=== PATIENT | male | born 1940 | race Caucasian/White ===

== ENCOUNTER → 2024-09-13 | Outpatient (REF) | payer OTHER, SELFPAY ==
[2024-09-13 10:05] LABS: Hematocrit 34.3 % (40-54); Hemoglobin 11.1 g/dL (13.0-16.5); Mean Corp Hgb Conc 32.4 g/dL (32-36); Mean Corpuscular Hgb 30.8 pg (27.0-32.0); Mean Corpuscular Volume 95.3 fL (80-94); Mean Platelet Vol. 10.5 fl (6.2-12.0); Platelet Count 447 K/mm3 (150-450); RBC Distribution Width CV 15.5 % (11.6-14.6); RBC Distribution Width SD 54.1 fl (35.1-43.9); White Blood Count 8.2 K/mm3 (4.4-11.0)
[2024-09-13 10:52] LABS: Hemoglobin A1c 6.9 % (<=5.6)
[2024-09-13 11:27] LABS: Anion Gap 11 (5-15); BUN 22 mg/dL (4-19); BUN/Creat Ratio 31.1 RATIO (10-20); Calcium,Total 8.5 mg/dL (7.6-11.0); Carbon Dioxide 24.6 mmol/L (21.0-32.0); Chloride 104 mmol/L (98-108); EST Glomerular Filtration Rate 92 (>60); Glucose 101 mg/dL (70-99); Magnesium 1.8 mg/dL (1.5-2.2); Potassium 4.5 mmol/L (3.3-5.1); Sodium Level 140 mmol/L (133-145); Vitamin D,25 Hydroxy 41.4 ng/mL (30-100)
[2024-09-13 11:42] LABS: Cholesterol 111 mg/dL (<=200); High Density Lipoprotein 29 mg/dL; Low Density Lipoprotein Calc. 62 mg/dL; Triglycerides 100 mg/dL; Very Low Density Lipoprotein 20 mg/dL (5-40)
[2024-09-14 04:55] LABS: PSA,Total - Annual Screen < 0.02 ng/mL (0.02-4.00)
== END ==
LOC: OLS.ACW400 05:00
PROVIDERS: Visit Provider Family Medicine
DX: C61 Malignant neoplasm of prostate (principal); G93.41 Metabolic encephalopathy; A41.9 Sepsis, unspecified organism; N39.0 Urinary tract infection, site not specified; E73.9 Lactose intolerance, unspecified; E11.65 Type 2 diabetes mellitus with hyperglycemia
CPT/HCPCS: 36415; 80048; 80061; 82306; 83036; 83735; 84153; 84443; 85027; G0103

== ENCOUNTER → 2024-12-11 | Outpatient (REF) | payer MEDICARE, SELFPAY ==
--- OUTSIDE RECORDS SUMMARY | 2024-12-11 04:11 | XMS RPT_ITS | CCD ---
Author Organization [facility] Care Team Providers Care [employer] Body Maker Name Role Phone Katerin Ham MD Primary Care Provider KATERIN HAM Attending KATERIN Miranda Primary Care UnavailBUTCH Bhandari MD Attending ROZ Jose Primary Care Unavailable Katerin Ham MD Primary Care Provider KATERIN HAM Primary Care UnavailZANDER Nicole Attending Unavailable FUENTES, UPMA Admitting Unavailable FUENTES, UPMA Attending Unavailable KATERIN HAM Primary Care UnavailULYSSES Jolly Consulting Unavailable Junior Garrett PA-C Unavailable ANA KIRBY Attending Unavailable ANN POON Consulting Unavailable KATERIN HAM Primary Care UnavailYVROSE Lockett Admitting Unavailable FELICIANO ORTEGA Consulting Unavailable PHILLIP ALEVISM Admitting Unavailable MICHAEL LEWIS Attending Unavaila KATERIN Riddle Primary Care UnavailGalilea Forrest MD Primary Care Provider [phone] Galilea Sue Attending Provider UnavailGalilea Regan Attending Unavailable GALILEA ADKINS Primary Care Unavailable MARIANNA LONGO Admitting Unavailable GINGER CRUZ Attending Unavailable Medications Current Medications Medication Drug Class(es) Dates Sig (Normalized) Sig (Original) albuterol 0.833 mg/ml / ipratropium bromide 0.167 mg/ml inhalation solution (7 sources) Anticholinergic, beta2-Adrenergic Agonist Start: 07-04-2024 take 3 mL by inhalation twice daily ipratropium-albut oscar (DUONEB) 0.5 mg-3 mg(2.5 mg base)/3 mL nebu Indications: Nicotine use disorder Inhale 3 mL as instructed two times a day. 60 Each 07/04/2024 Active Start: 03-23-2024 End: 07-04-2024 take 3 mL by inhalation every eight hours ipratropium-albuterol (DUONEB) 0.5 mg-3 mg(2.5 mg base)/3 mL nebu Inhale 3 mL as instructed every 8 hours. 03/23/2024 07/04/2024 Discontinued take 20-100 ug by in halation twice daily ipratropium-albuterol (Combivent Respimat) 20-100 MCG/ACT inhaler Inhale 1 puff 2 times daily. Active ascorbic acid 500 mg extended release oral capsule (11 sources) Vitamin C take 1 capsule by mo uth twice daily ascorbic acid (Vitamin C) 500 MG ER capsule Take 500 mg by mouth 2 times daily. Active take 1 tablet by mouth twice michelle ly ascorbic acid, vitamin C, (VITAMIN C) 500 mg tablet Take 500 mg by mouth two times a day. Active ASCORBIC ACID OR AL Take by mouth. 0 Active Comment on above: Take by mouth. furosemide 40 mg oral tablet (5 sources) Loop Diuretic Start: 03-23-2024 End: 07-04-2024 take 1 tablet by mouth once daily as needed furosemide (LASIX) 40 mg tablet Take 1 tablet by mouth once daily as needed (LEG SWELLING). 30 tablet 07/04/2024 Active lycopene 10 mg oral capsule (11 sources) Lycopene 10 MG capsule Take 25 mg by mouth daily. Active take 1 capsule by mo uth once daily at bedtime lycopene 10 mg cap Take 10 mg by mouth daily at bedtime. Active LYCOPENE ORAL Ta ke by mouth. 0 Active Comment on above: Take by mouth. Philo 3-6-9 Fatty Acids (OMEGA 3-6-9 COMPLEX PO) (2 sources) take 400 mg by mouth twice daily Philo 3-6-9 Fatty Acids (OMEGA 3-6-9 COMPLEX PO) Take 400 mg by mouth 2 times daily. Active [id number]-6-[id number]-EPA-DPA-FI SH OIL ORAL (8 sources) take 1 capsule by mouth twice daily MMDJB-6-WIE-EPA-DPA-FI SH OIL ORAL Take 1 capsule by mouth two times a day. Active ondansetron 4 mg disintegrating oral tablet (7 sources) Serotonin-3 Receptor Antagonist Start: 03-23-20 24 take 1 tablet by mouth every six hours as needed ondansetron orally disintegrating (ZOFRAN ODT) 4 mg disintegrating tablet Take 1 tablet by mouth every 6 hours as needed for nausea/vomiting. 03/23/2024 Active polyvinyl alcohol 0.014 ml/ml ophthalmic solution (2 sources) take 1 drop(s) into the eye(s) once daily polyvinyl alcohol (Liquifilm Tears) 1.4 % ophthalmic solution Administer 1 drop into both eyes daily. Active potassium chloride 8 meq extended release oral tablet (4 sources) Start: 07-05-19 25 Potassium Chloride (SLOW-K) 8 mEq tablet Take 1 tablet by mouth two times a day. 60 tablet 07/04/2024 Active take 1 tablet by mouth twice michelle ly potassium chloride CR (Klor-Con) 8 MEQ ER tablet Take 8 mEq by mouth 2 times daily. Do not crush, chew, or split. Active trospium chloride 20 mg oral tablet (7 sources) Cholinergic Muscarinic Antagonist Start: 03-23-2024 take 1 tablet by mouth twice daily before mealtime trospium (SANCTURA) 20 mg tablet Take 1 tablet by mouth two times a day before meals. 03/23/2024 Active ubidecarenone 50 mg oral capsule (11 sources) take 2 capsules by mouth once daily coenzyme Q-10 50 MG capsule Take 100 mg by mouth daily. Active ubidecarenone Q- 10 (COENZYME Q-10) 10 mg cap Take by mouth twice daily. Active Comment on above: Take by mouth twice daily. Completed/Discontinued Medications Medication Drug Class(es) Dates Sig (Normalized) Sig (Original) Acetaminophen (9 sources) Start: 11-04-2024 End: 11-05-2024 take 1 tablet by mouth every six hours as needed for pain and fever acetaminophen (Tylenol) tablet 650 mg Start: 03-23-2024 take 2 tablets by mo uth every six hours as needed acetaminophen (TYLENOL) 325 mg tablet Take 2 tablets by mouth every 6 hours as needed for pain. 03/23/2024 Active apixaban 5 mg oral tablet (13 sources) Factor Xa Inhibitor Start: 11-04-2024 End: 11-05-2024 take 5 mg by mouth twice daily 5 mg, Oral, 2 times daily, First dose on 11/04/24 at 2100, Anticoagulant Comment on above: Take 5 mg by mouth t wice daily. atenolol 50 mg oral tablet (1 source) beta-Adrenergic Keesha take 50 mg by mouth once daily ATENOLOL ORAL Take 50 mg by mouth once daily. 0 Active Comment on above: Take 50 mg by mouth once daily. atorvastatin 20 mg oral tablet (13 sources) HMG-CoA Reductase Inhibitor Start: 11-04-2024 End: 11-05-2024 take 20 mg by mouth once daily 20 mg, Oral, Nightly, First dose on 11/04/24 at 2100 take 10 mg by mouth once daily a torvastatin (LIPITOR) 20 mg tablet Take 10 mg by mouth once daily. 0 Active Comment on above: Take 10 mg by mouth once daily. cholecalciferol 0.025 mg oral tablet (12 sources) Vitamin D Start: 11-05-2024 End: 11-05-2024 take 25 ug by mouth once daily 25 mcg, Oral, Daily, First dose on 11/05/24 at 0900 take 1 tablet by mouth twice michelle ly cholecalciferol (Vitamin D-3) 25 MCG tablet Take 25 mcg by mouth 2 times daily. Active take 1 tablet by mouth twice michelle ly cholecalciferol (VITAMIN D3) 1,000 unit tab tablet Take 1,000 Units by mouth two times a day. Active cholecalciferol 9.52 unt/ml / glucose 357 mg/ml oral gel (2 sources) Vitamin D Start: 11-04-2024 End: 11-05-2024 CHOLECALCIFEROL, VITAMIN D3, ORAL (1 source) CHOLECALCIFEROL , VITAMIN D3, ORAL Take 100 tablets by mouth. 0 Active Comment on above: Take 100 tablets by mouth. 24 hr dilTIAZem hydrochloride 240 mg extended release oral capsule (11 sources) Calcium Channel Keesha Start: 11-05-2024 End: 11-05-2024 take 240 mg by mouth once daily 240 mg, Oral, Daily, First dose on 11/05/24 at 0900, Do not crush, chew, or split. Start: 03-24-2024 take 1 capsule by [facility] once daily dilTIAZem CD 360 mg 24 hr capsule Take 1 capsule by mouth once daily. 03/24/2024 Active docosahexaenoic acid/epa (FISH OIL ORAL) (1 source) docosahexaenoic acid/epa (FISH OIL ORAL) Take by mouth. 0 Active Comment on above: Take by mouth. escitalopram 10 mg oral tablet (6 sources) Serotonin Reuptake Inhibitor Start: End: take 10 mg by mouth once daily 10 mg, Oral, Daily, First dose on 11/05/24 at 0900 garlic preparation 500 mg oral capsule (1 source) Non-Standardized Food Allergenic Extract GARLIC ORAL Take 500 mg by mouth. 0 Active Comment on above: Take 500 mg by mouth . glucagon (rdna) 1 mg injection (2 sources) Antihypoglycemic Agent Start: End: 50 ml glucose 50 mg/ml injection (4 sources) Start: End: Start: 11-04-2024 End: 11-05-2024 glycerin 3 mg/ml / propylene glycol 10 mg/ml ophthalmic solution (2 sources) Non-Standardized Chemical Allergen Start: 11-05-2024 End: 11-05-2024 1 drop, Both Eyes, Daily, First dose on 11/05/24 at 0900 Insulin Lispro (Humalog) injection 0-6 Units (2 sources) Start: 11-04-2024 End: 11-05-2024 Insulin Lispro (Humalog) injection 0-6 Units lactase 3000 unt oral tablet (4 sources) Start: 11-04-2024 End: 11-05-2024 take 9000 [IU] by mouth three times daily at mealtime 9,000 Units, Oral, 3 times daily with meals, First dose on 11/04/24 at 1900 take 3 tablets by [facility] three times daily at mealtime lactase (Lactaid) 3000 units tablet Take 9,000 Units by mouth 3 times daily (with meals). Active levETIRAcetam 500 mg oral tablet (12 sources) Start: 03-23-2024 End: 11-05-2024 take 500 mg by mouth twice daily 500 mg, Oral, 2 times daily, First dose on 11/04/24 at 2100, Do not crush or chew. Start: 05-01-2017 take 1 tablet by spenser th twice daily levETIRAcetam (KEPPRA) 750 mg tablet Take 1 tablet by mouth twice daily. 60 tablet 2 05/01/2017 Active Comment on above: Take 1 tablet by spenser th twice daily. losartan potassium 100 mg oral tablet (1 source) Angiotensin 2 Receptor Keesha take 1 tablet by mouth once daily losartan (COZAAR) 100 mg tablet Take 100 mg by mouth once daily. 0 Active Comment on above: Take 100 mg by mouth once daily. metFORMIN hydrochloride 500 mg oral tablet (6 sources) Biguanide Start: End: metoprolol tartrate 50 mg oral tablet (11 sources) beta-Adrenergic Keesha Start: End: Start: 03-23-2024 take 1 tablet by spenser th every twelve hours metoprolol tartrate, short acting, (LOPRESSOR) 100 mg tablet Take 1 tablet by mouth every 12 hours. 03/23/2024 Active 24 hr mirabegron 50 mg extended release oral tablet (4 sources) beta3-Adrenergic Agonist End: 07-04-2024 take 50 mg by mouth once daily mirabegron (MYRBETRIQ) 50 mg Tb24 Take 50 mg by mouth once daily. 07/04/2024 Discontinued pantoprazole 40 mg delayed release oral tablet (9 sources) Proton Pump Inhibitor Start: 07-05-2024 End: 11-05-2024 take 40 mg by mouth once daily before breakfast 40 mg, Oral, Daily before breakfast, First dose on 11/05/24 at 0600, Do not crush, chew, or split. Start: 03-23-2024 End: 07-04-2024 take 1 tablet by mouth twice daily before mealtime pantoprazole DR (PROTONIX) 40 mg tablet Take 1 tablet by mouth two times a day before meals. 03/23/2024 07/04/2024 Discontinued polyethylene glycol 3350 23689 mg powder for oral solution (2 sources) Osmotic Laxative Start: 11-04-2024 End: 11-05-2024 take 17 g by mouth every twenty-four hours as needed for constipation potassium gluconate 2.5 meq oral tablet (5 sources) End: 07-04-2024 take 1 tablet by mouth once daily Potassium Gluconate 2.5 mEq tab Take 2.5 mEq by mouth once daily. 07/04/2024 Discontinued POTASSIUM GLUCON ATE ORAL Take by mouth. 0 Active Comment on above: Take by mouth. 50 ml sodium chloride 9 mg/ml injection (2 sources) Start: 11-04-2024 End: 11-04-2024 1,000 mL, IntraVENous, at 1,000 mL/hr, Administer over 1 Hours, Once, On 11/04/24 at 1600, For 1 dose tamsulosin hydrochloride 0.4 mg oral capsule (13 sources) alpha-Adrenergic Keesha Start: 11-05-2024 End: 11-05-2024 take 0.8 mg by mouth once daily 0.8 mg, Oral, Daily, First dose on 11/05/24 at 0900, Do not crush, chew, or split. Comment on above: Take 0.8 mg by mouth daily at bedtime. Problems Active Problems Problem Classification Problem Date Documented Date Episodic/Chronic Acute cerebrovascular disease (12 sources) Cerebrovascular accident; Translations: [Cerebral infarction, unspecified] Onset: 04-29-2017 05-01-2017 Chronic Cancer of bladder (10 sources) Malignant tumor of urinary bladder; Translations: [Malignant neoplasm of bladder, unspecified] Onset: 06-26-2021 06-26-2021 Chronic Cancer of prostate (10 sources) Malignant tumor of prostate; Translations: [Malignant neoplasm of prostate] Onset: 06-26-2021 06-26-2021 Chronic Cardiac dysrhythmias (20 sources) Atrial fibrillation with rapid ventricular response; Translations: [Unspecified atrial fibrillation] Onset: 04-29-2017 Resolved: 03-23-2024 05-01-2017 Chronic Cardiac dysrhythmias (8 sources) Bradycardia; Translations: [Bradycardia, unspecified] Onset: 11-04-2024 11-04-2024 Episodic Chronic obstructive pulmonary disease and bronchiectasis (10 sources) Centriacinar emphysema; Translations: [Centrilobular emphysema] Onset: 03-20-2024 03-21-2024 Chronic Congestive heart failure; nonhypertensive (8 sources) Acute on chronic diastolic heart failure; Translations: [Acute on chronic diastolic (congestive) heart failure] Onset: 03-14-2024 Resolved: 03-23-2024 03-23-2024 Chronic Diabetes mellitus with complications (1 source) Type 2 diabetes mellitus with hyperglycemia; Translations: [Type 2 diabetes mellitus with hyperglycemia] Onset: 11-17-2024 Chronic Disorders of lipid metabolism (11 sources) Mixed hyperlipidemia; Translations: [Mixed hyperlipidemia] Onset: 04-29-2017 06-26-2021 Chronic E Codes: Fall (5 sources) Unspecified fall, initial encounter; Translations: [Fall] Onset: 09-06-2024 11-04-2024 Episodic Epilepsy; convulsions (20 sources) Seizure disorder; Translations: [Epilepsy, unspecified, not intractable, without status epilepticus] Onset: 04-29-2017 Resolved: 05-01-2017 06-26-2021 Chronic Essential hypertension (14 sources) Essential hypertension; Translations: [Essential (primary) hypertension] Onset: 06-26-2021 06-26-2021 Chronic Fever of unknown origin (1 source) Fever, unspecified; Translations: [Febrile illness] Onset: 09-06-2024 Episodic Malaise and fatigue (1 source) Weakness; Translations: [Weakness] Onset: 09-06-2024 Episodic Miscellaneous mental health disorders (2 sources) Primary insomnia; Translations: [Primary insomnia] 07-27-2024 Chronic Mood disorders (6 sources) Severe major depression, single episode, without psychotic features; Translations: [Major depressive disorder, single episode, severe without psychotic features] Onset: 06-27-2024 06-27-2024 Chronic Mood disorders (1 source) Mood disorders; Translations: [Depression with suicidal ideation] Onset: 06-26-2024 Nutritional deficiencies (6 sources) Undernutrition; Translations: [Mild protein-calorie malnutrition] Onset: 06-30-2024 06-30-2024 Chronic Other circulatory disease (1 source) Hypotension, unspecified; Translations: [Hypotension, unspecified hypotension type] Onset: 09-06-2024 Episodic Other circulatory disease (3 sources) Idiopathic hypotension; Translations: [Idiopathic hypotension] Onset: 11-04-2024 11-04-2024 Episodic Other circulatory disease (1 source) Idiopathic hypotension; Translations: [Idiopathic hypotension] Onset: 11-04-2024 Episodic Other nervous system disorders (1 source) Metabolic encephalopathy; Translations: [Metabolic encephalopathy] Onset: 11-17-2024 Chronic Other nutritional; endocrine; and metabolic disorders (1 source) Lactose intolerance, unspecified; Translations: [Lactose intolerance, unspecified] Onset: 11-17-2024 Chronic Residual codes; unclassified (3 sources) Insomnia; Translations: [Insomnia, unspecified] Onset: 07-27-2024 07-27-2024 Episodic Septicemia (except in labor) (1 source) Sepsis, unspecified organism; Translations: [Sepsis, unspecified organism] Onset: 11-17-2024 Episodic Substance-related disorders (10 sources) Nicotine dependence; Translations: [Nicotine dependence, unspecified, uncomplicated] Onset: 04-29-2017 05-01-2017 Chronic Suicide and intentional self-inflicted injury (1 source) Suicidal ideations; Translations: [Depression with suicidal ideation] Onset: 06-26-2024 Episodic Urinary tract infections (2 sources) Acute cystitis without hematuria; Translations: [Urinary tract infection, site not specified] Onset: 09-06-2024 Episodic Past or Other Problems Problem Classification Problem Date Documented Date Episodic/Chronic Nausea and vomiting (8 sources) Nausea and vomiting; Translations: [Nausea with vomiting, unspecified] Onset: 03-21-2024 Resolved: 03-23-2024 03-23-2024 Episodic Nonspecific chest pain (1 source) Chest pain, unspecified; Translations: [Chest pain, unspecified type] Onset: 03-13-2024 Episodic Other circulatory disease (9 sources) History of cerebrovascular accident; Translations: [Personal history of transient ischemic attack (TIA), and cerebral infarction without residual deficits] Onset: 06-26-2021 06-26-2021 Episodic Other circulatory disease (1 source) Personal history of transient ischemic attack (TIA), and cerebral infarction without residual deficits; Translations: [H/O: stroke] Onset: 06-26-2021 Episodic Other lower respiratory disease (8 sources) Acute pulmonary edema; Translations: [Acute pulmonary edema] Onset: 03-17-2024 Resolved: 03-23-2024 03-23-2024 Episodic Other lower respiratory disease (1 source) Shortness of breath; Translations: [SOB (shortness of breath)] Onset: 03-13-2024 Episodic Other lower respiratory disease (1 source) Hypoxemia; Translations: [Hypoxia] Onset: 03-13-2024 Episodic Pneumonia (except that caused by tuberculosis or sexually transmitted disease) (8 sources) Pneumonia; Translations: [Pneumonia, unspecified organism] Onset: 03-20-2024 Resolved: 03-23-2024 03-23-2024 Episodic Respiratory failure; insufficiency; arrest (adult) (8 sources) Acute hypoxemic respiratory failure; Translations: [Acute respiratory failure with hypoxia] Onset: 04-29-2017 Resolved: 03-23-2024 03-23-2024 Episodic Syncope (8 sources) Vasovagal syncope; Translations: [Syncope and collapse] Onset: 03-21-2024 Resolved: 03-23-2024 03-23-2024 Episodic Results Test Name Value Interpretation Reference Range Facility 30on 11-05-2024 30 Problem: Cardiovascular - Adult Goal: Maintains optimal cardiac output and hemodynamic stability Outcome: Progressing Goal: Absence of cardiac dysrhythmias or at baseline Outcome: Progressing Problem: Skin/Tissue Integrity - Adult Goal: Skin integrity remains intact Outcome: Progressing Problem: Musculoskeletal - Adult Goal: Return ADL status to a safe level of function Outcome: Progressing Problem: Metabolic/Fluid and Electrolytes - Adult Goal: Electrolytes maintained within normal limits Outcome: Progressing Goal: Hemodynamic stability and optimal renal function maintained Outcome: Progressing Normal [facility] [id number] 11-05-2024 [id number] Pt to dc back to facility today - Facility aware and RN to call report and set up transportation. SYED is complete by provider and myself. CM placed call to son earlier in the day, discussed discharge - he is aware that father is returning to facility today. [facility] [id number] Pt is from [facility] in [place] - Return placed in [facility] - Pt is from [facility] and is in LTC. He can return when stable. Number to call report is: [phone] - [address] [facility] BASIC METABOLIC PANELon 07-2 Anion gap [Moles/Vol] 8 mmol/L Normal 3-13 [facility] Comment on above: Performed By: #### L [id number] ####Headwaiter/Headwaitress: LEONIE GONCALVES ([phone])[facility] ([facility])[address] [place] [address] Calcium [Mass/Vol] 7.8 mg/dL Low 8.8-10.0 [facility] Comment on above: Performed By: #### L [id number] ####Headwaiter/Headwaitress: LEONIE GONCALVES ([phone])[facility] [place] [address] Chloride [Moles/Vol] 109 mmol/L High 98-107 [facility] Comment on above: Performed By: #### L [id number] ####Headwaiter/Headwaitress: LEONIE GONCALVES ([phone])[facility] ([facility])[address] [place] [address] CO2 [Moles/Vol] 20 mmol/L Low 23-31 [facility] Comment on above: Performed By: #### L [id number] ####Headwaiter/Headwaitress: LEONIE GONCALVES ([phone])[facility] ([facility])[address] [place] [address] Creatinine [Mass/Vol] 0.65 mg/dL Low 0.72-1.25 [facility] Comment on above: Performed By: #### L [id number] ####Headwaiter/Headwaitress: LEONIE GONCALVES ([phone])[facility])[address] [place] [address] GLOMERULAR FILTRATION RATE ML/MIN/1.73 SQ M.PREDICTED >90.0 Normal >60.0 [facility] Comment on above: Result Comment: Calc ulation based on the Chronic Kidney Disease Epidemiology Collaboration (CKD-EPI) equation refit without adjustment for race Performed By: #### L [id number] ####Headwaiter/Headwaitress: LEONIE GONCALVES ([phone])[facility] ([facility])[address] [place] [address] [place] Glucose [Mass/Vol] 143 mg/dL High 82-115 [facility] Comment on above: Performed By: #### L [id number] ####Headwaiter/Headwaitress: LEONIE GONCALVES ([phone])[facility] ([facility])[address] [place] [address] [place] Potassium [Moles/Vol] 3.8 mmol/L Normal 3.5-5.1 [facility] Comment on above: Result Comment: [facility] potassium values may be up to 0.5 mmol/L lower than serum values. Performed By: #### L [id number] ####Headwaiter/Headwaitress: LEONIE GONCALVES ([phone])[facility] ([facility])[address] [place] [address] Sodium [Moles/Vol] 137 mmol/L Normal 136-145 [facility] Comment on above: Performed By: #### L [id number] ####Headwaiter/Headwaitress: LEONIE GONCALVES ([phone])[facility] ([facility])[address] [place] [address] Urea nitrogen [Mass/Vol] 19 mg/dL Normal 9-23 [facility] Comment on above: Performed By: #### L [id number] ####Headwaiter/Headwaitress: LEONIE GONCALVES ([phone])[facility] ([facility] [place] [address] Basic metabolic 1998 panelon 11-05-2024 Anion gap [Moles/Vol] 8 mmol/L 3 - 13 mmol/L [facility] Calcium [Mass/Vol] 7.8 mg/dL Low 8.8 - 10. 0 mg/dL [facility] Chloride [Moles/Vol] 109 mmol/L High 98 - 10 7 mmol/L [facility] CO2 [Moles/Vol] 20 mmol/L Low 23 - 31 mmol/L [facility] Creatinine [Mass/Vol] 0.65 mg/dL Low 0.72 - 1.25 mg/dL [facility] GFR/1.73 sq M.predicted (S/P/Bld) [Vol rate/Area] - PINF [facility] Comment on above: Calculation based on the Chronic Kidney Disease Epidemiology Collaboration (CKD-EPI) equation refit without adjustment for race Glucose [Mass/Vol] 143 mg/dL High 82 - 115 mg/dL [facility] Interpretation and review of laboratory results Abnormal [facility] Potassium [Moles/Vol] 3.8 mmol/L 3.5 - 5.1 mmol/L [facility] Comment on above: Plasma potassium kyle ues may be up to 0.5 mmol/L lower than serum values. Sodium [Moles/Vol] 137 mmol/L 136 - 145 mmol/L [facility] Urea nitrogen [Mass/Vol] 19 mg/dL 9 - 23 mg/d L [facility] CBC W Auto Differential pane l (Bld)Ordered By: Mackenzie Sandoval on 11-05-2024 Erythrocyte distribution width (RBC) [Ratio] 14.8 % 11.5 - 15.0 % [facility] Hematocrit (Bld) [Volume fraction] 29.2 % Low 40.0 - 52.0 % [facility] Hemoglobin (Bld) [Mass/Vol] 9.7 g/dL Low 13.0 - 18.0 g/dL [facility] Interpretation and review of laboratory results Abnormal [facility] MCH (RBC) [Entitic mass] 31.9 pg 26. 0 - 34.0 pg [facility] MCHC (RBC) [Mass/Vol] 33.2 % 30.5 - 36.0 % [facility] MCV (RBC) [Entitic vol] 96.1 fL 77.0 - 99.0 fL [facility] Platelet mean volume (Bld) [Entitic vol] 10.8 fL 9.0 - 12.7 fL [facility] Platelets (Bld) [#/Vol] 220 10*3/uL 140 - 440 10*3/uL [facility] RBC (Bld) [#/Vol] 3.04 10*6/uL Low 4.40 - 5.9 0 10*6/uL [facility] WBC (Bld) [#/Vol] 6.6 10*3/uL 3.6 - 10.7 10*3/uL [facility] CBC WITH AUTO DIFFERENTIALon 11-05-2024 Erythrocyte distribution width (RBC) [Ratio] 14.8 % Normal 11.5-15.0 [facility] Comment on above: Performed By: #### L [id number], [id number] ####Headwaiter/Headwaitress: LEONIE GONCALVES ([id number])[address] Hematocrit (Bld) [Volume fraction] 29.2 % Low 40.0-52.0 [facility] Comment on above: Performed By: #### L [id number], [id number] ####Headwaiter/Headwaitress: LEONIE GONCALVES ([phone])[facility] ([facility])[address] [place] [address] Hemoglobin (Bld) [Mass/Vol] 9.7 g/dL Low 13.0-18.0 [facility] Comment on above: Performed By: #### L [id number], [id number] ####Headwaiter/Headwaitress: LEONIE GONCALVES ([phone])[facility])[address] [place] [address] MCH (RBC) [Entitic mass] 31.9 pg Normal 26.0-34.0 [facility] Comment on above: Performed By: #### L [id number], [id number] ####Headwaiter/Headwaitress: LEONIE GONCALVES ([phone])[facility])[address] [place] [address] MCHC 33.2 % Normal 30.5-36.0 [facility] Comment on above: Performed By: #### L [id number], [id number] ####Headwaiter/Headwaitress: LEONIE GONCALVES ([phone])[facility] ([facility])[address] [place] [address] MCV (RBC) [Entitic vol] 96.1 fL Normal 77.0-99.0 [facility] Comment on above: Performed By: #### L [id number], [id number] ####Headwaiter/Headwaitress: LEONIE GONCALVES ([phone])[facility])[address] [place] [address] Platelet mean volume (Bld) [Entitic vol] 10.8 fL Normal 9.0-12.7 [facility] Comment on above: Performed By: #### L [id number], [id number] ####Headwaiter/Headwaitress: LEONIE GONCALVES ([phone])[facility])[address] [place] [address] Platelets (Bld) [#/Vol] 220 10*3/uL Normal 140-440 [facility] Comment on above: Performed By: #### L [id number], [id number] ####Headwaiter/Headwaitress: LEONIE [phone])[facility] ([facility])[address] [place] [address] RBC (Bld) [#/Vol] 3.04 10*6/uL Low 4.40-5.90 [facility] Comment on above: Performed By: #### L [id number], [id number] ####Headwaiter/Headwaitress: LEONIE GONCALVES ([phone])[facility] ([facility])[address] [place] [address] WBC (Bld) [#/Vol] 6.6 10*3/uL Normal 3.6-10.7 [facility] Comment on above: Performed By: #### L [id number], [id number] ####Headwaiter/Headwaitress: LEONIE GONCALVES ([phone])[facility])[address] [place] [address] ECG 12-LEADon 11-05-2024 ECG 12-LEAD IMPRESSION: Sinus bradycardia Multiple premature complexes, vent AND supraven Right bundle branch block Inferior infarct, old Minimal ST changes, lateral leads Electronically Signed On 11-05-2024 00:43:06 EDT by Jaciel Callejas Normal [facility] Laboratory - Chemistry and C hemistry - challengeon 11-05-2024 Glucose [Mass/Vol] 170 mg/dL High 70 - 100 mg/dL [facility] Glucose [Mass/Vol] 110 mg/dL High 70 - 100 mg/dL [facility] Glucose [Mass/Vol] 139 mg/dL High 70 - 100 mg/dL [facility] MANUAL DIFFERENTIALon 2024 BAND NEUTROPHILS TOTAL PER COUNTED LEUKOCYTES BY MANUAL COUNT 15 Normal [facility] Comment on above: Performed By: #### L [id number], [id number] ####Headwaiter/Headwaitress: LEONIE GONCALVES ([phone])[facility] ([facility])[address] [place] [address] BANDS 0.6 10*3/uL High <=0.0 [facility] Comment on above: Performed By: #### L [id number], [id number] ####Headwaiter/Headwaitress: LEONIE GONCALVES ([phone])[facility])[address] [place] [address] [place] BASOPHILS (10*3/UL) IN BLOOD BY MANUAL COUNT 0.0 10*3/uL Normal 0.0-0.2 [facility] Comment on above: Performed By: #### L [id number], [id number] ####Headwaiter/Headwaitress: LEONIE GONCALVES ([phone])[facility] ([facility])[address] [place] [address] [place] BASOPHILS TOTAL PER COUNTED LEUKOCYTES BY MANUAL COUNT 1 Normal [facility] Comment on above: Performed By: #### L [id number], [id number] ####Headwaiter/Headwaitress: LEONIE GONCALVES ([phone])[facility] ([facility])[address] [place] [address] [place] BASOPHILS/100 LEUKOCYTES IN BLOOD BY MANUAL COUNT 1 % Normal 0-2 [facility] Comment on above: Performed By: #### L [id number], [id number] ####Headwaiter/Headwaitress: LEONIE GONCALVES ([phone])[facility] ([facility])[address] [place] [address] [place] CELLS COUNTED TOTAL (#) IN BLOOD 154 Normal [facility] Comment on above: Performed By: #### L [id number], [id number] ####Headwaiter/Headwaitress: LEONIE GONCALVES ([phone])[facility] ([facility])[address] [place] [address] [place] EOSINOPHILS (10*3/UL) IN BLOOD BY MANUAL COUNT 0.2 10*3/uL Normal 0.0-0.5 [facility] Comment on above: Performed By: #### L [id number], [id number] ####Headwaiter/Headwaitress: LEONIE GONCALVES ([phone])[facility] ([facility])[address] [place] [address] [place] EOSINOPHILS TOTAL PER COUNTED LEUKOCYTES BY MANUAL COUNT 5 High 0-1 [facility] Comment on above: Performed By: #### L [id number], [id number] ####Headwaiter/Headwaitress: LEONIE GONCALVES ([phone])[facility] ([facility])[address] [place] [address] [place] EOSINOPHILS/100 LEUKOCYTES IN BLOOD BY MANUAL COUNT 3 % Normal 0-6 [facility] Comment on above: Performed By: #### L [id number], [id number] ####Headwaiter/Headwaitress: LEONIE GONCALVES ([phone])[facility])[address] [place] [address] LEUKOCYTE MORPHOLOGY FINDING IN BLOOD Normal Normal [facility] Comment on above: Performed By: #### L [id number], [id number] ####Headwaiter/Headwaitress: LEONIE GONCALVES ([phone])[facility])[address] [place] [address] LEUKOCYTES (10*3/UL) NUCLEATED ERYTHROCYTE ADJUST 6.6 10*3/uL Normal 3.6-10.7 [facility] Comment on above: Performed By: #### L [id number], [id number] ####Headwaiter/Headwaitress: LEONIE GONCALVES ([phone])[facility])[address] [place] [address] LYMPHOCYTES (10*3/UL) IN BLOOD BY MANUAL COUNT 1.5 10*3/uL Normal 1.0-4.3 [facility] Comment on above: Performed By: #### Damon [id number], [id number] ####Headwaiter/Headwaitress: LEONIE GONCALVES ([phone])[facility])[address] [place] [address] LYMPHOCYTES TOTAL PER COUNTED LEUKOCYTES BY MANUAL COUNT 34 Normal [facility] Comment on above: Performed By: #### Damon [id number], [id number] ####Headwaiter/Headwaitress: LEONIE GONCALVES ([phone])[facility])[address] [place] [address] [place] LYMPHOCYTES/100 LEUKOCYTES IN BLOOD BY MANUAL COUNT 22 % Normal 15-45 [facility] Comment on above: Performed By: #### L [id number], [id number] ####Headwaiter/Headwaitress: LEONIE GONCALVES ([phone])[facility])[address] [place] [address] [place] MONOCYTES (10*3/UL) IN BLOOD BY MANUAL COUNT 0.6 10*3/uL Normal 0.0-0.9 [facility] Comment on above: Performed By: #### L [id number], [id number] ####Headwaiter/Headwaitress: LEONIE GONCALVES ([phone])[facility] ([facility])[address] [place] [address] [place] MONOCYTES TOTAL PER COUNTED LEUKOCYTES BY MANUAL COUNT 13 Normal [facility] Comment on above: Performed By: #### L [id number], [id number] ####Headwaiter/Headwaitress: LEONIE GONCALVES ([phone])[facility] ([facility])[address] [place] [address] [place] MONOCYTES/100 LEUKOCYTES IN BLOOD BY MANUAL COUNT 8 % Normal 5-13 [facility] Comment on above: Performed By: #### L [id number], [id number] ####Headwaiter/Headwaitress: LEONIE GONCALVES ([phone])[facility] ([facility])[address] [place] [address] MYELOCYTES (10*3/UL) IN BLOOD BY MANUAL COUNT 0.0 10*3/uL Normal <=0.0 [facility] Comment on above: Performed By: #### Damon [id number], [id number] ####Headwaiter/Headwaitress: LEONIE GONCALVES ([phone])[facility] ([facility])[address] [place] [address] MYELOCYTES COUNTED BY MANUAL COUNT 1 Normal [facility] Comment on above: Result Comment: ORDE R COMMENTS: Few burak cells Performed By: #### L [id number], [id number] ####Headwaiter/Headwaitress: LEONIE GONCALVES ([phone])[facility] ([facility])[address] [place] [address] [place] MYELOCYTES/100 LEUKOCYTES IN BLOOD BY MANUAL COUNT 1 % High <=0 [facility] Comment on above: Performed By: #### L [id number], [id number] ####Headwaiter/Headwaitress: LEONIE GONCALVES ([phone])[facility])[address] [place] [address] NEUTROPHILS (SEGS+BANDS) (10*3/UL) BY MANUAL COUNT 4.3 10*3/uL Normal 1.8-7.0 [facility] Comment on above: Performed By: #### L [id number], [id number] ####Headwaiter/Headwaitress: LEONIE GONCALVES ([phone])[facility] ([facility])[address] [place] [address] [place] NEUTROPHILS BAND FORM/100 LEUKOCYTES IN BLOOD BY MANUAL COUNT 10 % High <=0 [facility] Comment on above: Performed By: #### L [id number], [id number] ####Headwaiter/Headwaitress: LEONIE GONCALVES ([phone])[facility] ([facility])[address] [place] [address] [place] NEUTROPHILS TOTAL PER COUNTED LEUKOCYTES BY MANUAL COUNT 85 Normal [facility] Comment on above: Performed By: #### L [id number], [id number] ####Headwaiter/Headwaitress: LEONIE GONCALVES ([phone])[facility] [place] [address] PLATELET MORPHOLOGY IN BLOOD Normal Normal [facility] Comment on above: Performed By: #### L [id number], [id number] ####Headwaiter/Headwaitress: LEONIE GONCALVES ([phone])[facility] ([facility])[address] [place] [address] [place] RBC MORPHOLOGY IN BLOOD Normal Normal [facility] Comment on above: Performed By: #### L [id number], [id number] ####Headwaiter/Headwaitress: LEONIE GONCALVES ([phone])[facility] ([facility])[address] [place] [address] [place] SEGEMENTED NEUTROPHILS/100 LEUKOCYTES BY MANUAL COUNT 55 % Normal 38-82 [facility] Comment on above: Performed By: #### L [id number], [id number] ####Headwaiter/Headwaitress: LEONIE GONCALVES ([phone])[facility] ([facility] [place] [address] [place] SEGMENTED NEUTROPHILS (10*3/UL)IN BLOOD BY MANUAL COUNT 4.3 10*3/uL Normal 1.8-7.5 [facility] Comment on above: Performed By: #### L [id number], [id number] ####Headwaiter/Headwaitress: LEONIE GONCALVES ([phone])[facility] ([facility])[address] [place] [address] Manual differential performe d Ql (Bld)Ordered By: Dipak Moreland on 11-05-2024 Band form neutrophils (Bld) [#/Vol] 0.6 10*3/uL High NINF - 0.0 10*3/uL [facility] Band form neutrophils/100 WBC (Bld) 10 % High NINF - 0 % [facility] Bands Manual 15 [facility] Basophils (Bld) [#/Vol] 0 10*3/uL 0.0 - 0.2 10*3/uL [facility] Basophils Manual 1 [facility] Basophils/100 WBC (Bld) 1 % 0 - 2 % [facility] Cells Counted Total (Bld) [#] 154 {cells} [facility] Eosinophils (Bld) [#/Vol] 0.2 10*3/uL 0.0 - 0.5 10*3/uL [facility] Eosinophils Manual 5 High 0 - 1 [facility] Eosinophils/100 WBC (Bld) 3 % 0 - 6 % [facility] Interpretation and review of laboratory results Abnormal [facility] Leukocyte morphology finding Nom (Bld) Normal [facility] Lymphocytes (Bld) [#/Vol] 1.5 10*3/uL 1.0 - 4.3 10*3/uL [facility] Lymphocytes Manual 34 [facility] Lymphocytes/100 WBC (Bld) 22 % 15 - 45 % [facility] Monocytes (Bld) [#/Vol] 0.6 10*3/uL 0.0 - 0.9 10*3/uL [facility] Monocytes Manual 13 [facility] Monocytes/100 WBC (Bld) 8 % 5 - 13 % [facility] Myelocytes (Bld) [#/Vol] 0 10*3/uL HARI F - 0.0 10*3/uL [facility] Myelocytes Manual 1 [facility] Myelocytes/100 WBC (Bld) 1 % High NINF - 0 % [facility] Neutrophils (Bld) [#/Vol] 4.3 10*3/uL 1.8 - 7.5 10*3/uL [facility] Neutrophils Manual 85 [facility] Platelet morphology finding Nom (Bld) Normal [facility] RBC morphology finding Nom (Bld) Normal [facility] Segmented neutrophils/100 WBC (Bld) 55 % 38 - 82 % [facility] WBC corrected for nucl RBC (Bld) [#/Vol] 6.6 10*3/uL 3.6 - 10.7 10*3/uL [facility] Few burak cells [facility] No Panel Informationon 11-05 Interpretation and review of laboratory results Abnormal [facility] Performed by: [facility], [address] [place] [address], [facility] [address] CLIA ID: [id number] [facility] Interpretation and review of laboratory results Abnormal [facility] Performed by: [facility], [address] [place] [address], [facility] [address] CLIA ID: [id number] [facility] Interpretation and review of laboratory results Abnormal [facility] Performed by: [facility], [address] [place] [address], [facility] [address] CLIA ID: [id number] [facility] Sinus bradycardia Multiple premature complexes, vent & supraven Right bundle branch block Inferior infarct, old Minimal ST changes, lateral leads Electronically Signed On 11-05-2024 00:43:06 EDT by Jaciel Armenta DO - 11/05/2024 IMPRESSION: Sinus bradycardia Multiple premature complexes, vent & supraven Right bundle branch block Inferior infarct, old Minimal ST changes, lateral leads Electronically Signed On 11-05-2024 00:43:06 EDT by Jaciel Callejas [facility] Patient [employer] No Panel InformationOrdered By: Jaciel Callejas on 11-05-2024 P [place] 87 degrees [facility] Work Phone: UT Interval 154 ms [facility] Work Phone: QRS [place] 12 degrees [facility] Work Phone: QRSD Interval 131 ms [facility] Work Phone: QT Interval 479 ms [facility] Work Phone: QTC Interval 437 ms [facility] Work Phone: T Wave [place] 0 degrees [facility] Work Phone: [facility] Work Phone: Nursing Noteon 11-05-2024 Nursing Note Patient has active discharge order, but echocardiogram has not yet resulted. 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 Normal [facility] [employer] [facility] US Heart TransthoracicOrdere d By: Zander Owen on 11-05-2024 Aortic Sinus Valsalva 3.4 cm [facility] Work Phone: Aortic Sinus Valsalva Index 1.88 cm/m2 [facility] Work Phone: Aortic valve Mean systole pressure gradient by US.doppler derived full Bernoulli 4 [facility] Work Phone: Aortic valve Orifice area by US 3.5 cm2 [facility] Work Phone: Aortic valve Peak systolic flow by US.doppler 0.9 m/s [facility] Work Phone: AR Max Velocity PISA 5.1 m/s [facility] Work Phone: AR PHT 481.4 ms [facility] Work Phone: Ascending Aorta 3.2 cm [facility] Work Phone: Ascending Aorta Index 1.77 cm/m2 [facility] Work Phone: AV Area by Peak Velocity 1.9 cm2 [facility] Work Phone: AV Area by VTI 2.1 cm2 [facility] Work Phone: AV Peak Gradient 8 mmHg [facility] Work Phone: AV Peak Velocity 1.4 m/s [facility] Work Phone: AV Velocity Ratio 0.57 [facility] Work Phone: AV VTI 35.6 cm [facility] Work Phone: JUAN/BSA Peak Velocity 1 cm2/m2 [facility] Work Phone: JUAN/BSA VTI 1.2 cm2/m2 [facility] Work Phone: E/E' Lateral 9.91 [facility] Work Phone: E/E' Ratio (Averaged) 11.01 [facility] [employer] Work Phone: E/E' Septal 12.11 [facility] [employer] Work Phone: Est. RA Pressure 8 mmHg [facility] Work Phone: Fractional Shortening 2D 38 % 28 - 44 % [facility] [employer] Work Phone: Interpretation and review of laboratory results Abnormal [facility] [employer] Work Phone: IVC Diameter 2.2 cm [facility] [employer] Work Phone: IVSd 1.1 cm Abnormal 0.6 - 1.0 cm [facility] [employer] Work Phone: [phone] LA Diameter 4.8 cm [facility] [employer] Work Phone: [phone] LA Size Index 2.65 cm/m2 [facility] [employer] Work Phone: [phone] LA Volume 2C 90 mL Abnormal 18 - 58 mL [facility] [employer] Work Phone: [phone] LA Volume 4C 67 mL Abnormal 18 - 58 mL [facility] [employer] Work Phone: LA Volume A/L 84 mL [facility] Work Phone: [phone] LA Volume BP 78 mL Abnormal 18 - 58 mL [facility] [employer] Work Phone: LA Volume Index 2C 50 mL/m2 Abnormal 16 - 34 mL/m2 [facility] [employer] Work Phone: [phone] LA Volume Index 4C 37 mL/m2 Abnormal 16 - 34 mL/m2 [facility] [employer] Work Phone: [phone] LA Volume Index A/L 46 mL/m2 16 - 34 mL/m2 [facility] [employer] Work Phone: LA Volume Index BP 43 ml/m2 Abnormal 16 - 34 ml/m2 [facility] [employer] Work Phone: Left ventricular Ejection fraction by US.2D+Calculated by biplane method of disks 61 % 55 - 100 % [facility] Work Phone: LV E' Lateral Velocity 11 cm/s [facility] [employer] Work Phone: [phone] LV E' Septal Velocity 9 cm/s [facility] [employer] Work Phone: LV EDV A2C 92 mL [facility] Work Phone: LV EDV A4C 78 mL [facility] Work Phone: LV EDV BP 86 mL 67 - 155 mL [facility] Work Phone: LV EDV Index A2C 51 mL/m2 [facility] Work Phone: LV EDV Index A4C 43 mL/m2 [facility] Work Phone: LV EDV Index BP 48 mL/m2 [facility] Work Phone: LV Ejection Fraction A2C 65 % [facility] Work Phone: LV Ejection Fraction A4C 55 % [facility] Work Phone: LV ESV A2C 32 mL [facility] Work Phone: LV ESV A4C 35 mL [facility] Work Phone: LV ESV BP 34 mL 22 - 58 mL [facility] Work Phone: LV ESV Index A2C 18 mL/m2 [facility] Work Phone: LV ESV Index A4C 19 mL/m2 [facility] Work Phone: LV ESV Index BP 19 mL/m2 [facility] Work Phone: LV Mass 2D 175.8 g 88 - 224 g [facility] Work Phone: LV Mass 2D Index 97.1 g/m2 49 - 115 g/m2 [facility] Work Phone: LV RWT Ratio 0.43 [facility] Work Phone: LVIDd 4.7 cm 4.2 - 5.9 cm [facility] Work Phone: LVIDd Index 2.6 cm/m2 [facility] Work Phone: LVIDs 2.9 cm [facility] Work Phone: LVIDs Index 1.6 cm/m2 [facility] Work Phone: LVOT Cardiac Output 5 liter/minute [facility] Work Phone: LVOT Diameter 2.1 cm [facility] Work Phone: LVOT Mean Gradient 1 mmHg [facility] Work Phone: LVOT Peak Gradient 3 mmHg [facility] Work Phone: LVOT Peak Velocity 0.8 m/s [facility] Work Phone: LVOT Stroke Volume Index 43.6 mL/m2 [facility] Work Phone: LVOT SV 78.9 ml [facility] Work Phone: LVOT VTI 22.8 cm [facility] Work Phone: LVOT:AV VTI Index 0.64 [facility] Work Phone: LVPWd 1 cm 0.6 - 1.0 cm [facility] Work Phone: MV A Velocity 0.3 m/s [facility] Work Phone: MV Area by VTI 4.6 cm2 [facility] Work Phone: MV E Velocity 1.09 m/s [facility] Work Phone: MV E Wave Deceleration Time 152.3 ms [facility] Work Phone: MV E/A 3.63 [facility] Work Phone: MV Max Velocity 0.9 m/s [facility] Work Phone: MV Mean Gradient 1 mmHg [facility] Work Phone: MV Mean Velocity 0.5 m/s [facility] Work Phone: MV Peak Gradient 3 mmHg [facility] Work Phone: MV VTI 17.2 cm [facility] Work Phone: MV:LVOT VTI Index 0.75 [facility] Work Phone: PV Max Velocity 1 m/s [facility] Work Phone: PV Mean Gradient 2 mmHg [facility] Work Phone: PV Mean Velocity 0.7 m/s [facility] Work Phone: PV Peak Gradient 4 mmHg [facility] Work Phone: RA Area 4C 63.3 mL [facility] Work Phone: RV Basal Dimension 4.8 cm [facility] Work Phone: RV Free Wall Peak S' 11 cm/s [facility] Work Phone: RV Longitudinal Dimension 6.4 cm [facility] Work Phone: RV Mid Dimension 4.1 cm [facility] Work Phone: RVOT Mean Gradient 1 mmHg [facility] Work Phone: RVOT Peak Gradient 2 mmHg [facility] Work Phone: RVOT Peak Velocity 0.8 m/s [facility] Work Phone: RVOT VTI 14.9 cm [facility] Work Phone: RVSP 48 mmHg [facility] Work Phone: Sinotubular Junction 2.9 cm [facility] Work Phone: TAPSE 1.7 cm 1.7 cm [facility] Work Phone: TR Max Velocity 3.18 m/s [facility] Work Phone: TR Peak Gradient 40 mmHg [facility] Work Phone: [facility] Work Phone: US Heart Transthoracicon Left Ventricle: Left ventricle size is normal. Mildly increased wall thickness. Normal left ventricular systolic function. EF by 2D Simpsons Biplane is 61%. Normal wall motion. Indeterminate diastolic function due to arrhythmia. Right Ventricle: Right ventricle is moderately dilated. Normal systolic function. TAPSE is normal. Aortic Valve: Moderate (2+) regurgitation with a centrally directed jet. Tricuspid Valve: Moderate (2+) regurgitation. Mildly elevated RVSP. Est RA pressure is 8 mmHg. RVSP is 48 mmHg. Left Atrium: Left atrium is moderately dilated. Left atrium size is moderately increased (LA volume index 42-48 mL/m2). Right Atrium: Right atrium is mildly dilated. Left Ventricle Left ventricle size is normal. Mildly increased wall thickness. Normal left ventricular systolic function. EF by 2D Simpsons Biplane is 61%. Normal wall motion. Indeterminate diastolic function due to arrhythmia. Right Ventricle Right ventricle is moderately dilated. Normal systolic function. TAPSE is normal. Left Atrium Left atrium is moderately dilated. Left atrium size is moderately increased (LA volume index 42-48 mL/m2). Right Atrium Right atrium is mildly dilated. IVC/SVC IVC diameter is dilated and decreases greater than 50% during inspiration; therefore the estimated right atrial pressure is intermediate (~8 mmHg). Mitral Valve Valve structure is normal. Mild (1+) regurgitation. No stenosis noted. Tricuspid Valve Valve structure is normal. Moderate (2+) regurgitation. Mildly elevated RVSP. Est RA pressure is 8 mmHg. RVSP is 48 mmHg. Aortic Valve Trileaflet. Mildly thickened cusps. Mildly calcified cusps. Mild annular calcification. Moderate (2+) regurgitation with a centrally directed jet. No stenosis. Pulmonic Valve Valve structure is normal. Mild (1+) regurgitation. Ascending Aorta Normal sized sinuses of Valsalva and ascending aorta. Pericardium No pericardial effusion. Septum No interatrial shunt visualized on color Doppler. Study Details Image quality: adequate. Heart rate: 69 bpm. Blood pressure: 126/62 mmHg. No contrast was given. Comparison Study There is no prior study available for comparison CV CPACS Vital signsOrdered By: Jaciel Callejas on 11-05-2024 Heart rate 50 /min bpm [facility] Patient Conversation Media Work Phone: BASIC METABOLIC PANELon 10-17 Anion gap [Moles/Vol] 10 mmol/L Normal 3-13 [facility] Comment on above: Performed By: #### L [id number], [id number], LAB15, [id number] ####Headwaiter/Headwaitress: LEONIE GONCALVES ([phone])[facility] ([facility] Calcium [Mass/Vol] 8.1 mg/dL Low 8.8-10.0 [facility] Comment on above: Performed By: #### L AB129, [id number], LAB15, [id number] ####Headwaiter/Headwaitress: LEONIE GONCALVES ([phone])[facility])[address] [place] [address] Chloride [Moles/Vol] 108 mmol/L High 98-107 [facility] Comment on above: Performed By: #### L AB129, [id number], LAB15, [id number] ####Headwaiter/Headwaitress: LEONIE GONCALVES ([phone])[facility])[address] [place] [address] CO2 [Moles/Vol] 20 mmol/L Low 23-31 [facility] Comment on above: Performed By: #### L AB129, [id number], LAB15, [id number] ####Headwaiter/Headwaitress: LEONIE GONCALVES ([phone])[facility])[address] [place] [address] Creatinine [Mass/Vol] 0.77 mg/dL Normal 0.72-1.25 [facility] Comment on above: Performed By: #### L AB129, [id number], LAB15, [id number] ####Headwaiter/Headwaitress: LEONIE GONCALVES ([phone])[facility])[address] [place] [address] GLOMERULAR FILTRATION RATE ML/MIN/1.73 SQ M.PREDICTED 89.4 mL/min/1.73m*2 Normal >60.0 [facility] Comment on above: Result Comment: Calc ulation based on the Chronic Kidney Disease Epidemiology Collaboration (CKD-EPI) equation refit without adjustment for race Performed By: #### L AB129, [id number], LAB15, [id number] ####Headwaiter/Headwaitress: LEONIE GONCALVES ([phone])[facility])[address] [place] [address] [place] Glucose [Mass/Vol] 134 mg/dL High 82-115 [facility] Comment on above: Performed By: #### L AB129, [id number], LAB15, [id number] ####Headwaiter/Headwaitress: LEONIE GONCALVES ([phone])[facility] ([facility])[address] [place] [address] Potassium [Moles/Vol] 4.7 mmol/L Normal 3.5-5.1 [facility] Comment on above: Result Comment: [facility] potassium values may be up to 0.5 mmol/L lower than serum values. Performed By: #### L AB129, [id number], LAB15, [id number] ####Headwaiter/Headwaitress: LEONIE GONCALVES ([phone])[facility] ([facility])[address] [place] [address] Sodium [Moles/Vol] 138 mmol/L Normal 136-145 [facility] Comment on above: Performed By: #### L AB129, [id number], LAB15, [id number] ####Headwaiter/Headwaitress: LEONIE GONCALVES ([phone])[facility] ([facility])[address] [place] [address] Urea nitrogen [Mass/Vol] 28 mg/dL High 9-23 [facility] Comment on above: Performed By: #### L AB129, [id number], LAB15, [id number] ####Headwaiter/Headwaitress: LEONIE GONCALVES ([phone])[facility])[address] [place] [address] Basic metabolic 1998 panelon 11-04-2024 Anion gap [Moles/Vol] 10 mmol/L 3 - 13 mmol/L [facility] Calcium [Mass/Vol] 8.1 mg/dL Low 8.8 - 10. 0 mg/dL [facility] Chloride [Moles/Vol] 108 mmol/L High 98 - 10 7 mmol/L [facility] CO2 [Moles/Vol] 20 mmol/L Low 23 - 31 mmol/L [facility] Creatinine [Mass/Vol] 0.77 mg/dL 0.72 - 1.25 mg/dL [facility] GFR/1.73 sq M.predicted (S/P/Bld) [Vol rate/Area] 89.4 mL/min - PINF [facility] Comment on above: Calculation based on the Chronic Kidney Disease Epidemiology Collaboration (CKD-EPI) equation refit without adjustment for race Glucose [Mass/Vol] 134 mg/dL High 82 - 115 mg/dL [facility] Interpretation and review of laboratory results Abnormal [facility] Potassium [Moles/Vol] 4.7 mmol/L 3.5 - 5.1 mmol/L [facility] Comment on above: Plasma potassium kyle ues may be up to 0.5 mmol/L lower than serum values. Sodium [Moles/Vol] 138 mmol/L 136 - 145 mmol/L [facility] Urea nitrogen [Mass/Vol] 28 mg/dL High 9 - 23 mg/d L [facility] CBC W Auto Differential pane l (Bld)on 11-04-2024 Basophils (Bld) [#/Vol] 0 10*3/uL 0.0 - 0.2 10*3/uL [facility] Basophils/100 WBC (Bld) 0.5 % 0.0 - 2.0 % [facility] Eosinophils (Bld) [#/Vol] 0.2 10*3/uL 0.0 - 0.5 10*3/uL [facility] Eosinophils/100 WBC (Bld) 3.8 % 0.0 - 6.0 % [facility] Erythrocyte distribution width (RBC) [Ratio] 15.2 % High 11.5 - 15.0 % [facility] Hematocrit (Bld) [Volume fraction] 29.3 % Low 40.0 - 52.0 % [facility] Hemoglobin (Bld) [Mass/Vol] 9.9 g/dL Low 13.0 - 18.0 g/dL [facility] Immature granulocytes (Bld) [#/Vol] 0.1 10*3/uL High NINF - 0.1 10*3/uL [facility] Immature granulocytes/100 WBC (Bld) 0.9 % 0.0 - 2.0 % [facility] Interpretation and review of laboratory results Abnormal [facility] Lymphocytes (Bld) [#/Vol] 1.7 10*3/uL 1.0 - 4.3 10*3/uL [facility] Lymphocytes/100 WBC (Bld) 29.2 % 15.0 - 45.0 % [facility] MCH (RBC) [Entitic mass] 31.9 pg 26. 0 - 34.0 pg [facility] MCHC (RBC) [Mass/Vol] 33.8 % 30.5 - 36.0 % [facility] MCV (RBC) [Entitic vol] 94.5 fL 77.0 - 99.0 fL [facility] Monocytes (Bld) [#/Vol] 0.7 10*3/uL 0.0 - 0.9 10*3/uL [facility] Monocytes/100 WBC (Bld) 11.5 % 5.0 - 13.0 % [facility] Neutrophils (Bld) [#/Vol] 3.1 10*3/uL 1.8 - 7.5 10*3/uL [facility] Neutrophils/100 WBC (Bld) 54.1 % 38.0 - 82.0 % [facility] Nucleated RBC/100 WBC (Bld) [Ratio] 0 % [facility] Platelet mean volume (Bld) [Entitic vol] 10.8 fL 9.0 - 12.7 fL [facility] Platelets (Bld) [#/Vol] 233 10*3/uL 140 - 440 10*3/uL [facility] RBC (Bld) [#/Vol] 3.1 10*6/uL Low 4.40 - 5.9 0 10*6/uL [facility] WBC (Bld) [#/Vol] 5.7 10*3/uL 3.6 - 10.7 10*3/uL [facility] CBC WITH AUTO DIFFERENTIALon 11-04-2024 Basophils (Bld) [#/Vol] 0.0 10*3/uL Normal 0.0-0.2 [facility] Comment on above: Performed By: #### L [id number] ####Headwaiter/Headwaitress: LEONIE GONCALVES ([phone])[facility] ([facility])[address] [place] [address] Basophils/100 WBC (Bld) 0.5 % Normal 0.0-2.0 [facility] Comment on above: Performed By: #### L [id number] ####Headwaiter/Headwaitress: LEONIE GONCALVES ([phone])[facility] ([facility])[address] [place] [address] Eosinophils (Bld) [#/Vol] 0.2 10*3/uL Normal 0.0-0.5 [facility] Comment on above: Performed By: #### L [id number] ####Headwaiter/Headwaitress: LEONIE GONCALVES ([phone])[facility])[address] [place] [address] Eosinophils/100 WBC (Bld) 3.8 % Normal 0.0-6.0 [facility] Comment on above: Performed By: #### L [id number] ####Headwaiter/Headwaitress: LEONIE GONCALVES ([phone])[facility])[address] [place] [address] Erythrocyte distribution width (RBC) [Ratio] 15.2 % High 11.5-15.0 [facility] Comment on above: Performed By: #### L [id number] ####Headwaiter/Headwaitress: LEONIE GONCALVES ([phone])[facility])[address] [place] [address] Hematocrit (Bld) [Volume fraction] 29.3 % Low 40.0-52.0 [facility] Comment on above: Performed By: #### L [id number] ####Headwaiter/Headwaitress: LEONIE GONCALEVS ([phone])[facility])[address] [place] [address] Hemoglobin (Bld) [Mass/Vol] 9.9 g/dL Low 13.0-18.0 [facility] Comment on above: Performed By: #### L [id number] ####Headwaiter/Headwaitress: LEONIE GONCALVES ([phone])[facility])[address] [place] [address] IMMATURE GRANS % 0.9 % Normal 0.0-2.0 [facility] Comment on above: Performed By: #### L [id number] ####Headwaiter/Headwaitress: LEONIE GONCALVES ([phone])[facility])[address] [place] [address] IMMATURE GRANS ABSOLUTE 0.1 10*3/uL High <0.1 [facility] Comment on above: Performed By: #### L [id number] ####Headwaiter/Headwaitress: LEONIE GONCALVES ([phone])[facility])[address] [place] [address] [place] Lymphocytes (Bld) [#/Vol] 1.7 10*3/uL Normal 1.0-4.3 [facility] Comment on above: Performed By: #### L [id number] ####Headwaiter/Headwaitress: LEONIE GONCALVES ([phone])[facility])[address] [place] [address] Lymphocytes/100 WBC (Bld) 29.2 % Normal 15.0-45.0 [facility] Comment on above: Performed By: #### L [id number] ####Headwaiter/Headwaitress: LEONIE GONCALVES ([phone])[facility])[address] [place] [address] MCH (RBC) [Entitic mass] 31.9 pg Normal 26.0-34.0 [facility] Comment on above: Performed By: #### L [id number] ####Headwaiter/Headwaitress: LEONIE GONCALVES ([phone])[facility])[address] [place] [address] MCHC 33.8 % Normal 30.5-36.0 [facility] Comment on above: Performed By: #### L [id number] ####Headwaiter/Headwaitress: LEONIE GONCALVES ([phone])[facility])[address] [place] [address] MCV (RBC) [Entitic vol] 94.5 fL Normal 77.0-99.0 [facility] Comment on above: Performed By: #### L [id number] ####Headwaiter/Headwaitress: LEONIE GONACLVES ([phone])[facility])[address] [place] [address] Monocytes (Bld) [#/Vol] 0.7 10*3/uL Normal 0.0-0.9 [facility] Comment on above: Performed By: #### L [id number] ####Headwaiter/Headwaitress: LEONIE GONCALVES ([phone])[facility])[address] [place] [address] Monocytes/100 WBC (Bld) 11.5 % Normal 5.0-13.0 [facility] Comment on above: Performed By: #### L [id number] ####Headwaiter/Headwaitress: LEONIE GONCALVES ([phone])[facility] ([facility])[address] [place] [address] NEUTROPHILS ABSOLUTE 3.1 10*3/uL Normal 1.8-7.5 [facility] Comment on above: Performed By: #### L [id number] ####Headwaiter/Headwaitress: LEONIE GONCALVES ([phone])[facility] ([facility])[address] [place] [address] Neutrophils/100 WBC (Bld) 54.1 % Normal 38.0-82.0 [facility] Comment on above: Performed By: #### L [id number] ####Headwaiter/Headwaitress: LEONIE GONCALVES ([phone])[facility] ([facility])[address] [place] [address] NRBC 0.0 /100 WBCs Normal 0.0-2.0 [facility] Comment on above: Performed By: #### L [id number] ####Headwaiter/Headwaitress: LEONIE GONCALVES ([phone])[facility] ([facility])[address] [place] [address] Platelet mean volume (Bld) [Entitic vol] 10.8 fL Normal 9.0-12.7 [facility] Comment on above: Performed By: #### L [id number] ####Headwaiter/Headwaitress: LEONIE GONCALVES ([phone])[facility] ([facility])[address] [place] [address] Platelets (Bld) [#/Vol] 233 10*3/uL Normal 140-440 [facility] Comment on above: Performed By: #### L [id number] ####Headwaiter/Headwaitress: LEONIE GONCALVES ([phone])[facility])[address] [place] [address] RBC (Bld) [#/Vol] 3.10 10*6/uL Low 4.40-5.90 [facility] Comment on above: Performed By: #### L [id number] ####Headwaiter/Headwaitress: LEONIE [phone])[facility] ([facility])[address] [place] [address] WBC (Bld) [#/Vol] 5.7 10*3/uL Normal 3.6-10.7 [facility] Comment on above: Performed By: #### L [id number] ####Headwaiter/Headwaitress: LEONIE GONCALVES ([phone])[facility] ([facility])[address] [place] [address] CT CERVICAL SPINE WO IV CONT [facility] 11-04-2024 CT CERVICAL SPINE WO IV CONTRAST Patient Name: BRANDEN JOHNSON : 1940 Exam Date/Time: 11/04/2024 14:44 Procedure: CT CERVICAL SPINE WO IV CONTRAST Ordering Provider: SHANKAR HOLLI Reason For Exam: Trauma COMBINED REPORT: CT HEAD WITHOUT CONTRAST CT CERVICAL SPINE WITHOUT CONTRAST CLINICAL INDICATION: Trauma with cervical spine pain and headache. TECHNIQUE: CT head: Axial CT images of the brain were obtained without intravenous contrast. Coronal and sagittal reformatted images were also made available for interpretation. Dose reduction was employed with automated exposure control. CT cervical spine: Axial CT images of the cervical spine were obtained without intravenous contrast. Coronal and sagittal reformatted images were also made available for interpretation. Dose reduction was employed with automated exposure control. COMPARISON: None. FINDINGS: CT HEAD: Limitations: Slightly limited by positioning. Ventricles and Extra-axial spaces: Diffuse parenchymal volume loss. No extra-axial fluid collection. No localized mass effect or midline shift. Cerebral and Cerebellar parenchyma: No CT evidence of acute intracranial hemorrhage or acute territorial infarct. Dense symmetric calcifications in the basal ganglia, thalami, and cerebellar white matter. These are likely developmental or possibly metabolic. Encephalomalacia involving the right parietal lobe and right temporal lobe. Chronic small vessel ischemic changes are likely present Paranasal sinuses: Appear fairly well aerated. Mastoid air cells: Appear fairly well aerated. Orbital contents: No acute abnormality Calvarium and Skull base: Appear intact. Additional findings: Age indeterminant depressed nasal bone fractures. CT CERVICAL SPINE: Limitations: Mild streak artifact. Osseous structures/interverte bral discs: Bone mineralization appears somewhat diminished. Cervical vertebral body heights are maintained. Trace retrolisthesis C4 over C5. Atlantoaxial relationship and craniocervical junction appear intact. Multilevel degenerative disc disease most pronounced at C4-C5, C5-C6, and C6-C7. Multilevel degenerative uncovertebral and facet hypertrophy with multilevel foraminal narrowing. Paraspinal soft tissues tissues: Surrounding soft tissues of the neck are unremarkable on this noncontrast study. IMPRESSION: 1. No CT evidence of acute intracranial abnormality. 2. No CT evidence of acute cervical spine fracture or posttraumatic subluxation. 3. Age indeterminant depressed nasal bone fractures. 4. Nonacute intracranial findings discussed above. Report Dictated on Electronically Signed By: Pepito Hutson MD Electronically Signed Date/Time: 11/04/2024 3:01 PM EDT Fall trauma [facility] CT Cervical spine WO isiah ton 11-04-2024 Patient Name: BRANDEN JOHNSON : 1940 Exam Date/Time: 11/04/2024 14:44 Procedure: CT CERVICAL SPINE WO IV CONTRAST Ordering Provider: SHANKAR HOLLI Reason For Exam: Trauma COMBINED REPORT: CT HEAD WITHOUT CONTRAST CT CERVICAL SPINE WITHOUT CONTRAST CLINICAL INDICATION: Trauma with cervical spine pain and headache. TECHNIQUE: CT head: Axial CT images of the brain were obtained without intravenous contrast. Coronal and sagittal reformatted images were also made available for interpretation. Dose reduction was employed with automated exposure control. CT cervical spine: Axial CT images of the cervical spine were obtained without intravenous contrast. Coronal and sagittal reformatted images were also made available for interpretation. Dose reduction was employed with automated exposure control. COMPARISON: None. FINDINGS: CT HEAD: Limitations: Slightly limited by positioning. Ventricles and Extra-axial spaces: Diffuse parenchymal volume loss. No extra-axial fluid collection. No localized mass effect or midline shift. Cerebral and Cerebellar parenchyma: No CT evidence of acute intracranial hemorrhage or acute territorial infarct. Dense symmetric calcifications in the basal ganglia, thalami, and cerebellar white matter. These are likely developmental or possibly metabolic. Encephalomalacia involving the right parietal lobe and right temporal lobe. Chronic small vessel ischemic changes are likely present Paranasal sinuses: Appear fairly well aerated. Mastoid air cells: Appear fairly well aerated. Orbital contents: No acute abnormality Calvarium and Skull base: Appear intact. Additional findings: Age indeterminant depressed nasal bone fractures. CT CERVICAL SPINE: Limitations: Mild streak artifact. Osseous structures/interverte bral discs: Bone mineralization appears somewhat diminished. Cervical vertebral body heights are maintained. Trace retrolisthesis C4 over C5. Atlantoaxial relationship and craniocervical junction appear intact. Multilevel degenerative disc disease most pronounced at C4-C5, C5-C6, and C6-C7. Multilevel degenerative uncovertebral and facet hypertrophy with multilevel foraminal narrowing. Paraspinal soft tissues tissues: Surrounding soft tissues of the neck are unremarkable on this noncontrast study. [facility] Rafat Hutson MD - 11/04/2024 Patient Name: BRANDEN JOHNSON : 1940 Exam Date/Time: 11/04/2024 14:44 Procedure: CT CERVICAL SPINE WO IV CONTRAST Ordering Provider: SHANKAR HOLLI Reason For Exam: Trauma COMBINED REPORT: CT HEAD WITHOUT CONTRAST CT CERVICAL SPINE WITHOUT CONTRAST CLINICAL INDICATION: Trauma with cervical spine pain and headache. TECHNIQUE: CT head: Axial CT images of the brain were obtained without intravenous contrast. Coronal and sagittal reformatted images were also made available for interpretation. Dose reduction was employed with automated exposure control. CT cervical spine: Axial CT images of the cervical spine were obtained without intravenous contrast. Coronal and sagittal reformatted images were also made available for interpretation. Dose reduction was employed with automated exposure control. COMPARISON: None. FINDINGS: CT HEAD: Limitations: Slightly limited by positioning. Ventricles and Extra-axial spaces: Diffuse parenchymal volume loss. No extra-axial fluid collection. No localized mass effect or midline shift. Cerebral and Cerebellar parenchyma: No CT evidence of acute intracranial hemorrhage or acute territorial infarct. Dense symmetric calcifications in the basal ganglia, thalami, and cerebellar white matter. These are likely developmental or possibly metabolic. Encephalomalacia involving the right parietal lobe and right temporal lobe. Chronic small vessel ischemic changes are likely present Paranasal sinuses: Appear fairly well aerated. Mastoid air cells: Appear fairly well aerated. Orbital contents: No acute abnormality Calvarium and Skull base: Appear intact. Additional findings: Age indeterminant depressed nasal bone fractures. CT CERVICAL SPINE: Limitations: Mild streak artifact. Osseous structures/interverte bral discs: Bone mineralization appears somewhat diminished. Cervical vertebral body heights are maintained. Trace retrolisthesis C4 over C5. Atlantoaxial relationship and craniocervical junction appear intact. Multilevel degenerative disc disease most pronounced at C4-C5, C5-C6, and C6-C7. Multilevel degenerative uncovertebral and facet hypertrophy with multilevel foraminal narrowing. Paraspinal soft tissues tissues: Surrounding soft tissues of the neck are unremarkable on this noncontrast study. IMPRESSION: 1. No CT evidence of acute intracranial abnormality. 2. No CT evidence of acute cervical spine fracture or posttraumatic subluxation. 3. Age indeterminant depressed nasal bone fractures. 4. Nonacute intracranial findings discussed above. Report Dictated on Electronically Signed By: Pepito Hutson MD Electronically Signed Date/Time: 11/04/2024 3:[address] [facility] [address] HEAD WO IV CONTRASTon CT HEAD WO IV CONTRAST Patient Name: BRANDEN CLAYTON : 1940 [id number] Exam Date/Time: 11/04/2024 14:44 Procedure: CT HEAD WO IV CONTRAST Ordering Provider: SHANKAR HOLLI Reason For Exam: Trauma COMBINED REPORT: CT HEAD WITHOUT CONTRAST CT CERVICAL SPINE WITHOUT CONTRAST CLINICAL INDICATION: Trauma with cervical spine pain and headache. TECHNIQUE: CT head: Axial CT images of the brain were obtained without intravenous contrast. Coronal and sagittal reformatted images were also made available for interpretation. Dose reduction was employed with automated exposure control. CT cervical spine: Axial CT images of the cervical spine were obtained without intravenous contrast. Coronal and sagittal reformatted images were also made available for interpretation. Dose reduction was employed with automated exposure control. COMPARISON: None. FINDINGS: CT HEAD: Limitations: Slightly limited by positioning. Ventricles and Extra-axial spaces: Diffuse parenchymal volume loss. No extra-axial fluid collection. No localized mass effect or midline shift. Cerebral and Cerebellar parenchyma: No CT evidence of acute intracranial hemorrhage or acute territorial infarct. Dense symmetric calcifications in the basal ganglia, thalami, and cerebellar white matter. These are likely developmental or possibly metabolic. Encephalomalacia involving the right parietal lobe and right temporal lobe. Chronic small vessel ischemic changes are likely present Paranasal sinuses: Appear fairly well aerated. Mastoid air cells: Appear fairly well aerated. Orbital contents: No acute abnormality Calvarium and Skull base: Appear intact. Additional findings: Age indeterminant depressed nasal bone fractures. CT CERVICAL SPINE: Limitations: Mild streak artifact. Osseous structures/interverte bral discs: Bone mineralization appears somewhat diminished. Cervical vertebral body heights are maintained. Trace retrolisthesis C4 over C5. Atlantoaxial relationship and craniocervical junction appear intact. Multilevel degenerative disc disease most pronounced at C4-C5, C5-C6, and C6-C7. Multilevel degenerative uncovertebral and facet hypertrophy with multilevel foraminal narrowing. Paraspinal soft tissues tissues: Surrounding soft tissues of the neck are unremarkable on this noncontrast study. IMPRESSION: 1. No CT evidence of acute intracranial abnormality. 2. No CT evidence of acute cervical spine fracture or posttraumatic subluxation. 3. Age indeterminant depressed nasal bone fractures. 4. Nonacute intracranial findings discussed above. Report Dictated on Electronically Signed By: Pepito Hutson MD Electronically Signed Date/Time: 11/04/2024 3:01 PM EDT Fall trauma [facility] CT Head WO contraston 2024 Patient Name: BRANDEN JOHNSON : 1940 Exam Date/Time: 11/04/2024 14:44 Procedure: CT HEAD WO IV CONTRAST Ordering Provider: SHANKAR HOLLI Reason For Exam: Trauma COMBINED REPORT: CT HEAD WITHOUT CONTRAST CT CERVICAL SPINE WITHOUT CONTRAST CLINICAL INDICATION: Trauma with cervical spine pain and headache. TECHNIQUE: CT head: Axial CT images of the brain were obtained without intravenous contrast. Coronal and sagittal reformatted images were also made available for interpretation. Dose reduction was employed with automated exposure control. CT cervical spine: Axial CT images of the cervical spine were obtained without intravenous contrast. Coronal and sagittal reformatted images were also made available for interpretation. Dose reduction was employed with automated exposure control. COMPARISON: None. FINDINGS: CT HEAD: Limitations: Slightly limited by positioning. Ventricles and Extra-axial spaces: Diffuse parenchymal volume loss. No extra-axial fluid collection. No localized mass effect or midline shift. Cerebral and Cerebellar parenchyma: No CT evidence of acute intracranial hemorrhage or acute territorial infarct. Dense symmetric calcifications in the basal ganglia, thalami, and cerebellar white matter. These are likely developmental or possibly metabolic. Encephalomalacia involving the right parietal lobe and right temporal lobe. Chronic small vessel ischemic changes are likely present Paranasal sinuses: Appear fairly well aerated. Mastoid air cells: Appear fairly well aerated. Orbital contents: No acute abnormality Calvarium and Skull base: Appear intact. Additional findings: Age indeterminant depressed nasal bone fractures. CT CERVICAL SPINE: Limitations: Mild streak artifact. Osseous structures/interverte bral discs: Bone mineralization appears somewhat diminished. Cervical vertebral body heights are maintained. Trace retrolisthesis C4 over C5. Atlantoaxial relationship and craniocervical junction appear intact. Multilevel degenerative disc disease most pronounced at C4-C5, C5-C6, and C6-C7. Multilevel degenerative uncovertebral and facet hypertrophy with multilevel foraminal narrowing. Paraspinal soft tissues tissues: Surrounding soft tissues of the neck are unremarkable on this noncontrast study. [facility] Rafat Hutson MD - 11/04/2024 Patient Name: BRANDEN JOHNSON : 1940 Exam Date/Time: 11/04/2024 14:44 Procedure: CT HEAD WO IV CONTRAST Ordering Provider: SHANKAR HOLLI Reason For Exam: Trauma COMBINED REPORT: CT HEAD WITHOUT CONTRAST CT CERVICAL SPINE WITHOUT CONTRAST CLINICAL INDICATION: Trauma with cervical spine pain and headache. TECHNIQUE: CT head: Axial CT images of the brain were obtained without intravenous contrast. Coronal and sagittal reformatted images were also made available for interpretation. Dose reduction was employed with automated exposure control. CT cervical spine: Axial CT images of the cervical spine were obtained without intravenous contrast. Coronal and sagittal reformatted images were also made available for interpretation. Dose reduction was employed with automated exposure control. COMPARISON: None. FINDINGS: CT HEAD: Limitations: Slightly limited by positioning. Ventricles and Extra-axial spaces: Diffuse parenchymal volume loss. No extra-axial fluid collection. No localized mass effect or midline shift. Cerebral and Cerebellar parenchyma: No CT evidence of acute intracranial hemorrhage or acute territorial infarct. Dense symmetric calcifications in the basal ganglia, thalami, and cerebellar white matter. These are likely developmental or possibly metabolic. Encephalomalacia involving the right parietal lobe and right temporal lobe. Chronic small vessel ischemic changes are likely present Paranasal sinuses: Appear fairly well aerated. Mastoid air cells: Appear fairly well aerated. Orbital contents: No acute abnormality Calvarium and Skull base: Appear intact. Additional findings: Age indeterminant depressed nasal bone fractures. CT CERVICAL SPINE: Limitations: Mild streak artifact. Osseous structures/interverte bral discs: Bone mineralization appears somewhat diminished. Cervical vertebral body heights are maintained. Trace retrolisthesis C4 over C5. Atlantoaxial relationship and craniocervical junction appear intact. Multilevel degenerative disc disease most pronounced at C4-C5, C5-C6, and C6-C7. Multilevel degenerative uncovertebral and facet hypertrophy with multilevel foraminal narrowing. Paraspinal soft tissues tissues: Surrounding soft tissues of the neck are unremarkable on this noncontrast study. IMPRESSION: 1. No CT evidence of acute intracranial abnormality. 2. No CT evidence of acute cervical spine fracture or posttraumatic subluxation. 3. Age indeterminant depressed nasal bone fractures. 4. Nonacute intracranial findings discussed above. Report Dictated on Electronically Signed By: Pepito Hutson MD Electronically Signed Date/Time: 11/04/2024 3:01 PM EDT [facility] ED Provider Noteon ED Provider Note EMERGENCY DEPARTMENT ENCOUNTER Pt Name: Branden Johnson Birthdate 1940 Date of evaluation: 11/04/2024 ED Provider: Isabel Lester MD CHIEF COMPLAINT Chief Complaint Patient presents with Fall Ems states pt was bending over walker moved fell hit head neg loc HISTORY OF PRESENT ILLNESS (Location/Symptom, Timing/Onset, Context/Setting, Quality, Duration, Modifying Factors, Severity) Note limiting factors. I wore appropriate PPE for the entirety of this encounter. Branden Johnson is a 84 y.o. who presents to the emergency department as a level 3 trauma activation geriatric fall on [facility]. primary and secondary survey was done in the trauma bay. He endorsed that earlier today, he woke up from his sleep and bended over to fern picker something where he lost his balance and then tripped and hit his head. On arrival the patient did not endorse any significant pain in any location, denies any loss of consciousness, shortness of breath, chest pain, nausea or vomiting. He endorsed that he does take Eliquis due to history of A-fib. Nursing Notes were reviewed. Limitations to history: None Outside historians: EMS REVIEW OF SYSTEMS Pertinent positives and negatives as per HPI. PAST MEDICAL HISTORY No past medical history on file. SURGICAL HISTORY No past surgical history on file. CURRENT MEDICATIONS Previous Medications APIXABAN (ELIQUIS) 5 MG TABLET Take 5 mg by mouth 2 times daily. ASCORBIC ACID (VITAMIN C) 500 MG ER CAPSULE Take 500 mg by mouth 2 times daily. ATORVASTATIN (LIPITOR) 20 MG TABLET Take 20 mg by mouth daily. CHOLECALCIFEROL (VITAMIN D-3) 25 MCG TABLET Take 25 mcg by mouth 2 times daily. COENZYME Q-10 50 MG CAPSULE Take 100 mg by mouth daily. DILTIAZEM CD (CARDIZEM CD) 240 MG 24 HR CAPSULE Take 240 mg by mouth daily. ESCITALOPRAM (LEXAPRO) 10 MG TABLET Take 10 mg by mouth daily. IPRATROPIUM-ALBUTEROL (COMBIVENT RESPIMAT) 20-100 MCG/ACT INHALER Inhale 1 puff 2 times daily. LACTASE (LACTAID) 3000 UNITS TABLET Take 9,000 Units by mouth 3 times daily (with meals). LEVETIRACETAM (KEPPRA) 500 MG TABLET Take 500 mg by mouth 2 times daily. LYCOPENE 10 MG CAPSULE Take 25 mg by mouth daily. METFORMIN (GLUCOPHAGE) 500 MG TABLET Take 500 mg by mouth daily (with breakfast). METOPROLOL TARTRATE (LOPRESSOR) 50 MG TABLET Take 50 mg by mouth 2 times daily. OMEGA 3-6-9 FATTY ACIDS (OMEGA 3-6-9 COMPLEX PO) Take 400 mg by mouth 2 times daily. PANTOPRAZOLE (PROTONIX) 40 MG EC TABLET Take 40 mg by mouth every morning (before breakfast). Do not crush, chew, or split. POLYVINYL ALCOHOL (LIQUIFILM TEARS) 1.4 % OPHTHALMIC SOLUTION Administer 1 drop into both eyes daily. POTASSIUM CHLORIDE CR (KLOR-CON) 8 MEQ ER TABLET Take 8 mEq by mouth 2 times daily. Do not crush, chew, or split. TAMSULOSIN (FLOMAX) 0.4 MG 24 HR CAPSULE Take 0.8 mg by mouth daily. ALLERGIES Patient has no known allergies. FAMILY HISTORY No family history on file. SOCIAL HISTORY Social History Socioeconomic History Marital status: Social Drivers of Health Food Insecurity: No Food Insecurity (09/07/2024) Received from [facility] Hunger Vital Sign Worried About Running Out of Food in the Last Year: Never true Ran Out of Food in the Last Year: Never true Transportation Needs: No Transportation Needs (09/07/2024) Received from [facility] PRAPARE - Transportation Lack of Transportation (Medical): No Lack of Transportation (Non-Medical): No Housing Stability: Unknown (09/07/2024) Received from [facility] Housing Stability Vital Sign Unable to Pay for Housing in the Last Year: No Homeless in the Last Year: No SCREENINGS Anna Coma Scale Best Eye Response: Spontaneous Best Verbal Response: Oriented Best Motor Response: Follows commands [place] Coma Scale Score: 15 PHYSICAL EXAM ED Triage Vitals Temp Pulse Resp BP -- -- -- -- SpO2 Temp src Heart Rate Source Patient Position -- -- -- -- BP Location FiO2 (%) -- -- Physical Exam Vitals and Nursing notes reviewed General: No acute distress HEENT: Normocephalic, grossly atraumatic on trauma examination nontender on palpation Cardiac: Bradycardic, irregularly irregular Pulmonary: Bilateral equal breath sounds. No wheezes, rales or crackles Abdomen: Soft, non-distended, non-tender on palpation. No guarding or rebound tenderness MSK: ROM grossly intact, no obvious injury or deformities. Skin: No obvious new lacerations, abrasion or hematoma Neuro: Alert during interview, following commands. Psych: Acting and behaving appropriately. Lines/Tubes/Devices: None DIAGNOSTIC RESULTS RADIOLOGY (Per Emergency Physician): Interpretation per the Radiologist below, if available at the time of this note: XR chest 1 view Final Result No acute cardiopulmonary disease. Report Dictated on Electronically Signed By: MD Nakia Holt (more content not included)... Normal [facility] ED Provider Note Emergency Department Encounter [facility] CLINICAL DECISION UNIT CDU Patient: Branden Johnson : 1940 Date of Evaluation: 11/04/2024 ED Supervising Physician: Yanelis Shankar DO I personally evaluated Branden Johnson and made/approved the management plan and take responsibility for the patient management. This will serve as my Supervisory note and shared attestation. I did perform a substantive portion of the visit including all aspects of the Medical Decision Making. I wore appropriate PPE for the entirety of this encounter. In brief, Branden Johnson is a 84 y.o. that presents to the emergency department via EMS as a level 3 trauma activation. He bent over to pick something up and lost his balance falling forward striking his head. He is currently on Eliquis. Denies any segment pain. Denies any LOC. Denies any other complaints. Focused exam: Alert, head is atraumatic, c-collar in place, no midline tenderness, heart rate is Rilley irregular and bradycardic, lungs are clear, abdomen is soft nontender nondistended Brief ED course/MDM: CT head and C-spine are negative. His x-ray was unremarkable. Laboratory evaluation showed hemoglobin 9.9 troponin was negative x 2, proBNP was 2117. Patient did have a bradycardic heart rate. Patient was given a fluid bolus. He remained stable. Patient will be admitted to the CDU for further observation. Diagnostics interpreted by me: EKG interpreted by me, sinus bradycardia with a rate of 50, UT 154, QTc is 437, PVCs and bigeminy, right bundle branch block, no ischemic changes Chest x-ray interpreted by me, no acute process Diagnoses as of 11/20/24116 Fall, initial encounter Bradycardia Idiopathic hypotension I personally discussed the patient's management with other clinicians: none CRITICAL CARE TIME Total Critical Care time was 31 minutes, excluding separately reportable procedures. There was a high probability of clinically significant/life threatening deterioration in the patient's condition which required my urgent intervention. All diagnostic, treatment, and disposition decisions were made by myself in conjunction with the Resident. I also supervised marie portions of any procedures performed by the Resident. For all further details of the patient's emergency department visit, please see their documentation. (Comment: Please note this report has been produced using speech recognition software and may contain errors related to that system including errors in grammar, punctuation, and spelling, as well as words and phrases that may be inappropriate. If there are any questions or concerns please feel free to contact the dictating provider for clarification.) Yanelis Shankar DO [employer] Yanelis Shankar DO 11/20/24117 [facility] HEMOGLOBIN A1Con 11-04-2024 Glucose [Mass/Vol] 128 mg/dL Normal [facility] Comment on above: Result Comment: JAYDA R COMMENTS: If not done within the last 3 mos HbA1c values of 5.7-6.4 percent indicate an increased risk for developing diabetes mellitus. HbA1c values greater than or equal to 6.5 percent are diagnostic of diabetes mellitus. For diagnosis of diabetes in individuals without unequivocal hyperglycemia, results should be confirmed by repeat testing. Performed By: #### L [id number] ####Headwaiter/Headwaitress: LEONIE GONCALVES ([phone])[facility] ([facility])[address] [place] [address] HEMOGLOBIN A1C 6.1 %HbA1C High <5.7 [facility] Comment on above: Result Comment: Norm al less than 5.7% Prediabetes 5.7% to 6.4% Diabetes 6.5% or higher --HgbA1C levels may not be accurate in patients who have renal disease, received recent blood transfusions, are anemic, or who have dyshemoglobinemia. Performed By: #### L [id number] ####Headwaiter/Headwaitress: LEONIE GONCALVES ([phone])[facility] ([address] HIGH SENSITIVITY TROPONIN, S ERIAL BASELINEon 11-04-2024 TROPONIN HS SERIAL BASELINE <3 Normal <=35 [facility] Comment on above: Result Comment: In i ndividuals presenting with symptoms > 2h, a baseline troponin <= 5 ng/L suggests acute cardiac injury is unlikely and further serial testing is generally not indicated. Performed By: #### L [id number], [id number], [id number], [id number] ####Headwaiter/Headwaitress: LEONIE GONCALVES ([phone])[facility] ([facility])[address] [place] [address] HIGH SENSITIVITY TROPONIN, S ERIAL, SECOND TESTon 11-04-2024 2H TROPONIN HS (SERIAL 2ND TROPONIN) <3 Normal <=35 [facility] Comment on above: Result Comment: Delt a value was unable to be calculated as both baseline and serial troponin tests were below the level of quantitation. As both baseline and 2h troponin values are below the level of quantitation, acute cardiac injury is unlikely. Performed By: #### L [id number] #### Headwaiter/Headwaitress: LEONIE GONCALVES ([phone]) [facility] ([facility] [address] [place] [address] Laboratory - Chemistry and C hemistry - challengeon 11-04-2024 Glucose [Mass/Vol] 181 mg/dL High 70 - 100 mg/dL [facility] Average glucose Estimated from glycated hemoglobin (Bld) [Mass/Vol] 128 mg/dL [facility] TSH Qn 2.23 m[IU]/L [facility] Laboratory - Hematology and Cell countson 11-04-2024 HbA1c (Bld) [Mass fraction] 6.1 % High [facility] Comment on above: Normal less than 5.7 % Prediabetes 5.7% to 6.4% Diabetes 6.5% or higher --HgbA1C levels may not be accurate in patients who have renal disease, received recent blood transfusions, are anemic, or who have dyshemoglobinemia. NT PRO BNPon 11-04-2024 Natriuretic peptide B (Bld) [Mass/Vol] 2117 pg/mL High <450 [facility] Comment on above: Performed By: #### L [id number], [id number], [id number], [id number] ####Headwaiter/Headwaitress: LEONIE GONCALVES ([phone])[facility] ([facility])[address] [place] [address] Natriuretic peptide B [Mass/ Vol]on 11-04-2024 Interpretation and review of laboratory results Abnormal [facility] Natriuretic peptide B (Bld) [Mass/Vol] 2117 pg/mL High [facility] - 450 pg/mL [facility] No Panel Informationon 11-04 Interpretation and review of laboratory results Abnormal [facility] Performed by: [facility], [address] [place] [address] CLIA ID: [id number] [facility] Interpretation and review of laboratory results Abnormal [facility] HbA1c values of 5.7-6.4 percent indicate an increased risk for developing diabetes mellitus. HbA1c values greater than or equal to 6.5 percent are diagnostic of diabetes mellitus. For diagnosis of diabetes in individuals without unequivocal hyperglycemia, results should be confirmed by repeat testing. [facility] 2h Troponin HS (Serial 2nd Troponin) ng/L NINF - 35 ng/L [facility] Comment on above: Delta value was unab le to be calculated as both baseline and serial troponin tests were below the level of quantitation. As both baseline and 2h troponin values are below the level of quantitation, acute cardiac injury is unlikely. Interpretation and review of laboratory results Normal [facility] Interpretation and review of laboratory results Normal [facility] Troponin HS Serial Baseline ng/L NINF - 35 ng/L [facility] Comment on above: In individuals prese nting with symptoms > 2h, a baseline troponin <= 5 ng/L suggests acute cardiac injury is unlikely and further serial testing is generally not indicated. [facility] 1. No CT evidence of acute intracranial abnormality. 2. No CT evidence of acute cervical spine fracture or posttraumatic subluxation. 3. Age indeterminant depressed nasal bone fractures. 4. Nonacute intracranial findings discussed above. Report Dictated on Electronically Signed By: Pepito Hutson MD Electronically Signed Date/Time: 11/04/2024 3:01 PM EDT [facility] Radiology Study observation (narrative) [facility] No Panel InformationOrdered By: Rafat Hutson on 11-04-2024 [facility] Work Phone: Progress Noteon 11-04-2024 Progress Note Branden Johnson was ordered Lycopene. Per [facility] Policy #4005, herbals and certain dietary supplements are automatically discontinued for the duration of the hospital stay. The product remains on the Home Medication List for resumption at discharge unless specifically discontinued by the prescriber. If there is a need for acute treatment using this agent, please contact the pharmacy for further assistance. Jose Martin Harris, PharmD 11/04/24 6:53 PM Normal [facility] THYROID STIMULATING HORMONEo n 11-04-2024 THYROID STIMULATING HORMONE 2.23 uIU/mL Normal 0.35-4.94 [facility] Comment on above: Performed By: #### L AB129, [id number], [id number], [id number] ####Headwaiter/Headwaitress: LEONIE GONCALVES ([phone])[facility] ([address] TSH Qnon 07-19-2025 Interpretation and review of laboratory results Normal [facility] XR Chest Single viewon 11-04 No acute cardiopulmonary disease. Report Dictated on Electronically Signed By: Butch Barclay MD Electronically Signed Date/Time: 11/04/2024 4:04 PM EDT [facility] Patient Name: BRANDEN JOHNSON : 1940 Exam Date/Time: 11/04/2024 15:42 Procedure: XR CHEST 1 VIEW Ordering Provider: SHANKAR HOLLI Reason For Exam: CHEST PAIN; Chest Pain AP CHEST X-RAY CLINICAL INDICATION: CHEST PAIN; Chest Pain TECHNIQUE: AP portable x-ray of the chest. COMPARISON: None FINDINGS: Lines/Tubes: None Heart/Mediastinum: Cardiac silhouette is within normal limits for size. Atherosclerotic calcifications of the thoracic aorta. Lungs: Well-inflated and clear. No pneumothorax. Bones: Degenerative changes are seen in the thoracic spine and shoulders. No acute osseous findings. [facility] Butch Barclay MD - 11/04/2024 Patient Name: BRANDEN JOHNSON : 1940 Exam Date/Time: 11/04/2024 15:42 Procedure: XR CHEST 1 VIEW Ordering Provider: SHANKAR HOLLI Reason For Exam: CHEST PAIN; Chest Pain AP CHEST X-RAY CLINICAL INDICATION: CHEST PAIN; Chest Pain TECHNIQUE: AP portable x-ray of the chest. COMPARISON: None FINDINGS: Lines/Tubes: None Heart/Mediastinum: Cardiac silhouette is within normal limits for size. Atherosclerotic calcifications of the thoracic aorta. Lungs: Well-inflated and clear. No pneumothorax. Bones: Degenerative changes are seen in the thoracic spine and shoulders. No acute osseous findings. IMPRESSION: No acute cardiopulmonary disease. Report Dictated on Electronically Signed By: Butch Barclay MD Electronically Signed Date/Time: 11/04/2024 4:04 PM EDT [facility] Radiology Study observation (narrative) [facility] XR Chest Single viewOrdered By: Butch Barclay on 11-04-2024 [facility] Work Phone: XR Knee - left 3 Viewson 1. No acute osseous abnormality. Report Dictated on Electronically Signed By: Nickolas Ventura MD Electronically Signed Date/Time: 11/04/2024 8:16 PM EDT [facility] Patient Name: BRANDEN JOHNSON : 1940 Exam Date/Time: 11/04/2024 20:07 Procedure: XR KNEE 3 VIEWS LEFT Ordering Provider: RHOADES ROSS Reason For Exam: fall LEFT KNEE 3 VIEWS CLINICAL INDICATION: fall, pain TECHNIQUE: 3 views of the left knee. COMPARISON: None. FINDINGS: No acute fracture or dislocation. Joint spaces maintained. Soft tissues grossly unremarkable. Peripheral vascular calcifications noted. [facility] Nickolas Ventura MD - 11/04/2024 Patient Name: BRANDEN JOHNSON : 1940 Exam Date/Time: 11/04/2024 20:07 Procedure: XR KNEE 3 VIEWS LEFT Ordering Provider: RHOADES ROSS Reason For Exam: fall LEFT KNEE 3 VIEWS CLINICAL INDICATION: fall, pain TECHNIQUE: 3 views of the left knee. COMPARISON: None. FINDINGS: No acute fracture or dislocation. Joint spaces maintained. Soft tissues grossly unremarkable. Peripheral vascular calcifications noted. IMPRESSION: 1. No acute osseous abnormality. Report Dictated on Electronically Signed By: Nickolas Ventura MD Electronically Signed Date/Time: 11/04/2024 8:16 PM EDT [facility] Radiology Study observation (narrative) [facility]th XR Knee - left 3 ViewsOrdere d By: Nickolas Ventura on 11-04-2024 [facility] Patient [employer] Work Phone: Anion gap in Serum or Plasma Ordered By: Galilea Adkins on 09-13-2024 Anion gap [Moles/Vol] 11 mmol/L 5-15 [facility] BUN/creatinine ratioOrdered By: Galilea Adkins on 09-13-2024 Urea nitrogen/Creatinine [Mass ratio] 31.1 mg/mg High 10-20 [facility] Calculated very low density lipoprotein (VLDL) cholesterol measurementOrdered By: Galilea Adkins on 09-13-2024 Calculated very low density lipoprotein (VLDL) cholesterol measurement 20 mg/dL 5-40 [facility] Carbon dioxide, total [Moles /volume] in Central venous bloodOrdered By: Galilea Adkins on 09-13-2024 CO2 [Moles/Vol] 24.6 mmol/L 21.0-32.0 [facility] Chloride assayOrdered By: josé manuel Adkins on 09-13-2024 Chloride [Moles/Vol] 104 mmol/L 98-108 [facility] Erythrocyte distribution wid th ratioOrdered By: Galilea Adkins on 09-13-2024 Erythrocyte distribution width (RBC) [Ratio] 15.5 % High 11.6-14.6 [facility] Erythrocyte distribution wid th standard deviationOrdered By: Galilea Adkins on 09-13-2024 Erythrocyte distribution width (RBC) [Ratio] 54.1 fl High 35.1-43.9 [facility] Glomerular filtration rate ( GFR) estimation/1.73 sq m using serum, plasma, or whole bOrdered By: Galilea Adkins on 09-13-2024 GFR/1.73 sq M.predicted among non-blacks MDRD (S/P/Bld) [Vol rate/Area] 92 mL/min/{1.73_m2} >60 [facility] Comment on above: mL/min/1.73m2 CKD-EP I Creatinine Equation (2020) Hematocrit Auto (Bld) [Volum e fraction]Ordered By: Galilea Adkins on 09-13-2024 Hematocrit (Bld) [Volume fraction] 34.3 % Low 40-54 [facility] Hemoglobin A1c percentageOrd ered By: Galilea Adkins on 09-13-2024 HbA1c (Bld) [Mass fraction] 6.9 % High <5.7 [facility] Comment on above: Normal < 5.7 % Predi abetic 5.7 - 6.4 % Diabetic >or= 6.5 % Please note range changes. Hemoglobin measurementOrdere d By: Galilea Adkins on 09-13-2024 Hemoglobin (Bld) [Mass/Vol] 11.1 g/dL Low 13.0-16.5 [facility] LDL calc ser/plasOrdered By: Galilea Adkins on 09-13-2024 Cholesterol in LDL [Mass/Vol] 62 mg/dL [facility] Comment on above: Nnkvyknywu=356-269 m g/dL & Higher Ujrq=743 mg/dL or greater MCV (mean corpuscular volume ) determinationOrdered By: Galilea Adkins on 09-13-2024 MCV (RBC) [Entitic vol] 95.3 fL High 80-94 [facility] Magnesium measurement (mass/ volume)Ordered By: Galilea Adkins on 09-13-2024 Magnesium (Unsp spec) [Mass/Vol] 1.8 mg/dL 1.5-2.2 [facility] Mean corpuscular hemoglobin (MCH) determinationOrdered By: Galilea Adkins on 09-13-2024 MCH (RBC) [Entitic mass] 30.8 pg 27.0-32.0 [facility] Mean corpuscular hemoglobin concentration (MCHC) determinationOrdered By: Galilea Adkins on 09-13-2024 MCHC (RBC) [Mass/Vol] 32.4 g/dL 32-36 [facility] Mean platelet volume determi nationOrdered By: Galilea Adkins on 09-13-2024 Platelet mean volume (Bld) [Entitic vol] 10.5 fL 6.2-12.0 [facility] Platelet countOrdered By: Rupa Adkins on 09-13-2024 Platelets (Bld) [#/Vol] 447 10*3/uL 150-450 [facility] Potassium measurement (mass/ volume)Ordered By: Galilea Adkins on 09-13-2024 Potassium (Unsp spec) [Mass/Vol] 4.5 mmol/L 3.3-5.1 [facility] RBC Auto (Bld) [#/Vol]Ordere d By: Galilea Adkins on 09-13-2024 RBC (Bld) [#/Vol] 3.60 10*6/uL Low 4.6-6.2 [facility] Screening total cholesterol/ high density lipoprotein (HDL) cholesterol ratioOrdered By: Galilea Adkins on 09-13-2024 Cholesterol.total/Choles terol in HDL [Mass ratio] 3.80 {ratio} [facility] Serum creatinine measurement (mass/volume)Ordered By: Galilea Adkins on 09-13-2024 Creatinine [Mass/Vol] 0.70 mg/dL 0.70-1.20 [facility] Serum glucose measurement (m ass/volume)Ordered By: Galilea Adkins on 09-13-2024 Glucose [Mass/Vol] 101 mg/dL High 70-99 [facility] Serum or plasma calcium eduar urement (mass/volume)Ordered By: Galilea Adkins on 09-13-2024 Calcium [Mass/Vol] 8.5 mg/dL 7.6-11.0 [facility] Serum or plasma cholesterol in HDL measurement (mass/volume)Ordered By: Galilea Adkins on 09-13-2024 Cholesterol in HDL [Mass/Vol] 29 mg/dL Low >40 [facility] Comment on above: National Cholesterol Education Program (NCEP) guidelines:<40 mg/dL: Low HDL-cholesterol (major risk factor for CHD)>= 60 mg/dL: High HDL-cholesterol (negative risk factor for CHD)HDL-cholesterol is affected by a number of factors, e.g. smoking, exercise, hormones, sex and age. Serum or plasma cholesterol measurement (mass/volume)Ordered By: Galilea Adkins on 09-13-2024 Cholesterol [Mass/Vol] 111 mg/dL <201 [facility] Comment on above: Cholesterol level, D esirable <200 mg/dLBorderline high cholesterol 200-239 mg/dLHigh cholesterol >=240 mg/dLRecommendations of the NCEP Adult Treatment Panel for the following risk-cutoff thresholds for the [place] population. Serum or plasma urea nitroge n measurement (mass/volume)Ordered By: Galilea Adkins on 09-13-2024 Urea nitrogen [Mass/Vol] 22 mg/dL High 4-19 [facility] Sodium levelOrdered By: Hill Adkins on 09-13-2024 Sodium [Moles/Vol] 140 mmol/L 133-145 [facility] TSH DL <= 0.005 mIU/L QnOrde red By: Galilea Adkins on 05-28-2025 TSH Qn 1.800 uIU/mL 0.300-4.200 [facility] Triglycerides measurementOrd ered By: Galilea Adkins on 09-13-2024 Triglyceride [Mass/Vol] 100 mg/dL <199 [facility] Comment on above: The drugs N-Acetylcy steine and Metamizole may falsely depress this assay. Normal range: <150 mg/dLBorderline High: 150-199 mg/dLHigh: 200-499 mg/dLVery High: >500 mg/dL White blood cell (WBC) count Ordered By: Galilea Adkins on 09-13-2024 WBC (Bld) [#/Vol] 8.2 10*3/uL 4.4-11.0 [facility] CASE MANAGEMon 09-12-[address] [facility] CNDSon 09-12-[address] [facility] CONSULT PROGon 09-12-2024 CON[address] [facility] THERAPY NTon 09-12-[address] [facility] Magnesium SerPl-mCncon 09-11 Magnesium [Mass/Vol] 1.8 mg/dL Normal 1.7-2.3 [facility] Comment on above: Order Comment: Speci men Type: BLOOD SPECIMENOrdering Facility: [facility] Address: [address] [place], [place] [address] Performed By: #### 1 9123-9, 40514-6 ####BESSEMER LABORATORYCLIA [id number] [place] [address] [place] Renal function 2000 panelon 09-11-2024 Albumin [Mass/Vol] 3.3 g/dL Low 3.9-4.9 [facility] Comment on above: Order Comment: Speci men Type: BLOOD SPECIMENOrdering Facility: [facility] Address: [address] [place] [address] Performed By: #### 1 9123-9, 42396-1 ####BESSEMER LABORATORYCLIA [id number] [place] [id number] [place] Anion gap [Moles/Vol] 9 mmol/L Normal 8-15 [facility] Comment on above: Order Comment: Speci men Type: BLOOD SPECIMENOrdering Facility: [facility] Address: [address] [place] [address] Performed By: #### 1 9123-9, 92553-3 ####BENÍTEZ LABORATORYCLIA [id number] [place] [address] [place] Calcium [Mass/Vol] 8.5 mg/dL Normal 8.5-10.2 [facility] Comment on above: Order Comment: Speci men Type: BLOOD SPECIMENOrdering Facility: [facility] Address: [address] [facility] [place] [place] [address] Performed By: #### 1 9123-9, 90942-7 ####BENÍTEZ LABORATORYCLIA [id number] [place] [address] [place] Chloride [Moles/Vol] 103 mmol/L Normal 98-107 [facility] Comment on above: Order Comment: Speci men Type: BLOOD SPECIMENOrdering Facility: [facility] Address: [place] [address] Performed By: #### 1 9123-9, 47565-3 ####BENÍTEZ LABORATORYCLIA [id number] [place] [address] [place] CO2 [Moles/Vol] 27 mmol/L Normal 22-30 [facility] Comment on above: Order Comment: Speci men Type: BLOOD SPECIMENOrdering Facility: [facility] Address: [address] [place] [address] Performed By: #### 1 9123-9, 28045-9 ####BENÍTEZ LABORATORYCLIA [id number] [place] [address] [place] Creatinine [Mass/Vol] 0.63 mg/dL Low 0.73-1.22 [facility] Comment on above: Order Comment: Speci men Type: BLOOD SPECIMENOrdering Facility: [facility] Address: [facility] [place] [address] Performed By: #### 1 9123-9, 03511-9 ####BENÍTEZ LABORATORYCLIA [id number] [place] [address] [place] Creatinine and Glomerular filtration rate.predicted panel (S/P/Bld) 95 mL/min/1.73m??? Normal >=60 [facility] Comment on above: Order Comment: Cathy bruno Type: BLOOD SPECIMENOrdering Facility: [facility] Address: [address] [place] [address] [place] [address] Result Comment: Leah mated Glomerular Filtration Rate (eGFR) is calculated using the 2020 CKD-EPI creatinine equation. This equation utilizes serum creatinine, sex, and age as parameters. The creatinine assay has traceable calibration to isotope dilution-mass spectrometry. Refer to KDIGO guidelines for clinical interpretation. In patients with unstable renal function, e.g. those with acute kidney injury, the eGFR may not accurately reflect actual GFR. Performed By: #### 1 9123-9, 46860-6 ####BESSEMER LABORATORYCLIA [id number] [place] [id number] [place] Glucose [Mass/Vol] 97 mg/dL Normal 74-99 [facility] Comment on above: Order Comment: Cathy bruno Type: BLOOD SPECIMENOrdering Facility: [facility] Address: [address] [place] [address] Result Comment: The [place] Diabetes Association (ADA) provides guidance for cutoff values for fasting glucose and random glucose. The ADA defines fasting as no caloric intake for at least 8 hours. Fasting plasma glucose results between 100 to 125 mg/dL indicate increased risk for diabetes (prediabetes).Fasting plasma glucose results greater than or equal to 126 mg/dL meet the criteria for diagnosis of diabetes. In the absence of unequivocal hyperglycemia, results should be confirmed by repeat testing. In a patient with classic symptoms of hyperglycemia or hyperglycemic crisis, random plasma glucose results greater than or equal to 200 mg/dL meet the criteria for diagnosis of diabetes.Reference: Standards of Medical Care in Diabetes 2016, [place] Diabetes [employer]. Diabetes Care. 2016.39(Suppl 1). Performed By: #### 1 9123-9, 24620-5 ####BESSEMER LABORATORYCLIA [id number] [place] [id number] [place] Phosphate [Mass/Vol] 3.6 mg/dL Normal 2.7-4.8 [facility] Comment on above: Order Comment: Cathy bruno Type: BLOOD SPECIMENOrdering Facility: [facility] Address: [address] [place] [address] [place] [address] Performed By: #### 1 9123-9, 93125-7 ####BENÍTEZ LABORATORYCLIA [id number] [place] [address] [place] Potassium [Moles/Vol] 4.0 mmol/L Normal 3.7-5.1 [facility] Comment on above: Order Comment: Speci men Type: BLOOD SPECIMENOrdering Facility: [facility] Address: [address] [place] [address] Performed By: #### 1 9123-9, 14872-4 ####BENÍTEZ LABORATORYCLIA [id number] [place] [address] [place] Sodium [Moles/Vol] 139 mmol/L Normal 136-144 [facility] Comment on above: Order Comment: Speci men Type: BLOOD SPECIMENOrdering Facility: [facility] Address: [address] [place] [address] Performed By: #### 1 9123-9, 81537-7 ####BENÍTEZ LABORATORYCLIA [id number] [place] [address] [place] Urea nitrogen [Mass/Vol] 22 mg/dL Normal 9-24 [facility] Comment on above: Order Comment: Speci men Type: BLOOD SPECIMENOrdering Facility: [facility] Address: [address] [place] [address] Performed By: #### 1 9123-9, 29451-3 ####BENÍTEZ LABORATORYCLIA [id number] [place] [address] [place] Magnesium SerPl-mCncon 09-10 Magnesium [Mass/Vol] 1.9 mg/dL Normal 1.7-2.3 [facility] Comment on above: Order Comment: Speci men Type: BLOOD SPECIMENOrdering Facility: [facility] Address: [address] [place] [address] Performed By: #### 1 9123-9 ####BENÍTEZ LABORATORYCLIA [id number] [place] [address] [place] Basic metabolic 2000 panelon 09-09-2024 Anion gap [Moles/Vol] 9 mmol/L Normal 8-15 [facility] Comment on above: Order Comment: Speci men Type: BLOOD SPECIMENOrdering Facility: [facility] Address: [address] [place] [address] Performed By: #### 2 4320-2, ####BENÍTEZ LABORATORYCLIA [id number] [place] [address] [place] Calcium [Mass/Vol] 8.5 mg/dL Normal 8.5-10.2 [facility] Comment on above: Order Comment: Speci men Type: BLOOD SPECIMENOrdering Facility: [facility] Address: [address] [place] [address] Performed By: #### 2 4320-2, ####BENÍTEZ LABORATORYCLIA [id number] [place] [address] [place] Chloride [Moles/Vol] 103 mmol/L Normal 98-107 [facility] Comment on above: Order Comment: Speci men Type: BLOOD SPECIMENOrdering Facility: [facility] Address: [address] [place] [address] Performed By: #### 2 2, ####BENÍTEZ LABORATORYCLIA [id number] [place] [address] [place] CO2 [Moles/Vol] 30 mmol/L Normal 22-30 [facility] Comment on above: Order Comment: Speci men Type: BLOOD SPECIMENOrdering Facility: [facility] Address: [address] [place] [address] Performed By: #### 2 2, ####BENÍTEZ LABORATORYCLIA [id number] [place] [address] [place] Creatinine [Mass/Vol] 0.75 mg/dL Normal 0.73-1.22 [facility] Comment on above: Order Comment: Speci men Type: BLOOD SPECIMENOrdering Facility: [facility] Address: [address] [place] [address] Performed By: #### 2 2, ####BENÍTEZ LABORATORYCLIA [id number] [place] [address] [place] Creatinine and Glomerular filtration rate.predicted panel (S/P/Bld) 90 mL/min/1.73m??? Normal >=60 [facility] Comment on above: Order Comment: Cathy bruno Type: BLOOD SPECIMENOrdering Facility: [facility] Address: [address] [place] [address] Result Comment: Leah mated Glomerular Filtration Rate (eGFR) is calculated using the 2020 CKD-EPI creatinine equation. This equation utilizes serum creatinine, sex, and age as parameters. The creatinine assay has traceable calibration to isotope dilution-mass spectrometry. Refer to KDIGO guidelines for clinical interpretation. In patients with unstable renal function, e.g. those with acute kidney injury, the eGFR may not accurately reflect actual GFR. Performed By: #### 2 4321-2, ####BESSEMER LABORATORYCLIA [id number] [place] [id number] [place] Glucose [Mass/Vol] 116 mg/dL High 74-99 [facility] Comment on above: Order Comment: Cathy bruno Type: BLOOD SPECIMENOrdering Facility: [facility] Address: [address] [place] [address] Result Comment: The [place] Diabetes Association (ADA) provides guidance for cutoff values for fasting glucose and random glucose. The ADA defines fasting as no caloric intake for at least 8 hours. Fasting plasma glucose results between 100 to 125 mg/dL indicate increased risk for diabetes (prediabetes).Fasting plasma glucose results greater than or equal to 126 mg/dL meet the criteria for diagnosis of diabetes. In the absence of unequivocal hyperglycemia, results should be confirmed by repeat testing. In a patient with classic symptoms of hyperglycemia or hyperglycemic crisis, random plasma glucose results greater than or equal to 200 mg/dL meet the criteria for diagnosis of diabetes.Reference: Standards of Medical Care in Diabetes 2016, [place] Diabetes [employer]. Diabetes Care. 2016.39(Suppl 1). Performed By: #### 2 4321-2, ####BESSEMER LABORATORYCLIA [id number] [place] [id number] [place] Potassium [Moles/Vol] 3.6 mmol/L Low 3.7-5.1 [facility] Comment on above: Order Comment: Cathy bruno Type: BLOOD SPECIMENOrdering Facility: [facility] Address: [address] [place] [address] Performed By: #### 2 4321-2, ####BENÍTEZ LABORATORYCLIA [id number] [place] [address] [place] Sodium [Moles/Vol] 142 mmol/L Normal 136-144 [facility] Comment on above: Order Comment: Speci men Type: BLOOD SPECIMENOrdering Facility: [facility] Address: [address] [place] [address] Performed By: #### 2 4321-2, ####BENÍTEZ LABORATORYCLIA [id number] [place] [address] [place] Urea nitrogen [Mass/Vol] 18 mg/dL Normal - [facility] Comment on above: Order Comment: Speci men Type: BLOOD SPECIMENOrdering Facility: [facility] Address: [address] [place] [address] Performed By: #### 2 4321-2, ####BENÍTEZ LABORATORYCLIA [id number] [address] [place] CASE MANAGEMon 09-09-2024 CASE MANAGEM Normal [facility] CBC panel Auto (Bld)on 09-09 Erythrocyte distribution width (RBC) [Ratio] 15.3 % High 11.5-15.0 [facility] Comment on above: Order Comment: Speci men Type: BLOOD SPECIMENOrdering Facility: [facility] Address: [address] [place] [address] Performed By: #### 5 8410-2 ####BENÍTEZ LABORATORYCLIA [id number] [place] [address] [place] Hematocrit (Bld) [Volume fraction] 31.6 % Low 39.0-51.0 [facility] Comment on above: Order Comment: Speci men Type: BLOOD SPECIMENOrdering Facility: [facility] Address: [address] [place] [address] Performed By: #### 5 8410-2 ####BENÍTEZ LABORATORYCLIA [id number] [address] [place] Hemoglobin (Bld) [Mass/Vol] 10.7 g/dL Low 13.0-17.0 [facility] Comment on above: Order Comment: Speci men Type: BLOOD SPECIMENOrdering Facility: [facility] Address: [address] [place] [address] Performed By: #### 5 8410-2 ####BENÍTEZ LABORATORYCLIA [id number] [address] [place] MCH (RBC) [Entitic mass] 31.2 pg Normal 26.0-34.0 [facility] Comment on above: Order Comment: Speci men Type: BLOOD SPECIMENOrdering Facility: [facility] Address: [address] [place] [address] Performed By: #### 5 8410-2 ####BENÍTEZ LABORATORYCLIA [id number] [address] MCHC (RBC) [Mass/Vol] 33.9 g/dL Normal 30.5-36.0 [facility] Comment on above: Order Comment: Speci men Type: BLOOD SPECIMENOrdering Facility: [facility] Address: [address] [place] [address] Performed By: #### 5 8410-2 ####BENÍTEZ LABORATORYCLIA [id number] [address] MCV (RBC) [Entitic vol] 92.1 fL Normal 80.0-100.0 [facility] Comment on above: Order Comment: Speci men Type: BLOOD SPECIMENOrdering Facility: [facility] Address: [address] [place] [address] Performed By: #### 5 8410-2 ####BENÍTEZ LABORATORYCLIA [id number] [address] [place] Nucleated RBC (Bld) [#/Vol] 10*3/uL Normal <0.01 [facility] Comment on above: Order Comment: Speci men Type: BLOOD SPECIMENOrdering Facility: [facility] Address: [address] [place] [address] Performed By: #### 5 8410-2 ####BENÍTEZ LABORATORYCLIA [id number] [place] [address] [place] Platelet mean volume (Bld) [Entitic vol] 10.1 fL Normal 9.0-12.7 [facility] Comment on above: Order Comment: Speci men Type: BLOOD SPECIMENOrdering Facility: [facility] Address: [address] [place] [id number] Performed By: #### 5 8410-2 ####BENÍTEZ LABORATORYCLIA [id number] [place] [address] [place] Platelets (Bld) [#/Vol] 301 10*3/uL Normal 150-400 [facility] Comment on above: Order Comment: Speci men Type: BLOOD SPECIMENOrdering Facility: [facility] Address: [address] [place] [address] Performed By: #### 5 8410-2 ####BENÍTEZ LABORATORYCLIA [id number] [place] [address] [place] RBC (Bld) [#/Vol] 3.43 10*6/uL Low 4.20-6.00 [facility] Comment on above: Order Comment: Speci men Type: BLOOD SPECIMENOrdering Facility: [facility] Address: [address] [place] [address] Performed By: #### 5 8410-2 ####BENÍTEZ LABORATORYCLIA [id number] [address] [place] WBC (Bld) [#/Vol] 7.70 10*3/uL Normal 3.70-11.00 [facility] Comment on above: Order Comment: Speci men Type: BLOOD SPECIMENOrdering Facility: [facility] Address: [address] [place] [address] Performed By: #### 5 8410-2 ####BENÍTEZ LABORATORYCLIA [id number] [address] [place] Magnesium SerPl-mCncon 09-09 Magnesium [Mass/Vol] 1.6 mg/dL Low 1.7-2.3 [facility] Comment on above: Order Comment: Speci men Type: BLOOD SPECIMENOrdering Facility: [facility] Address: [address] [place] [address] Performed By: #### 2 4321-2, ####BENÍTEZ LABORATORYCLIA [id number] [place] [address] [place] Basic metabolic 2000 panelon 09-08-2024 Anion gap [Moles/Vol] 10 mmol/L Normal 8-15 [facility] Comment on above: Order Comment: Speci men Type: BLOOD SPECIMENOrdering Facility: [facility] Address: [address] [place] [address] Performed By: #### 2 4321-2, ####BENÍTEZ LABORATORYCLIA [id number] [place] [address] [place] Calcium [Mass/Vol] 8.3 mg/dL Low 8.5-10.2 [facility] Comment on above: Order Comment: Speci men Type: BLOOD SPECIMENOrdering Facility: [facility] Address: [address] [place] [address] Performed By: #### 2 4320-2, ####BENÍTEZ LABORATORYCLIA [id number] [place] [address] [place] Chloride [Moles/Vol] 100 mmol/L Normal 98-107 [facility] Comment on above: Order Comment: Speci men Type: BLOOD SPECIMENOrdering Facility: [facility] Address: [place] [address] Performed By: #### 2 4321-2, ####BENÍTEZ LABORATORYCLIA [id number] [place] [id number] [place] CO2 [Moles/Vol] 27 mmol/L Normal 22-30 [facility] Comment on above: Order Comment: Speci men Type: BLOOD SPECIMENOrdering Facility: [facility] Address: [address] [place], [place] [address] Performed By: #### 2 432-2, ####BENÍTEZ LABORATORYCLIA [id number] [place] [address] [place] Creatinine [Mass/Vol] 0.82 mg/dL Normal 0.73-1.22 [facility] Comment on above: Order Comment: Speci men Type: BLOOD SPECIMENOrdering Facility: [facility] Address: [address] [place] [address] Performed By: #### 2 432-2, 46679-8 ####BENÍTEZ LABORATORYCLIA [id number] [place] [id number] [place] Creatinine and Glomerular filtration rate.predicted panel (S/P/Bld) 88 mL/min/1.73m??? Normal >=60 [facility] Comment on above: Order Comment: Cathy bruno Type: BLOOD SPECIMENOrdering Facility: [facility] Address: [address] [place] [address] Result Comment: Leah mated Glomerular Filtration Rate (eGFR) is calculated using the 2020 CKD-EPI creatinine equation. This equation utilizes serum creatinine, sex, and age as parameters. The creatinine assay has traceable calibration to isotope dilution-mass spectrometry. Refer to KDIGO guidelines for clinical interpretation. In patients with unstable renal function, e.g. those with acute kidney injury, the eGFR may not accurately reflect actual GFR. Performed By: #### 2 432-, ####BENÍTEZ LABORATORYCLIA [id number] [place] [id number] [place] Glucose [Mass/Vol] 108 mg/dL High 74-99 [facility] Comment on above: Order Comment: Cathy bruno Type: BLOOD SPECIMENOrdering Facility: [facility] Address: [address] [place] [address] Result Comment: The [place] Diabetes Association (ADA) provides guidance for cutoff values for fasting glucose and random glucose. The ADA defines fasting as no caloric intake for at least 8 hours. Fasting plasma glucose results between 100 to 125 mg/dL indicate increased risk for diabetes (prediabetes).Fasting plasma glucose results greater than or equal to 126 mg/dL meet the criteria for diagnosis of diabetes. In the absence of unequivocal hyperglycemia, results should be confirmed by repeat testing. In a patient with classic symptoms of hyperglycemia or hyperglycemic crisis, random plasma glucose results greater than or equal to 200 mg/dL meet the criteria for diagnosis of diabetes.Reference: Standards of Medical Care in Diabetes 2016, [place] Diabetes Association. Diabetes Care. 2016.39(Suppl 1). Performed By: #### 2 4321-2, ####BENÍTEZ LABORATORYCLIA [id number] [place] [address] [place] Potassium [Moles/Vol] 3.7 mmol/L Normal 3.7-5.1 [facility] Comment on above: Order Comment: Speci men Type: BLOOD SPECIMENOrdering Facility: [facility] Address: [address] [place] [address] Performed By: #### 2 4321-2, ####BENÍTEZ LABORATORYCLIA [id number] [place] [id number] [place] Sodium [Moles/Vol] 137 mmol/L Normal 136-144 [facility] Comment on above: Order Comment: Speci men Type: BLOOD SPECIMENOrdering Facility: [facility] Address: [address] [place] [address] Performed By: #### 2 4322, ####BENÍTEZ LABORATORYCLIA [id number] [place] [address] [place] Urea nitrogen [Mass/Vol] 18 mg/dL Normal 9-24 [facility] Comment on above: Order Comment: Speci men Type: BLOOD SPECIMENOrdering Facility: [facility] Address: [address] [place] [address] Performed By: #### 2 2, ####BENÍTEZ LABORATORYCLIA [id number] [place] [address] [place] CBC panel Auto (Bld)on 09-08 Erythrocyte distribution width (RBC) [Ratio] 15.4 % High 11.5-15.0 [facility] Comment on above: Order Comment: Speci men Type: BLOOD SPECIMENOrdering Facility: [facility] Address: [address] [place] [address] Performed By: #### 5 8410-2 ####B[facility] LABORATORYCLIA [id number] [place] [address] [place] Hematocrit (Bld) [Volume fraction] 31.1 % Low 39.0-51.0 [facility] Comment on above: Order Comment: Speci men Type: BLOOD SPECIMENOrdering Facility: [facility] Address: [address] [place] [address] Performed By: #### 5 8410-2 ####BENÍTE[facility] LABORATORYCLIA [id number] [address] Hemoglobin (Bld) [Mass/Vol] 10.4 g/dL Low 13.0-17.0 [facility] Comment on above: Order Comment: Speci men Type: BLOOD SPECIMENOrdering Facility: [facility] Address: [address] [place] [address] Performed By: #### 5 8410-2 ####BENÍTEZ LABORATORYCLIA [id number] [address] MCH (RBC) [Entitic mass] 30.9 pg Normal 26.0-34.0 [facility] Comment on above: Order Comment: Speci men Type: BLOOD SPECIMENOrdering Facility: [facility] Address: [address] [place] [address] Performed By: #### 5 8410-2 ####B[facility] LABORATORYCLIA [id number] [address] MCHC (RBC) [Mass/Vol] 33.4 g/dL Normal 30.5-36.0 [facility] Comment on above: Order Comment: Speci men Type: BLOOD SPECIMENOrdering Facility: [facility] Address: [address] [place] [address] Performed By: #### 5 8410-2 ####BENÍTEZ LABORATORYCLIA [id number] [address] MCV (RBC) [Entitic vol] 92.3 fL Normal 80.0-100.0 [facility] Comment on above: Order Comment: Speci men Type: BLOOD SPECIMENOrdering Facility: [facility] Address: [address] [place] [address] Performed By: #### 5 8410-2 ####BENÍTEZ LABORATORYCLIA [id number] [address] Nucleated RBC (Bld) [#/Vol] 10*3/uL Normal <0.01 [facility] Comment on above: Order Comment: Speci men Type: BLOOD SPECIMENOrdering Facility: [facility] Address: [address] [place] [address] Performed By: #### 5 8410-2 ####BENÍTEZ LABORATORYCLIA [id number] [place] [address] [place] Platelet mean volume (Bld) [Entitic vol] 10.0 fL Normal 9.0-12.7 [facility] Comment on above: Order Comment: Speci men Type: BLOOD SPECIMENOrdering Facility: [facility] Address: [address] [place] [address] Performed By: #### 5 8410-2 ####BENÍTEZ LABORATORYCLIA [id number] [place] [address] [place] Platelets (Bld) [#/Vol] 269 10*3/uL Normal 150-400 [facility] Comment on above: Order Comment: Speci men Type: BLOOD SPECIMENOrdering Facility: [facility] Address: [address] [place] [address] Performed By: #### 5 8410-2 ####BENÍTEZ LABORATORYCLIA [id number] [place] [address] [place] RBC (Bld) [#/Vol] 3.37 10*6/uL Low 4.20-6.00 [facility] Comment on above: Order Comment: Speci men Type: BLOOD SPECIMENOrdering Facility: [facility] Address: [address] [place] [address] Performed By: #### 5 8410-2 ####BENÍTEZ LABORATORYCLIA [id number] [place] [address] [facility] [place] WBC (Bld) [#/Vol] 8.01 10*3/uL Normal 3.70-11.00 [facility] Comment on above: Order Comment: Speci men Type: BLOOD SPECIMENOrdering Facility: [facility] Address: [address] [place] [address] Performed By: #### 5 8410-2 ####BENÍTEZ LABORATORYCLIA [id number] [place] [address] [facility] [place] Magnesium SerPl-mCncon 05-23 -2025 Magnesium [Mass/Vol] 1.8 mg/dL Normal 1.7-2.3 [facility] Comment on above: Order Comment: Speci men Type: BLOOD SPECIMENOrdering Facility: [facility] Address: [address] [place] [address] Performed By: #### 2 4321-2, ####BESSEMER LABORATORYCLIA [id number] [place] [address] [place] THERAPY NTon 09-08-2024 THERAPY NT Normal [facility] THERAPY NT Normal [facility] Basic metabolic 2000 panelon 09-07-2024 Anion gap [Moles/Vol] 11 mmol/L Normal 8-15 [facility] Comment on above: Order Comment: Speci men Type: BLOOD SPECIMENOrdering Facility: [facility] Address: [address] [place] [address] Performed By: #### 2 4321-2, ####BESSEMER LABORATORYCLIA [id number] [place] [address] [place] Calcium [Mass/Vol] 8.2 mg/dL Low 8.5-10.2 [facility] Comment on above: Order Comment: Speci men Type: BLOOD SPECIMENOrdering Facility: [facility] Address: [address] [place] [address] Performed By: #### 2 4321-2, ####BENÍTEZ LABORATORYCLIA [id number] [place] [id number] [place] Chloride [Moles/Vol] 101 mmol/L Normal 98-107 [facility] Comment on above: Order Comment: Speci men Type: BLOOD SPECIMENOrdering Facility: [facility] Address: [address] [place] [address] Performed By: #### 2 4321-2, 78462-3 ####BENÍTEZ LABORATORYCLIA [id number] [place] [id number] [place] CO2 [Moles/Vol] 24 mmol/L Normal 22-30 [facility] Comment on above: Order Comment: Speci men Type: BLOOD SPECIMENOrdering Facility: [facility] Address: [address] [place], [place] [address] [id number] Performed By: #### 2 4321-2, ####BENÍTEZ LABORATORYCLIA [id number] [place] [address] [place] Creatinine [Mass/Vol] 0.88 mg/dL Normal 0.73-1.22 [facility] Comment on above: Order Comment: Cathy bruno Type: BLOOD SPECIMENOrdering Facility: [facility] Address: [address] [facility] [place] [address] Performed By: #### 2 4321-2, ####BENÍTEZ LABORATORYCLIA [id number] [place] [address] [place] Creatinine and Glomerular filtration rate.predicted panel (S/P/Bld) 86 mL/min/1.73m??? Normal >=60 [facility] Comment on above: Order Comment: Cathy bruno Type: BLOOD SPECIMENOrdering Facility: [facility] Address: [address] [place] [address] Result Comment: Leah mated Glomerular Filtration Rate (eGFR) is calculated using the 2020 CKD-EPI creatinine equation. This equation utilizes serum creatinine, sex, and age as parameters. The creatinine assay has traceable calibration to isotope dilution-mass spectrometry. Refer to KDIGO guidelines for clinical interpretation. In patients with unstable renal function, e.g. those with acute kidney injury, the eGFR may not accurately reflect actual GFR. Performed By: #### 2 4321-2, ####BENÍTEZ LABORATORYCLIA [id number] [place] [id number] [place] Glucose [Mass/Vol] 123 mg/dL High 74-99 [facility] Comment on above: Order Comment: Cathy bruno Type: BLOOD SPECIMENOrdering Facility: [facility] Address: [address] [place] [address] Result Comment: The [place] Diabetes Association (ADA) provides guidance for cutoff values for fasting glucose and random glucose. The ADA defines fasting as no caloric intake for at least 8 hours. Fasting plasma glucose results between 100 to 125 mg/dL indicate increased risk for diabetes (prediabetes).Fasting plasma glucose results greater than or equal to 126 mg/dL meet the criteria for diagnosis of diabetes. In the absence of unequivocal hyperglycemia, results should be confirmed by repeat testing. In a patient with classic symptoms of hyperglycemia or hyperglycemic crisis, random plasma glucose results greater than or equal to 200 mg/dL meet the criteria for diagnosis of diabetes.Reference: Standards of Medical Care in Diabetes 2016, [place] Diabetes Association. Diabetes Care. 2016.39(Suppl 1). Performed By: #### 2 4321-2, ####BENÍTEZ LABORATORYCLIA [id number] [place] [address] [place] Potassium [Moles/Vol] 3.9 mmol/L Normal 3.7-5.1 [facility] Comment on above: Order Comment: Speci men Type: BLOOD SPECIMENOrdering Facility: [facility] Address: [address] [place] [address] Performed By: #### 2 4320-05, ####BENÍTEZ LABORATORYCLIA [id number] [place] [address] [place] Sodium [Moles/Vol] 136 mmol/L Normal 136-144 [facility] Comment on above: Order Comment: Speci men Type: BLOOD SPECIMENOrdering Facility: [facility] Address: [address] [place] [address] Performed By: #### 2 4320-05, ####BENÍTEZ LABORATORYCLIA [id number] [place] [address] [place] Urea nitrogen [Mass/Vol] 24 mg/dL Normal 9-24 [facility] Comment on above: Order Comment: Speci men Type: BLOOD SPECIMENOrdering Facility: [facility] Address: [address] [place] [address] Performed By: #### 2 2, ####BENÍTEZ LABORATORYCLIA [id number] [place] [id number] [place] CASE MGT INIT ASSESon 2024 [facility] panel Auto (Bld)on 09-07 Erythrocyte distribution width (RBC) [Ratio] 15.4 % High 11.5-15.0 [facility] Comment on above: Order Comment: Speci men Type: BLOOD SPECIMENOrdering Facility: [facility] Address: [address] [place] [address] Performed By: #### 5 8410-2 ####BENÍTEZ LABORATORYCLIA [id number] [address] Hematocrit (Bld) [Volume fraction] 30.6 % Low 39.0-51.0 [facility] Comment on above: Order Comment: Speci men Type: BLOOD SPECIMENOrdering Facility: [facility] Address: [address] [place] [address] Performed By: #### 5 8410-2 ####BENÍTEZ LABORATORYCLIA [id number] [address] Hemoglobin (Bld) [Mass/Vol] 10.4 g/dL Low 13.0-17.0 [facility] Comment on above: Order Comment: Speci men Type: BLOOD SPECIMENOrdering Facility: [facility] Address: [address] [place] [address] Performed By: #### 5 8410-2 ####BENÍTE[facility] LABORATORYCLIA [id number] [address] MCH (RBC) [Entitic mass] 31.4 pg Normal 26.0-34.0 [facility] Comment on above: Order Comment: Speci men Type: BLOOD SPECIMENOrdering Facility: [facility] Address: [address] [place] [address] Performed By: #### 5 8410-2 ####BENÍTEZ LABORATORYCLIA [id number] [address] MCHC (RBC) [Mass/Vol] 34.0 g/dL Normal 30.5-36.0 [facility] Comment on above: Order Comment: Speci men Type: BLOOD SPECIMENOrdering Facility: [facility] Address: [address] [place] [address] Performed By: #### 5 8410-2 ####BENÍTE[facility] LABORATORYCLIA [id number] [address] MCV (RBC) [Entitic vol] 92.4 fL Normal 80.0-100.0 [facility] Comment on above: Order Comment: Speci men Type: BLOOD SPECIMENOrdering Facility: [facility] Address: [address] [place] [address] Performed By: #### 5 8410-2 ####BENÍTEZ LABORATORYCLIA [id number] [address] [place] Nucleated RBC (Bld) [#/Vol] 10*3/uL Normal <0.01 [facility] Comment on above: Order Comment: Speci men Type: BLOOD SPECIMENOrdering Facility: [facility] Address: [address] [place] [address] Performed By: #### 5 8410-2 ####BENÍTEZ LABORATORYCLIA [id number] [address] [place] Platelet mean volume (Bld) [Entitic vol] 10.6 fL Normal 9.0-12.7 [facility] Comment on above: Order Comment: Speci men Type: BLOOD SPECIMENOrdering Facility: [facility] Address: [address] [place] [address] Performed By: #### 5 8410-2 ####BENÍTEZ LABORATORYCLIA [id number] [address] [place] Platelets (Bld) [#/Vol] 231 10*3/uL Normal 150-400 [facility] Comment on above: Order Comment: Speci men Type: BLOOD SPECIMENOrdering Facility: [facility] Address: [address] [place] [address] Performed By: #### 5 8410-2 ####BENÍTEZ LABORATORYCLIA [id number] [place] [address] [place] RBC (Bld) [#/Vol] 3.31 10*6/uL Low 4.20-6.00 [facility] Comment on above: Order Comment: Speci men Type: BLOOD SPECIMENOrdering Facility: [facility] Address: [address] [place] [address] Performed By: #### 5 8410-2 ####BENÍTEZ LABORATORYCLIA [id number] [place] [address] [place] WBC (Bld) [#/Vol] 7.61 10*3/uL Normal 3.70-11.00 [facility] Comment on above: Order Comment: Speci men Type: BLOOD SPECIMENOrdering Facility: [facility] Address: [address] [place] [address] Performed By: #### 5 8410-2 ####BESSEMER LABORATORYCLIA [id number] [place] [address] [place] CONSULTon 09-07-2024 CONSULT Normal [facility] ECG COMPLETEon 09-07-2024 ECG COMPLETE [facility] Magnesium SerPl-mCncon 09-07 Magnesium [Mass/Vol] 1.7 mg/dL Normal 1.7-2.3 [facility] Comment on above: Order Comment: Speci men Type: BLOOD SPECIMENOrdering Facility: [facility] Address: [address] [place] [address] Performed By: #### 2 4321-2, 78164-5 ####BESSEMER LABORATORYCLIA [id number] [place] [id number] [place] NURSING PROGon 09-07-2024 NURSING PROG [facility] NUTRITIONon 09-07-[address] [facility] ALLIED HEALTHon 09-06-2024 ALLIED HEALTH [facility] Bacteria Bld Culton 09-07-19 25 Bacteria identified Cx Nom (Bld) CULTURE, BLOOD: No growth 5 days GRAM STAIN: This blood culture had less than the recommended 8 ml per bottle, which could decrease the sensitivity of the test. Normal [facility] Comment on above: Performed By: #### 6 00-7 ####[facility] LABCLIA [id number] [facility] [place] [id number] [place] Bacteria identified Cx Nom (Bld) CULTURE, BLOOD: No growth [address] [facility] Comment on above: Performed By: #### 6 00-7 ####[facility] LABCLIA [id number] [facility] [place] [id number] [place] Bacteria Ur Culton 5 Bacteria identified Cx Nom (U) Abnormal [facility] Comment on above: Performed By: #### 6 30-4 ####[facility] LABCLIA [id number] [place] [address] [place] CBC W Auto Differential pane l (Bld)on 09-06-2024 Basophils (Bld) [#/Vol] 0.04 10*3/uL Normal <0.11 [facility] Comment on above: Order Comment: Speci men Type: BLOOD SPECIMENOrdering Facility: [facility] Address: [address] [place] [address] Performed By: #### 5 7021-8 ####BESSEMER LABORATORYCLIA [id number] [address] [place]#### 63530-3 ####[facility] LABCLIA [id number] [place] [address] [place] Basophils/100 WBC (Bld) 0.6 % Normal [facility] Comment on above: Order Comment: Speci men Type: BLOOD SPECIMENOrdering Facility: [facility] Address: [address] [place] [address] Performed By: #### 5 7021-8 ####BESSEMER LABORATORYCLIA [id number] [place] [address] [place]#### 27667-0 ####[facility] LABCLIA [id number] [place] [id number] [place] Differential cell count method Nom (Bld) Auto Normal [facility] Comment on above: Order Comment: Speci men Type: BLOOD SPECIMENOrdering Facility: [facility] Address: [address] [place] [id number] Performed By: #### 5 7021-8 ####BESSEMER LABORATORYCLIA [id number] [place] [address] [place]#### 91032-9 ####[facility] LABCLIA [id number] [place] [id number] [place] Eosinophils (Bld) [#/Vol] 10*3/uL Normal <0.46 [facility] Comment on above: Order Comment: Speci men Type: BLOOD SPECIMENOrdering Facility: [facility] Address: [address] [place] [address] Performed By: #### 5 7021-8 ####BENÍTEZ LABORATORYCLIA [id number] [address]#### 22326-5 ####[facility] LABCLIA [id number] [address] [place] Eosinophils/100 WBC (Bld) 0.0 % Normal [facility] Comment on above: Order Comment: Speci men Type: BLOOD SPECIMENOrdering Facility: [facility] Address: [address] [place] [address] Performed By: #### 5 7021-8 ####BENÍTEZ LABORATORYCLIA [id number] [address]#### 43618-1 ####[facility] LABCLIA [id number] [address] [place] Erythrocyte distribution width (RBC) [Ratio] 15.6 % High 11.5-15.0 [facility] Comment on above: Order Comment: Speci men Type: BLOOD SPECIMENOrdering Facility: [facility] Address: [address] [place] [address] Performed By: #### 5 7021-8 ####BENÍTEZ LABORATORYCLIA [id number] [address]#### 34195-3 ####[facility] LABCLIA [id number] [address] [place] Hematocrit (Bld) [Volume fraction] 32.1 % Low 39.0-51.0 [facility] Comment on above: Order Comment: Speci men Type: BLOOD SPECIMENOrdering Facility: [facility] Address: [address] [place] [address] Performed By: #### 5 7021-8 ####BENÍTEZ LABORATORYCLIA [id number] [place] [address] [facility]#### 04832-9 ####[facility] LABCLIA [id number] [place] [address] [place] Hemoglobin (Bld) [Mass/Vol] 11.1 g/dL Low 13.0-17.0 [facility] Comment on above: Order Comment: Speci men Type: BLOOD SPECIMENOrdering Facility: [facility] Address: [address] [place] [address] Performed By: #### 5 7021-8 ####BENÍTEZ LABORATORYCLIA [id number] [place] [address] [place]#### 33610-2 ####[facility] LABCLIA [id number] [place] [address] [place] Immature granulocytes (Bld) [#/Vol] 0.16 10*3/uL High <0.10 [facility] Comment on above: Order Comment: Speci men Type: BLOOD SPECIMENOrdering Facility: [facility] Address: [address] [place] [address] Performed By: #### 5 7021-8 ####BENÍTEZ LABORATORYCLIA [id number] [place] [address] [place]#### 68599-4 ####[facility] LABCLIA [id number] [place] [address] [place] Immature granulocytes/100 WBC (Bld) 2.2 % Normal [facility] Comment on above: Order Comment: Speci men Type: BLOOD SPECIMENOrdering Facility: [facility] Address: [address] [place] [address] Performed By: #### 5 7021-8 ####BENÍTEZ LABORATORYCLIA [id number] [place] [address] [place]#### 64679-2 ####[facility] LABCLIA [id number] [address] [address] [place] Lymphocytes (Bld) [#/Vol] 0.90 10*3/uL Low 1.00-4.00 [facility] Comment on above: Order Comment: Speci men Type: BLOOD SPECIMENOrdering Facility: [facility] Address: [address] [place] [address] Performed By: #### 5 7021-8 ####BESSEMER LABORATORYCLIA [id number] [place] [address] [place]#### 29856-8 ####[facility] LABCLIA [id number] [place] [address] [place] Lymphocytes/100 WBC (Bld) 12.5 % Normal [facility] Comment on above: Order Comment: Speci men Type: BLOOD SPECIMENOrdering Facility: [facility] Address: [address] [place] [address] Performed By: #### 5 7021-8 ####BESSEMER LABORATORYCLIA [id number] [place] [address] [place]#### 86698-0 ####[facility] LABCLIA [id number] [place] [address] [place] MCH (RBC) [Entitic mass] 31.5 pg Normal 26.0-34.0 [facility] Comment on above: Order Comment: Speci men Type: BLOOD SPECIMENOrdering Facility: [facility] Address: [address] [place] [address] Performed By: #### 5 7021-8 ####BESSEMER LABORATORYCLIA [id number] [place] [address] [place]#### 71334-5 ####[facility] LABCLIA [id number] [place] [id number] [place] MCHC (RBC) [Mass/Vol] 34.6 g/dL Normal 30.5-36.0 [facility] Comment on above: Order Comment: Speci men Type: BLOOD SPECIMENOrdering Facility: [facility] Address: [address] [place] [address] Performed By: #### 5 7021-8 ####BENÍTEZ LABORATORYCLIA [id number] [place] [address] [facility] [place]#### 96540-6 ####[facility] LABCLIA [id number] [place] [address] [place] MCV (RBC) [Entitic vol] 91.2 fL Normal 80.0-100.0 [facility] Comment on above: Order Comment: Speci men Type: BLOOD SPECIMENOrdering Facility: [facility] Address: [address] [place] [address] Performed By: #### 5 7021-8 ####BENÍ[facility] LABORATORYCLIA [id number] [address] [place]#### 44582-4 ####[facility] LABCLIA [id number] [place] [address] [place] Monocytes (Bld) [#/Vol] 1.14 10*3/uL High <0.87 [facility] Comment on above: Order Comment: Speci men Type: BLOOD SPECIMENOrdering Facility: [facility] Address: [address] [place] [address] Performed By: #### 5 7021-8 ####B[facility] LABORATORYCLIA [id number] [address]#### 47659-5 ####[facility] LABCLIA [id number] [place] [address] [place] Monocytes/100 WBC (Bld) 15.9 % Normal [facility] Comment on above: Order Comment: Speci men Type: BLOOD SPECIMENOrdering Facility: [facility] Address: [address] [place] [address] Performed By: #### 5 7021-8 ####BENÍTEZ LABORATORYCLIA [id number] [place] [address] [place]#### 22281-4 ####[facility] LABCLIA [id number] [place] [id number] [place] Neutrophils (Bld) [#/Vol] 4.95 10*3/uL Normal 1.45-7.50 [facility] Comment on above: Order Comment: Speci men Type: BLOOD SPECIMENOrdering Facility: [facility] Address: [address] [place] [address] Performed By: #### 5 7021-8 ####[facility]ES[facility] LABORATORYCLIA [id number] [place] [address] [place]#### 73320-3 ####[facility] LABCLIA [id number] [place] [address] [place] Neutrophils/100 WBC (Bld) 68.8 % Normal [facility] Comment on above: Order Comment: Speci men Type: BLOOD SPECIMENOrdering Facility: [facility] Address: [address] [place] [address] Performed By: #### 5 7021-8 ####BESSEM[facility] LABORATORYCLIA [id number] [place] [address] [place]#### 77503-7 ####[facility] LABCLIA [id number] [place] [id number] [place] Nucleated RBC (Bld) [#/Vol] 10*3/uL Normal <0.01 [facility] Comment on above: Order Comment: Speci men Type: BLOOD SPECIMENOrdering Facility: [facility] Address: [address] [place] [address] Performed By: #### 5 7021-8 ####BESSEMER LABORATORYCLIA [id number] [place] [address] [place]#### 91689-5 ####[facility] LABCLIA [id number] [place] [id number] [place] Nucleated RBC/100 WBC (Bld) [Ratio] 0.0 /100 WBC Normal [facility] Comment on above: Order Comment: Speci men Type: BLOOD SPECIMENOrdering Facility: [facility] Address: [address] [place] [address] Performed By: #### 5 7021-8 ####BENÍTE[facility] LABORATORYCLIA [id number] [address]#### 07894-6 ####[facility] LABCLIA [id number] [place] [address] [place] Platelet mean volume (Bld) [Entitic vol] 10.3 fL Normal 9.0-12.7 [facility] Comment on above: Order Comment: Speci men Type: BLOOD SPECIMENOrdering Facility: [facility] Address: [address] [place] [address] Performed By: #### 5 7021-8 ####[facility] LABORATORYCLIA [id number] [address] [place]#### 48670-3 ####[facility] LABCLIA [id number] [address] STATES OF [place] Platelets (Bld) [#/Vol] 258 10*3/uL Normal 150-400 [facility] Comment on above: Order Comment: Speci men Type: BLOOD SPECIMENOrdering Facility: [facility] Address: [address] [place] [address] Performed By: #### 5 7021-8 ####B[facility] LABORATORYCLIA [id number] [address] OF [place]#### [address]-8 ####[facility] LABCLIA [id number] [place] [address] [place] RBC (Bld) [#/Vol] 3.52 10*6/uL Low 4.20-6.00 [facility] Comment on above: Order Comment: Speci men Type: BLOOD SPECIMENOrdering Facility: [facility] Address: [address] [place] [address] Performed By: #### 5 7021-8 ####BENÍTEZ LABORATORYCLIA [id number] [address] OF [place]#### [address]-9 ####[facility] LABCLIA [id number] [place] [address] [place] WBC (Bld) [#/Vol] 7.19 10*3/uL Normal 3.70-11.00 [facility] Comment on above: Order Comment: Speci men Type: BLOOD SPECIMENOrdering Facility: [facility] Address: [address] [place] [address] Performed By: #### 5 7021-8 ####BEN[facility]TE[facility] LABORATORYCLIA [id number] [address]#### [address]-7 ####[facility] LABCLIA [id number] [address] [place] BRAIN WO IVCONon 09-07-19 CT BRAIN WO IVCON Normal [facility] Comprehensive metabolic 2000 panelon 09-06-2024 Albumin [Mass/Vol] 3.7 g/dL Low 3.9-4.9 [facility] Comment on above: Order Comment: Speci men Type: BLOOD SPECIMENOrdering Facility: [facility] Address: [address] [place] [address] Performed By: #### 2 4323-8 ####BEN[facility] LABORATORYCLIA [id number] [place] [address] [place] ALP [Catalytic activity/Vol] 72 U/L Normal 38-113 [facility] Comment on above: Order Comment: Speci men Type: BLOOD SPECIMENOrdering Facility: [facility] Address: [address] [place] [address] Performed By: #### 2 4323-8 ####B[facility] LABORATORYCLIA [id number] [address] [place] ALT [Catalytic activity/Vol] 26 U/L Normal 10-54 [facility] Comment on above: Order Comment: Speci men Type: BLOOD SPECIMENOrdering Facility: [facility] Address: [address] [facility] [place] [address] Performed By: #### 2 4323-8 ####BENÍTEZ LABORATORYCLIA [id number] [place] [address] [place] Anion gap [Moles/Vol] 14 mmol/L Normal 8-15 [facility] Comment on above: Order Comment: Speci men Type: BLOOD SPECIMENOrdering Facility: [facility] Address: [address] [place] [address] Performed By: #### 2 4323-8 ####BENÍTE[facility] LABORATORYCLIA [id number] [place] [address] [place] AST [Catalytic activity/Vol] 36 U/L Normal 14-40 [facility] Comment on above: Order Comment: Speci men Type: BLOOD SPECIMENOrdering Facility: [facility] Address: [address] [place] [address] Performed By: #### 2 4323-8 ####B[facility] LABORATORYCLIA [id number] [place] [address] [place] Bilirubin [Mass/Vol] 1.1 mg/dL Normal 0.2-1.3 [facility] Comment on above: Order Comment: Speci men Type: BLOOD SPECIMENOrdering Facility: [facility] Address: [address] [place] [address] Performed By: #### 2 4323-8 ####BEN[facility] LABORATORYCLIA [id number] [place] [address] [place] Calcium [Mass/Vol] 8.4 mg/dL Low 8.5-10.2 [facility] Comment on above: Order Comment: Speci men Type: BLOOD SPECIMENOrdering Facility: [facility] Address: [address] [place] [address] Performed By: #### 2 4323-8 ####BEN[facility] LABORATORYCLIA [id number] [place] [address] [place] Chloride [Moles/Vol] 98 mmol/L Normal 98-107 [facility] Comment on above: Order Comment: Speci men Type: BLOOD SPECIMENOrdering Facility: [facility] Address: [address] [place] [address] Performed By: #### 2 4323-8 ####BEN[facility] LABORATORYCLIA [id number] [place] [address] [place] CO2 [Moles/Vol] 23 mmol/L Normal 22-30 [facility] Comment on above: Order Comment: Speci men Type: BLOOD SPECIMENOrdering Facility: [facility] Address: [address] [place] [address] Performed By: #### 2 4323-8 ####BENÍTE[facility] LABORATORYCLIA [id number] [address] [place] Creatinine [Mass/Vol] 1.09 mg/dL Normal 0.73-1.22 [facility] Comment on above: Order Comment: Speci men Type: BLOOD SPECIMENOrdering Facility: [facility] Address: [address] [place] [address] Performed By: #### 2 4323-8 ####BEN[facility]TE[facility] LABORATORYCLIA [id number] [address] Creatinine and Glomerular filtration rate.predicted panel (S/P/Bld) 68 mL/min/1.73m??? Normal >=60 [facility] Comment on above: Order Comment: Speci men Type: BLOOD SPECIMENOrdering Facility: [facility] Address: [address] [place] [address] Result Comment: Leah mated Glomerular Filtration Rate (eGFR) is calculated using the 2020 CKD-EPI creatinine equation. This equation utilizes serum creatinine, sex, and age as parameters. The creatinine assay has traceable calibration to isotope dilution-mass spectrometry. Refer to KDIGO guidelines for clinical interpretation. In patients with unstable renal function, e.g. those with acute kidney injury, the eGFR may not accurately reflect actual GFR. Performed By: #### 2 4323-8 ####B[facility] LABORATORYCLIA [id number] [address] [place] Glucose [Mass/Vol] 175 mg/dL High 74-99 [facility] Comment on above: Order Comment: Speci men Type: BLOOD SPECIMENOrdering Facility: [facility] Address: [address] [place] [address] Result Comment: The [place] Diabetes Association (ADA) provides guidance for cutoff values for fasting glucose and random glucose. The ADA defines fasting as no caloric intake for at least 8 hours. Fasting plasma glucose results between 100 to 125 mg/dL indicate increased risk for diabetes (prediabetes).Fasting plasma glucose results greater than or equal to 126 mg/dL meet the criteria for diagnosis of diabetes. In the absence of unequivocal hyperglycemia, results should be confirmed by repeat testing. In a patient with classic symptoms of hyperglycemia or hyperglycemic crisis, random plasma glucose results greater than or equal to 200 mg/dL meet the criteria for diagnosis of diabetes.Reference: Standards of Medical Care in Diabetes 2016, [place] Diabetes Association. Diabetes Care. 2016.39(Suppl 1). Performed By: #### 2 4323-8 ####EBNÍTEZ LABORATORYCLIA [id number] [place] [address] [place] Potassium [Moles/Vol] 4.3 mmol/L Normal 3.7-5.1 [facility] Comment on above: Order Comment: Cathy men Type: BLOOD SPECIMENOrdering Facility: [facility] Address: [address] [place] [address] Performed By: #### 2 4323-8 ####BEN[facility] LABORATORYCLIA [id number] [place] [address] [place] Protein [Mass/Vol] 7.1 g/dL Normal 6.3-8.0 [facility] Comment on above: Order Comment: Cathy men Type: BLOOD SPECIMENOrdering Facility: [facility] Address: [address] [place] [address] Performed By: #### 2 4323-8 ####BENÍTE[facility] LABORATORYCLIA [id number] [place] [address] [place] Sodium [Moles/Vol] 135 mmol/L Low 136-144 [facility] Comment on above: Order Comment: Cathy men Type: BLOOD SPECIMENOrdering Facility: [facility] Address: [address] [place], [place] [address] Performed By: #### 2 4323-8 ####BNEÍTEZ LABORATORYCLIA [id number] [address] STATES OF [facility] Urea nitrogen [Mass/Vol] 22 mg/dL Normal 9-24 [facility] Comment on above: Order Comment: Cathy bruno Type: BLOOD SPECIMENOrdering Facility: [facility] Address: [address] [place] [address] Performed By: #### 2 4323-8 ####BESSEMER LABORATORYCLIA [id number] [address] OF [facility] ED NOTEon 09-06-2024 ED NOTE Normal [facility] ED NOTE HNO ID: [id number] Author: MAURICE BAILON RN Service: Nursing Author Type: Registered Nurse Type: ED Notes Filed: 09/06/2024 17:50 Note Text: Assumed care of pt after receiving b/s report from ANDRE Cole. [facility] ED PROV NOTEon 09-06-2024 ED PROV NOTE Normal [facility] HISTORY PHYSICALon HISTORY PHYSICAL Normal [facility] HbA1c (Bld)on 09-06-2024 Average glucose Estimated from glycated hemoglobin (Bld) [Mass/Vol] 137 mg/dL Normal [facility] Comment on above: Order Comment: Cathy bruno Type: BLOOD SPECIMENOrdering Facility: [facility] Address: [address] [place] [address] Result Comment: eAG: (Estimated average glucose) is a calculated value from HgbA1c and is employee relations representative of the average blood glucose level in the last 2-3 month period. Performed By: #### 5 7021-8 ####BES[facility] LABORATORYCLIA [id number] [address]#### [address]-6 ####[facility] LABCLIA [id number] [address] [place] HbA1c (Bld) [Mass fraction] 6.4 % High 4.3-5.6 [facility] Comment on above: Order Comment: Cathy bruno Type: BLOOD SPECIMENOrdering Facility: [facility] Address: [address] [place] [address] Result Comment: Amer [place] Diabetes Association guidelines indicate that patients with HgbA1c in the range 5.7-6.4% are at increased risk for development of diabetes, and intervention by lifestyle modification may be beneficial. HgbA1c greater or equal to 6.5% is considered diagnostic of diabetes. Performed By: #### 5 7021-8 ####BENÍ[facility] LABORATORYCLIA [id number] [address] OF [place]#### [address]-3 ####[facility] LABCLIA [id number] [address] SEPSIS LACTATE W/ REFLEX (IN ITIAL)on 09-06-2024 Lactate [Moles/Vol] 2.2 mmol/L High 0.5-2.0 [facility] Comment on above: Order Comment: Speci men Type: BLOOD SPECIMENOrdering Facility: [facility] Address: [address] [place] [address] Performed By: #### S LACTR ####BESSEM[facility] LABORATORYCLIA [id number] [address] SEPSIS LACTATE W/ REFLEX (SE COND)on 09-06-2024 Lactate [Moles/Vol] 1.9 mmol/L Normal 0.5-2.0 [facility] Comment on above: Order Comment: Speci men Type: BLOOD SPECIMENOrdering Facility: [facility] Address: [address] [place] [address] Performed By: #### S LACT2 ####BESSEM[facility] LABORATORYCLIA [id number] [address] Urinalysis complete panel (U )on 09-06-2024 Bacteria LM.HPF (Urine sed) [#/Area] Moderate Abnormal None Seen [facility] Comment on above: Order Comment: Speci men Type: URINE SPECIMENOrdering Facility: [facility] Address: [address] [place] [address] Performed By: #### 2 4356-8 ####B[facility] LABORATORYCLIA [id number] [address] Bilirubin Ql (U) Negative Normal Negative [facility] Comment on above: Order Comment: Speci men Type: URINE SPECIMENOrdering Facility: [facility] Address: [address] [place] [address] Performed By: #### 2 4356-8 ####BENÍTE[facility] LABORATORYCLIA [id number] [place] [address] [place] Clarity (Unsp spec) Turbid Abnormal Clear [facility] Comment on above: Order Comment: Speci men Type: URINE SPECIMENOrdering Facility: [facility] Address: [address] [place] [address] Performed By: #### 2 4356-8 ####BENÍ[facility] LABORATORYCLIA [id number] [place] [address] [place] Color (U) Yellow Normal Yellow [facility] Comment on above: Order Comment: Speci men Type: URINE SPECIMENOrdering Facility: [facility] Address: [address] [place] [address] Performed By: #### 2 4356-8 ####BEN[facility] LABORATORYCLIA [id number] [address] [place] Glucose Test strip (U) [Mass/Vol] Negative Normal Negative [facility] Comment on above: Order Comment: Speci men Type: URINE SPECIMENOrdering Facility: [facility] Address: [address] [place] [address] Performed By: #### 2 4356-8 ####BENÍTE[facility] LABORATORYCLIA [id number] [place] [address] [place] Hemoglobin Ql (U) 3+ Abnormal Negative [facility] Comment on above: Order Comment: Speci men Type: URINE SPECIMENOrdering Facility: [facility] Address: [address] [place] [address] Performed By: #### 2 4356-8 ####B[facility] LABORATORYCLIA [id number] [address] [place] Ketones Ql (U) Trace Abnormal Negative [facility] Comment on above: Order Comment: Speci men Type: URINE SPECIMENOrdering Facility: [facility] Address: [address] [place] [address] Performed By: #### 2 4356-8 ####BENÍTE[facility] LABORATORYCLIA [id number] [address] Leukocyte esterase Test strip Ql (U) 3+ Abnormal Negative [facility] Comment on above: Order Comment: Speci men Type: URINE SPECIMENOrdering Facility: [facility] Address: [address] [place] [address] Performed By: #### 2 4356-8 ####BENÍTE[facility] LABORATORYCLIA [id number] [place] [address] [place] Nitrite Ql (U) Negative Normal Negative [facility] Comment on above: Order Comment: Speci men Type: URINE SPECIMENOrdering Facility: [facility] Address: [address] [place] [address] Performed By: #### 2 4356-8 ####BENÍ[facility] LABORATORYCLIA [id number] [place] [address] [place] pH (U) 6.0 [pH] Normal 5.0-8.0 [facility] Comment on above: Order Comment: Speci men Type: URINE SPECIMENOrdering Facility: [facility] Address: [address] [place] [address] Performed By: #### 2 4356-8 ####BENÍTE[facility] LABORATORYCLIA [id number] [place] [address] [place] Protein (U) [Mass/Vol] 3+ Abnormal Negative [facility] Comment on above: Order Comment: Speci men Type: URINE SPECIMENOrdering Facility: [facility] Address: [address] [place] [address] Performed By: #### 2 4356-8 ####BENÍ[facility] LABORATORYCLIA [id number] [place] [address] [place] RBC LM.HPF (Urine sed) [#/Area] 6-10 /HPF Abnormal 0-3 /HPF [facility] Comment on above: Order Comment: Speci men Type: URINE SPECIMENOrdering Facility: [facility] Address: [address] [place] [address] Performed By: #### 2 4356-8 ####BENÍTEZ LABORATORYCLIA [id number] [place] [address] [place] Specific gravity (U) [Rel density] 1.025 Normal 1.005-1.030 [facility] Comment on above: Order Comment: Speci men Type: URINE SPECIMENOrdering Facility: [facility] Address: [address] [place] [address] Performed By: #### 2 4356-8 ####BESSEMER LABORATORYCLIA [id number] [address] Urobilinogen Ql (U) 4.0 EU/dL Abnormal 0.2-1.0 EU/dL [facility] Comment on above: Order Comment: Speci men Type: URINE SPECIMENOrdering Facility: [facility] Address: [address] [place] [address] Performed By: #### 2 4356-8 ####BESSEMER LABORATORYCLIA [id number] [address] WBC LM.HPF (Urine sed) [#/Area] /[HPF] Abnormal 0-5 /HPF [facility] Comment on above: Order Comment: Speci men Type: URINE SPECIMENOrdering Facility: [facility] Address: [address] [place] [address] Performed By: #### 2 4356-8 ####BESSEMER LABORATORYCLIA [id number] [address] XR CHEST 1V FRONTAL PORTon 0 - XR CHEST 1V FRONTAL PORT Normal [facility] CNDSon 07-04-2024 CNDS HNO ID: [id number] Author: SAVANAH DILL MD Service: Psychiatry Author Type: Physician Type: Discharge Summary Filed: 07/05/2024 09:37 Note Text: DISCHARGE SUMMARY BEHAVIORAL HEALTH PATIENT NAME: Branden Johnson ADMISSION DATE: 06/27/2024 DISCHARGE DATE: 07/04/2024 ATTENDING PHYSICIAN: Savanah Dill MD Code Status: DNR-CCA Highest Readmission Risk Score: 18 The 30 day readmissions risk score is derived from an internally validated risk model which evaluates patient level characteristics, utilization history, medication orders and lab results up until the day of discharge. Patients with a score of 39 or above are considered highest risk for readmission. Specific patient level drivers will be listed at the bottom of the summary. REASON FOR HOSPITALIZATION: Risk of physical harm to self DISCHARGE DIAGNOSIS: PRIMARY: Mood Disorder Major Depressive Disorder, Recurrent, Severe Without Psychotic Symptoms GAF: -30-21 Behavior is considerably influenced by delusions or hallucination or serious impairment in communication or judgment OPERATIONS DURING HOSPITALIZATION: None PROCEDURES DURING HOSPITALIZATION: No procedures performed HOSPITAL COURSE: Branden was admitted due to his SI. He was admitted and followed by IM for her medical issues and DVT precautions. He was started on a small dose of Lexapro and treated with group and behavioral therapy. He denies any serious SI and stated that he still wants a relationship with his SO. Admits to over reacting. Anxious to return to his facility. No SI or HI. CONSULTING TEAMS DURING HOSPITALIZATION: Internal Medicine: Dr. Gallo and group Treatment Team: Attending Provider: Savanah Dill MD Consulting: Ulysses Gallo MD PATIENT CONDITION AT DISCHARGE: Good DISCHARGE DISPOSITION: Long-Term Facility COMPLICATIONS: None At this time the patient has maximized his benefit from hospitalization.. The patient denies suicidal or homicidal ideation, intent or plan and is safe for discharge. The patient voices a readiness to transition back to his home setting and has agreed to our follow-up recommendations including medication compliance. SUBJECTIVE: 'Ok OBJECTIVE: Mood and affect blunted. Again denies any SI to me. States he is anxious to return to his facility. Transitions of Care Critical Issues: SPECIALIST FOLLOW-UP: mental health at [facility] LABS AND PROCEDURES PENDING AT DISCHARGE: No pending results. Any PRN's required for agitation or anxiety since last encounter: No New problems on the unit since the last encounter: No Any new medication reactions since the last encounter: No BP 116/55 Pulse 73 Temp (Src) 97.5 (Oral) Resp 16 Ht 5' 7.992 (1.73m) Wt 170 lb (77.1kg) SpO2 100% BMI 25.85 kg/(m2). O2 Therapy: Room Air MENTAL STATUS EXAM AT DISCHARGE: Appearance: Casually dressed Behavior: Disorganized Orientation: Person Speech/Language: The patient demonstrates appropriate tone, prosody, filiberto, phonetics, and syntax Mood/Affect: Suspicious Thought/Form: Loose Associations Thought Content: Delusions: Bizarre Suicidal Ideations: No suicidal ideation, intent or plan. Homicidal Ideations: No homicidal ideation, intent or plan. Insight: Insight is absent Judgment: Grossly impaired Memory/Cognition: Mildly Impaired Psychomotor: Psychomotor activity was normal GENERAL: Alert, no distress, cooperative. NEUROLOGIC: No gross abnormal findings including cranial nerves 2-12. MUSCULOSKELETAL: Normal muscle strength, Normal muscle tone and No involuntary movements. GAIT: Normal. LABORATORY DATA: The laboratory/imaging results have been reviewed. Pertinent findings since the last assessment: No TREATMENT PLAN: 1. Biological Management: see orders 2. Psychological Management Recommendations: n/a 3. Social Intervention Recommendations: n/a INFORMED CONSENT: Yes, completed with the Designated POA over Healthcare. Discussed the risks, benefits and alternatives to the medication(s) recommended. Consent was given. ALLERGIES No Known Allergies DISCHARGE MEDICATION: Medication List START taking these medications escitalopram oxalate 10 mg tablet Commonly known as: LEXAPRO Take 1 tablet by mouth once daily. Start taking on: July 05, 2024 metFORMIN 500 mg tablet Commonly known as: GLUCOPHAGE Take 1 tablet by mouth daily with breakfast. Start taking on: July 05, 2024 Potassium Chloride 8 mEq tablet Commonly known as: SLOW-K Take 1 tablet by mouth two times a day. CHANGE how you take these medications furosemide 40 mg tablet Commonly known as: LASIX Take 1 tablet by mouth once daily as needed (LEG SWELLING). What changed: when to take this reasons to take this ipratropium-albuterol 0.5 mg-3 mg(2.5 mg base)/3 mL Nebu Commonly known as: DUONEB Inhale 3 mL as instructed two times a day. What changed: when to take this pantoprazole DR 40 (more content not included)... [facility] NURSING PROGon 07-04-2024 NURSING PROG HNO ID: [id number] Author: KIMBERLEY RAHMAN, ANDRE Service: Nursing Author Type: Registered Nurse Type: Nursing Progress Note Filed: 07/04/2024 13:20 Note Text: Other: 1215- Patient to be discharged to [facility]. Attempted to call report and no answer. Will attempt again later. 1250- Nurse to nurse report given to William at [facility] [phone]. 1315- Patient discharged vis [facility] transportation to [facility] Basic metabolic 2000 panelon 07-03-2024 Anion gap [Moles/Vol] 12 mmol/L Normal 8-15 [facility] Comment on above: Order Comment: Speci men Type: BLOOD SPECIMENOrdering Facility: [facility] Address: [address] [place] [address] Performed By: #### 2 4321-2 ####[facility] LABORATORYCLIA [id number] [place] [id number] [place] Calcium [Mass/Vol] 8.5 mg/dL Normal 8.5-10.2 [facility] Comment on above: Order Comment: Speci men Type: BLOOD SPECIMENOrdering Facility: [facility] Address: [address] [place] [address] Performed By: #### 2 4321-2 ####[facility]CL[facility] LABORATORYCLIA [id number] [place] [address] [place] Chloride [Moles/Vol] 104 mmol/L Normal 98-107 [facility] Comment on above: Order Comment: Speci men Type: BLOOD SPECIMENOrdering Facility: [facility] Address: [address] [place] [address] Performed By: #### 2 4321-2 ####[facility]CL[facility] LABORATORYCLIA [id number] [place] [address] [place] CO2 [Moles/Vol] 23 mmol/L Normal 22-30 [facility] Comment on above: Order Comment: Speci men Type: BLOOD SPECIMENOrdering Facility: [facility] Address: [address] [place] [address] Performed By: #### 2 4321-2 ####[facility]CL[facility] LABORATORYCLIA [id number] [place] [id number] [place] Creatinine [Mass/Vol] 0.77 mg/dL Normal 0.73-1.22 [facility] Comment on above: Order Comment: Speci men Type: BLOOD SPECIMENOrdering Facility: [facility] Address: [address] [place] [address] Performed By: #### 2 4321-2 ####[facility]CL[facility] LABORATORYCLIA [id number] [place] [address] [place] Creatinine and Glomerular filtration rate.predicted panel (S/P/Bld) 89 mL/min/1.73m??? Normal >=60 [facility] Comment on above: Order Comment: Cathy bruno Type: BLOOD SPECIMENOrdering Facility: [facility] Address: [address] [place] [address] Result Comment: Leah mated Glomerular Filtration Rate (eGFR) is calculated using the 2020 CKD-EPI creatinine equation. This equation utilizes serum creatinine, sex, and age as parameters. The creatinine assay has traceable calibration to isotope dilution-mass spectrometry. Refer to KDIGO guidelines for clinical interpretation. In patients with unstable renal function, e.g. those with acute kidney injury, the eGFR may not accurately reflect actual GFR. Performed By: #### 2 4321-2 ####[facility] LABORATORYIA [id number] [place] [address] [place] Glucose [Mass/Vol] 100 mg/dL High 74-99 [facility] Comment on above: Order Comment: Cathy bruno Type: BLOOD SPECIMENOrdering Facility: [facility] Address: [address] [place] [address] Result Comment: The [place] Diabetes Association (ADA) provides guidance for cutoff values for fasting glucose and random glucose. The ADA defines fasting as no caloric intake for at least 8 hours. Fasting plasma glucose results between 100 to 125 mg/dL indicate increased risk for diabetes (prediabetes). Fasting plasma glucose results greater than or equal to 126 mg/dL meet the criteria for diagnosis of diabetes. In the absence of unequivocal hyperglycemia, results should be confirmed by repeat testing. In a patient with classic symptoms of hyperglycemia or hyperglycemic crisis, random plasma glucose results greater than or equal to 200 mg/dL meet the criteria for diagnosis of diabetes. Reference: Standards of Medical Care in Diabetes 2016, [employer]. Diabetes Care. 2016.39(Suppl 1). Performed By: #### 2 4321-2 ####[facility] LABORATORYCLIA [id number] [place] [id number] [place] Potassium [Moles/Vol] 3.7 mmol/L Normal 3.7-5.1 [facility] Comment on above: Order Comment: Speci men Type: BLOOD SPECIMENOrdering Facility: [facility] Address: [address] [place] [address] Performed By: #### 2 4321-2 ####[facility] LABORATORYCLIA [id number] [place] [id number] [place] Sodium [Moles/Vol] 139 mmol/L Normal 136-144 [facility] Comment on above: Order Comment: Speci men Type: BLOOD SPECIMENOrdering Facility: [facility] Address: [address] [place] [address] Performed By: #### 2 4321-2 ####[facility] LABORATORYCLIA [id number] [place] [id number] [place] Urea nitrogen [Mass/Vol] 27 mg/dL High 9-24 [facility] Comment on above: Order Comment: Speci men Type: BLOOD SPECIMENOrdering Facility: [facility] Address: [address] [place] [address] Performed By: #### 2 4321-2 ####[facility] LABORATORYCLIA [id number] [place] [id number] [place] CBC panel Auto (Bld)on 07-03 Erythrocyte distribution width (RBC) [Ratio] 14.8 % Normal 11.5-15.0 [facility] Comment on above: Order Comment: Speci men Type: BLOOD SPECIMENOrdering Facility: [facility] Address: [address] [place] [address] Performed By: #### 5 8410-2 ####[facility] LABORATORYCLIA [id number] [place] [address] [place] Hematocrit (Bld) [Volume fraction] 31.4 % Low 39.0-51.0 [facility] Comment on above: Order Comment: Speci men Type: BLOOD SPECIMENOrdering Facility: [facility] Address: [address] [place] [address] Performed By: #### 5 8410-2 ####[facility]ENTERLID LABORATORYCLIA [id number] [place] [address] [place] Hemoglobin (Bld) [Mass/Vol] 10.4 g/dL Low 13.0-17.0 [facility] Comment on above: Order Comment: Speci men Type: BLOOD SPECIMENOrdering Facility: [facility] Address: [address] [place] [address] Performed By: #### 5 8410-2 ####[facility]ENTER[facility]ID LABORATORYCLIA [id number] [place] [address] [place] MCH (RBC) [Entitic mass] 31.3 pg Normal 26.0-34.0 [facility] Comment on above: Order Comment: Speci men Type: BLOOD SPECIMENOrdering Facility: [facility] Address: [address] [place] [address] Performed By: #### 5 8410-2 ####[facility]ENTER[facility] LABORATORYCLIA [id number] [address] [place] MCHC (RBC) [Mass/Vol] 33.1 g/dL Normal 30.5-36.0 [facility] Comment on above: Order Comment: Speci men Type: BLOOD SPECIMENOrdering Facility: [facility] Address: [address] [place] [address] Performed By: #### 5 8410-2 ####[facility]ENTER[facility] LABORATORYCLIA [id number] [address] [place] MCV (RBC) [Entitic vol] 94.6 fL Normal 80.0-100.0 [facility] Comment on above: Order Comment: Speci men Type: BLOOD SPECIMENOrdering Facility: [facility] Address: [address] [place] [address] Performed By: #### 5 8410-2 ####[facility] LABORATORYCLIA [id number] [address] [place] Nucleated RBC (Bld) [#/Vol] 10*3/uL Normal <0.01 [facility] Comment on above: Order Comment: Speci men Type: BLOOD SPECIMENOrdering Facility: [facility] Address: [address] [place] [address] Performed By: #### 5 8410-2 ####[facility] LABORATORYCLIA [id number] [place] [address] [place] Platelet mean volume (Bld) [Entitic vol] 10.7 fL Normal 9.0-12.7 [facility] Comment on above: Order Comment: Speci men Type: BLOOD SPECIMENOrdering Facility: [facility] Address: [address] [place] [address] Performed By: #### 5 8410-2 ####[facility] LABORATORYCLIA [id number] [place] [address] [place] Platelets (Bld) [#/Vol] 252 10*3/uL Normal 150-400 [facility] Comment on above: Order Comment: Speci men Type: BLOOD SPECIMENOrdering Facility: [facility] Address: [address] [place] [address] Performed By: #### 5 8410-2 ####[facility] LABORATORYCLIA [id number] [place] [address] [place] RBC (Bld) [#/Vol] 3.32 10*6/uL Low 4.20-6.00 [facility] Comment on above: Order Comment: Speci men Type: BLOOD SPECIMENOrdering Facility: [facility] Address: [address] [place] [address] Performed By: #### 5 8410-2 ####[facility] LABORATORYCLIA [id number] [place] [address] [place] WBC (Bld) [#/Vol] 6.68 10*3/uL Normal 3.70-11.00 [facility] Comment on above: Order Comment: Speci men Type: BLOOD SPECIMENOrdering Facility: [facility] Address: [address] [place] [address] Performed By: #### 5 8410-2 ####[facility] LABORATORYCLIA [id number] [place] [address] [facility] [place] NURSING PROGon 07-03-2024 NURSING PROG HNO ID: [id number] Author: CYN CHAN RN Service: ? Author Type: Registered Nurse Type: Nursing Progress Note Filed: 07/04/2024 03:54 Note Text: Daily Note: Alert and oriented x 3. Patient is calm, friendly and engaged in conversation with peers in day area. Compliant with all medications, taking pills whole with water. Ambulates with walker without difficulty. Both continent and incontinent. Denies pain, SI/HI, delusions and hallucinations, with no observable signs. No reports or indication of anxiety or depressions. No behavioral issues noted. Routine 15-minute safety checks maintained. [facility] NURSING PROG HNO ID: [id number] Author: CORRINE PRITCHARD, ANDRE Service: Nursing Author Type: Registered Nurse Type: Nursing Progress Note Filed: 07/03/2024 16:02 Note Text: Nursing Progress Note Patient Name: Branden Johnson Patient Location: [place] [address] [address] Daily Note: 1115 assumed care of Pt. Pt sitting in day area watching TV. 1530 RN returned call to Pt's ANÍBAL Villar for update on Pt's status AND medication changes since he was admitted. Reviewed with her AND she said her would be in to visit Pt this evening AND if they had any further questions, they would ask then. 1600 [place] administered without difficulty. This note was completed by: CORRINE PRITCHARD [facility] NURSING PRO HNO ID: [id number] Author: SHU QUIJANO RN Service: Nursing Author Type: Registered Nurse Type: Nursing Progress Note Filed: 07/03/2024 09:33 Note Text: Nursing Progress Note Patient Name: Branden Johnson Patient Location: [place] [address] [address] Daily Note: A+Ox3. Pt is friendly and socially appropriate. He denies SI or feelings of depressions, has no complaints. Would like to know about discharge. He is cooperative with care and interventions. Compliant with medications. All safety measures maintained. This note was completed by: Shu Quijano [facility] NURSING PROGon 07-02-2024 NURSING PROG HNO ID: [id number] Author: CYN CHAN, ANDRE Service: ? Author Type: Registered Nurse Type: Nursing Progress Note Filed: 07/03/2024 06:58 Note Text: Daily Note: Alert and oriented x 3. Pleasant, friendly, and cooperative. Ambulates with walker. Continent. No behavioral issues. Slept all night. [facility] NURSING PRO HNO ID: [id number] Author: RAJAT PENALOZA, ANDRE Service: Nursing Author Type: Registered Nurse Type: Nursing Progress Note Filed: 07/02/2024 09:02 Note Text: Daily Note Patient alert and oriented x 3. Patient shower this am. compliant with medication and assessment. Denies pain, SI/HI or depression safety measurment ongoing. [facility] NURSING PROG HNO ID: [id number] Author: MIKE HYLTON RN Service: Nursing Author Type: Registered Nurse Type: Nursing Progress Note Filed: 07/02/2024 00:12 Note Text: Patient sitting in dining area watching tv and talking with peers. He is oriented x3. He took his medication as ordered. He denied suicidal thoughts and denied depression. He went to bed about 2100 [facility] Basic metabolic 2000 panelon 07-01-2024 Anion gap [Moles/Vol] 13 mmol/L Normal 12-01 [facility] Comment on above: Order Comment: Speci men Type: BLOOD SPECIMENOrdering Facility: [facility] Address: [address] [place], [place] [address] Performed By: #### 2 4321-2 ####[facility] LABORATORYCLIA [id number] [place] [address] [place] Calcium [Mass/Vol] 8.9 mg/dL Normal 8.5-10.2 [facility] Comment on above: Order Comment: Speci men Type: BLOOD SPECIMENOrdering Facility: [facility] Address: [address] [place] [address] Performed By: #### 2 4321-2 ####[facility] LABORATORYCLIA [id number] [place] [id number] [place] Chloride [Moles/Vol] 103 mmol/L Normal 98-107 [facility] Comment on above: Order Comment: Speci men Type: BLOOD SPECIMENOrdering Facility: [facility] Address: [address] [place] [address] Performed By: #### 2 4321-2 ####[facility] LABORATORYCLIA [id number] [place] [address] [place] CO2 [Moles/Vol] 25 mmol/L Normal 22-30 [facility] Comment on above: Order Comment: Speci men Type: BLOOD SPECIMENOrdering Facility: [facility] Address: [address] [place] [address] Performed By: #### 2 4321-2 ####[facility] LABORATORYCLIA [id number] [place] [address] [place] Creatinine [Mass/Vol] 0.86 mg/dL Normal 0.73-1.22 [facility] Comment on above: Order Comment: Speci men Type: BLOOD SPECIMENOrdering Facility: [facility] Address: [address] [place] [address] Performed By: #### 2 4321-2 ####[facility] LABORATORYCLIA [id number] [place] [address] [place] Creatinine and Glomerular filtration rate.predicted panel (S/P/Bld) 86 mL/min/1.73m??? Normal >=60 [facility] Comment on above: Order Comment: Speci men Type: BLOOD SPECIMENOrdering Facility: [facility] Address: [address] [place] [address] Result Comment: Leah mated Glomerular Filtration Rate (eGFR) is calculated using the 2020 CKD-EPI creatinine equation. This equation utilizes serum creatinine, sex, and age as parameters. The creatinine assay has traceable calibration to isotope dilution-mass spectrometry. Refer to KDIGO guidelines for clinical interpretation. In patients with unstable renal function, e.g. those with acute kidney injury, the eGFR may not accurately reflect actual GFR. Performed By: #### 2 4321-2 ####[facility] LABORATORYCLIA [id number] [place] [id number] [place] Glucose [Mass/Vol] 108 mg/dL High 74-99 [facility] Comment on above: Order Comment: Cathy bruno Type: BLOOD SPECIMENOrdering Facility: [facility] Address: [address] [place] [address] Result Comment: The [place] Diabetes Association (ADA) provides guidance for cutoff values for fasting glucose and random glucose. The ADA defines fasting as no caloric intake for at least 8 hours. Fasting plasma glucose results between 100 to 125 mg/dL indicate increased risk for diabetes (prediabetes). Fasting plasma glucose results greater than or equal to 126 mg/dL meet the criteria for diagnosis of diabetes. In the absence of unequivocal hyperglycemia, results should be confirmed by repeat testing. In a patient with classic symptoms of hyperglycemia or hyperglycemic crisis, random plasma glucose results greater than or equal to 200 mg/dL meet the criteria for diagnosis of diabetes. Reference: Standards of Medical Care in Diabetes 2016, [place] Diabetes Association. Diabetes Care. 2016.39(Suppl 1). Performed By: #### 2 4321-2 ####[facility]ORATORYCLIA [id number] [place] [address] [place] Potassium [Moles/Vol] 3.7 mmol/L Normal 3.7-5.1 [facility] Comment on above: Order Comment: Cathy bruno Type: BLOOD SPECIMENOrdering Facility: [facility] Address: [address] [place] [address] Performed By: #### 2 4321-2 ####[facility] LABORATORYCLIA [id number] [place] [address] [place] Sodium [Moles/Vol] 141 mmol/L Normal 136-144 [facility] Comment on above: Order Comment: Speci men Type: BLOOD SPECIMENOrdering Facility: [facility] Address: [address] [place] [address] Performed By: #### 2 4321-2 ####[facility]ENTERLID LABORATORYCLIA [id number] [place] [address] [facility] [place] Urea nitrogen [Mass/Vol] 27 mg/dL High 9-24 [facility] Comment on above: Order Comment: Speci men Type: BLOOD SPECIMENOrdering Facility: [facility] Address: [address] [place] [address] Performed By: #### 2 4321-2 ####[facility] LABORATORYCLIA [id number] [address] OF [facility] NURSING PROGon 07-01-2024 NURSING PROG HNO ID: [id number] Author: RAJAT PENALOZA RN Service: Nursing Author Type: Registered Nurse Type: Nursing Progress Note Filed: 07/01/2024 09:13 Note Text: Daily note Patient alert and oriented x 3. Compliant with medication and assessment. Denies SI/HI, hallucination, depression or anxiety. Safety Measurement ongoing. [facility] NURSING PROG HNO ID: [id number] Author: MIKE HYLTON RN Service: Nursing Author Type: Registered Nurse Type: Nursing Progress Note Filed: 07/01/2024 00:05 Note Text: Patient sitting in dining area watching tv and talking with peers. He is oriented x3. He took his medication as ordered. He denied suicidal thoughts and denied depression. He went to bed about 2130 [facility] NURSING PROGon 06-30-2024 NURSING PROG HNO ID: [id number] Author: SHU QUIJANO RN Service: Nursing Author Type: Registered Nurse Type: Nursing Progress Note Filed: 06/30/2024 09:06 Note Text: Nursing Progress Note Patient Name: Branden Johnson Patient Location: [place] [address] [address] Daily Note: A+Ox3 . Pleasant and friendly. Socially appropriate. Denies SI, AVH. No delusions present. Does frequently ask about discharge. 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 Up via walker. Cooperative with care and interventions. Compliant with medications. No complaints voiced. All safety measures maintained. This note was completed by: Shu Quijano [facility] NURSING PROG HNO ID: [id number] Author: MIKE HYLTON, ANDRE Service: Nursing Author Type: Registered Nurse Type: Nursing Progress Note Filed: 06/30/2024 00:51 Note Text: Patient sitting in day area watching tv. He is oriented x3. He took his medications ordered, He had a pleasant telephone conversation with family. He went to bed about 2130. Bed alarm on. [facility] NUTRITIONon 06-30-2024 NUTRITION HNO ID: [id number] Author: KALEIGH HARRIS RD Service: Nutrition Therapy Author Type: Registered Dietitian Type: Nutrition Filed: 06/30/2024 13:28 Note Text: INITIAL ASSESSMENT SERVICE DATE: 06/30/2024 SERVICE TIME: 1:26 PM Nutrition Assessment: Recommended Malnutrition Diagnosis: Mild Protein-Calorie Malnutrition In the context of: Social/Environmental Circumstance Based on: Insufficient Energy Intake Nutrition Diagnosis: Suboptimal oral intake related to inability to consume sufficient nutrients (MDD) as evidenced by patient/family self report, medical condition and intake records. Care Plan: Continue current diet Supplements: Ensure Max Monitor and Evaluation: Meet greater than 75% of estimated needs, Monitor bowel function, Monitor labs, I/Os, vital signs, weight Discharge Recommendations: Diet, Oral Supplements Diet: Consistent CHO Oral Supplements: DM friendly PRN HPI: Pt presented with MDD and SI from nursing facility. PMH significant stroke, seizures, HLD, HTN, DM, bladder cancer and prostate cancer. Intake History: Nutrition Intake Prior to Admission: Less than 75% estimated energy needs greater than or equal to 3 months Current Nutrition Intake: Less than 75% estimated energy needs Current Intake Over time: (greater than or equal to 2 days) Met with pt this morning. Endorses fair appetite. Denies chewing or swallowing difficulty. Denies n/v/d/c. Reports UBW of 200# but unsure of last time he weighed this. Agreeable to strawberry supplement with dinner daily. Asking about discharge. Advised to speak with MD/SW when they round. K+ low - replete Dosing Weight: 77.1 kg (170 lb) Dosing Weight Type: Admit weight Estimated kilocalorie needs: 8969-4416 Calorie Calculation Method: 20-25 kcals/kg Estimated protein needs (grams): 77-85 Grams protein determined by: 1.0 - 1.2 g/kg Diet Orders (From admission, onward) Start Ordered 06/27/24 1215 DIET CARBOHYDRATE CONTROLLED START NOW Question Answer Comment Carbohydrate Control CONSISTENT CARBOHYDRATE Tray Precautions SAFETY PLASTIC OR DISPOSABLE SERVICE [place] 06/27/24 1210 Anthropometrics: Height: 172.7 cm (5' 7.99) Weight: 77.1 kg (170 lb) Usual Weight: 90.7 kg (200 lb) Pt unsure of time frame Usual Weight Obtained From: Patient Body mass index is 25.85 kg/m?. Weight Change: Stable weight(s) (X 3 months) Physical Exam: Subcutaneous fat loss: No Subcutaneous Fat Loss Muscle loss: No Muscle Loss Potential micronutrient deficiency: No deficiency identified Edema/Ascites: No edema, No ascites Functional Status: Unable to assess Potential Signs of Inflammation: Chronic condition, Hyperglycemia, Hypoalbuminemia stroke, seizures, HLD, HTN, DM Lines, Drains, and Airways None MNT Billing: $ Initial Assessment: 1-15 minutes SIGNATURE: Kaleigh Harris RD,LD PATIENT NAME: Branden Johnson DATE: June 30, 2024 TIME: 1:21 PM Normal [facility] NURSING PROGon 06-29-2024 NURSING PROG HNO ID: [id number] Author: ISACC BRISENO RN Service: Nursing Author Type: Registered Nurse Type: Nursing Progress Note Filed: 06/29/2024 14:31 Note Text: 0958: A+Ox3 . Pleasant and friendly. Socially appropriate. Denies SI, AVH, depression and anxiety. No delusions present. Cooperative with care and interventions. Compliant with medications. No complaints voiced. All safety measures maintained. 1430: Pt watching TV in day area. No complaints at this time. Nursing Progress Note Patient Name: Branden Johnson Patient Location: [place] [address] [address] This note was completed by: Isacc Briseno [facility] CBC W Auto Differential pane l (Bld)on 06-28-2024 Basophils (Bld) [#/Vol] 0.04 10*3/uL Normal <0.11 [facility] Comment on above: Order Comment: Speci men Type: BLOOD SPECIMENOrdering Facility: [facility] Address: [address] [place] [address] Performed By: #### 5 7021-8 ####[facility]ENTERLID LABORATORYCLIA [id number] [place] [address] [place] Basophils/100 WBC (Bld) 0.5 % Normal [facility] Comment on above: Order Comment: Speci men Type: BLOOD SPECIMENOrdering Facility: [facility] Address: [address] [place] [address] Performed By: #### 5 7021-8 ####[facility] LABORATORYCLIA [id number] [place] [id number] [place] Differential cell count method Nom (Bld) Auto Normal [facility] Comment on above: Order Comment: Speci men Type: BLOOD SPECIMENOrdering Facility: [facility] Address: [address] [place] [address] Performed By: #### 5 7021-8 ####[facility]ENTERL[facility] LABORATORYCLIA [id number] [place] [address] [place] Eosinophils (Bld) [#/Vol] 0.16 10*3/uL Normal <0.46 [facility] Comment on above: Order Comment: Speci men Type: BLOOD SPECIMENOrdering Facility: [facility] Address: [address] [place] [address] Performed By: #### 5 7021-8 ####[facility] LABORATORYCLIA [id number] [place] [id number] [place] Eosinophils/100 WBC (Bld) 2.1 % Normal [facility] Comment on above: Order Comment: Speci men Type: BLOOD SPECIMENOrdering Facility: [facility] Address: [address] [place] [address] Performed By: #### 5 7021-8 ####[facility] LABORATORYCLIA [id number] [place] [address] [place] Erythrocyte distribution width (RBC) [Ratio] 14.8 % Normal 11.5-15.0 [facility] Comment on above: Order Comment: Speci men Type: BLOOD SPECIMENOrdering Facility: [facility] Address: [address] [place] [address] Performed By: #### 5 7021-8 ####[facility] LABORATORYCLIA [id number] [place] [address] [place] Hematocrit (Bld) [Volume fraction] 32.7 % Low 39.0-51.0 [facility] Comment on above: Order Comment: Speci men Type: BLOOD SPECIMENOrdering Facility: [facility] Address: [address] [place] [address] Performed By: #### 5 7021-8 ####[facility] LABORATORYCLIA [id number] [place] [address] [place] Hemoglobin (Bld) [Mass/Vol] 10.9 g/dL Low 13.0-17.0 [facility] Comment on above: Order Comment: Speci men Type: BLOOD SPECIMENOrdering Facility: [facility] Address: [address] [place] [address] Performed By: #### 5 7021-8 ####[facility] LABORATORYCLIA [id number] [place] [address] [place] Immature granulocytes (Bld) [#/Vol] 0.06 10*3/uL Normal <0.10 [facility] Comment on above: Order Comment: Speci men Type: BLOOD SPECIMENOrdering Facility: [facility] Address: [facility] [place] [address] Performed By: #### 5 7021-8 ####[facility] LABORATORYCLIA [id number] [place] [address] [place] Immature granulocytes/100 WBC (Bld) 0.8 % Normal [facility] Comment on above: Order Comment: Speci men Type: BLOOD SPECIMENOrdering Facility: [facility] Address: [address] [place] [address] Performed By: #### 5 7021-8 ####[facility] LABORATORYCLIA [id number] [place] [address] [place] Lymphocytes (Bld) [#/Vol] 2.08 10*3/uL Normal 1.00-4.00 [facility] Comment on above: Order Comment: Speci men Type: BLOOD SPECIMENOrdering Facility: [facility] Address: [address] [place] [address] Performed By: #### 5 7021-8 ####[facility] LABORATORYCLIA [id number] [place] [address] [place] Lymphocytes/100 WBC (Bld) 26.9 % Normal [facility] Comment on above: Order Comment: Speci men Type: BLOOD SPECIMENOrdering Facility: [facility] Address: [address] [place] [address] Performed By: #### 5 7021-8 ####[facility] LABORATORYCLIA [id number] [place] [address] [place] MCH (RBC) [Entitic mass] 31.4 pg Normal 26.0-34.0 [facility] Comment on above: Order Comment: Speci men Type: BLOOD SPECIMENOrdering Facility: [facility] Address: [address] [place] [address] Performed By: #### 5 7021-8 ####[facility] LABORATORYCLIA [id number] [place] [address] [place] MCHC (RBC) [Mass/Vol] 33.3 g/dL Normal 30.5-36.0 [facility] Comment on above: Order Comment: Speci men Type: BLOOD SPECIMENOrdering Facility: [facility] Address: [address] [place] [address] Performed By: #### 5 7021-8 ####[facility]ENTERLID LABORATORYCLIA [id number] [place] [address] [place] MCV (RBC) [Entitic vol] 94.2 fL Normal 80.0-100.0 [facility] Comment on above: Order Comment: Speci men Type: BLOOD SPECIMENOrdering Facility: [facility] Address: [address] [place] [address] Performed By: #### 5 7021-8 ####[facility]LID LABORATORYCLIA [id number] [place] [address] [place] Monocytes (Bld) [#/Vol] 0.87 10*3/uL High <0.87 [facility] Comment on above: Order Comment: Speci men Type: BLOOD SPECIMENOrdering Facility: [facility] Address: [address] [place] [address] Performed By: #### 5 7021-8 ####[facility] LABORATORYCLIA [id number] [place] [address] [place] Monocytes/100 WBC (Bld) 11.2 % Normal E [facility] Comment on above: Order Comment: Speci men Type: BLOOD SPECIMENOrdering Facility: [facility] Address: [address] [place] [address] Performed By: #### 5 7021-8 ####[facility]ENTERLID LABORATORYCLIA [id number] [place] [address] [place] Neutrophils (Bld) [#/Vol] 4.53 10*3/uL Normal 1.45-7.50 [facility] Comment on above: Order Comment: Speci men Type: BLOOD SPECIMENOrdering Facility: [facility] Address: [address] [place] [address] Performed By: #### 5 7021-8 ####[facility] LABORATORYCLIA [id number] [place] [id number] [place] Neutrophils/100 WBC (Bld) 58.5 % Normal [facility] Comment on above: Order Comment: Speci men Type: BLOOD SPECIMENOrdering Facility: [facility] Address: [address] [place] [address] Performed By: #### 5 7021-8 ####[facility]CL[facility] LABORATORYCLIA [id number] [place] [address] [place] Nucleated RBC (Bld) [#/Vol] 10*3/uL Normal <0.01 [facility] Comment on above: Order Comment: Speci men Type: BLOOD SPECIMENOrdering Facility: [facility] Address: [address] [place] [address] Performed By: #### 5 7021-8 ####[facility] LABORATORYCLIA [id number] [place] [address] [place] Nucleated RBC/100 WBC (Bld) [Ratio] 0.0 /100 WBC Normal [facility] Comment on above: Order Comment: Speci men Type: BLOOD SPECIMENOrdering Facility: [facility] Address: [address] [place] [address] Performed By: #### 5 7021-8 ####[facility] LABORATORYCLIA [id number] [place] [address] [place] Platelet mean volume (Bld) [Entitic vol] 11.0 fL Normal 9.0-12.7 [facility] Comment on above: Order Comment: Speci men Type: BLOOD SPECIMENOrdering Facility: [facility] Address: [address] [place] [address] Performed By: #### 5 7021-8 ####[facility] LABORATORYCLIA [id number] [place] [address] [place] Platelets (Bld) [#/Vol] 267 10*3/uL Normal 150-400 [facility] Comment on above: Order Comment: Speci men Type: BLOOD SPECIMENOrdering Facility: [facility] Address: [address] [place] [address] Performed By: #### 5 7021-8 ####[facility]CL[facility] LABORATORYCLIA [id number] [place] [address] [facility] RBC (Bld) [#/Vol] 3.47 10*6/uL Low 4.20-6.00 [facility] Comment on above: Order Comment: Speci men Type: BLOOD SPECIMENOrdering Facility: [facility] Address: [address] [place] [address] Performed By: #### 5 7021-8 ####[facility]CL[facility] LABORATORYCLIA [id number] [place] [address] [facility] WBC (Bld) [#/Vol] 7.74 10*3/uL Normal 3.70-11.00 [facility] Comment on above: Order Comment: Speci men Type: BLOOD SPECIMENOrdering Facility: [facility] Address: [address] [place] [address] Performed By: #### 5 7021-8 ####[facility]CL[facility] LABORATORYCLIA [id number] [place] [id number] [facility] CONSULTon 06-28-2024 CONSULT HNO ID: [id number] Author: ULYSSES GALLO MD Service: General Internal Medicine Author Type: Physician Type: Consults Filed: 06/29/2024 09:11 Note Text: HISTORY AND PHYSICAL EXAMINATION PATIENT NAME: Branden Johnson SERVICE DATE: 06/28/2024 SERVICE TIME: 1100 am PRIMARY CARE PHYSICIAN: Katerin Ham MD CHIEF COMPLAINT: assistance with medical management in psych for depression with psychosis HPI: This is a 84 year old male, hx a fib, DM2, stroke, who presents with depression with SI. Patient not very talkative so information taken from chart. He had been living with girlfriend for 29 years and then had cva caused him placement into [facility]. He was missing his girlfriend and was thinking about ways to hurt himself according to psych notes. He wrote letter to girlfriend stating this. Family also notes some sundowning and not sleeping and memory problems. He denies any pain or problems voiding of LH when up. He denies any SOB or cough. PAST MEDICAL HISTORY: PAST MEDICAL HISTORY Diagnosis Date A-fib (HCC) Diabetes (HCC) Stroke (HCC) PAST SURGICAL HISTORY: No past surgical history on file. FAMILY HISTORY: No family history on file. SOCIAL HISTORY: Social History Tobacco Use Smoking status: Unknown Smokeless tobacco: Never Substance Use Topics Alcohol use: No Drug use: No MEDICATIONS: Prior to Admission Medications dilTIAZem CD 360 mg 24 hr capsule, Take 1 capsule by mouth once daily., Disp: , Rfl: metoprolol tartrate, short acting, (LOPRESSOR) 100 mg tablet, Take 1 tablet by mouth every 12 hours., Disp: , Rfl: ipratropium-albuterol (DUONEB) 0.5 mg-3 mg(2.5 mg base)/3 mL nebu, Inhale 3 mL as instructed every 8 hours., Disp: , Rfl: pantoprazole DR (PROTONIX) 40 mg tablet, Take 1 tablet by mouth two times a day before meals., Disp: , Rfl: acetaminophen (TYLENOL) 325 mg tablet, Take 2 tablets by mouth every 6 hours as needed for pain., Disp: , Rfl: levETIRAcetam (KEPPRA) 500 mg tablet, Take 1 tablet by mouth two times a day., Disp: , Rfl: trospium (SANCTURA) 20 mg tablet, Take 1 tablet by mouth two times a day before meals., Disp: , Rfl: furosemide (LASIX) 40 mg tablet, Take 1 tablet by mouth once daily., Disp: , Rfl: ondansetron orally disintegrating (ZOFRAN ODT) 4 mg disintegrating tablet, Take 1 tablet by mouth every 6 hours as needed for nausea/vomiting., Disp: , Rfl: mirabegron (MYRBETRIQ) 50 mg Tb24, Take 50 mg by mouth once daily., Disp: , Rfl: ascorbic acid, vitamin C, (VITAMIN C) 500 mg tablet, Take 500 mg by mouth two times a day., Disp: , Rfl: IMLJN-4-XWK-EPA-DPA-F DEBORAH OIL ORAL, Take 1 capsule by mouth two times a day., Disp: , Rfl: cholecalciferol (VITAMIN D3) 1,000 unit tab tablet, Take 1,000 Units by mouth two times a day., Disp: , Rfl: lycopene 10 mg cap, Take 10 mg by mouth daily at bedtime., Disp: , Rfl: Potassium Gluconate 2.5 mEq tab, Take 2.5 mEq by mouth once daily., Disp: , Rfl: ubidecarenone Q-10 (COENZYME Q-10) 10 mg cap, Take by mouth twice daily., Disp: , Rfl: tamsulosin ER (FLOMAX) 0.4 mg cp24, Take 0.8 mg by mouth daily at bedtime., Disp: , Rfl: atorvastatin (LIPITOR) 20 mg tablet, Take 20 mg by mouth once daily., Disp: , Rfl: apixaban (ELIQUIS) 5 mg tab tab(s), Take 5 mg by mouth twice daily., Disp: , Rfl: In-Patient Medications Current Facility-Administered Medications Medication Dose Route Frequency apixaban 5 mg tab(s) (ELIQUIS) 5 mg ORAL BID atorvastatin 20 mg tab(s) (LIPITOR) 20 mg ORAL DAILY furosemide 40 mg tab(s) (LASIX) 40 mg ORAL DAILY metoprolol tartrate (short acting) 100 mg tab(s) (LOPRESSOR) 100 mg ORAL q 12 H ondansetron orally disintegrating 4 mg tab(s) (ZOFRAN ODT) 4 mg ORAL q [address] 40 mg tab(s) (PROTONIX) 40 mg ORAL DAILY (6 AM) levETIRAcetam 500 mg tab(s) (KEPPRA) 500 mg ORAL BID tamsulosin 0.8 mg cap(s) (FLOMAX) 0.8 mg ORAL AT BEDTIME trospium 20 mg tab(s) (SANCTURA) 20 mg ORAL BID AC ascorbic acid (vitamin C) 500 mg tab(s) (VITAMIN C) 500 mg ORAL BID cholecalciferol 1,000 Units tab(s) (VITAMIN D3) 1,000 Units ORAL BID dilTIAZem CD 360 mg cap(s) (CARDIZEM CD, CARTIA XT) 360 mg ORAL DAILY Potassium Chloride 8 mEq tab(s) (SLOW-K) 8 mEq ORAL DAILY acetaminophen 650 mg tab(s) (TYLENOL) 650 mg ORAL q 6 H PRN aluminum-magnesium hydroxide-simethicone 200-200-20 mg/5 mL 30 mL 30 mL ORAL q 4 H PRN magnesium hydroxide 400 mg/5 mL 30 mL (MOM) 30 mL ORAL DAILY PRN ipratropium-albuterol 3 mL nebulizer solution (DUONEB) 3 mL INHALATION BID escitalopram oxalate 10 mg tab(s) (LEXAPRO) 10 mg ORAL DAILY ALLERGIES: ALLERGIES No Known Allergies COMPLETE REVIEW OF SYSTEMS: GENERAL: No weight loss, malaise or fevers. HEENT: Negative for significant vision problems, hearing loss, hoarseness RESPIRATORY: Negative for cough, wheezing or shortness of breath. CARDIOVASCULAR: Negative for leg swelling, palpitations, orthopnea GI: Negative f (more content not included)... Normal [facility] Comprehensive metabolic 2000 panelon 06-28-2024 Albumin [Mass/Vol] 3.7 g/dL Low 3.9-4.9 [facility] Comment on above: Order Comment: Speci men Type: BLOOD SPECIMENOrdering Facility: [facility] Address: [address] [place] [address] Performed By: #### 2 4323-8, 31183-2 ####[facility] LABORATORYCLIA [id number] [place] [address] [place] ALP [Catalytic activity/Vol] 75 U/L Normal 38-113 [facility] Comment on above: Order Comment: Speci men Type: BLOOD SPECIMENOrdering Facility: [facility] Address: [address] [place] [address] Performed By: #### 2 4323-8, 53296-6 ####[facility]ENTERLID LABORATORYCLIA [id number] [place] [address] [place] ALT [Catalytic activity/Vol] 5 U/L Low 10-54 [facility] Comment on above: Order Comment: Speci men Type: BLOOD SPECIMENOrdering Facility: [facility] Address: [address] [place] [address] Performed By: #### 2 4323-8, 32635-4 ####[facility]ENTERLI LABORATORYCLIA [id number] [place] [address] [place] Anion gap [Moles/Vol] 11 mmol/L Normal 8-15 [facility] Comment on above: Order Comment: Speci men Type: BLOOD SPECIMENOrdering Facility: [facility] Address: [address] [place] [address] Performed By: #### 2 4323-8, 41255-0 ####[facility] LABORATORYCLIA [id number] [place] [id number] [place] AST [Catalytic activity/Vol] 12 U/L Low 14-40 [facility] Comment on above: Order Comment: Speci men Type: BLOOD SPECIMENOrdering Facility: [facility] Address: [address] [place] [address] Performed By: #### 2 4323-8, 63932-4 ####[facility] LABORATORYCLIA [id number] [place] [address] [place] Bilirubin [Mass/Vol] 0.7 mg/dL Normal 0.2-1.3 [facility] Comment on above: Order Comment: Speci men Type: BLOOD SPECIMENOrdering Facility: [facility] Address: [address] [place] [address] Performed By: #### 2 4323-8, 62491-6 ####[facility] LABORATORYCLIA [id number] [place] [address] [place] Calcium [Mass/Vol] 8.2 mg/dL Low 8.5-10.2 [facility] Comment on above: Order Comment: Speci men Type: BLOOD SPECIMENOrdering Facility: [facility] Address: [address] [place] [address] Performed By: #### 2 4323-8, 08548-0 ####[facility] LABORATORYCLIA [id number] [place] [address] [place] Chloride [Moles/Vol] 100 mmol/L Normal 98-107 [facility] Comment on above: Order Comment: Speci men Type: BLOOD SPECIMENOrdering Facility: [facility] Address: [address] [place] [address] Performed By: #### 2 4323-8, 29555-8 ####[facility] LABORATORYCLIA [id number] [place] [id number] [place] CO2 [Moles/Vol] 29 mmol/L Normal 22-30 [facility] Comment on above: Order Comment: Speci men Type: BLOOD SPECIMENOrdering Facility: [facility] Address: [address] [place] [address] Performed By: #### 2 4323-8, 64828-9 ####[facility] LABORATORYCLIA [id number] [place] [address] [place] Creatinine [Mass/Vol] 0.93 mg/dL Normal 0.73-1.22 [facility] Comment on above: Order Comment: Felicitasi men Type: BLOOD SPECIMENOrdering Facility: [facility] Address: [address] [place] [address] Performed By: #### 2 4323-8, 68161-3 ####[facility]ENTERLID LABORATORYCLIA [id number] [address] [place] [facility] Creatinine and Glomerular filtration rate.predicted panel (S/P/Bld) 82 mL/min/1.73m??? Normal >=60 [facility] Comment on above: Order Comment: Felicitasi men Type: BLOOD SPECIMENOrdering Facility: [facility] Address: [address] [place] [address] Result Comment: Leah mated Glomerular Filtration Rate (eGFR) is calculated using the 2020 CKD-EPI creatinine equation. This equation utilizes serum creatinine, sex, and age as parameters. The creatinine assay has traceable calibration to isotope dilution-mass spectrometry. Refer to KDIGO guidelines for clinical interpretation. In patients with unstable renal function, e.g. those with acute kidney injury, the eGFR may not accurately reflect actual GFR. Performed By: #### 2 4323-8, 01436-1 ####[facility] LABORATORYCLIA [id number] [place] [id number] [place] Glucose [Mass/Vol] 120 mg/dL High 74-99 [facility] Comment on above: Order Comment: Speci men Type: BLOOD SPECIMENOrdering Facility: [facility] Address: [address] [place] [address] Result Comment: The [place] Diabetes Association (ADA) provides guidance for cutoff values for fasting glucose and random glucose. The ADA defines fasting as no caloric intake for at least 8 hours. Fasting plasma glucose results between 100 to 125 mg/dL indicate increased risk for diabetes (prediabetes). Fasting plasma glucose results greater than or equal to 126 mg/dL meet the criteria for diagnosis of diabetes. In the absence of unequivocal hyperglycemia, results should be confirmed by repeat testing. In a patient with classic symptoms of hyperglycemia or hyperglycemic crisis, random plasma glucose results greater than or equal to 200 mg/dL meet the criteria for diagnosis of diabetes. Reference: Standards of Medical Care in Diabetes 2016, [place] Diabetes Association. Diabetes Care. 2016.39(Suppl 1). Performed By: #### 2 4323-8, 59936-4 ####[facility] LABORATORYCLIA [id number] [place] [address] [place] Potassium [Moles/Vol] 3.1 mmol/L Low 3.7-5.1 [facility] Comment on above: Order Comment: Speci men Type: BLOOD SPECIMENOrdering Facility: [facility] Address: [address] [place] [address] Performed By: #### 2 4323-8, 67970-9 ####[facility] LABORATORYCLIA [id number] [place] [address] [place] Protein [Mass/Vol] 6.5 g/dL Normal 6.3-8.0 [facility] Comment on above: Order Comment: Speci men Type: BLOOD SPECIMENOrdering Facility: [facility] Address: [address] [place] [address] Performed By: #### 2 4323-8, 59196-1 ####[facility] LABORATORYCLIA [id number] [place] [address] [place] Sodium [Moles/Vol] 140 mmol/L Normal 136-144 [facility] Comment on above: Order Comment: Speci men Type: BLOOD SPECIMENOrdering Facility: [facility] Address: [address] [place] [id number] Performed By: #### 2 4323-8, 05967-0 ####[facility] [facility] LABORATORYCLIA [id number] [place] [id number] [place] Urea nitrogen [Mass/Vol] 19 mg/dL Normal 9-24 [facility] Comment on above: Order Comment: Speci men Type: BLOOD SPECIMENOrdering Facility: [facility] Address: [address] [place] [address] Performed By: #### 2 4323-8, 53529-8 ####[facility] LABORATORYCLIA [id number] [place] [id number] [place] HbA1c (Bld)on 06-28-2024 Average glucose Estimated from glycated hemoglobin (Bld) [Mass/Vol] 140 mg/dL Normal [facility] Comment on above: Order Comment: Speci men Type: BLOOD SPECIMENOrdering Facility: [facility] Address: [address] [place] [address] Result Comment: eAG: (Estimated average glucose) is a calculated value from HgbA1c and is employee relations representative of the average blood glucose level in the last 2-3 month period. Performed By: #### 5 5454-3 ####[facility] LABCLIA [id number] [place] [address] [place] HbA1c (Bld) [Mass fraction] 6.5 % High 4.3-5.6 [facility] Comment on above: Order Comment: Speci men Type: BLOOD SPECIMENOrdering Facility: [facility] Address: [address] [place] [address] Result Comment: Amer [place] Diabetes Association guidelines indicate that patients with HgbA1c in the range 5.7-6.4% are at increased risk for development of diabetes, and intervention by lifestyle modification may be beneficial. HgbA1c greater or equal to 6.5% is considered diagnostic of diabetes. Performed By: #### 5 5454-3 ####[facility] LABCLIA [id number] [address] [address] [place] Lipid 1996 panelon 5 Cholesterol [Mass/Vol] 96 mg/dL Normal <200 [facility] Comment on above: Order Comment: Speci men Type: BLOOD SPECIMENOrdering Facility: [facility] Address: [address] [place] [address] Result Comment: <200 mg/dL, Desirable 200-239 mg/dL, Borderline high >239 mg/dL, High Performed By: #### 2 4323-8, 61542-1 ####[facility] LABORATORYCLIA [id number] [place] [address] [place] Cholesterol in HDL [Mass/Vol] 29 mg/dL Low >39 [facility] Comment on above: Order Comment: Felicitasi men Type: BLOOD SPECIMENOrdering Facility: [facility] Address: [address] [place] [address] Result Comment: 40-5 9 mg/dL, Acceptable >59 mg/dL, High: Negative risk factor for coronary heart disease <40 mg/dL, Low: Positive risk factor for coronary heart disease Performed By: #### 2 4323-8, 04175-7 ####[facility] LABORATORYCLIA [id number] [address] [place] Cholesterol in LDL [Mass/Vol] 37 mg/dL Normal <100 [facility] Comment on above: Order Comment: Felicitasi men Type: BLOOD SPECIMENOrdering Facility: [facility] Address: [address] [place] [address] Result Comment: <100 mg/dL, Optimal 100-129 mg/dL, Near optimal/above optimal 130-159 mg/dL, Borderline high 160-189 mg/dL, High >189 mg/dL, Very high Secondary prevention optimal LDL Cholesterol levels are recommended to be < 70 mg/dL Performed By: #### 2 4323-8, 10112-0 ####[facility] LABORATORYCLIA [id number] [place] [id number] [facility] [place] Cholesterol in LDL/Cholesterol in HDL [Mass ratio] 1.28 {ratio} Normal <2.54 [facility] Comment on above: Order Comment: Speci men Type: BLOOD SPECIMENOrdering Facility: [facility] Address: [address] [place] [address] Result Comment: Sidney banuelos: 1. National Cholesterol Education Program ATP III Guideline At-A-Glance Quick Desk Reference: National Heart, Lung, and Blood [place]. National Institutes of Health. 2001: NIH Publication No. 01-3305. 2. An International Atherosclerosis Society position paper: global recommendations for the management of dyslipidemia: executive summary, Atherosclerosis. 2014: 232(2):410-413. Performed By: #### 2 4323-8, 22529-9 ####[facility] LABORATORYCLIA [id number] [address] [place] Cholesterol in VLDL [Mass/Vol] 30 mg/dL High <30 [facility] Comment on above: Order Comment: Speci men Type: BLOOD SPECIMENOrdering Facility: [facility] Address: [address] [place] [address] Performed By: #### 2 4323-8, 69098-0 ####[facility] LABORATORYCLIA [id number] [place] [address] [place] Cholesterol non HDL [Mass/Vol] 67 mg/dL Normal <130 [facility] Comment on above: Order Comment: Felicitasi men Type: BLOOD SPECIMENOrdering Facility: [facility] Address: [address] [place] [address] Result Comment: <130 mg/dL, Optimal 130-159 mg/dL, Near optimal/above optimal 160-189 mg/dL, Borderline high 190-219 mg/dL, High >219 mg/dL, Very high Secondary prevention optimal non HDL Cholesterol levels are recommended to be <100 mg/dL Performed By: #### 2 4323-8, 03257-2 ####[facility] LABORATORYCLIA [id number] [place] [id number] [place] Cholesterol.total/Choles terol in HDL [Mass ratio] 3.31 {ratio} Normal <5.10 [facility] Comment on above: Order Comment: Speci men Type: BLOOD SPECIMENOrdering Facility: [facility] Address: [address] [place] [address] Performed By: #### 2 4323-8, 54767-9 ####[facility] LABORATORYCLIA [id number] [place] [id number] [place] FASTING TIME 10 hrs Normal [facility] Comment on above: Order Comment: Speci men Type: BLOOD SPECIMENOrdering Facility: [facility] Address: [address] [place] [address] Performed By: #### 2 4323-8, 04881-6 ####[facility]ENTERLID LABORATORYCLIA [id number] [place] [id number] [place] Triglyceride [Mass/Vol] 152 mg/dL High <150 [facility] Comment on above: Order Comment: Speci men Type: BLOOD SPECIMENOrdering Facility: [facility] Address: [address] [place] [address] Result Comment: <150 mg/dL, Normal 150-199 mg/dL, Borderline high 200-499 mg/dL, High >499 mg/dL, Very high Performed By: #### 2 4323-8, 94940-2 ####[facility] LABORATORYCLIA [id number] [place] [address] [place] NURSING PROGon 06-28-2024 NURSING PROG HNO ID: [id number] Author: EVAN MALDONADO RN Service: Nursing Author Type: Registered Nurse Type: Nursing Progress Note Filed: 06/29/2024 03:13 Note Text: Assumed patient care after report at 1945 Patient sitting in day room watching television with peers. Pt requests crackers and is pleasant upon introduction. VSS. 0000 pt asleep in room most of the night, even respirations. 0300 pt asleep in room [facility] NURSING PROG HNO ID: [id number] Author: RAJAT PENALOZA RN Service: Nursing Author Type: Registered Nurse Type: Nursing Progress Note Filed: 06/28/2024 10:11 Note Text: Daily note Patient alert and oriented x 3. pt denies pain. SI/HI, Depression. Pt states now, I know ,I will say that again Patient pleasant looking forward to returning back to facility. Compliant with medication and assessment. Safety Measurement ongoing. Normal [facility] ALLIED HEALTHon 06-27-2024 ALLIED HEALTH HNO ID: [id number] Author: KRISHNA FIGUEROA, Therapist Service: Art Therapy Author Type: Therapist Type: Allied Health Filed: 06/27/2024 15:01 Note Text: MINI-MENTAL STATUS EXAMINATION: Orientation: year, date, month, state, country, town, floor, and county. 11/26 Registrative: Able to repeat 3 objects on the first try 3/3 Attention AND Calculation: Unable to spell world backwards /5 Recall: Able to recall 3 objects 2/3 Language: Name pen/pencil (1pt) Name watch (1pt) Repeat No ifs, ands, or buts. (1pt) Follow command: [total 3pt] Take this paper in your (non-dominant) hand. (1pt), Fold it in half. (1 pt), and Put it on the floor. (1 pt) Read to self and then do: Close your eyes. (1pt) Write a sentence (subject, verb and makes sense) (1pt) 11/25 TOTAL MMSE SCORE 24/30 GERIATRIC DEPRESSION SCALE: 415 mild depression. Pt reported mood today, abandoned. PERSONAL DE-ESCALATION PLAN BEHAVIORAL HEALTH SERVICE DATE: 06/27/2024 SERVICE TIME: 1423 Personal De-Escalation Completed: No. Patient denied he has any problematic behaviors and minimized his recent threat of self harm. THERAPEUTIC PROGRAMMING ASSESSMENT SERVICE DATE: 06/27/2024 SERVICE TIME: 1423 RECOMMENDATIONS: Expressive Therapy Stress Management ACTIVITIES OF DAILY LIVING (Difficulty in the following ADL areas): all ADL's, no difficulties GENERAL OBSERVATIONS: Affect: Bright and Full Alert Cooperative Expresses pleasures at own achievements Minimizes problem areas ASSESSMENT COMPLETED: Yes: STRESS MANAGEMENT SKILLS: Identified Stressors: Patient state he was recently from his girlfriend of 29 years and placed in a [facility]. Effective Coping Strategies Used: Patient stated he has made friends at the [facility] and enjoys listening to music. Ineffective Coping Strategies Used: Patient unable to identify. Describe what you do on an average day: Patient participates in daily activities at the [facility]. INTERESTS: Current: Music, Listening, [employer], and Spirituality Future: Socializing No Interest: Patient unable to identify Past Interest: Volunteering PATIENT'S GOALS FOR GROUP THERAPY PROGRAM: Pt will be offered daily group AT, DMT, MT, RT, and / or SC sessions. Pt will demonstrate stabilization toward baseline as evidenced by: Maintaining physical strength and endurance for daily routines Improved use of constructive coping skills Experiencing a sense of autonomy Increased time spent in group therapy / common areas Increased feelings of support from staff Marie AEB: As evidenced by MT: Music Therapy AT: Art Therapy NA: Not applicable DMT: Dance / Movement Therapy RT: Recreational Therapy DR: Dining Room SC: Spiritual Care SIGNATURE: Krishna Figueroa Therapist PATIENT NAME: Branden Johnson DATE: June 27, 2024 TIME: 2:49 PM PAGER/CONTACT #: [phone] Normal [facility] CBC panel Auto (Bld)on 06-27 Erythrocyte distribution width (RBC) [Ratio] 14.8 % Normal 11.5-15.0 [facility] Comment on above: Order Comment: Cathy bruno Type: BLOOD SPECIMEN Ordering Facility: [facility] Address: [address] [place] [address] Performed By: #### 5 8410-2 #### [facility] [place] [id number] [address] [place] [address] [place] Hematocrit (Bld) [Volume fraction] 33.9 % Low 39.0-51.0 [facility] Comment on above: Order Comment: Cathy men Type: BLOOD SPECIMEN Ordering Facility: [facility] Address: [address] [place] [address] Performed By: #### 5 8410-2 #### [facility] CLIA [id number] [address] [place] [address] [place] Hemoglobin (Bld) [Mass/Vol] 11.6 g/dL Low 13.0-17.0 [facility] Comment on above: Order Comment: Cathy men Type: BLOOD SPECIMEN Ordering Facility: [facility] Address: [address] [id number] Performed By: #### 5 8410-2 #### [facility] CLIA [id number] [place] [address] [place] MCH (RBC) [Entitic mass] 31.4 pg Normal 26.0-34.0 [facility] Comment on above: Order Comment: Speci men Type: BLOOD SPECIMEN Ordering Facility: [facility] Address: [address] [place] [address] Performed By: #### 5 8410-2 #### [facility] CLIA [id number] [place] [address] [place] MCHC (RBC) [Mass/Vol] 34.2 g/dL Normal 30.5-36.0 [facility] Comment on above: Order Comment: Speci men Type: BLOOD SPECIMEN Ordering Facility: [facility] Address: [address] [place] [address] Performed By: #### 5 8410-2 #### [facility] [place] [id number] [address] [place] [address] [place] MCV (RBC) [Entitic vol] 91.9 fL Normal 80.0-100.0 [facility] Comment on above: Order Comment: Speci men Type: BLOOD SPECIMEN Ordering Facility: [facility] Address: [address] [place] [address] Performed By: #### 5 8410-2 #### [facility] CLIA [id number] [address] [place] [address] [place] Nucleated RBC (Bld) [#/Vol] 10*3/uL Normal <0.01 [facility] Comment on above: Order Comment: Speci men Type: BLOOD SPECIMEN Ordering Facility: [facility] Address: [address] [place] [address] Performed By: #### 5 8410-2 #### [facility] CLIA [id number] [address] [place] [address] [place] Platelet mean volume (Bld) [Entitic vol] 10.3 fL Normal 9.0-12.7 [facility] Comment on above: Order Comment: Speci men Type: BLOOD SPECIMEN Ordering Facility: [facility] Address: [address] [place] [address] Performed By: #### 5 8410-2 #### [facility] CLIA [id number] [address] [place] [address] [place] Platelets (Bld) [#/Vol] 270 10*3/uL Normal 150-400 [facility] Comment on above: Order Comment: Speci men Type: BLOOD SPECIMEN Ordering Facility: [facility] Address: [address] [place] [address] Performed By: #### 5 8410-2 #### [facility] CLIA [id number] [address] [place] [address] [place] RBC (Bld) [#/Vol] 3.69 10*6/uL Low 4.20-6.00 [facility] Comment on above: Order Comment: Speci men Type: BLOOD SPECIMEN Ordering Facility: [facility] Address: [address] [place] [address] Performed By: #### 5 8410-2 #### [facility] IA [id number] [address] [place] [address] [place] WBC (Bld) [#/Vol] 7.09 10*3/uL Normal 3.70-11.00 [facility] Comment on above: Order Comment: Speci men Type: BLOOD SPECIMEN Ordering Facility: [facility] Address: [address] [place] [address] Performed By: #### 5 8410-2 #### [facility] CLIA [id number] [address] [place] [address] [place] Comprehensive metabolic 2000 panelon 06-27-2024 Albumin [Mass/Vol] 3.9 g/dL Normal 3.9-4.9 [facility] Comment on above: Order Comment: Speci men Type: BLOOD SPECIMEN Ordering Facility: [facility] Address: [address] [place], [place] [address] Performed By: #### 5 643-2, 45726-2 #### [facility] CLIA [id number] [address] [place] [address] [place] ALP [Catalytic activity/Vol] 83 U/L Normal 38-113 [facility] Comment on above: Order Comment: Speci men Type: BLOOD SPECIMEN Ordering Facility: [facility] Address: [address] [place] [address] Performed By: #### 5 643-2, 89686-4 #### [facility] CLIA [id number] [address] [place] [address] [place] ALT [Catalytic activity/Vol] 6 U/L Low 10-54 [facility] Comment on above: Order Comment: Speci men Type: BLOOD SPECIMEN Ordering Facility: [facility] Address: [address] [place] [address] Performed By: #### 5 643-2, 79489-4 #### [facility] CLIA [id number] [place] [address] [place] Anion gap [Moles/Vol] 11 mmol/L Normal 8-15 [facility] Comment on above: Order Comment: Speci men Type: BLOOD SPECIMEN Ordering Facility: [facility] Address: [address] [place] [address] Performed By: #### 5 643-2, 73872-9 #### [facility] CLIA [id number] [place] [address] [place] AST [Catalytic activity/Vol] 11 U/L Low 14-40 [facility] Comment on above: Order Comment: Speci men Type: BLOOD SPECIMEN Ordering Facility: [facility] Address: [address] [place] [address] Performed By: #### 5 643-2, 86404-7 #### [facility] CLIA [id number] [place] [address] [place] Bilirubin [Mass/Vol] 0.5 mg/dL Normal 0.2-1.3 [facility] Comment on above: Order Comment: Speci men Type: BLOOD SPECIMEN Ordering Facility: [facility] Address: [address] [place] [address] Performed By: #### 5 643-2, 40366-0 #### [facility] CLIA [id number] [address] [place] [address] [place] Calcium [Mass/Vol] 8.5 mg/dL Normal 8.5-10.2 [facility] Comment on above: Order Comment: Speci men Type: BLOOD SPECIMEN Ordering Facility: [facility] Address: [address] [place] [address] Performed By: #### 5 643-2, 24602-2 #### [facility] CLIA [id number] [place] [address] [place] Chloride [Moles/Vol] 99 mmol/L Normal 98-107 [facility] Comment on above: Order Comment: Speci men Type: BLOOD SPECIMEN Ordering Facility: [facility] Address: [address] [place] [address] Performed By: #### 5 643-2, 95504-6 #### [facility] CLIA [id number] [place] [address] [place] CO2 [Moles/Vol] 30 mmol/L Normal 22-30 [facility] Comment on above: Order Comment: Speci men Type: BLOOD SPECIMEN Ordering Facility: [facility] Address: [address] [place] [address] Performed By: #### 5 643-2, 40279-2 #### [facility] CLIA [id number] [address] [place] [address] [place] Creatinine [Mass/Vol] 1.07 mg/dL Normal 0.73-1.22 [facility] Comment on above: Order Comment: Speci men Type: BLOOD SPECIMEN Ordering Facility: [facility] Address: [address] [place] [address] Performed By: #### 5 643-2, 95756-1 #### [facility] CLIA [id number] [address] [place] [address] [place] Creatinine and Glomerular filtration rate.predicted panel (S/P/Bld) 69 mL/min/1.73m??? Normal >=60 [facility] Comment on above: Order Comment: Cathy bruno Type: BLOOD SPECIMEN Ordering Facility: [facility] Address: [address] [place] [address] Result Comment: Leah mated Glomerular Filtration Rate (eGFR) is calculated using the 2020 CKD-EPI creatinine equation. This equation utilizes serum creatinine, sex, and age as parameters. The creatinine assay has traceable calibration to isotope dilution-mass spectrometry. Refer to KDIGO guidelines for clinical interpretation. In patients with unstable renal function, e.g. those with acute kidney injury, the eGFR may not accurately reflect actual GFR. Performed By: #### 5 643-2, 01304-2 #### [facility] CLIA [id number] [address] [place] [address] [place] Glucose [Mass/Vol] 137 mg/dL High 74-99 [facility] Comment on above: Order Comment: Cathy bruno Type: BLOOD SPECIMEN Ordering Facility: [facility] Address: [address] [place] [address] Result Comment: The [place] Diabetes Association (ADA) provides guidance for cutoff values for fasting glucose and random glucose. The ADA defines fasting as no caloric intake for at least 8 hours. Fasting plasma glucose results between 100 to 125 mg/dL indicate increased risk for diabetes (prediabetes). Fasting plasma glucose results greater than or equal to 126 mg/dL meet the criteria for diagnosis of diabetes. In the absence of unequivocal hyperglycemia, results should be confirmed by repeat testing. In a patient with classic symptoms of hyperglycemia or hyperglycemic crisis, random plasma glucose results greater than or equal to 200 mg/dL meet the criteria for diagnosis of diabetes. Reference: Standards of Medical Care in Diabetes 2016, [place] Diabetes Association. Diabetes Care. 2016.39(Suppl 1). Performed By: #### 5 643-2, 15779-3 #### [facility] CLIA [id number] [place] [address] [place] Potassium [Moles/Vol] 3.1 mmol/L Low 3.7-5.1 [facility] Comment on above: Order Comment: Speci men Type: BLOOD SPECIMEN Ordering Facility: [facility] Address: [address] [place] [address] Performed By: #### 5 643-2, 59293-3 #### [facility] CLIA [id number] [place] [address] [place] Protein [Mass/Vol] 7.3 g/dL Normal 6.3-8.0 [facility] Comment on above: Order Comment: Speci men Type: BLOOD SPECIMEN Ordering Facility: [facility] Address: [address] [place] [address] Performed By: #### 5 643-2, 95678-2 #### [facility] CLIA [id number] [address] [place] [address] [place] Sodium [Moles/Vol] 140 mmol/L Normal 136-144 [facility] Comment on above: Order Comment: Speci men Type: BLOOD SPECIMEN Ordering Facility: [facility] Address: [address] [place] [address] Performed By: #### 5 643-2, 14750-1 #### [facility] CLIA [id number] [address] [place] [address] [place] Urea nitrogen [Mass/Vol] 22 mg/dL Normal 9-24 [facility] Comment on above: Order Comment: Speci men Type: BLOOD SPECIMEN Ordering Facility: [facility] Address: [address] [place] [address] Performed By: #### 5 643-2, 68437-4 #### [facility] CLIA [id number] [address] [place] [address] [place] ECG COMPLETEon 06-27-2024 ECG COMPLETE Ventricular Rate : 8 2 BPM QRS Duration : 140 ms Q-T Interval : 428 ms QTC Calculation(Bazett) : 500 ms Calculated R [place] : 46 degrees Calculated T [place] : -35 degrees Atrial fibrillation Right bundle branch block T wave abnormality, consider inferolateral ischemia Abnormal ECG No previous ECGs available no stemi Confirmed by ZANDER SCHULER MD ([id number]), editor producer JODI JARRELL ([id number]) on 06/27/2024 9:35:28 AM NAME : BRANDEN JOHNSON PID : [id number] : 1940 Gender : Male Race : ORD : [id number] Procedure Date : Jun 27 2024 00:20:03 Edit Date : Jun 27 2024 09:35:34 Diagnosis: Atrial fibrillation Right bundle branch block T wave abnormality, consider inferolateral ischemia Abnormal ECG No previous ECGs available no stemi Confirmed by ZANDER SCHULER MD ([id number]), editor producer JODI JARRELL ([id number]) on 06/27/2024 9:35:28 AM Test Reason : Arrhythmia Location : 18 : ED EDH Overread By : ZANDER SCHULER MD Edited By : JODI JARRELL Referred By : , Acquired by : [id number], [facility] ED NOTEon 06-27-2024 ED NOTE HNO ID: [id number] Author: BONITA LEWIS RN Service: Nursing Author Type: Registered Nurse Type: ED Notes Filed: 06/27/2024 10:13 Note Text: Report given to [facility] ED NOTE HNO ID: [id number] Author: BONITA LEWIS RN Service: Nursing Author Type: Registered Nurse Type: ED Notes Filed: 06/27/2024 08:08 Note Text: Received report. Pt resting in bed. Sitter at bedside. No ss of distress at this time. Care continues. [facility] ED NOTE HNO ID: [id number] Author: BLOSSOM HENLEY RN Service: ? Author Type: Registered Nurse Type: ED Notes Filed: 06/27/2024 06:20 Note Text: Repot given to Oseas JOSHI, updated with ETA [facility] ED NOTE HNO ID: [id number] Author: RACHEL LO PCNA Service: ? Author Type: Patient Care City Library Director Type: ED Notes Filed: 06/27/2024 03:33 Note Text: Call holley Philipp when being transported. If Philipp doesn't answer call Aurea. Both are emergency contacts. [facility] ED NOTE HNO ID: [id number] Author: BLOSSOM HENLEY RN Service: ? Author Type: Registered Nurse Type: ED Notes Filed: 06/27/2024 06:51 Note Text: Pt sleeping at this time, LIP stated it was okay to hold off on Potassium powder [facility] ED NOTE HNO ID: [id number] Author: CATHY HURTADO RN Service: ? Author Type: Registered Nurse Type: ED Notes Filed: 06/27/2024 01:35 Note Text: Bed: ED-11 Expected date: Expected time: Means of arrival: Comments: Alex [facility] ED NOTE HNO ID: [id number] Author: RACHEL LO PCNA Service: ? Author Type: Patient Care City Library Director Type: ED Notes Filed: 06/27/2024 00:52 Note Text: Pt very tearful talking about being away from home. States not sleeping. He doesn't want meds because he doesn't want to hide his feelings. [facility] ED NOTE HNO ID: [id number] Author: RACHEL LO PCNA Service: ? Author Type: Patient Care City Library Director Type: ED Notes Filed: 06/27/2024 00:41 Note Text: Pt told this CT I might have told her when she was there today, that I would miss her and that I would probably hang myself from a tree. [facility] ED PROV NOTEon 06-27-2024 ED PROV NOTE HNO ID: [id number] Author: ZANDER SCHULER DO Service: Emergency Medicine Author Type: Physician Type: ED Provider Notes Filed: 06/27/2024 06:15 Note Text: ED Provider Note Patient Name: Branden Johnson : 1940 SERVICE DATE: 06/26/24 History Patient presents with: Suicidal Ideation 84-year-old male history of emphysema hypertension hyperlipidemia prior stroke presenting to the emergency department for evaluation of suicidal ideation. Patient was sent in [facility]. Apparently he is recently gone through a break-up with his girlfriend of 29 years. He does note that he feels very sad and upset about the break-up and had written her a letter stating that has gotten very upset and the son found the letter and thought that he was alluding to some suicidal ideation so he sent him in for evaluation. On arrival however the patient denies any suicidal ideation but just notes that he feels very sad about the current circumstances. PAST MEDICAL HISTORY Diagnosis Date A-fib (HCC) Diabetes (HCC) Stroke (HCC) No past surgical history on file. No family history on file. Social History Tobacco Use Smoking status: Unknown Smokeless tobacco: Never Substance and Sexual Activity Alcohol use: No Drug use: No Sexual activity: Not on file ALLERGIES No Known Allergies Review of Systems Constitutional: Negative for chills and fever. HENT: Negative for congestion, rhinorrhea and sore throat. Eyes: Negative for visual disturbance. Respiratory: Negative for cough, chest tightness, shortness of breath and wheezing. Cardiovascular: Negative for chest pain and palpitations. Gastrointestinal: Negative for abdominal pain, blood in stool, constipation, diarrhea, nausea and vomiting. Endocrine: Negative for polyuria. Genitourinary: Negative for difficulty urinating, dysuria, flank pain, frequency and urgency. Musculoskeletal: Negative for arthralgias, back pain and neck pain. Skin: Negative for rash and wound. Allergic/Immunologic: Negative for immunocompromised state. Neurological: Negative for dizziness, tremors, seizures, syncope, light-headedness, numbness and headaches. Hematological: Negative for adenopathy. Psychiatric/Behaviora l: Negative for agitation, confusion and suicidal ideas. The patient is not nervous/anxious. Physical Exam Vitals [06/27/24 0010] BP Pulse Temp Temp src Resp SpO2 Weight Height 104/63 75 36.4 ?C (97.6 ?F) Oral 20 95 % -- -- Physical Exam Vitals and nursing note reviewed. Constitutional: General: He is not in acute distress. Appearance: Normal appearance. He is not ill-appearing, toxic-appearing or diaphoretic. HENT: Head: Normocephalic and atraumatic. Nose: No congestion or rhinorrhea. Mouth/Throat: Mouth: Mucous membranes are moist. Pharynx: Oropharynx is clear. Eyes: General: Right eye: No discharge. Left eye: No discharge. Extraocular Movements: Extraocular movements intact. Pupils: Pupils are equal, round, and reactive to light. Cardiovascular: Rate and Rhythm: Normal rate and regular rhythm. Pulses: Normal pulses. Heart sounds: Normal heart sounds. No murmur heard. Pulmonary: Effort: Pulmonary effort is normal. No respiratory distress. Breath sounds: Normal breath sounds. No stridor. No wheezing, rhonchi or rales. Abdominal: General: Abdomen is flat. Bowel sounds are normal. There is no distension. Palpations: Abdomen is soft. There is no mass. Tenderness: There is no abdominal tenderness. There is no right CVA tenderness, left CVA tenderness, guarding or rebound. Hernia: No hernia is present. Musculoskeletal: General: No tenderness. Normal range of motion. Cervical back: Normal range of motion and neck supple. Right lower leg: No edema. Left lower leg: No edema. Skin: Capillary Refill: Capillary refill takes less than 2 seconds. Coloration: Skin is not jaundiced. Findings: No rash. Neurological: General: No focal deficit present. Mental Status: He is alert and oriented to person, place, and time. Psychiatric: Behavior: Behavior normal. Diagnostic Testing ED Labs Ordered and Reviewed COMPLETE BLOOD COUNT - Abnormal; Notable for the following components: Result Value Ref Range RBC 3.69 (*) 4.20 - 6.00 m/uL Hemoglobin 11.6 (*) 13.0 - 17.0 g/dL Hematocrit 33.9 (*) 39.0 - 51.0 % All other components within normal limits COMPREHENSIVE METABOLIC PANEL - Abnormal; Notable for the following components: AST 11 (*) 14 - 40 U/L ALT 6 (*) 10 - 54 U/L Glucose 137 (*) 74 - 99 mg/dL Potassium 3.1 (*) 3.7 - 5.1 mmol/L All other components within normal limits ETHANOL/ALCOHOL - Normal TOXICOLOGY SCREEN, ROUTINE URINE EXTRA GAMBOA AND URINE Procedures ED Course / Clinical Impression ED Course as of 06/27/24 0615 Zander Schuler's Documentation WedJun 27, 2024 0026 My interpretatio (more content not included)... Normal [facility] Ethanol SerPl-mCncon 025 Ethanol [Mass/Vol] mg/dL Normal <11 [facility] Comment on above: Order Comment: Speci men Type: BLOOD SPECIMEN Ordering Facility: [facility] Address: [address] [place] [address] [place] [address] Performed By: #### 5 643-2, 47868-6 #### [facility] CLIA [id number] [place], [place] [id number] [place] HISTORY PHYSICALon HISTORY PHYSICAL HNO ID: [id number] Author: SAVANAH DILL MD Service: Psychiatry Author Type: Physician Type: H&P Filed: 06/28/2024 09:50 Note Text: HISTORY AND PHYSICAL BEHAVIORAL HEALTH SERVICE DATE: 06/27/2024 SERVICE TIME: 11:15 AM IDENTIFYING INFORMATION: Branden Johnson is a 84 year old person who identifies as male. REASON FOR ADMISSION: Suicidal ideation Subjective HPI: Branden presents for admission secondary to Risk of physical harm to self. Per Intake: SERVICE DATE: 06/27/24 SERVICE TIME: 1:15am Nature of the crisis: Suicidal ideation Presenting Problem: Branden Johnson is a 84 year old male brought in to [facility] ED [facility] family for SI. PSYCHIATRIC NP assessed patient , patient stated he has been living with his girlfriend for 29 years and he had a stroke and A fib that caused [facility] to [facility], he didn?t understand why they couldn?t live together , but they told him if she fell he couldn't help and vice versa, patient stated that he was having SI earlier in the day and considered different methods but didn?t think he would do them due to them being gruesome, he was missing his girlfriend and wrote her a letter , along with old pictures he gave her , the letter stated he would had himself because of the distance and how much he missed her , he can't stand to be away from her, Patient denied AH/VH/HI and self-harm. Patient not opposed to coming in patient psych. Very emotional and sad. Collateral Philipp Johnson ( Son/ POA) - Lived with Ghazal for about 25 years , had A fib before , ended up in [facility] in [place], tried to leave often, onset of dementia , started @ [facility] in [place]. Patient started to be fixated on Ghazal especially when he cant see her, doesn?t want to live anymore without her. Gave her pictures and a not describing how he would hang himself. Son also described Some owning, not sleeping, short term memory. Patient was previously on anti depressants, no out patient providers, has appointment for psych on Wednesday. Zander Schuler, DO- concerned due to patients age and SI, patient stated to his girlfriend via letter that he would hang himself in her back yard, would like patient possible admitted to psych STRESSORS: Relationship: termination of romantic relationship PSYCHIATRIC REVIEW OF SYMPTOMS: Depression: Denies any current symptoms of depression with no suicidal thoughts, intent or plan Renetta: Denies any history of hypomanic or manic episodes. Psychosis: Denies any auditory / visual hallucination or paranoid ideation. SHERRI: Denies any symptoms of SHERRI OCD: Denies any symptoms of OCD. PTSD: Denies any PTSD symptoms. MEDICAL REVIEW OF SYSTEMS: GENERAL: Negative for malaise, significant weight loss and fever. HEENT: No changes in hearing or vision, no nose bleeds or other nasal problems. RESPIRATORY: Negative for cough, wheezing and shortness of breath. CARDIOVASCULAR: Negative for chest pain, leg swelling and palpitations. GI: Negative for abdominal discomfort, blood in stools or black stools. : Negative for dysuria, frequency and incontinence. MUSCULOSKELETAL: Negative for joint pain or swelling, back pain, and muscle pain. SKIN: Negative for lesions, rash, and itching. HEMATOLOGY/LYMPHOLOGY Negative for prolonged bleeding, bruising easily, and swollen nodes. ENDOCRINE: Negative for cold or heat intolerance, polyuria, polydipsia and goiter. NEURO: Negative for headaches, syncope, seizures and paralysis. PSYCHIATRIC HISTORY: Prior Diagnosis: Major Depressive Disorder Current Psychiatrist: None Current Therapist: None Current Promotions Assistant: None Last Hospitalization: None; Total Hospitalizations: None History of Suicide Attempts: Total: none; Methods: none Previous Discontinued Psychiatric Med Trials: no recall PAST MEDICAL HISTORY Diagnosis Date A-fib (HCC) Diabetes (HCC) Stroke ([facility]) HOME MEDICATIONS: No current facility-administered medications on file prior to encounter. Current Outpatient Medications on File Prior to Encounter Medication Sig dilTIAZem CD 360 mg 24 hr capsule Take 1 capsule by mouth once daily. metoprolol tartrate, short acting, (LOPRESSOR) 100 mg tablet Take 1 tablet by mouth every 12 hours. ipratropium-albuterol (DUONEB) 0.5 mg-3 mg(2.5 mg base)/3 mL nebu Inhale 3 mL as instructed every [address] (PROTONIX) 40 mg tablet Take 1 tablet by mouth two times a day before meals. acetaminophen (TYLENOL) 325 mg tablet Take 2 tablets by mouth every 6 hours as needed for pain. levETIRAcetam (KEPPRA) 500 mg tablet Take 1 tablet by mouth two times a day. trospium (SANCTURA) 20 mg tablet Take 1 tablet by mouth two times a day before meals. furosemide (LASIX) 40 mg tablet Take 1 tablet by mouth once daily. ondansetron orally disintegrating (ZOFRAN ODT) 4 mg disintegrating tablet Take 1 tablet by mouth every 6 hours as needed for nausea/ (more content not included)... [facility] NURSING PROGon 06-27-2024 NURSING PROG HNO ID: [id number] Author: MIKE HYLTON RN Service: Nursing Author Type: Registered Nurse Type: Nursing Progress Note Filed: 06/27/2024 21:59 Note Text: Patient sitting in day area watching tv and taking with peers. He took his medication as ordered. He is oriented x3. He stated he is feeling better and denied depression and denies suicidal thoughts. He contracted for safety. No distress noted. [facility] NURSING PROG HNO ID: [id number] Author: VALERIA POPE, ANDRE Service: ? 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 He is A+Ox3. 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 He has a GF of 29 years that he left behind at home in [place]. He at present adamantly denies SI and is calm, cooperative with no behaviors. His skin and VS are good. He is not at all resistive to nursing interventions. He is ambulatory with walker and continent for most part. Takes medication whole. In no acute distress, safety measures taken, continue to assess. Normal [facility] TOXICOLOGY SCREEN, ROUTINE U RINEon 06-27-2024 Amphetamines Confirm (U) [Mass/Vol] Negative Normal Negative [facility] Comment on above: Order Comment: Speci men Type: URINE SPECIMEN Ordering Facility: [facility] Address: [address] [place] [address] Result Comment: Cuto ff threshold at 1000 ng/mL. Performed By: #### U TOX2 #### [facility] CLIA [id number] [address] [place] [address] [place] BARBITURATES, URINE Negative Normal Negative [facility] Comment on above: Order Comment: Speci men Type: URINE SPECIMEN Ordering Facility: [facility] Address: [address] [place] [address] Result Comment: Cuto ff threshold at 200 ng/mL. Performed By: #### U TOX2 #### [facility] CLIA [id number] [address] [place] [address] [place] BENZODIAZEPINES, UR Negative Normal Negative [facility] Comment on above: Order Comment: Speci men Type: URINE SPECIMEN Ordering Facility: [facility] Address: [address] [place] [address] Result Comment: Cuto ff threshold at 200 ng/mL. Performed By: #### U TOX2 #### [facility] CLIA [id number] [address] [place] [address] [place] Cannabinoids Screen Ql (U) Negative Normal Negative [facility] Comment on above: Order Comment: Speci men Type: URINE SPECIMEN Ordering Facility: [facility] Address: [address] [place] [address] Result Comment: Cuto ff threshold at 50 ng/mL. Performed By: #### U TOX2 #### [facility] CLIA [id number] [address] [place] [address] [place] Cocaine Ql (U) Negative Normal Negative [facility] Comment on above: Order Comment: Speci men Type: URINE SPECIMEN Ordering Facility: [facility] Address: [address] [place] [address] Result Comment: Cuto ff threshold at 300 ng/mL. Performed By: #### U TOX2 #### [facility] CLIA [id number] [address] [place] [address] [place] Ethanol (U) [Mass/Vol] <11 Normal <11 [facility] Comment on above: Order Comment: Speci men Type: URINE SPECIMEN Ordering Facility: [facility] Address: [address] [place] [address] Performed By: #### U TOX2 #### [facility] CLIA [id number] [address] [place] [address] [place] Opiates Screen Ql (U) Negative Normal Negative [facility] Comment on above: Order Comment: Speci men Type: URINE SPECIMEN Ordering Facility: [facility] Address: [address] [place] [address] Result Comment: Cuto ff threshold at 300 ng/mL. Performed By: #### U TOX2 #### [facility] CLIA [id number] [address] [place] [address] [place] oxyCODONE cutoff Screen (U) [Mass/Vol] Negative Normal Negative [facility] Comment on above: Order Comment: Speci men Type: URINE SPECIMEN Ordering Facility: [facility] Address: [address] [place] [address] Result Comment: Cuto ff threshold at 100 ng/mL. Performed By: #### U TOX2 #### [facility] CLIA [id number] [address] [place] [address] [place] Phencyclidine Ql (U) Negative Normal Negative [facility] Comment on above: Order Comment: Speci men Type: URINE SPECIMEN Ordering Facility: [facility] Address: [address] [place] [address] Result Comment: Cuto ff threshold at 25 ng/mL. Performed By: #### U TOX2 #### [facility] CLIA [id number] [address] [place] [address] [place] ED NOTEon 06-26-2024 ED NOTE HNO ID: [id number] Author: NEISHA PETERSON, RN Service: ? Author Type: Registered Nurse Type: ED Notes Filed: 06/27/2024 04:34 Note Text: Pt. [facility] His son called the [facility] and said he found a suicide letter that was written to his ex gf and the pt. Stated he was down at the time about a breakup and sad but he is currently saying he doesn't want to kill himself at this time, but in the letter he stated he would hang himself from a tree.... Son was the one who wanted him to be seen for SI. [facility] CNPNon 04-06-[address] [facility] CASE MANAGEMon 03-23-2024 CASE MANAGEM [facility]-23-[facility]24 [facility] [facility] NURSING PROGon 03-23-2024 NUR[address] [facility] THERAPY NTon 03-23-20[address] [facility] Basic metabolic 2000 panelon 03-22-2024 Anion gap [Moles/Vol] 18 mmol/L High 8-15 [facility] Comment on above: Order Comment: Speci men Type: BLOOD SPECIMENOrdering Facility: [facility] Address: [address] [place] [address] Performed By: #### 2 43204-20, ####[facility] [id number] [place] [address] [place] Calcium [Mass/Vol] 9.0 mg/dL Normal 8.5-10.2 [facility] Comment on above: Order Comment: Speci men Type: BLOOD SPECIMENOrdering Facility: [facility] Address: [address] [place] [address] Performed By: #### 2 432-2, ####[facility] [id number] [place] [address] [place] Chloride [Moles/Vol] 91 mmol/L Low 98-107 [facility] Comment on above: Order Comment: Speci men Type: BLOOD SPECIMENOrdering Facility: [facility] Address: [address] [id number] Performed By: #### 2 432-2, ####[facility] [id number] [place] [address] [place] CO2 [Moles/Vol] 26 mmol/L Normal 22-30 [facility] Comment on above: Order Comment: Speci men Type: BLOOD SPECIMENOrdering Facility: [facility] Address: [address] [place] [address] Performed By: #### 2 432-2, ####[facility] [id number] [place] [address] [place] Creatinine [Mass/Vol] 1.03 mg/dL Normal 0.73-1.22 [facility] Comment on above: Order Comment: Speci men Type: BLOOD SPECIMENOrdering Facility: [facility] Address: [address] [place] [address] Performed By: #### 2 2, ####[facility] [id number] [address] STATES OF [facility] Creatinine and Glomerular filtration rate.predicted panel (S/P/Bld) 73 mL/min/1.73m??? Normal >=60 [facility] Comment on above: Order Comment: Speci men Type: BLOOD SPECIMENOrdering Facility: [facility] Address: [address] [place] [address] Result Comment: Leah mated Glomerular Filtration Rate (eGFR) is calculated using the 2020 CKD-EPI creatinine equation. This equation utilizes serum creatinine, sex, and age as parameters. The creatinine assay has traceable calibration to isotope dilution-mass spectrometry. Refer to KDIGO guidelines for clinical interpretation. In patients with unstable renal function, e.g. those with acute kidney injury, the eGFR may not accurately reflect actual GFR. Performed By: #### 2 432-2, ####[facility] [id number] [place] [address] [place] Glucose [Mass/Vol] 136 mg/dL High 74-99 [facility] Comment on above: Order Comment: Speci men Type: BLOOD SPECIMENOrdering Facility: [facility] Address: [address] [place] [address] Result Comment: The [place] Diabetes Association (ADA) provides guidance for cutoff values for fasting glucose and random glucose. The ADA defines fasting as no caloric intake for at least 8 hours. Fasting plasma glucose results between 100 to 125 mg/dL indicate increased risk for diabetes (prediabetes).Fasting plasma glucose results greater than or equal to 126 mg/dL meet the criteria for diagnosis of diabetes. In the absence of unequivocal hyperglycemia, results should be confirmed by repeat testing. In a patient with classic symptoms of hyperglycemia or hyperglycemic crisis, random plasma glucose results greater than or equal to 200 mg/dL meet the criteria for diagnosis of diabetes.Reference: Standards of Medical Care in Diabetes 2016, [place] Diabetes Association. Diabetes Care. 2016.39(Suppl 1). Performed By: #### 2 4320-, ####[facility] [id number] [place] [address] [place] Potassium [Moles/Vol] 4.3 mmol/L Normal 3.7-5.1 [facility] Comment on above: Order Comment: Cathy bruno Type: BLOOD SPECIMENOrdering Facility: [facility] Address: [address] [place], [place] [address] Performed By: #### 2 4320-05, ####[facility] [id number] [place] [address] [place] Sodium [Moles/Vol] 135 mmol/L Low 136-144 [facility] Comment on above: Order Comment: Cathy bruno Type: BLOOD SPECIMENOrdering Facility: [facility] Address: [address] [place] [address] Performed By: #### 2 4320-05, ####[facility] [id number] [place] [id number] [place] Urea nitrogen [Mass/Vol] 38 mg/dL High 9-24 [facility] Comment on above: Order Comment: Cathy bruno Type: BLOOD SPECIMENOrdering Facility: [facility] Address: [address] [place], [place] [address] Performed By: #### 2 4320-05, 76869-3 ####[facility] [id number] [place] [address] [place] CASE MANAGEMon 03-22-2024 CASE MANAGEM Normal [facility] CASE MANAGEM Normal [facility] CASE MANAGEM Normal [facility] CBC W Auto Differential pane l (Bld)on 03-22-2024 Basophils (Bld) [#/Vol] 0.11 10*3/uL High <0.11 [facility] Comment on above: Order Comment: Speci men Type: BLOOD SPECIMENOrdering Facility: [facility] Address: [address] [place] [address] Performed By: #### 5 7021-8 ####[facility] [id number] [place] [address] [place] Basophils/100 WBC (Bld) 1.0 % Normal [facility] Comment on above: Order Comment: Speci men Type: BLOOD SPECIMENOrdering Facility: [facility] Address: [address] [place] [address] Performed By: #### 5 7021-8 ####[facility] [id number] [place] [address] [place] Differential cell count method Nom (Bld) Auto Normal [facility] Comment on above: Order Comment: Speci men Type: BLOOD SPECIMENOrdering Facility: [facility] Address: [address] [place] [address] Performed By: #### 5 7021-8 ####[facility] [id number] [place] [address] [place] Eosinophils (Bld) [#/Vol] 0.09 10*3/uL Normal <0.46 [facility] Comment on above: Order Comment: Speci men Type: BLOOD SPECIMENOrdering Facility: [facility] Address: [address] [place] [address] Performed By: #### 5 7021-8 ####[facility] [id number] [place] [address] [place] Eosinophils/100 WBC (Bld) 0.8 % Normal [facility] Comment on above: Order Comment: Speci men Type: BLOOD SPECIMENOrdering Facility: [facility] Address: [address] [place] [address] Performed By: #### 5 7021-8 ####[facility] [id number] [place] [address] [place] Erythrocyte distribution width (RBC) [Ratio] 13.5 % Normal 11.5-15.0 [facility] Comment on above: Order Comment: Speci men Type: BLOOD SPECIMENOrdering Facility: [facility] Address: [address] [place] [address] Performed By: #### 5 7021-8 ####[facility] [id number] [place] [address] [place] Hematocrit (Bld) [Volume fraction] 37.5 % Low 39.0-51.0 [facility] Comment on above: Order Comment: Speci men Type: BLOOD SPECIMENOrdering Facility: [facility] Address: [address] [place] [address] Performed By: #### 5 7021-8 ####[facility] [id number] [place] [address] [place] Hemoglobin (Bld) [Mass/Vol] 12.5 g/dL Low 13.0-17.0 [facility] Comment on above: Order Comment: Speci men Type: BLOOD SPECIMENOrdering Facility: [facility] Address: [address] [place] [address] Performed By: #### 5 7021-8 ####[facility] [id number] [place] [address] [place] Immature granulocytes (Bld) [#/Vol] 0.27 10*3/uL High <0.10 [facility] Comment on above: Order Comment: Speci men Type: BLOOD SPECIMENOrdering Facility: [facility] Address: [address] [place] [address] Performed By: #### 5 7021-8 ####[facility] [id number] [place] [address] [place] Immature granulocytes/100 WBC (Bld) 2.4 % Normal [facility] Comment on above: Order Comment: Speci men Type: BLOOD SPECIMENOrdering Facility: [facility] Address: [address] [place] [address] Performed By: #### 5 7021-8 ####[facility] [id number] [address] Lymphocytes (Bld) [#/Vol] 2.39 10*3/uL Normal 1.00-4.00 [facility] Comment on above: Order Comment: Speci men Type: BLOOD SPECIMENOrdering Facility: [facility] Address: [address] [place] [address] Performed By: #### 5 7021-8 ####[facility] [id number] [address] Lymphocytes/100 WBC (Bld) 20.9 % Normal [facility] Comment on above: Order Comment: Speci men Type: BLOOD SPECIMENOrdering Facility: [facility] Address: [address] [place] [address] Performed By: #### 5 7021-8 ####[facility] [id number] [address] MCH (RBC) [Entitic mass] 31.5 pg Normal 26.0-34.0 [facility] Comment on above: Order Comment: Speci men Type: BLOOD SPECIMENOrdering Facility: [facility] Address: [address] [place] [address] Performed By: #### 5 7021-8 ####[facility] [id number] [address] MCHC (RBC) [Mass/Vol] 33.3 g/dL Normal 30.5-36.0 [facility] Comment on above: Order Comment: Speci men Type: BLOOD SPECIMENOrdering Facility: [facility] Address: [address] [place] [address] Performed By: #### 5 7021-8 ####[facility] [id number] [address] MCV (RBC) [Entitic vol] 94.5 fL Normal 80.0-100.0 [facility] Comment on above: Order Comment: Speci men Type: BLOOD SPECIMENOrdering Facility: [facility] Address: [facility] [place] [address] Performed By: #### 5 7021-8 ####[facility] [id number] [place] [address] [place] Monocytes (Bld) [#/Vol] 1.30 10*3/uL High <0.87 [facility] Comment on above: Order Comment: Speci men Type: BLOOD SPECIMENOrdering Facility: [facility] Address: [address] [place] [address] Performed By: #### 5 7021-8 ####[facility] [id number] [address] [place] Monocytes/100 WBC (Bld) 11.4 % Normal [facility] Comment on above: Order Comment: Speci men Type: BLOOD SPECIMENOrdering Facility: [facility] Address: [address] [place] [address] Performed By: #### 5 7021-8 ####[facility] [id number] [place] [address] [place] Neutrophils (Bld) [#/Vol] 7.26 10*3/uL Normal 1.45-7.50 [facility] Comment on above: Order Comment: Speci men Type: BLOOD SPECIMENOrdering Facility: [facility] Address: [address] [place] [address] Performed By: #### 5 7021-8 ####[facility] [id number] [place] [address] [place] Neutrophils/100 WBC (Bld) 63.5 % Normal [facility] Comment on above: Order Comment: Speci men Type: BLOOD SPECIMENOrdering Facility: [facility] Address: [address] [place] [address] Performed By: #### 5 7021-8 ####[facility] [id number] [place] [address] [place] Nucleated RBC (Bld) [#/Vol] 10*3/uL Normal <0.01 [facility] Comment on above: Order Comment: Speci men Type: BLOOD SPECIMENOrdering Facility: [facility] Address: [address] [place] [address] Performed By: #### 5 7021-8 ####[facility] [id number] [address] [place] Nucleated RBC/100 WBC (Bld) [Ratio] 0.0 /100 WBC Normal [facility] Comment on above: Order Comment: Speci men Type: BLOOD SPECIMENOrdering Facility: [facility] Address: [address] [place] [address] Performed By: #### 5 7021-8 ####[facility] [id number] [address] [place] Platelet mean volume (Bld) [Entitic vol] 10.3 fL Normal 9.0-12.7 [facility] Comment on above: Order Comment: Speci men Type: BLOOD SPECIMENOrdering Facility: [facility] Address: [address] [place] [address] Performed By: #### 5 7021-8 ####[facility] [id number] [address] [place] Platelets (Bld) [#/Vol] 447 10*3/uL High 150-400 [facility] Comment on above: Order Comment: Speci men Type: BLOOD SPECIMENOrdering Facility: [facility] Address: [address] [place] [address] Performed By: #### 5 7021-8 ####[facility] [id number] [address] [place] RBC (Bld) [#/Vol] 3.97 10*6/uL Low 4.20-6.00 [facility] Comment on above: Order Comment: Speci men Type: BLOOD SPECIMENOrdering Facility: [facility] Address: [address] [place] [address] Performed By: #### 5 7021-8 ####[facility]CLIA [id number] [place] [address] [place] WBC (Bld) [#/Vol] 11.42 10*3/uL High 3.70-11.00 [facility] Comment on above: Order Comment: Speci men Type: BLOOD SPECIMENOrdering Facility: [facility] Address: [address] [place] [address] Performed By: #### 5 7021-8 ####[facility]CLIA [id number] [address] [place] CONSULT PROGon 03-22-[address] [facility] Magnesium SerPl-mCncon 03-22 Magnesium [Mass/Vol] 2.2 mg/dL Normal 1.7-2.3 [facility] Comment on above: Order Comment: Speci men Type: BLOOD SPECIMENOrdering Facility: [facility] Address: [address] [place] [address] Performed By: #### 2 4321-2, ####[facility]CLIA [id number] [address] [place] THERAPY NTon 03-22-[address] [facility] Basic metabolic 2000 panelon 03-21-2024 Anion gap [Moles/Vol] 11 mmol/L Normal 8-15 [facility] Comment on above: Order Comment: Speci men Type: BLOOD SPECIMENOrdering Facility: [facility] Address: [address] [place], [place] [address] Performed By: #### 2 4321-2, ####[facility]ORYCLIA [id number] [place] [address] [place] Calcium [Mass/Vol] 8.8 mg/dL Normal 8.5-10.2 [facility] Comment on above: Order Comment: Speci men Type: BLOOD SPECIMENOrdering Facility: [facility] Address: [address] [place] [address] Performed By: #### 2 4321-2, 44135-9 ####[facility]ORYCLIA [id number] [place] [address] [place] Chloride [Moles/Vol] 95 mmol/L Low 98-107 [facility] Comment on above: Order Comment: Speci men Type: BLOOD SPECIMENOrdering Facility: [facility] Address: [address] [place] [address] Performed By: #### 2 4321-2, ####[facility]CLIA [id number] [place] [address] [place] CO2 [Moles/Vol] 30 mmol/L Normal 22-30 [facility] Comment on above: Order Comment: Speci men Type: BLOOD SPECIMENOrdering Facility: [facility] Address: [address] [place] [address] Performed By: #### 2 4321-2, ####[facility]ORYCLIA [id number] [place] [address] [place] Creatinine [Mass/Vol] 1.08 mg/dL Normal 0.73-1.22 [facility] Comment on above: Order Comment: Speci men Type: BLOOD SPECIMENOrdering Facility: [facility] Address: [address] [place] [address] Performed By: #### 2 4322, ####[facility]ORYCLIA [id number] [address] Creatinine and Glomerular filtration rate.predicted panel (S/P/Bld) 69 mL/min/1.73m??? Normal >=60 [facility] Comment on above: Order Comment: Speci men Type: BLOOD SPECIMENOrdering Facility: [facility] Address: [address] [place] [address] Result Comment: Leah mated Glomerular Filtration Rate (eGFR) is calculated using the 2020 CKD-EPI creatinine equation. This equation utilizes serum creatinine, sex, and age as parameters. The creatinine assay has traceable calibration to isotope dilution-mass spectrometry. Refer to KDIGO guidelines for clinical interpretation. In patients with unstable renal function, e.g. those with acute kidney injury, the eGFR may not accurately reflect actual GFR. Performed By: #### 2 4321-2, ####[facility]ORYCLIA [id number] [address] [place] Glucose [Mass/Vol] 167 mg/dL High 74-99 [facility] Comment on above: Order Comment: Cathy bruno Type: BLOOD SPECIMENOrdering Facility: [facility] Address: [address] [place], [place] [address] Result Comment: The [place] Diabetes [employer] (ADA) provides guidance for cutoff values for fasting glucose and random glucose. The ADA defines fasting as no caloric intake for at least 8 hours. Fasting plasma glucose results between 100 to 125 mg/dL indicate increased risk for diabetes (prediabetes).Fasting plasma glucose results greater than or equal to 126 mg/dL meet the criteria for diagnosis of diabetes. In the absence of unequivocal hyperglycemia, results should be confirmed by repeat testing. In a patient with classic symptoms of hyperglycemia or hyperglycemic crisis, random plasma glucose results greater than or equal to 200 mg/dL meet the criteria for diagnosis of diabetes.Reference: Standards of Medical Care in Diabetes 2016, [employer] Diabetes [employer]. Diabetes Care. 2016.39(Suppl 1). Performed By: #### 2 4321-2, ####BENÍTEZ LABORATORYCLIA [id number] [place] [address] [place] Potassium [Moles/Vol] 4.3 mmol/L Normal 3.7-5.1 [facility] Comment on above: Order Comment: Cathy bruno Type: BLOOD SPECIMENOrdering Facility: [facility] Address: [address] [place] [address] Performed By: #### 2 4321-2, ####BENÍTEZ LABORATORYCLIA [id number] [place] [id number] [place] Sodium [Moles/Vol] 136 mmol/L Normal 136-144 [facility] Comment on above: Order Comment: Cathy bruno Type: BLOOD SPECIMENOrdering Facility: [facility] Address: [address] [place] [address] Performed By: #### 2 432-2, ####BENÍTEZ LABORATORYCLIA [id number] [place] [address] [place] Urea nitrogen [Mass/Vol] 40 mg/dL High 9-24 [facility] Comment on above: Order Comment: Cathy men Type: BLOOD SPECIMENOrdering Facility: [facility] Address: [address] [place] [address] Performed By: #### 2 4321-2, 19966-5 ####BENÍTEZ LABORATORYCLIA [id number] [place] [address] [place] CASE MANAGEMon 03-21-2024 CASE MANAGEM Normal [facility] CASE MANAGEM Normal [facility] CBC W Auto Differential pane l (Bld)on 03-21-2024 Basophils (Bld) [#/Vol] 0.10 10*3/uL Normal <0.11 [facility] Comment on above: Order Comment: Speci men Type: BLOOD SPECIMENOrdering Facility: [facility] Address: [address] [place] [address] Performed By: #### 5 7021-8 ####BENÍTEZ LABORATORYCLIA [id number] [place] [address] [place] Basophils/100 WBC (Bld) 0.8 % Normal [facility] Comment on above: Order Comment: Speci men Type: BLOOD SPECIMENOrdering Facility: [facility] Address: [address] [place] [address] Performed By: #### 5 7021-8 ####BENÍTEZ LABORATORYCLIA [id number] [place] [address] [place] Differential cell count method Nom (Bld) Auto Normal [facility] Comment on above: Order Comment: Speci men Type: BLOOD SPECIMENOrdering Facility: [facility] Address: [address] [place] [address] Performed By: #### 5 7021-8 ####BENÍTEZ LABORATORYCLIA [id number] [place] [address] [place] Eosinophils (Bld) [#/Vol] 0.06 10*3/uL Normal <0.46 [facility] Comment on above: Order Comment: Speci men Type: BLOOD SPECIMENOrdering Facility: [facility] Address: [address] [place] [address] Performed By: #### 5 7021-8 ####BENÍTEZ LABORATORYCLIA [id number] [place] [address] [place] Eosinophils/100 WBC (Bld) 0.5 % Normal [facility] Comment on above: Order Comment: Speci men Type: BLOOD SPECIMENOrdering Facility: [facility] Address: [address] [place] [address] Performed By: #### 5 7021-8 ####BENÍTEZ LABORATORYCLIA [id number] [address] [place] Erythrocyte distribution width (RBC) [Ratio] 13.4 % Normal 11.5-15.0 [facility] Comment on above: Order Comment: Speci men Type: BLOOD SPECIMENOrdering Facility: [facility] Address: [address] [place] [address] Performed By: #### 5 7021-8 ####BENÍTEZ LABORATORYCLIA [id number] [address] Hematocrit (Bld) [Volume fraction] 35.1 % Low 39.0-51.0 [facility] Comment on above: Order Comment: Speci men Type: BLOOD SPECIMENOrdering Facility: [facility] Address: [address] [place] [address] Performed By: #### 5 7021-8 ####BENÍTEZ LABORATORYCLIA [id number] [address] [place] Hemoglobin (Bld) [Mass/Vol] 11.9 g/dL Low 13.0-17.0 [facility] Comment on above: Order Comment: Speci men Type: BLOOD SPECIMENOrdering Facility: [facility] Address: [address] [place] [address] Performed By: #### 5 7021-8 ####BENÍTEZ LABORATORYCLIA [id number] [address] Immature granulocytes (Bld) [#/Vol] 0.26 10*3/uL High <0.10 [facility] Comment on above: Order Comment: Speci men Type: BLOOD SPECIMENOrdering Facility: [facility] Address: [address] [place] [address] Performed By: #### 5 7021-8 ####BENÍTEZ LABORATORYCLIA [id number] [address] [place] Immature granulocytes/100 WBC (Bld) 2.1 % Normal [facility] Comment on above: Order Comment: Speci men Type: BLOOD SPECIMENOrdering Facility: [facility] Address: [address] [place] [address] Performed By: #### 5 7021-8 ####BENÍTEZ LABORATORYCLIA [id number] [address] Lymphocytes (Bld) [#/Vol] 1.89 10*3/uL Normal 1.00-4.00 [facility] Comment on above: Order Comment: Speci men Type: BLOOD SPECIMENOrdering Facility: [facility] Address: [address] [place] [address] Performed By: #### 5 7021-8 ####BENÍTEZ LABORATORYCLIA [id number] [address] Lymphocytes/100 WBC (Bld) 15.0 % Normal [facility] Comment on above: Order Comment: Speci men Type: BLOOD SPECIMENOrdering Facility: [facility] Address: [address] [place] [address] Performed By: #### 5 7021-8 ####BENÍTEZ LABORATORYCLIA [id number] [address] MCH (RBC) [Entitic mass] 31.6 pg Normal 26.0-34.0 [facility] Comment on above: Order Comment: Speci men Type: BLOOD SPECIMENOrdering Facility: [facility] Address: [address] [place] [address] Performed By: #### 5 7021-8 ####BENÍTEZ LABORATORYCLIA [id number] [address] MCHC (RBC) [Mass/Vol] 33.9 g/dL Normal 30.5-36.0 [facility] Comment on above: Order Comment: Speci men Type: BLOOD SPECIMENOrdering Facility: [facility] Address: [address] [place] [address] Performed By: #### 5 7021-8 ####BENÍTEZ LABORATORYCLIA [id number] [place] [address] [place] MCV (RBC) [Entitic vol] 93.4 fL Normal 80.0-100.0 [facility] Comment on above: Order Comment: Speci men Type: BLOOD SPECIMENOrdering Facility: [facility] Address: [address] [place] [address] Performed By: #### 5 7021-8 ####BENÍTEZ LABORATORYCLIA [id number] [place] [address] [place] Monocytes (Bld) [#/Vol] 1.22 10*3/uL High <0.87 [facility] Comment on above: Order Comment: Speci men Type: BLOOD SPECIMENOrdering Facility: [facility] Address: [address] [place] [address] Performed By: #### 5 7021-8 ####BENÍTEZ LABORATORYCLIA [id number] [address] Monocytes/100 WBC (Bld) 9.7 % Normal [facility] Comment on above: Order Comment: Speci men Type: BLOOD SPECIMENOrdering Facility: [facility] Address: [address] [place] [address] Performed By: #### 5 7021-8 ####BENÍTEZ LABORATORYCLIA [id number] [place] [address] [place] Neutrophils (Bld) [#/Vol] 9.11 10*3/uL High 1.45-7.50 [facility] Comment on above: Order Comment: Speci men Type: BLOOD SPECIMENOrdering Facility: [facility] Address: [address] [place] [address] Performed By: #### 5 7021-8 ####BENÍTEZ LABORATORYCLIA [id number] [address] OF [place] Neutrophils/100 WBC (Bld) 71.9 % Normal [facility] Comment on above: Order Comment: Speci men Type: BLOOD SPECIMENOrdering Facility: [facility] Address: [address] [place] [address] Performed By: #### 5 7021-8 ####BENÍTEZ LABORATORYCLIA [id number] [address] OF [place] Nucleated RBC (Bld) [#/Vol] 10*3/uL Normal <0.01 [facility] Comment on above: Order Comment: Speci men Type: BLOOD SPECIMENOrdering Facility: [facility] Address: [address] [place] [address] Performed By: #### 5 7021-8 ####BENÍTEZ LABORATORYCLIA [id number] [address] OF [place] Nucleated RBC/100 WBC (Bld) [Ratio] 0.0 /100 WBC Normal [facility] Comment on above: Order Comment: Speci men Type: BLOOD SPECIMENOrdering Facility: [facility] Address: [address] [place] [address] Performed By: #### 5 7021-8 ####BENÍTEZ LABORATORYCLIA [id number] [address] OF [place] Platelet mean volume (Bld) [Entitic vol] 10.2 fL Normal 9.0-12.7 [facility] Comment on above: Order Comment: Speci men Type: BLOOD SPECIMENOrdering Facility: [facility] Address: [address] [place] [address] Performed By: #### 5 7021-8 ####BENÍTEZ LABORATORYCLIA [id number] [address] OF [place] Platelets (Bld) [#/Vol] 447 10*3/uL High 150-400 [facility] Comment on above: Order Comment: Speci men Type: BLOOD SPECIMENOrdering Facility: [facility] Address: [address] [place] [address] Performed By: #### 5 7021-8 ####BENÍTEZ LABORATORYCLIA [id number] [place] [address] [place] RBC (Bld) [#/Vol] 3.76 10*6/uL Low 4.20-6.00 [facility] Comment on above: Order Comment: Speci men Type: BLOOD SPECIMENOrdering Facility: [facility] Address: [address] [place] [address] Performed By: #### 5 7021-8 ####BENÍTEZ LABORATORYCLIA [id number] [address] OF [facility] WBC (Bld) [#/Vol] 12.64 10*3/uL High 3.70-11.00 [facility] Comment on above: Order Comment: Speci men Type: BLOOD SPECIMENOrdering Facility: [facility] Address: [address] [place] [address] Performed By: #### 5 7021-8 ####BENÍTEZ LABORATORYCLIA [id number] [address] CBC panel Auto (Bld)on 03-21 Erythrocyte distribution width (RBC) [Ratio] 13.3 % Normal 11.5-15.0 [facility] Comment on above: Order Comment: Speci men Type: BLOOD SPECIMENOrdering Facility: [facility] Address: [address] [place] [address] Performed By: #### 5 8410-2 ####BENÍTEZ LABORATORYCLIA [id number] [address] Hematocrit (Bld) [Volume fraction] 36.3 % Low 39.0-51.0 [facility] Comment on above: Order Comment: Speci men Type: BLOOD SPECIMENOrdering Facility: [facility] Address: [address] [place] [address] Performed By: #### 5 8410-2 ####BENÍTEZ LABORATORYCLIA [id number] [address] Hemoglobin (Bld) [Mass/Vol] 12.4 g/dL Low 13.0-17.0 [facility] Comment on above: Order Comment: Speci men Type: BLOOD SPECIMENOrdering Facility: [facility] Address: [address] [place] [address] Performed By: #### 5 8410-2 ####BENÍTEZ LABORATORYCLIA [id number] [address] MCH (RBC) [Entitic mass] 31.7 pg Normal 26.0-34.0 [facility] Comment on above: Order Comment: Speci men Type: BLOOD SPECIMENOrdering Facility: [facility] Address: [address] [place] [address] Performed By: #### 5 8410-2 ####BENÍTEZ LABORATORYCLIA [id number] [address] STATES [facility] MCHC (RBC) [Mass/Vol] 34.2 g/dL Normal 30.5-36.0 [facility] Comment on above: Order Comment: Speci men Type: BLOOD SPECIMENOrdering Facility: [facility] Address: [address] [place] [address] Performed By: #### 5 8410-2 ####BENÍTEZ LABORATORYCLIA [id number] [place] [address] [place] MCV (RBC) [Entitic vol] 92.8 fL Normal 80.0-100.0 [facility] Comment on above: Order Comment: Speci men Type: BLOOD SPECIMENOrdering Facility: [facility] Address: [address] [place] [address] Performed By: #### 5 8410-2 ####BENÍTEZ LABORATORYCLIA [id number] [address] [place] Nucleated RBC (Bld) [#/Vol] 10*3/uL Normal <0.01 [facility] Comment on above: Order Comment: Speci men Type: BLOOD SPECIMENOrdering Facility: [facility] Address: [address] [place] [address] Performed By: #### 5 8410-2 ####BENÍTEZ LABORATORYCLIA [id number] [address] [place] Platelet mean volume (Bld) [Entitic vol] 9.8 fL Normal 9.0-12.7 [facility] Comment on above: Order Comment: Speci men Type: BLOOD SPECIMENOrdering Facility: [facility] Address: [address] [place] [address] Performed By: #### 5 8410-2 ####BENÍTEZ LABORATORYCLIA [id number] [address] [place] Platelets (Bld) [#/Vol] 498 10*3/uL High 150-400 [facility] Comment on above: Order Comment: Speci men Type: BLOOD SPECIMENOrdering Facility: [facility] Address: [address] [place] [id number] Performed By: #### 5 8410-2 ####BENÍTEZ LABORATORYCLIA [id number] [address] [place] RBC (Bld) [#/Vol] 3.91 10*6/uL Low 4.20-6.00 [facility] Comment on above: Order Comment: Speci men Type: BLOOD SPECIMENOrdering Facility: [facility] Address: [address] [place] [address] Performed By: #### 5 8410-2 ####BENÍTEZ LABORATORYCLIA [id number] [address] OF [facility] WBC (Bld) [#/Vol] 14.53 10*3/uL High 3.70-11.00 [facility] Comment on above: Order Comment: Speci men Type: BLOOD SPECIMENOrdering Facility: [facility] Address: [address] [place] [address] Performed By: #### 5 8410-2 ####BENÍTEZ LABORATORYCLIA [id number] [address] OF [place] CNPNon 03-21-2024 CNPN Normal [facility] CONSULT PROGon 03-21-2024 CONSULT [address] [facility] Comprehensive metabolic 2000 panelon 03-21-2024 Albumin [Mass/Vol] 3.7 g/dL Low 3.9-4.9 [facility] Comment on above: Order Comment: Speci men Type: BLOOD SPECIMENOrdering Facility: [facility] Address: [address] [place] [address] Performed By: #### 2 4323-8, HSTNT, 89123-5, 2777-1 ####BENÍTEZ LABORATORYCLIA [id number] [address] [place] ALP [Catalytic activity/Vol] 72 U/L Normal 38-113 [facility] Comment on above: Order Comment: Speci men Type: BLOOD SPECIMENOrdering Facility: [facility] Address: [address] [place] [address] Performed By: #### 2 4323-8, HSTNT, 03875-9, 7-1 ####BENÍTEZ LABORATORYCLIA [id number] [place] [address] [place] ALT [Catalytic activity/Vol] 14 U/L Normal 10-54 [facility] Comment on above: Order Comment: Speci men Type: BLOOD SPECIMENOrdering Facility: [facility] Address: [address] [place] [address] Performed By: #### 2 4323-8, HSTNT, 28956-7, 2776-1 ####BENÍTEZ LABORATORYCLIA [id number] [place] [address] [place] Anion gap [Moles/Vol] 14 mmol/L Normal 8-15 [facility] Comment on above: Order Comment: Speci men Type: BLOOD SPECIMENOrdering Facility: [facility] Address: [address] [place] [address] Performed By: #### 2 4323-8, HSTNT, , 2776-1 ####BENÍTEZ LABORATORYCLIA [id number] [place] [address] [place] AST [Catalytic activity/Vol] 17 U/L Normal 14-40 [facility] Comment on above: Order Comment: Speci men Type: BLOOD SPECIMENOrdering Facility: [facility] Address: [address] [place] [address] Performed By: #### 2 4323-8, HSTNT, , 2776-1 ####BENÍTEZ LABORATORYCLIA [id number] [place] [address] [place] Bilirubin [Mass/Vol] 0.7 mg/dL Normal 0.2-1.3 [facility] Comment on above: Order Comment: Speci men Type: BLOOD SPECIMENOrdering Facility: [facility] Address: [address] [place] [address] Performed By: #### 2 4323-8, HSTNT, 03935-0, 2777-1 ####BENÍTEZ LABORATORYCLIA [id number] [place] [address] [place] Calcium [Mass/Vol] 8.9 mg/dL Normal 8.5-10.2 [facility] Comment on above: Order Comment: Speci men Type: BLOOD SPECIMENOrdering Facility: [facility] Address: [facility] [place] [address] Performed By: #### 2 4323-8, HSTNT, , 2776- ####BENÍTEZ LABORATORYCLIA [id number] [place] [address] [place] Chloride [Moles/Vol] 95 mmol/L Low 98-107 [facility] Comment on above: Order Comment: Speci men Type: BLOOD SPECIMENOrdering Facility: [facility] Address: [address] [place] [address] Performed By: #### 2 4323-8, HSTNT, , 2776-04 ####BESSEMER LABORATORYCLIA [id number] [place] [address] [place] CO2 [Moles/Vol] 26 mmol/L Normal 22-30 [facility] Comment on above: Order Comment: Speci men Type: BLOOD SPECIMENOrdering Facility: [facility] Address: [address] [place] [address] Performed By: #### 2 4323-8, HSTNT, , 2776-04 ####BENÍTEZ LABORATORYCLIA [id number] [place] [address] [place] Creatinine [Mass/Vol] 1.09 mg/dL Normal 0.73-1.22 [facility] Comment on above: Order Comment: Speci men Type: BLOOD SPECIMENOrdering Facility: [facility] Address: [address] [place] [address] Performed By: #### 2 4323-8, HSTNT, , 2776-04 ####BENÍTEZ LABORATORYCLIA [id number] [address] Creatinine and Glomerular filtration rate.predicted panel (S/P/Bld) 68 mL/min/1.73m??? Normal >=60 [facility] Comment on above: Order Comment: Speci men Type: BLOOD SPECIMENOrdering Facility: [facility] Address: [address] [place] [id number] Result Comment: Leah mated Glomerular Filtration Rate (eGFR) is calculated using the 2020 CKD-EPI creatinine equation. This equation utilizes serum creatinine, sex, and age as parameters. The creatinine assay has traceable calibration to isotope dilution-mass spectrometry. Refer to KDIGO guidelines for clinical interpretation. In patients with unstable renal function, e.g. those with acute kidney injury, the eGFR may not accurately reflect actual GFR. Performed By: #### 2 4323-8, HSTNT, , 2776-04 ####BESSEMER LABORATORYCLIA [id number] [place] [address] [place] Glucose [Mass/Vol] 185 mg/dL High 74-99 [facility] Comment on above: Order Comment: Cathy bruno Type: BLOOD SPECIMENOrdering Facility: [facility] Address: [address] [place] [address] Result Comment: The [place] Diabetes Association (ADA) provides guidance for cutoff values for fasting glucose and random glucose. The ADA defines fasting as no caloric intake for at least 8 hours. Fasting plasma glucose results between 100 to 125 mg/dL indicate increased risk for diabetes (prediabetes).Fasting plasma glucose results greater than or equal to 126 mg/dL meet the criteria for diagnosis of diabetes. In the absence of unequivocal hyperglycemia, results should be confirmed by repeat testing. In a patient with classic symptoms of hyperglycemia or hyperglycemic crisis, random plasma glucose results greater than or equal to 200 mg/dL meet the criteria for diagnosis of diabetes.Reference: Standards of Medical Care in Diabetes 2016, [employer]. Diabetes Care. 2016.39(Suppl 1). Performed By: #### 2 4323-8, HSTNT, , 2776-04 ####BESSEMER LABORATORYCLIA [id number] [place] [address] [place] Potassium [Moles/Vol] 4.1 mmol/L Normal 3.7-5.1 [facility] Comment on above: Order Comment: Cathy [facility] Type: BLOOD SPECIMENOrdering Facility: [facility] Address: [address] [place] [address] Performed By: #### 2 4323-8, HSTNT, 28055-6, 2776-1 ####BENÍTEZ LABORATORYCLIA [id number] [place] [address] [place] Protein [Mass/Vol] 7.4 g/dL Normal 6.3-8.0 [facility] Comment on above: Order Comment: Speci men Type: BLOOD SPECIMENOrdering Facility: [facility] Address: [address] [place] [address] Performed By: #### 2 4323-8, HSTNT, , 2776-1 ####BENÍTEZ LABORATORYCLIA [id number] [place] [address] [place] Sodium [Moles/Vol] 135 mmol/L Low 136-144 [facility] Comment on above: Order Comment: Speci men Type: BLOOD SPECIMENOrdering Facility: [facility] Address: [address] [place] [address] Performed By: #### 2 4323-8, HSTNT, , 2776-1 ####BENÍTEZ LABORATORYCLIA [id number] [address] [place] Urea nitrogen [Mass/Vol] 39 mg/dL High 9-24 [facility] Comment on above: Order Comment: Speci men Type: BLOOD SPECIMENOrdering Facility: [facility] Address: [address] [place] [address] Performed By: #### 2 4323-8, HSTNT, , 2776-1 ####BENÍTEZ LABORATORYCLIA [id number] [place] [address] [place] ECG COMPLETEon 03-21-2024 ECG COMPLETE Normal [facility] HIGH SENSITIVITY TROPONIN To n 03-21-2024 Troponin T.cardiac High sensitivity method [Mass/Vol] 14 ng/L High <12 [facility] Comment on above: Order Comment: Speci men Type: BLOOD SPECIMENOrdering Facility: [facility] Address: [address] [place] [address] Performed By: #### 2 4323-8, HSTNT, 08434-3, 2776-1 ####BENÍTEZ LABORATORYCLIA [id number] [place] [address] [place] MEDICAL EMERon 03-21-2024 MEDICAL SHANNON Normal [facility] Magnesium SerPl-ncon 03-21 Magnesium [Mass/Vol] 2.2 mg/dL Normal 1.7-2.3 [facility] Comment on above: Order Comment: Speci men Type: BLOOD SPECIMENOrdering Facility: [facility] Address: [address] [place] [address] Performed By: #### 2 4323-8, HSTNT, , 277- ####BESSEMER LABORATORYCLIA [id number] [place] [address] [place] Magnesium [Mass/Vol] 2.1 mg/dL Normal 1.7-2.3 [facility] Comment on above: Order Comment: Speci men Type: BLOOD SPECIMENOrdering Facility: [facility] Address: [address] [place] [address] Performed By: #### 2 4321-2, ####BESSEMER LABORATORYCLIA [id number] [place] [address] [facility] [place] Phosphate SerPl-Community Health Systemson 03-21 Phosphate [Mass/Vol] 4.7 mg/dL Normal 2.7-4.8 [facility] Comment on above: Order Comment: Speci men Type: BLOOD SPECIMENOrdering Facility: [facility] Address: [address] [place] [address] Performed By: #### 2 4323-8, HSTNT, , 277-1 ####BESSEMER LABORATORYCLIA [id number] [place] [address] [place] THERAPY NTon 03-21-2024 THERAPY NT Normal [facility] Basic metabolic 2000 panelon 03-20-2024 Anion gap [Moles/Vol] 13 mmol/L Normal 8-15 [facility] Comment on above: Order Comment: Speci men Type: BLOOD SPECIMENOrdering Facility: [facility] Address: [address] [place], [place] [address] Performed By: #### 2 4321-2, 95462-4 ####BENÍTEZ LABORATORYCLIA [id number] [place] [address] [place] Calcium [Mass/Vol] 8.6 mg/dL Normal 8.5-10.2 [facility] Comment on above: Order Comment: Speci men Type: BLOOD SPECIMENOrdering Facility: [facility] Address: [address] [place] [address] Performed By: #### 2 4321-2, ####BENÍTEZ LABORATORYCLIA [id number] [place] [address] [place] Chloride [Moles/Vol] 95 mmol/L Low 98-107 [facility] Comment on above: Order Comment: Speci men Type: BLOOD SPECIMENOrdering Facility: [facility] Address: [address] [place] [address] Performed By: #### 2 4321-2, ####BENÍTEZ LABORATORYCLIA [id number] [place] [address] [place] CO2 [Moles/Vol] 28 mmol/L Normal 22-30 [facility] Comment on above: Order Comment: Speci men Type: BLOOD SPECIMENOrdering Facility: [facility] Address: [address] [place] [address] Performed By: #### 2 4321-2, ####BENÍTEZ LABORATORYCLIA [id number] [place] [address] [place] Creatinine [Mass/Vol] 1.01 mg/dL Normal 0.73-1.22 [facility] Comment on above: Order Comment: Speci men Type: BLOOD SPECIMENOrdering Facility: [facility] Address: [address] [place] [address] Performed By: #### 2 4321-2, ####BENÍTEZ LABORATORYCLIA [id number] [address] Creatinine and Glomerular filtration rate.predicted panel (S/P/Bld) 74 mL/min/1.73m??? Normal >=60 [facility] Comment on above: Order Comment: Speci men Type: BLOOD SPECIMENOrdering Facility: [facility] Address: [address] [place] [address] Result Comment: Leah mated Glomerular Filtration Rate (eGFR) is calculated using the 2020 CKD-EPI creatinine equation. This equation utilizes serum creatinine, sex, and age as parameters. The creatinine assay has traceable calibration to isotope dilution-mass spectrometry. Refer to KDIGO guidelines for clinical interpretation. In patients with unstable renal function, e.g. those with acute kidney injury, the eGFR may not accurately reflect actual GFR. Performed By: #### 2 432-, ####BESSEMER LABORATORYCLIA [id number] [place] [id number] [place] Glucose [Mass/Vol] 165 mg/dL High 74-99 [facility] Comment on above: Order Comment: Cathy bruno Type: BLOOD SPECIMENOrdering Facility: [facility] Address: [address] [place] [address] Result Comment: The [place] Diabetes Association (ADA) provides guidance for cutoff values for fasting glucose and random glucose. The ADA defines fasting as no caloric intake for at least 8 hours. Fasting plasma glucose results between 100 to 125 mg/dL indicate increased risk for diabetes (prediabetes).Fasting plasma glucose results greater than or equal to 126 mg/dL meet the criteria for diagnosis of diabetes. In the absence of unequivocal hyperglycemia, results should be confirmed by repeat testing. In a patient with classic symptoms of hyperglycemia or hyperglycemic crisis, random plasma glucose results greater than or equal to 200 mg/dL meet the criteria for diagnosis of diabetes.Reference: Standards of Medical Care in Diabetes 2016, [employer] Diabetes [employer]. Diabetes Care. 2016.39(Suppl 1). Performed By: #### 2 4320-05, ####BESSEMER LABORATORYCLIA [id number] [place] [address] [place] Potassium [Moles/Vol] 3.9 mmol/L Normal 3.7-5.1 [facility] Comment on above: Order Comment: Cathy bruno Type: BLOOD SPECIMENOrdering Facility: [facility] Address: [address] [place] [id number] Performed By: #### 2 432-, ####BESSEMER LABORATORYCLIA [id number] [place] [address] [place] Sodium [Moles/Vol] 136 mmol/L Normal 136-144 [facility] Comment on above: Order Comment: Speci men Type: BLOOD SPECIMENOrdering Facility: [facility] Address: [address] [place] [address] Performed By: #### 2 4321-2, ####BENÍTEZ LABORATORYCLIA [id number] [place] [address] [place] Urea nitrogen [Mass/Vol] 43 mg/dL High 9-24 [facility] Comment on above: Order Comment: Speci men Type: BLOOD SPECIMENOrdering Facility: [facility] Address: [address] [place] [address] Performed By: #### 2 4321-2, ####BENÍTEZ LABORATORYCLIA [id number] [address] OF [facility] CASE MANAGEMon 03-20-2024 CASE MANAGEM Normal [facility] CBC W Auto Differential pane l (Bld)on 03-20-2024 Basophils (Bld) [#/Vol] 0.07 10*3/uL Normal <0.11 [facility] Comment on above: Order Comment: Speci men Type: BLOOD SPECIMENOrdering Facility: [facility] Address: [address] [place] [address] Performed By: #### 5 7021-8 ####BENÍTEZ LABORATORYCLIA [id number] [address] [place] Basophils/100 WBC (Bld) 0.6 % Normal [facility] Comment on above: Order Comment: Speci men Type: BLOOD SPECIMENOrdering Facility: [facility] Address: [address] [place] [address] Performed By: #### 5 7021-8 ####BENÍTEZ LABORATORYCLIA [id number] [address] [place] Differential cell count method Nom (Bld) Auto [facility] Comment on above: Order Comment: Speci men Type: BLOOD SPECIMENOrdering Facility: [facility] Address: [address] [place] [address] Performed By: #### 5 7021-8 ####BENÍTEZ LABORATORYCLIA [id number] [place] [address] [place] Eosinophils (Bld) [#/Vol] 0.07 10*3/uL Normal <0.46 [facility] Comment on above: Order Comment: Speci men Type: BLOOD SPECIMENOrdering Facility: [facility] Address: [address] [place] [address] Performed By: #### 5 7021-8 ####BENÍTEZ LABORATORYCLIA [id number] [address] Eosinophils/100 WBC (Bld) 0.6 % Normal [facility] Comment on above: Order Comment: Speci men Type: BLOOD SPECIMENOrdering Facility: [facility] Address: [address] [place] [address] Performed By: #### 5 7021-8 ####BENÍTEZ LABORATORYCLIA [id number] [address] [place] Erythrocyte distribution width (RBC) [Ratio] 13.4 % Normal 11.5-15.0 [facility] Comment on above: Order Comment: Speci men Type: BLOOD SPECIMENOrdering Facility: [facility] Address: [address] [place] [address] Performed By: #### 5 7021-8 ####BENÍTEZ LABORATORYCLIA [id number] [address] [place] Hematocrit (Bld) [Volume fraction] 34.2 % Low 39.0-51.0 [facility] Comment on above: Order Comment: Speci men Type: BLOOD SPECIMENOrdering Facility: [facility] Address: [address] [place] [address] Performed By: #### 5 7021-8 ####BENÍTEZ LABORATORYCLIA [id number] [address] [place] Hemoglobin (Bld) [Mass/Vol] 11.7 g/dL Low 13.0-17.0 [facility] Comment on above: Order Comment: Speci men Type: BLOOD SPECIMENOrdering Facility: [facility] Address: [address] [place] [address] Performed By: #### 5 7021-8 ####BENÍTEZ LABORATORYCLIA [id number] [place] [address] [place] Immature granulocytes (Bld) [#/Vol] 0.31 10*3/uL High <0.10 [facility] Comment on above: Order Comment: Speci men Type: BLOOD SPECIMENOrdering Facility: [facility] Address: [address] [place] [address] Performed By: #### 5 7021-8 ####BENÍTEZ LABORATORYCLIA [id number] [address] Immature granulocytes/100 WBC (Bld) 2.5 % Normal [facility] Comment on above: Order Comment: Speci men Type: BLOOD SPECIMENOrdering Facility: [facility] Address: [address] [place] [address] Performed By: #### 5 7021-8 ####BENÍTEZ LABORATORYCLIA [id number] [address] [place] Lymphocytes (Bld) [#/Vol] 2.23 10*3/uL Normal 1.00-4.00 [facility] Comment on above: Order Comment: Speci men Type: BLOOD SPECIMENOrdering Facility: [facility] Address: [address] [place] [address] Performed By: #### 5 7021-8 ####BENÍTEZ LABORATORYCLIA [id number] [address] Lymphocytes/100 WBC (Bld) 17.7 % Normal [facility] Comment on above: Order Comment: Speci men Type: BLOOD SPECIMENOrdering Facility: [facility] Address: [address] [place] [address] Performed By: #### 5 7021-8 ####BENÍTEZ LABORATORYCLIA [id number] [place] [address] [place] MCH (RBC) [Entitic mass] 31.6 pg Normal 26.0-34.0 [facility] Comment on above: Order Comment: Speci men Type: BLOOD SPECIMENOrdering Facility: [facility] Address: [address] [place] [address] Performed By: #### 5 7021-8 ####BENÍTEZ LABORATORYCLIA [id number] [place] [id number] [place] MCHC (RBC) [Mass/Vol] 34.2 g/dL Normal 30.5-36.0 [facility] Comment on above: Order Comment: Speci men Type: BLOOD SPECIMENOrdering Facility: [facility] Address: [address] [place] [address] Performed By: #### 5 7021-8 ####BENÍTEZ LABORATORYCLIA [id number] [place] [address] [place] MCV (RBC) [Entitic vol] 92.4 fL Normal 80.0-100.0 [facility] Comment on above: Order Comment: Speci men Type: BLOOD SPECIMENOrdering Facility: [facility] Address: [address] [place] [address] Performed By: #### 5 7021-8 ####BENÍTEZ LABORATORYCLIA [id number] [place] [address] [place] Monocytes (Bld) [#/Vol] 1.17 10*3/uL High <0.87 [facility] Comment on above: Order Comment: Speci men Type: BLOOD SPECIMENOrdering Facility: [facility] Address: [address] [place] [address] Performed By: #### 5 7021-8 ####BENÍTEZ LABORATORYCLIA [id number] [address] Monocytes/100 WBC (Bld) 9.3 % Normal [facility] Comment on above: Order Comment: Speci men Type: BLOOD SPECIMENOrdering Facility: [facility] Address: [address] [place] [address] Performed By: #### 5 7021-8 ####BENÍTEZ LABORATORYCLIA [id number] [place] [address] [place] Neutrophils (Bld) [#/Vol] 8.75 10*3/uL High 1.45-7.50 [facility] Comment on above: Order Comment: Speci men Type: BLOOD SPECIMENOrdering Facility: [facility] Address: [address] [place] [address] Performed By: #### 5 7021-8 ####BENÍTEZ LABORATORYCLIA [id number] [address] Neutrophils/100 WBC (Bld) 69.3 % Normal [facility] Comment on above: Order Comment: Speci men Type: BLOOD SPECIMENOrdering Facility: [facility] Address: [address] [place] [address] Performed By: #### 5 7021-8 ####BENÍTEZ LABORATORYCLIA [id number] [place] [address] [place] Nucleated RBC (Bld) [#/Vol] 10*3/uL Normal <0.01 [facility] Comment on above: Order Comment: Speci men Type: BLOOD SPECIMENOrdering Facility: [facility] Address: [address] [place] [address] Performed By: #### 5 7021-8 ####BENÍTEZ LABORATORYCLIA [id number] [address] [place] Nucleated RBC/100 WBC (Bld) [Ratio] 0.0 /100 WBC Normal [facility] Comment on above: Order Comment: Speci men Type: BLOOD SPECIMENOrdering Facility: [facility] Address: [address] [place] [address] Performed By: #### 5 7021-8 ####BENÍTEZ LABORATORYCLIA [id number] [address] [place] Platelet mean volume (Bld) [Entitic vol] 10.3 fL Normal 9.0-12.7 [facility] Comment on above: Order Comment: Speci men Type: BLOOD SPECIMENOrdering Facility: [facility] Address: [address] [place] [address] Performed By: #### 5 7021-8 ####BENÍTEZ LABORATORYCLIA [id number] [address] [place] Platelets (Bld) [#/Vol] 397 10*3/uL Normal 150-400 [facility] Comment on above: Order Comment: Speci men Type: BLOOD SPECIMENOrdering Facility: [facility] Address: [address] [place], [place] [address] [address] Performed By: #### 5 7021-8 ####BESSEMER LABORATORYCLIA [id number] [place] [id number] [place] RBC (Bld) [#/Vol] 3.70 10*6/uL Low 4.20-6.00 [facility] Comment on above: Order Comment: Speci men Type: BLOOD SPECIMENOrdering Facility: [facility] Address: [facility] [place] [id number] Performed By: #### 5 7021-8 ####BESSEMER LABORATORYCLIA [id number] [place] [address] [place] WBC (Bld) [#/Vol] 12.60 10*3/uL High 3.70-11.00 [facility] Comment on above: Order Comment: Speci men Type: BLOOD SPECIMENOrdering Facility: [facility] Address: [address] [place] [address] [place] [address] Performed By: #### 5 7021-8 ####BESSEMER LABORATORYCLIA [id number] [place] [id number] [facility] [place] CONSULT PROGon 03-20-2024 CONSULT PROG Normal [facility] Magnesium SerPl-mCncon 03-20 Magnesium [Mass/Vol] 2.1 mg/dL Normal 1.7-2.3 [facility] Comment on above: Order Comment: Speci men Type: BLOOD SPECIMENOrdering Facility: [facility] Address: [facility] [place] [id number] Performed By: #### 2 4321-2, 76173-8 ####BESSEMER LABORATORYCLIA [id number] [place] [address] [place] NUTRITIONon 03-20-2024 NUTRITION Normal [facility] ALLIED HEALTHon 03-19-2024 ALLIED HEALTH Normal [facility] Basic metabolic 2000 panelon 03-19-2024 Anion gap [Moles/Vol] 16 mmol/L High 8-15 [facility] Comment on above: Order Comment: Speci men Type: BLOOD SPECIMENOrdering Facility: [facility] Address: [address] [place] [address] Performed By: #### 2 4321-2 ####BENÍTEZ LABORATORYCLIA [id number] [place] [address] [place] Calcium [Mass/Vol] 8.6 mg/dL Normal 8.5-10.2 [facility] Comment on above: Order Comment: Speci men Type: BLOOD SPECIMENOrdering Facility: [facility] Address: [address] [place] [address] Performed By: #### 2 4321-2 ####BENÍTEZ LABORATORYCLIA [id number] [place] [address] [place] Chloride [Moles/Vol] 100 mmol/L Normal 98-107 [facility] Comment on above: Order Comment: Speci men Type: BLOOD SPECIMENOrdering Facility: [facility] Address: [address] [place] [address] Performed By: #### 2 4321-2 ####BENÍTEZ LABORATORYCLIA [id number] [place] [address] [place] CO2 [Moles/Vol] 23 mmol/L Normal 22-30 [facility] Comment on above: Order Comment: Speci men Type: BLOOD SPECIMENOrdering Facility: [facility] Address: [address] [place] [address] Performed By: #### 2 4321-2 ####BENÍTEZ LABORATORYCLIA [id number] [place] [address] [place] Creatinine [Mass/Vol] 0.94 mg/dL Normal 0.73-1.22 [facility] Comment on above: Order Comment: Speci men Type: BLOOD SPECIMENOrdering Facility: [facility] Address: [address] [place] [address] Performed By: #### 2 4321-2 ####BENÍTEZ LABORATORYCLIA [id number] [address] [place] Creatinine and Glomerular filtration rate.predicted panel (S/P/Bld) 81 mL/min/1.73m??? Normal >=60 [facility] Comment on above: Order Comment: Speci men Type: BLOOD SPECIMENOrdering Facility: [facility] Address: [address] [place] [address] Result Comment: Leah mated Glomerular Filtration Rate (eGFR) is calculated using the 2020 CKD-EPI creatinine equation. This equation utilizes serum creatinine, sex, and age as parameters. The creatinine assay has traceable calibration to isotope dilution-mass spectrometry. Refer to KDIGO guidelines for clinical interpretation. In patients with unstable renal function, e.g. those with acute kidney injury, the eGFR may not accurately reflect actual GFR. Performed By: #### 2 4321-2 ####BESSEMER LABORATORYCLIA [id number] [place] [address] [place] Glucose [Mass/Vol] 166 mg/dL High 74-99 [facility] Comment on above: Order Comment: Cathy men Type: BLOOD SPECIMENOrdering Facility: [facility] Address: [address] [place] [address] Result Comment: The [place] Diabetes Association (ADA) provides guidance for cutoff values for fasting glucose and random glucose. The ADA defines fasting as no caloric intake for at least 8 hours. Fasting plasma glucose results between 100 to 125 mg/dL indicate increased risk for diabetes (prediabetes).Fasting plasma glucose results greater than or equal to 126 mg/dL meet the criteria for diagnosis of diabetes. In the absence of unequivocal hyperglycemia, results should be confirmed by repeat testing. In a patient with classic symptoms of hyperglycemia or hyperglycemic crisis, random plasma glucose results greater than or equal to 200 mg/dL meet the criteria for diagnosis of diabetes.Reference: Standards of Medical Care in Diabetes 2016, [place] Diabetes [employer]. Diabetes Care. 2016.39(Suppl 1). Performed By: #### 2 4321-2 ####BESSEMER LABORATORYCLIA [id number] [place] [id number] [place] Potassium [Moles/Vol] 4.3 mmol/L Normal 3.7-5.1 [facility] Comment on above: Order Comment: Felicitasi men Type: BLOOD SPECIMENOrdering Facility: [facility] Address: [address] [place] [id number] Performed By: #### 2 4321-2 ####BENÍTEZ LABORATORYCLIA [id number] [place] [id number] [place] Sodium [Moles/Vol] 139 mmol/L Normal 136-144 [facility] Comment on above: Order Comment: Speci men Type: BLOOD SPECIMENOrdering Facility: [facility] Address: [address] [place] [address] Performed By: #### 2 4321-2 ####BENÍTEZ LABORATORYCLIA [id number] [address] [place] [facility] Urea nitrogen [Mass/Vol] 49 mg/dL High 9-24 [facility] Comment on above: Order Comment: Speci men Type: BLOOD SPECIMENOrdering Facility: [facility] Address: [address] [place] [address] Performed By: #### 2 4321-2 ####BENÍTEZ LABORATORYCLIA [id number] [address] CBC panel Auto (Bld)on 03-19 Erythrocyte distribution width (RBC) [Ratio] 13.5 % Normal 11.5-15.0 [facility] Comment on above: Order Comment: Speci men Type: BLOOD SPECIMENOrdering Facility: [facility] Address: [address] [place] [address] Performed By: #### 5 8410-2 ####BENÍTEZ LABORATORYCLIA [id number] [address] Hematocrit (Bld) [Volume fraction] 34.9 % Low 39.0-51.0 [facility] Comment on above: Order Comment: Speci men Type: BLOOD SPECIMENOrdering Facility: [facility] Address: [address] [place] [address] Performed By: #### 5 8410-2 ####BENÍTEZ LABORATORYCLIA [id number] [address] [place] [facility] Hemoglobin (Bld) [Mass/Vol] 11.9 g/dL Low 13.0-17.0 [facility] Comment on above: Order Comment: Speci men Type: BLOOD SPECIMENOrdering Facility: [facility] Address: [address] [place] [address] Performed By: #### 5 8410-2 ####BENÍTEZ LABORATORYCLIA [id number] [place] [address] [place] MCH (RBC) [Entitic mass] 31.8 pg Normal 26.0-34.0 [facility] Comment on above: Order Comment: Speci men Type: BLOOD SPECIMENOrdering Facility: [facility] Address: [address] [place] [address] Performed By: #### 5 8410-2 ####BENÍTEZ LABORATORYCLIA [id number] [place] [address] [place] MCHC (RBC) [Mass/Vol] 34.1 g/dL Normal 30.5-36.0 [facility] Comment on above: Order Comment: Speci men Type: BLOOD SPECIMENOrdering Facility: [facility] Address: [address] [place] [address] Performed By: #### 5 8410-2 ####BENÍTEZ LABORATORYCLIA [id number] [address] [place] MCV (RBC) [Entitic vol] 93.3 fL Normal 80.0-100.0 [facility] Comment on above: Order Comment: Speci men Type: BLOOD SPECIMENOrdering Facility: [facility] Address: [address] [place] [address] Performed By: #### 5 8410-2 ####BENÍTEZ LABORATORYCLIA [id number] [place] [address] [place] Nucleated RBC (Bld) [#/Vol] 10*3/uL Normal <0.01 [facility] Comment on above: Order Comment: Speci men Type: BLOOD SPECIMENOrdering Facility: [facility] Address: [address] [place] [address] Performed By: #### 5 8410-2 ####BENÍTEZ LABORATORYCLIA [id number] [address] [place] Platelet mean volume (Bld) [Entitic vol] 10.3 fL Normal 9.0-12.7 [facility] Comment on above: Order Comment: Speci men Type: BLOOD SPECIMENOrdering Facility: [facility] Address: [address] [place] [address] Performed By: #### 5 8410-2 ####BENÍTEZ LABORATORYCLIA [id number] [place] [address] [facility] [place] Platelets (Bld) [#/Vol] 402 10*3/uL High 150-400 [facility] Comment on above: Order Comment: Speci men Type: BLOOD SPECIMENOrdering Facility: [facility] Address: [address] [place] [address] Performed By: #### 5 8410-2 ####BESSEMER LABORATORYCLIA [id number] [place] [address] [place] RBC (Bld) [#/Vol] 3.74 10*6/uL Low 4.20-6.00 [facility] Comment on above: Order Comment: Speci men Type: BLOOD SPECIMENOrdering Facility: [facility] Address: [address] [place] [address] Performed By: #### 5 8410-2 ####BESSEMER LABORATORYCLIA [id number] [address] [place] WBC (Bld) [#/Vol] 12.25 10*3/uL High 3.70-11.00 [facility] Comment on above: Order Comment: Speci men Type: BLOOD SPECIMENOrdering Facility: [facility] Address: [address] [place] [address] Performed By: #### 5 8410-2 ####BESSEMER LABORATORYCLIA [id number] [address] [place] ECG COMPLETEon 03-19-2024 ECG COMPLETE Normal [facility] THERAPY NTon 03-19-2024 THERAPY NT Normal [facility] THERAPY NT Normal [facility] XR CHEST 2V FRONTAL/LATon XR CHEST 2V FRONTAL/LAT Normal [facility] Basic metabolic 2000 panelon 03-18-2024 Anion gap [Moles/Vol] 17 mmol/L High 8-15 [facility] Comment on above: Order Comment: Speci men Type: BLOOD SPECIMENOrdering Facility: [facility] Address: [address] [place] [address] Performed By: #### 2 4321-2, HSTNT, 28889-4 ####BENÍTEZ LABORATORYCLIA [id number] [place] [address] [place] Calcium [Mass/Vol] 8.5 mg/dL Normal 8.5-10.2 [facility] Comment on above: Order Comment: Speci men Type: BLOOD SPECIMENOrdering Facility: [facility] Address: [address] [place] [address] Performed By: #### 2 4321-2, HSTNT, ####BENÍTEZ LABORATORYCLIA [id number] [place] [address] [place] Chloride [Moles/Vol] 97 mmol/L Low 98-107 [facility] Comment on above: Order Comment: Speci men Type: BLOOD SPECIMENOrdering Facility: [facility] Address: [address] [place] [address] Performed By: #### 2 4321-2, HSTNT, ####BENÍTEZ LABORATORYCLIA [id number] [place] [address] [place] CO2 [Moles/Vol] 23 mmol/L Normal 22-30 [facility] Comment on above: Order Comment: Speci men Type: BLOOD SPECIMENOrdering Facility: [facility] Address: [address] [place] [address] Performed By: #### 2 4321-2, HSTNT, ####BENÍTEZ LABORATORYCLIA [id number] [place] [address] [place] Creatinine [Mass/Vol] 0.95 mg/dL Normal 0.73-1.22 [facility] Comment on above: Order Comment: Speci men Type: BLOOD SPECIMENOrdering Facility: [facility] Address: [address] [place] [address] Performed By: #### 2 4321-2, HSTNT, ####BENÍTEZ LABORATORYCLIA [id number] [address] Creatinine and Glomerular filtration rate.predicted panel (S/P/Bld) 80 mL/min/1.73m??? Normal >=60 [facility] Comment on above: Order Comment: Speci men Type: BLOOD SPECIMENOrdering Facility: [facility] Address: [address] [place] [address] Result Comment: Leah mated Glomerular Filtration Rate (eGFR) is calculated using the 2020 CKD-EPI creatinine equation. This equation utilizes serum creatinine, sex, and age as parameters. The creatinine assay has traceable calibration to isotope dilution-mass spectrometry. Refer to KDIGO guidelines for clinical interpretation. In patients with unstable renal function, e.g. those with acute kidney injury, the eGFR may not accurately reflect actual GFR. Performed By: #### 2 4321-2, HSTNT, ####BESSEMER LABORATORYCLIA [id number] [place] [address] [place] Glucose [Mass/Vol] 197 mg/dL High 74-99 [facility] Comment on above: Order Comment: Cathy bruno Type: BLOOD SPECIMENOrdering Facility: [facility] Address: [address] [place] [address] Result Comment: The [employer] Diabetes [employer] (ADA) provides guidance for cutoff values for fasting glucose and random glucose. The ADA defines fasting as no caloric intake for at least 8 hours. Fasting plasma glucose results between 100 to 125 mg/dL indicate increased risk for diabetes (prediabetes).Fasting plasma glucose results greater than or equal to 126 mg/dL meet the criteria for diagnosis of diabetes. In the absence of unequivocal hyperglycemia, results should be confirmed by repeat testing. In a patient with classic symptoms of hyperglycemia or hyperglycemic crisis, random plasma glucose results greater than or equal to 200 mg/dL meet the criteria for diagnosis of diabetes.Reference: Standards of Medical Care in Diabetes 2016, [employer]. Diabetes Care. 2016.39(Suppl 1). Performed By: #### 2 4321-2, HSTNT, ####BESSEMER LABORATORYCLIA [id number] [place] [id number] [place] Potassium [Moles/Vol] 4.1 mmol/L Normal 3.7-5.1 [facility] Comment on above: Order Comment: Cathy bruno Type: BLOOD SPECIMENOrdering Facility: [facility] Address: [address] [place] [address] Performed By: #### 2 4321-2, HSTNT, ####BESSEMER LABORATORYCLIA [id number] [place] [address] [place] Sodium [Moles/Vol] 137 mmol/L Normal 136-144 [facility] Comment on above: Order Comment: Speci men Type: BLOOD SPECIMENOrdering Facility: [facility] Address: [address] [place] [address] Performed By: #### 2 4321-2, HSTNT, ####BENÍTEZ LABORATORYCLIA [id number] [place] [address] [place] Urea nitrogen [Mass/Vol] 41 mg/dL High 9-24 [facility] Comment on above: Order Comment: Speci men Type: BLOOD SPECIMENOrdering Facility: [facility] Address: [address] [place] [address] Performed By: #### 2 4321-2, HSTNT, ####BENÍTEZ LABORATORYCLIA [id number] [place] [address] [place] Anion gap [Moles/Vol] 13 mmol/L Normal 8-15 [facility] Comment on above: Order Comment: Speci men Type: BLOOD SPECIMENOrdering Facility: [facility] Address: [address] [place] [address] Performed By: #### 2 4321-2 ####BENÍTEZ LABORATORYCLIA [id number] [place] [address] [place] Calcium [Mass/Vol] 8.8 mg/dL Normal 8.5-10.2 [facility] Comment on above: Order Comment: Speci men Type: BLOOD SPECIMENOrdering Facility: [facility] Address: [address] [place] [address] Performed By: #### 2 4321-2 ####BENÍTEZ LABORATORYCLIA [id number] [place] [address] [place] Chloride [Moles/Vol] 100 mmol/L Normal 98-107 [facility] Comment on above: Order Comment: Speci men Type: BLOOD SPECIMENOrdering Facility: [facility] Address: [address] [place] [address] Performed By: #### 2 4321-2 ####BENÍTEZ LABORATORYCLIA [id number] [place] [address] [place] CO2 [Moles/Vol] 27 mmol/L Normal 22-30 [facility] Comment on above: Order Comment: Speci men Type: BLOOD SPECIMENOrdering Facility: [facility] Address: [address] [place] [address] Performed By: #### 2 4321-2 ####BENÍTEZ LABORATORYCLIA [id number] [place] [address] [place] Creatinine [Mass/Vol] 1.06 mg/dL Normal 0.73-1.22 [facility] Comment on above: Order Comment: Speci men Type: BLOOD SPECIMENOrdering Facility: [facility] Address: [address] [place] [address] Performed By: #### 2 4321-2 ####BENÍTEZ LABORATORYCLIA [id number] [address] Creatinine and Glomerular filtration rate.predicted panel (S/P/Bld) 70 mL/min/1.73m??? Normal >=60 [facility] Comment on above: Order Comment: Speci men Type: BLOOD SPECIMENOrdering Facility: [facility] Address: [address] [place] [address] Result Comment: Leah mated Glomerular Filtration Rate (eGFR) is calculated using the 2020 CKD-EPI creatinine equation. This equation utilizes serum creatinine, sex, and age as parameters. The creatinine assay has traceable calibration to isotope dilution-mass spectrometry. Refer to KDIGO guidelines for clinical interpretation. In patients with unstable renal function, e.g. those with acute kidney injury, the eGFR may not accurately reflect actual GFR. Performed By: #### 2 4321-2 ####BENÍTEZ LABORATORYCLIA [id number] [place] [id number] [place] Glucose [Mass/Vol] 121 mg/dL High 74-99 [facility] Comment on above: Order Comment: Cathy bruno Type: BLOOD SPECIMENOrdering Facility: [facility] Address: [address] [place] [address] Result Comment: The [place] Diabetes [employer] (ADA) provides guidance for cutoff values for fasting glucose and random glucose. The ADA defines fasting as no caloric intake for at least 8 hours. Fasting plasma glucose results between 100 to 125 mg/dL indicate increased risk for diabetes (prediabetes).Fasting plasma glucose results greater than or equal to 126 mg/dL meet the criteria for diagnosis of diabetes. In the absence of unequivocal hyperglycemia, results should be confirmed by repeat testing. In a patient with classic symptoms of hyperglycemia or hyperglycemic crisis, random plasma glucose results greater than or equal to 200 mg/dL meet the criteria for diagnosis of diabetes.Reference: Standards of Medical Care in Diabetes 2016, [employer]. Diabetes Care. 2016.39(Suppl 1). Performed By: #### 2 4321-2 ####BENÍTEZ LABORATORYCLIA [id number] [place] [address] [place] Potassium [Moles/Vol] 4.5 mmol/L Normal 3.7-5.1 [facility] Comment on above: Order Comment: Cathy bruno Type: BLOOD SPECIMENOrdering Facility: [facility] Address: [address] [place] [address] Performed By: #### 2 4321-2 ####BENÍTEZ LABORATORYCLIA [id number] [place] [address] [place] Sodium [Moles/Vol] 140 mmol/L Normal 136-144 [facility] Comment on above: Order Comment: Cathy bruno Type: BLOOD SPECIMENOrdering Facility: [facility] Address: [address] [place] [address] Performed By: #### 2 4321-2 ####BENÍTEZ LABORATORYCLIA [id number] [place] [address] [place] Urea nitrogen [Mass/Vol] 43 mg/dL High 9-24 [facility] Comment on above: Order Comment: Cathy bruno Type: BLOOD SPECIMENOrdering Facility: [facility] Address: [address] [place] [address] Performed By: #### 2 4321-2 ####BENÍTEZ LABORATORYCLIA [id number] [place] [address] [place] CBC panel Auto (Bld)on 03-18 Erythrocyte distribution width (RBC) [Ratio] 13.8 % Normal 11.5-15.0 [facility] Comment on above: Order Comment: Speci men Type: BLOOD SPECIMENOrdering Facility: [facility] Address: [address] [place] [address] Performed By: #### 5 8410-2 ####BENÍTEZ LABORATORYCLIA [id number] [address] Hematocrit (Bld) [Volume fraction] 35.0 % Low 39.0-51.0 [facility] Comment on above: Order Comment: Speci men Type: BLOOD SPECIMENOrdering Facility: [facility] Address: [address] [place] [address] Performed By: #### 5 8410-2 ####BENÍTEZ LABORATORYCLIA [id number] [address] [place] Hemoglobin (Bld) [Mass/Vol] 11.4 g/dL Low 13.0-17.0 [facility] Comment on above: Order Comment: Speci men Type: BLOOD SPECIMENOrdering Facility: [facility] Address: [address] [place] [address] Performed By: #### 5 8410-2 ####BENÍTEZ LABORATORYCLIA [id number] [address] MCH (RBC) [Entitic mass] 31.5 pg Normal 26.0-34.0 [facility] Comment on above: Order Comment: Speci men Type: BLOOD SPECIMENOrdering Facility: [facility] Address: [address] [place] [address] Performed By: #### 5 8410-2 ####BENÍTEZ LABORATORYCLIA [id number] [address] MCHC (RBC) [Mass/Vol] 32.6 g/dL Normal 30.5-36.0 [facility] Comment on above: Order Comment: Speci men Type: BLOOD SPECIMENOrdering Facility: [facility] Address: [address] [place] [address] Performed By: #### 5 8410-2 ####BENÍTEZ LABORATORYCLIA [id number] [address] MCV (RBC) [Entitic vol] 96.7 fL Normal 80.0-100.0 [facility] Comment on above: Order Comment: Speci men Type: BLOOD SPECIMENOrdering Facility: [facility] Address: [address] [place] [address] Performed By: #### 5 8410-2 ####BENÍTEZ LABORATORYCLIA [id number] [place] [address] [place] Nucleated RBC (Bld) [#/Vol] 10*3/uL Normal <0.01 [facility] Comment on above: Order Comment: Speci men Type: BLOOD SPECIMENOrdering Facility: [facility] Address: [address] [facility] [place] [address] Performed By: #### 5 8410-2 ####BENÍTEZ LABORATORYCLIA [id number] [place] [address] [place] Platelet mean volume (Bld) [Entitic vol] 10.2 fL Normal 9.0-12.7 [facility] Comment on above: Order Comment: Speci men Type: BLOOD SPECIMENOrdering Facility: [facility] Address: [address] [place] [address] Performed By: #### 5 8410-2 ####BENÍTEZ LABORATORYCLIA [id number] [place] [address] [place] Platelets (Bld) [#/Vol] 365 10*3/uL Normal 150-400 [facility] Comment on above: Order Comment: Speci men Type: BLOOD SPECIMENOrdering Facility: [facility] Address: [address] [place] [address] Performed By: #### 5 8410-2 ####BENÍTEZ LABORATORYCLIA [id number] [place] [address] [place] RBC (Bld) [#/Vol] 3.62 10*6/uL Low 4.20-6.00 [facility] Comment on above: Order Comment: Speci men Type: BLOOD SPECIMENOrdering Facility: [facility] Address: [address] [place] [address] Performed By: #### 5 8410-2 ####BENÍTEZ LABORATORYCLIA [id number] [place] [address] [place] WBC (Bld) [#/Vol] 10.95 10*3/uL Normal 3.70-11.00 [facility] Comment on above: Order Comment: Speci men Type: BLOOD SPECIMENOrdering Facility: [facility] Address: [address] [place], [place] [address] Performed By: #### 5 8410-2 ####BESSEMER LABORATORYCLIA [id number] [address] [place] ECG COMPLETEon 03-18-2024 ECG COMPLETE Normal [facility] HIGH SENSITIVITY TROPONIN To n 03-18-2024 Troponin T.cardiac High sensitivity method [Mass/Vol] 11 ng/L Normal <12 [facility] Comment on above: Order Comment: Speci men Type: BLOOD SPECIMENOrdering Facility: [facility] Address: [address] [place] [address] Performed By: #### 2 4321-2, HSTNT, ####BESSEMER LABORATORYCLIA [id number] [address] [place] Magnesium SerPl-mCncon 03-18 Magnesium [Mass/Vol] 2.1 mg/dL Normal 1.7-2.3 [facility] Comment on above: Order Comment: Speci men Type: BLOOD SPECIMENOrdering Facility: [facility] Address: [address] [place], [place] [address] Performed By: #### 2 4321-2, HSTNT, ####BESSEMER LABORATORYCLIA [id number] [place] [address] [place] THERAPY NTon 03-18-2024 THERAPY NT Normal [facility] ANES POSTPROC EVALon 024 ANES POSTPROC EVAL Normal [facility] ANES PRE-OPon 03-17-2024 ANES PRE-OP Normal [facility] Basic metabolic 2000 panelon 03-17-2024 Anion gap [Moles/Vol] 12 mmol/L Normal 8-15 [facility] Comment on above: Order Comment: Speci men Type: BLOOD SPECIMENOrdering Facility: [facility] Address: [address] [place] [address] Performed By: #### 2 4321-2, 49839-0 ####BENÍTEZ LABORATORYCLIA [id number] [place] [address] [place] Calcium [Mass/Vol] 8.9 mg/dL Normal 8.5-10.2 [facility] Comment on above: Order Comment: Speci men Type: BLOOD SPECIMENOrdering Facility: [facility] Address: [address] [place] [address] Performed By: #### 2 4321-2, 58891-5 ####BENÍTEZ LABORATORYCLIA [id number] [place] [address] [place] Chloride [Moles/Vol] 101 mmol/L Normal 98-107 [facility] Comment on above: Order Comment: Speci men Type: BLOOD SPECIMENOrdering Facility: [facility] Address: [address] [place] [address] Performed By: #### 2 4321-2, 58673-9 ####BENÍTEZ LABORATORYCLIA [id number] [place] [address] [place] CO2 [Moles/Vol] 26 mmol/L Normal 22-30 [facility] Comment on above: Order Comment: Speci men Type: BLOOD SPECIMENOrdering Facility: [facility] Address: [address] [place] [address] Performed By: #### 2 4321-2, 80535-7 ####BENÍTEZ LABORATORYCLIA [id number] [place] [address] [place] Creatinine [Mass/Vol] 0.93 mg/dL Normal 0.73-1.22 [facility] Comment on above: Order Comment: Speci men Type: BLOOD SPECIMENOrdering Facility: [facility] Address: [address] [place] [address] Performed By: #### 2 4321-2, 05845-9 ####BENÍTEZ LABORATORYCLIA [id number] [address] Creatinine and Glomerular filtration rate.predicted panel (S/P/Bld) 82 mL/min/1.73m??? Normal >=60 [facility] Comment on above: Order Comment: Speci men Type: BLOOD SPECIMENOrdering Facility: [facility] Address: [address] [place] [address] Result Comment: Leah mated Glomerular Filtration Rate (eGFR) is calculated using the 2020 CKD-EPI creatinine equation. This equation utilizes serum creatinine, sex, and age as parameters. The creatinine assay has traceable calibration to isotope dilution-mass spectrometry. Refer to KDIGO guidelines for clinical interpretation. In patients with unstable renal function, e.g. those with acute kidney injury, the eGFR may not accurately reflect actual GFR. Performed By: #### 2 4321-2, 04998-9 ####BESSEMER LABORATORYCLIA [id number] [place] [id number] [place] Glucose [Mass/Vol] 174 mg/dL High 74-99 [facility] Comment on above: Order Comment: Cathy bruno Type: BLOOD SPECIMENOrdering Facility: [facility] Address: [address] [place] [address] Result Comment: The [place] Diabetes [employer] (ADA) provides guidance for cutoff values for fasting glucose and random glucose. The ADA defines fasting as no caloric intake for at least 8 hours. Fasting plasma glucose results between 100 to 125 mg/dL indicate increased risk for diabetes (prediabetes).Fasting plasma glucose results greater than or equal to 126 mg/dL meet the criteria for diagnosis of diabetes. In the absence of unequivocal hyperglycemia, results should be confirmed by repeat testing. In a patient with classic symptoms of hyperglycemia or hyperglycemic crisis, random plasma glucose results greater than or equal to 200 mg/dL meet the criteria for diagnosis of diabetes.Reference: Standards of Medical Care in Diabetes 2016, [place] [employer]. Diabetes Care. 2016.39(Suppl 1). Performed By: #### 2 4321-2, 16608-8 ####BESSEMER LABORATORYCLIA [id number] [place] [address] [place] Potassium [Moles/Vol] 4.9 mmol/L Normal 3.7-5.1 [facility] Comment on above: Order Comment: Cathy bruno Type: BLOOD SPECIMENOrdering Facility: [facility] Address: [address] [place], [place] [address] Performed By: #### 2 4321-2, 22856-5 ####BENÍTEZ LABORATORYCLIA [id number] [place] [address] [place] Sodium [Moles/Vol] 139 mmol/L Normal 136-144 [facility] Comment on above: Order Comment: Speci men Type: BLOOD SPECIMENOrdering Facility: [facility] Address: [address] [place] [address] Performed By: #### 2 4321-2, 39028-3 ####BENÍTEZ LABORATORYCLIA [id number] [place] [address] [place] Urea nitrogen [Mass/Vol] 38 mg/dL High 9-24 [facility] Comment on above: Order Comment: Speci men Type: BLOOD SPECIMENOrdering Facility: [facility] Address: [address] [place] [address] Performed By: #### 2 4321-2, 38596-1 ####BENÍTEZ LABORATORYCLIA [id number] [address] OF [facility] CASE MANAGEMon 03-17-2024 CASE MANAGEM Normal [facility] CBC panel Auto (Bld)on 03-17 Erythrocyte distribution width (RBC) [Ratio] 13.5 % Normal 11.5-15.0 [facility] Comment on above: Order Comment: Speci men Type: BLOOD SPECIMENOrdering Facility: [facility] Address: [address] [place] [address] Performed By: #### 5 8410-2 ####BENÍTEZ LABORATORYCLIA [id number] [place] [address] [place] Hematocrit (Bld) [Volume fraction] 36.4 % Low 39.0-51.0 [facility] Comment on above: Order Comment: Speci men Type: BLOOD SPECIMENOrdering Facility: [facility] Address: [address] [place] [address] Performed By: #### 5 8410-2 ####BENÍTEZ LABORATORYCLIA [id number] [place] [address] [place] Hemoglobin (Bld) [Mass/Vol] 12.2 g/dL Low 13.0-17.0 [facility] Comment on above: Order Comment: Speci men Type: BLOOD SPECIMENOrdering Facility: [facility] Address: [address] [place] [address] Performed By: #### 5 8410-2 ####BENÍTEZ LABORATORYCLIA [id number] [address] MCH (RBC) [Entitic mass] 32.0 pg Normal 26.0-34.0 [facility] Comment on above: Order Comment: Speci men Type: BLOOD SPECIMENOrdering Facility: [facility] Address: [address] [place] [address] Performed By: #### 5 8410-2 ####BENÍTEZ LABORATORYCLIA [id number] [address] MCHC (RBC) [Mass/Vol] 33.5 g/dL Normal 30.5-36.0 [facility] Comment on above: Order Comment: Speci men Type: BLOOD SPECIMENOrdering Facility: [facility] Address: [address] [place] [address] Performed By: #### 5 8410-2 ####BENÍTEZ LABORATORYCLIA [id number] [address] MCV (RBC) [Entitic vol] 95.5 fL Normal 80.0-100.0 [facility] Comment on above: Order Comment: Speci men Type: BLOOD SPECIMENOrdering Facility: [facility] Address: [address] [place] [address] Performed By: #### 5 8410-2 ####BENÍTEZ LABORATORYCLIA [id number] [address] Nucleated RBC (Bld) [#/Vol] 10*3/uL Normal <0.01 [facility] Comment on above: Order Comment: Speci men Type: BLOOD SPECIMENOrdering Facility: [facility] Address: [address] [place] [address] Performed By: #### 5 8410-2 ####BENÍTEZ LABORATORYCLIA [id number] [address] Platelet mean volume (Bld) [Entitic vol] 10.0 fL Normal 9.0-12.7 [facility] Comment on above: Order Comment: Speci men Type: BLOOD SPECIMENOrdering Facility: [facility] Address: [address] [place] [address] Performed By: #### 5 8410-2 ####BESSEMER LABORATORYCLIA [id number] [address] [place] Platelets (Bld) [#/Vol] 382 10*3/uL Normal 150-400 [facility] Comment on above: Order Comment: Speci men Type: BLOOD SPECIMENOrdering Facility: [facility] Address: [address] [place] [address] Performed By: #### 5 8410-2 ####BESSEMER LABORATORYCLIA [id number] [place] [address] [place] RBC (Bld) [#/Vol] 3.81 10*6/uL Low 4.20-6.00 [facility] Comment on above: Order Comment: Speci men Type: BLOOD SPECIMENOrdering Facility: [facility] Address: [address] [place] [address] Performed By: #### 5 8410-2 ####BESSEMER LABORATORYCLIA [id number] [address] [place] WBC (Bld) [#/Vol] 14.32 10*3/uL High 3.70-11.00 [facility] Comment on above: Order Comment: Speci men Type: BLOOD SPECIMENOrdering Facility: [facility] Address: [address] [place] [address] Performed By: #### 5 8410-2 ####BESSEMER LABORATORYCLIA [id number] [address] [place] CONSULT PROGon 03-17-2024 CONSULT PROG Normal [facility] NT[facility]BNP [facility]17 Natriuretic peptide.B prohormone N-Terminal [Mass/Vol] 1922 pg/mL High <450 [facility] Comment on above: Order Comment: Speci men Type: BLOOD SPECIMENOrdering Facility: [facility] Address: [address] [place] [address] Performed By: #### 2 4321-2, 34388-1 ####BESSEMER LABORATORYCLIA [id number] [place] [id number] [facility] OPERATIVE NOon 03-17-2024 [address] [facility] Procalcitonin SerPl-mCncon 1 05-17-2023 Procalcitonin [Mass/Vol] 0.10 ng/mL High <0.09 [facility] Comment on above: Order Comment: Speci men Type: BLOOD SPECIMENOrdering Facility: [facility] Address: [address] [place] [address] Result Comment: For a guided interpretation of test results, please visit the Change in Procalcitonin Calculator, [email or web address]. Performed By: #### 3 3959-8 ####BESSEMER LABORATORYCLIA [id number] [address] OF [facility] THERAPY NTon 03-17-2024 [address] [facility] ALLIED HEALTHon 03-16-2024 ALLIED HE[address] [facility] Basic metabolic 2000 panelon 03-16-2024 Anion gap [Moles/Vol] 10 mmol/L Normal 8-15 [facility] Comment on above: Order Comment: Speci men Type: BLOOD SPECIMENOrdering Facility: [facility] Address: [address] [place] [address] Performed By: #### 2 4321-2 ####BESSEMER LABORATORYCLIA [id number] [place] [address] [place] Calcium [Mass/Vol] 8.4 mg/dL Low 8.5-10.2 [facility] Comment on above: Order Comment: Speci men Type: BLOOD SPECIMENOrdering Facility: [facility] Address: [address] [place] [address] Performed By: #### 2 4321-2 ####BESSEMER LABORATORYCLIA [id number] [place] [address] [place] Chloride [Moles/Vol] 100 mmol/L Normal 98-107 [facility] Comment on above: Order Comment: Speci men Type: BLOOD SPECIMENOrdering Facility: [facility] Address: [address] [place] [address] Performed By: #### 2 4321-2 ####BENÍTEZ LABORATORYCLIA [id number] [place] [address] [place] CO2 [Moles/Vol] 29 mmol/L Normal 22-30 [facility] Comment on above: Order Comment: Felicitasi men Type: BLOOD SPECIMENOrdering Facility: [facility] Address: [address] [place] [address] Performed By: #### 2 4321-2 ####BENÍTEZ LABORATORYCLIA [id number] [address] [place] Creatinine [Mass/Vol] 0.79 mg/dL Normal 0.73-1.22 [facility] Comment on above: Order Comment: Cathy kiana Type: BLOOD SPECIMENOrdering Facility: [facility] Address: [address] [place] [address] Performed By: #### 2 4321-2 ####BENÍTEZ LABORATORYCLIA [id number] [address] Creatinine and Glomerular filtration rate.predicted panel (S/P/Bld) 89 mL/min/1.73m??? Normal >=60 [facility] Comment on above: Order Comment: Cathy kiana Type: BLOOD SPECIMENOrdering Facility: [facility] Address: [address] [place] [address] Result Comment: Leah mated Glomerular Filtration Rate (eGFR) is calculated using the 2020 CKD-EPI creatinine equation. This equation utilizes serum creatinine, sex, and age as parameters. The creatinine assay has traceable calibration to isotope dilution-mass spectrometry. Refer to KDIGO guidelines for clinical interpretation. In patients with unstable renal function, e.g. those with acute kidney injury, the eGFR may not accurately reflect actual GFR. Performed By: #### 2 4321-2 ####BENÍTEZ LABORATORYCLIA [id number] [address] [place] Glucose [Mass/Vol] 127 mg/dL High 74-99 [facility] Comment on above: Order Comment: Cathy men Type: BLOOD SPECIMENOrdering Facility: [facility] Address: [address] [place] [address] Result Comment: The [place] Diabetes [employer] (ADA) provides guidance for cutoff values for fasting glucose and random glucose. The ADA defines fasting as no caloric intake for at least 8 hours. Fasting plasma glucose results between 100 to 125 mg/dL indicate increased risk for diabetes (prediabetes).Fasting plasma glucose results greater than or equal to 126 mg/dL meet the criteria for diagnosis of diabetes. In the absence of unequivocal hyperglycemia, results should be confirmed by repeat testing. In a patient with classic symptoms of hyperglycemia or hyperglycemic crisis, random plasma glucose results greater than or equal to 200 mg/dL meet the criteria for diagnosis of diabetes.Reference: Standards of Medical Care in Diabetes 2016, [employer] Diabetes Association. Diabetes Care. 2016.39(Suppl 1). Performed By: #### 2 4321-2 ####BENÍTEZ LABORATORYCLIA [id number] [place] [address] [place] Potassium [Moles/Vol] 4.7 mmol/L Normal 3.7-5.1 [facility] Comment on above: Order Comment: Speci men Type: BLOOD SPECIMENOrdering Facility: [facility] Address: [address] [place] [address] Performed By: #### 2 4321-2 ####BENÍTEZ LABORATORYCLIA [id number] [address] [place] [facility] Sodium [Moles/Vol] 139 mmol/L Normal 136-144 [facility] Comment on above: Order Comment: Felicitasi kiana Type: BLOOD SPECIMENOrdering Facility: [facility] Address: [address] [place] [address] Performed By: #### 2 4321-2 ####BENÍTEZ LABORATORYCLIA [id number] [place] [address] [place] Urea nitrogen [Mass/Vol] 32 mg/dL High 9-24 [facility] Comment on above: Order Comment: Felicitasi men Type: BLOOD SPECIMENOrdering Facility: [facility] Address: [address] [place] [address] Performed By: #### 2 4321-2 ####BENÍTEZ LABORATORYCLIA [id number] [place] [address] CBC panel Auto (Bld)on 03-16 Erythrocyte distribution width (RBC) [Ratio] 13.7 % Normal 11.5-15.0 [facility] Comment on above: Order Comment: Speci men Type: BLOOD SPECIMENOrdering Facility: [facility] Address: [address] [place] [address] Performed By: #### 5 8410-2 ####BENÍTEZ LABORATORYCLIA [id number] [address] Hematocrit (Bld) [Volume fraction] 35.5 % Low 39.0-51.0 [facility] Comment on above: Order Comment: Speci men Type: BLOOD SPECIMENOrdering Facility: [facility] Address: [address] [place] [address] Performed By: #### 5 8410-2 ####BENÍTEZ LABORATORYCLIA [id number] [address] Hemoglobin (Bld) [Mass/Vol] 11.6 g/dL Low 13.0-17.0 [facility] Comment on above: Order Comment: Speci men Type: BLOOD SPECIMENOrdering Facility: [facility] Address: [address] [place] [address] Performed By: #### 5 8410-2 ####BENÍTEZ LABORATORYCLIA [id number] [address] MCH (RBC) [Entitic mass] 31.5 pg Normal 26.0-34.0 [facility] Comment on above: Order Comment: Speci men Type: BLOOD SPECIMENOrdering Facility: [facility] Address: [address] [place] [address] Performed By: #### 5 8410-2 ####BENÍTEZ LABORATORYCLIA [id number] [address] MCHC (RBC) [Mass/Vol] 32.7 g/dL Normal 30.5-36.0 [facility] Comment on above: Order Comment: Speci men Type: BLOOD SPECIMENOrdering Facility: [facility] Address: [address] [place] [address] Performed By: #### 5 8410-2 ####BENÍTEZ LABORATORYCLIA [id number] [place] [address] [place] MCV (RBC) [Entitic vol] 96.5 fL Normal 80.0-100.0 [facility] Comment on above: Order Comment: Speci men Type: BLOOD SPECIMENOrdering Facility: [facility] Address: [address] [place] [address] Performed By: #### 5 8410-2 ####BENÍTEZ LABORATORYCLIA [id number] [place] [address] [place] Nucleated RBC (Bld) [#/Vol] 10*3/uL Normal <0.01 [facility] Comment on above: Order Comment: Speci men Type: BLOOD SPECIMENOrdering Facility: [facility] Address: [address] [place] [address] Performed By: #### 5 8410-2 ####BENÍTEZ LABORATORYCLIA [id number] [place] [address] [place] Platelet mean volume (Bld) [Entitic vol] 10.1 fL Normal 9.0-12.7 [facility] Comment on above: Order Comment: Speci men Type: BLOOD SPECIMENOrdering Facility: [facility] Address: [address] [place] [address] Performed By: #### 5 8410-2 ####BENÍTEZ LABORATORYCLIA [id number] [place] [address] [place] Platelets (Bld) [#/Vol] 356 10*3/uL Normal 150-400 [facility] Comment on above: Order Comment: Speci men Type: BLOOD SPECIMENOrdering Facility: [facility] Address: [address] [place] [address] Performed By: #### 5 8410-2 ####BENÍTEZ LABORATORYCLIA [id number] [place] [address] [place] RBC (Bld) [#/Vol] 3.68 10*6/uL Low 4.20-6.00 [facility] Comment on above: Order Comment: Speci men Type: BLOOD SPECIMENOrdering Facility: [facility] Address: [address] [place], [place] [address] [id number] Performed By: #### 5 8410-2 ####BESSEMER LABORATORYCLIA [id number] [place] [address] [place] WBC (Bld) [#/Vol] 11.75 10*3/uL High 3.70-11.00 [facility] Comment on above: Order Comment: Speci men Type: BLOOD SPECIMENOrdering Facility: [facility] Address: [address] [place] [address] Performed By: #### 5 8410-2 ####BESSEMER LABORATORYCLIA [id number] [place] [address] [place] CONSULTon 03-16-2024 CONSULT Normal [facility] XR CHEST 1V FRONTAL PORTon 1 05-16-2023 XR CHEST 1V FRONTAL PORT [facility] Basic metabolic 2000 panelon 03-15-2024 Anion gap [Moles/Vol] 13 mmol/L Normal 8-15 [facility] Comment on above: Order Comment: Speci men Type: BLOOD SPECIMENOrdering Facility: [facility] Address: [address] [place] [address] Performed By: #### 2 4321-2 ####BESSEMER LABORATORYCLIA [id number] [place] [address] [place] Calcium [Mass/Vol] 8.5 mg/dL Normal 8.5-10.2 [facility] Comment on above: Order Comment: Speci men Type: BLOOD SPECIMENOrdering Facility: [facility] Address: [facility] [place] [address] Performed By: #### 2 4321-2 ####BESSEMER LABORATORYCLIA [id number] [place] [id number] [place] Chloride [Moles/Vol] 96 mmol/L Low 98-107 [facility] Comment on above: Order Comment: Speci men Type: BLOOD SPECIMENOrdering Facility: [facility] Address: [address] [place] [address] Performed By: #### 2 4321-2 ####BENÍTEZ LABORATORYCLIA [id number] [place] [id number] [place] CO2 [Moles/Vol] 29 mmol/L Normal 22-30 [facility] Comment on above: Order Comment: Cathy kiana Type: BLOOD SPECIMENOrdering Facility: [facility] Address: [address] [place] [address] Performed By: #### 2 4321-2 ####BENÍTEZ LABORATORYCLIA [id number] [place] [address] [place] Creatinine [Mass/Vol] 0.85 mg/dL Normal 0.73-1.22 [facility] Comment on above: Order Comment: Cathy kiana Type: BLOOD SPECIMENOrdering Facility: [facility] Address: [address] [place] [address] Performed By: #### 2 4321-2 ####BENÍTEZ LABORATORYCLIA [id number] [address] Creatinine and Glomerular filtration rate.predicted panel (S/P/Bld) 87 mL/min/1.73m??? Normal >=60 [facility] Comment on above: Order Comment: Cathy kiana Type: BLOOD SPECIMENOrdering Facility: [facility] Address: [address] [place] [address] Result Comment: Leah mated Glomerular Filtration Rate (eGFR) is calculated using the 2020 CKD-EPI creatinine equation. This equation utilizes serum creatinine, sex, and age as parameters. The creatinine assay has traceable calibration to isotope dilution-mass spectrometry. Refer to KDIGO guidelines for clinical interpretation. In patients with unstable renal function, e.g. those with acute kidney injury, the eGFR may not accurately reflect actual GFR. Performed By: #### 2 4321-2 ####BENÍTEZ LABORATORYCLIA [id number] [place] [id number] [place] Glucose [Mass/Vol] 191 mg/dL High 74-99 [facility] Comment on above: Order Comment: Cathy bruno Type: BLOOD SPECIMENOrdering Facility: [facility] Address: [address] [place] [address] Result Comment: The [place] Diabetes Association (ADA) provides guidance for cutoff values for fasting glucose and random glucose. The ADA defines fasting as no caloric intake for at least 8 hours. Fasting plasma glucose results between 100 to 125 mg/dL indicate increased risk for diabetes (prediabetes).Fasting plasma glucose results greater than or equal to 126 mg/dL meet the criteria for diagnosis of diabetes. In the absence of unequivocal hyperglycemia, results should be confirmed by repeat testing. In a patient with classic symptoms of hyperglycemia or hyperglycemic crisis, random plasma glucose results greater than or equal to 200 mg/dL meet the criteria for diagnosis of diabetes.Reference: Standards of Medical Care in Diabetes 2016, [place] Diabetes Association. Diabetes Care. 2016.39(Suppl 1). Performed By: #### 2 4321-2 ####BENÍTEZ LABORATORYCLIA [id number] [address] STATES OF [facility] Potassium [Moles/Vol] 4.2 mmol/L Normal 3.7-5.1 [facility] Comment on above: Order Comment: Speci men Type: BLOOD SPECIMENOrdering Facility: [facility] Address: [address] [place] [address] Performed By: #### 2 4321-2 ####BENÍTEZ LABORATORYCLIA [id number] [address] [place] [facility] Sodium [Moles/Vol] 138 mmol/L Normal 136-144 [facility] Comment on above: Order Comment: Speci men Type: BLOOD SPECIMENOrdering Facility: [facility] Address: [address] [place] [address] Performed By: #### 2 4321-2 ####BENÍTEZ LABORATORYCLIA [id number] [address] [place] [facility] Urea nitrogen [Mass/Vol] 30 mg/dL High 9-24 [facility] Comment on above: Order Comment: Speci men Type: BLOOD SPECIMENOrdering Facility: [facility] Address: [address] [place] [address] Performed By: #### 2 4321-2 ####BENÍTEZ LABORATORYCLIA [id number] [place] [id number] [place] CASE MANAGEMon 03-15-2024 CASE MANAGEM Normal [facility] CBC panel Auto (Bld)on 03-15 Erythrocyte distribution width (RBC) [Ratio] 13.5 % Normal 11.5-15.0 [facility] Comment on above: Order Comment: Speci men Type: BLOOD SPECIMENOrdering Facility: [facility] Address: [address] [place] [address] Performed By: #### 5 8410-2 ####BENÍTEZ LABORATORYCLIA [id number] [address] Hematocrit (Bld) [Volume fraction] 33.5 % Low 39.0-51.0 [facility] Comment on above: Order Comment: Speci men Type: BLOOD SPECIMENOrdering Facility: [facility] Address: [address] [place] [address] Performed By: #### 5 8410-2 ####BENÍTEZ LABORATORYCLIA [id number] [address] Hemoglobin (Bld) [Mass/Vol] 11.2 g/dL Low 13.0-17.0 [facility] Comment on above: Order Comment: Speci men Type: BLOOD SPECIMENOrdering Facility: [facility] Address: [address] [place] [address] Performed By: #### 5 8410-2 ####BENÍTEZ LABORATORYCLIA [id number] [address] MCH (RBC) [Entitic mass] 31.4 pg Normal 26.0-34.0 [facility] Comment on above: Order Comment: Speci men Type: BLOOD SPECIMENOrdering Facility: [facility] Address: [address] [place] [address] Performed By: #### 5 8410-2 ####BENÍTEZ LABORATORYCLIA [id number] [address] MCHC (RBC) [Mass/Vol] 33.4 g/dL Normal 30.5-36.0 [facility] Comment on above: Order Comment: Speci men Type: BLOOD SPECIMENOrdering Facility: [facility] Address: [address] [place] [address] Performed By: #### 5 8410-2 ####BENÍTEZ LABORATORYCLIA [id number] [address] MCV (RBC) [Entitic vol] 93.8 fL Normal 80.0-100.0 [facility] Comment on above: Order Comment: Speci men Type: BLOOD SPECIMENOrdering Facility: [facility] Address: [address] [place] [address] Performed By: #### 5 8410-2 ####BENÍTEZ LABORATORYCLIA [id number] [address] [place] Nucleated RBC (Bld) [#/Vol] 10*3/uL Normal <0.01 [facility] Comment on above: Order Comment: Speci men Type: BLOOD SPECIMENOrdering Facility: [facility] Address: [address] [place] [address] Performed By: #### 5 8410-2 ####BENÍTEZ LABORATORYCLIA [id number] [address] [place] Platelet mean volume (Bld) [Entitic vol] 10.4 fL Normal 9.0-12.7 [facility] Comment on above: Order Comment: Speci men Type: BLOOD SPECIMENOrdering Facility: [facility] Address: [address] [place] [address] Performed By: #### 5 8410-2 ####BENÍTEZ LABORATORYCLIA [id number] [address] [place] Platelets (Bld) [#/Vol] 323 10*3/uL Normal 150-400 [facility] Comment on above: Order Comment: Speci men Type: BLOOD SPECIMENOrdering Facility: [facility] Address: [address] [place] [address] Performed By: #### 5 8410-2 ####BENÍTEZ LABORATORYCLIA [id number] [place] [address] [place] RBC (Bld) [#/Vol] 3.57 10*6/uL Low 4.20-6.00 [facility] Comment on above: Order Comment: Speci men Type: BLOOD SPECIMENOrdering Facility: [facility] Address: [address] [place] [address] Performed By: #### 5 8410-2 ####BENÍTEZ LABORATORYCLIA [id number] [place] [address] [place] WBC (Bld) [#/Vol] 12.36 10*3/uL High 3.70-11.00 [facility] Comment on above: Order Comment: Speci men Type: BLOOD SPECIMENOrdering Facility: [facility] Address: [address] [place] [address] Performed By: #### 5 8410-2 ####BESSEMER LABORATORYCLIA [id number] [place] [id number] [facility] [place] [facility] Basic metabolic 2000 panelon 03-14-2024 Anion gap [Moles/Vol] 13 mmol/L Normal 8-15 [facility] Comment on above: Order Comment: Speci men Type: BLOOD SPECIMENOrdering Facility: [facility] Address: [address] [place] [address] Performed By: #### 2 4321-2, [facility], ####BESSEMER LABORATORYCLIA [id number] [place] [address] [place] Calcium [Mass/Vol] 8.7 mg/dL Normal 8.5-10.2 [facility] Comment on above: Order Comment: Speci men Type: BLOOD SPECIMENOrdering Facility: [facility] Address: [address] [place] [address] Performed By: #### 2 4321-2, [facility], ####BESSEMER LABORATORYCLIA [id number] [place] [id number] [place] Chloride [Moles/Vol] 99 mmol/L Normal 98-107 [facility] Comment on above: Order Comment: Speci men Type: BLOOD SPECIMENOrdering Facility: [facility] Address: [address] [place] [address] Performed By: #### 2 4321-2, [facility], ####BESSEMER LABORATORYCLIA [id number] [place] [id number] [place] CO2 [Moles/Vol] 26 mmol/L Normal 22-30 [facility] Comment on above: Order Comment: Speci men Type: BLOOD SPECIMENOrdering Facility: [facility] Address: [address] [place] [address] Performed By: #### 2 4321-2, [facility], ####BENÍTEZ LABORATORYCLIA [id number] [place] [id number] [place] [facility] Creatinine [Mass/Vol] 0.85 mg/dL Normal 0.73-1.22 [facility] Comment on above: Order Comment: Cathy bruno Type: BLOOD SPECIMENOrdering Facility: [facility] Address: [address] [place] [address] Performed By: #### 2 4321-2, [facility], ####BENÍTEZ LABORATORYCLIA [id number] [place] [id number] [place] Creatinine and Glomerular filtration rate.predicted panel (S/P/Bld) 87 mL/min/1.73m??? Normal >=60 [facility] Comment on above: Order Comment: Cathy bruno Type: BLOOD SPECIMENOrdering Facility: [facility] Address: [address] [place] [address] Result Comment: Leah mated Glomerular Filtration Rate (eGFR) is calculated using the 2020 CKD-EPI creatinine equation. This equation utilizes serum creatinine, sex, and age as parameters. The creatinine assay has traceable calibration to isotope dilution-mass spectrometry. Refer to KDIGO guidelines for clinical interpretation. In patients with unstable renal function, e.g. those with acute kidney injury, the eGFR may not accurately reflect actual GFR. Performed By: #### 2 4321-2, [facility], ####BENÍTEZ LABORATORYCLIA [id number] [place] [id number] [place] Glucose [Mass/Vol] 129 mg/dL High 74-99 [facility] Comment on above: Order Comment: Cathy bruno Type: BLOOD SPECIMENOrdering Facility: [facility] Address: [address] [place] [address] Result Comment: The [place] Diabetes Association (ADA) provides guidance for cutoff values for fasting glucose and random glucose. The ADA defines fasting as no caloric intake for at least 8 hours. Fasting plasma glucose results between 100 to 125 mg/dL indicate increased risk for diabetes (prediabetes).Fasting plasma glucose results greater than or equal to 126 mg/dL meet the criteria for diagnosis of diabetes. In the absence of unequivocal hyperglycemia, results should be confirmed by repeat testing. In a patient with classic symptoms of hyperglycemia or hyperglycemic crisis, random plasma glucose results greater than or equal to 200 mg/dL meet the criteria for diagnosis of diabetes.Reference: Standards of Medical Care in Diabetes 2016, [place] Diabetes Association. Diabetes Care. 2016.39(Suppl 1). Performed By: #### 2 4321-2, [place], ####BESSEMER LABORATORYCLIA [id number] [place] [address] [place] Potassium [Moles/Vol] 3.8 mmol/L Normal 3.7-5.1 [facility] Comment on above: Order Comment: Cathy bruno Type: BLOOD SPECIMENOrdering Facility: [facility] Address: [address] [place] [address] Performed By: #### 2 432-2, [place], ####BESSEMER LABORATORYCLIA [id number] [address] STATES OF [facility] Sodium [Moles/Vol] 138 mmol/L Normal 136-144 [facility] Comment on above: Order Comment: Cathy bruno Type: BLOOD SPECIMENOrdering Facility: [facility] Address: [address] [place] [address] Performed By: #### 2 432-2, [facility], ####BESSEMER LABORATORYCLIA [id number] [address] [place] Urea nitrogen [Mass/Vol] 21 mg/dL Normal 9-24 [facility] Comment on above: Order Comment: Felicitasi kiana Type: BLOOD SPECIMENOrdering Facility: [facility] Address: [address] [place] [address] Performed By: #### 2 432-2, [facility], ####BESSEMER LABORATORYCLIA [id number] [place] [address] [place] CASE MANAGEMon 03-14-2024 CASE MANAGEM Normal [facility] CBC panel Auto (Bld)on 03-14 Erythrocyte distribution width (RBC) [Ratio] 13.9 % Normal 11.5-15.0 [facility] Comment on above: Order Comment: Speci men Type: BLOOD SPECIMENOrdering Facility: [facility] Address: [address] [place] [address] Performed By: #### 5 8410-2 ####BENÍTEZ LABORATORYCLIA [id number] [address] OF [place] Hematocrit (Bld) [Volume fraction] 32.2 % Low 39.0-51.0 [facility] Comment on above: Order Comment: Speci men Type: BLOOD SPECIMENOrdering Facility: [facility] Address: [address] [place] [address] Performed By: #### 5 8410-2 ####BENÍTEZ LABORATORYCLIA [id number] [address] [place] Hemoglobin (Bld) [Mass/Vol] 10.9 g/dL Low 13.0-17.0 [facility] Comment on above: Order Comment: Speci men Type: BLOOD SPECIMENOrdering Facility: [facility] Address: [address] [place] [address] Performed By: #### 5 8410-2 ####BENÍTEZ LABORATORYCLIA [id number] [address] MCH (RBC) [Entitic mass] 31.9 pg Normal 26.0-34.0 [facility] Comment on above: Order Comment: Speci men Type: BLOOD SPECIMENOrdering Facility: [facility] Address: [address] [place] [address] Performed By: #### 5 8410-2 ####BENÍTEZ LABORATORYCLIA [id number] [address] [place] MCHC (RBC) [Mass/Vol] 33.9 g/dL Normal 30.5-36.0 [facility] Comment on above: Order Comment: Speci men Type: BLOOD SPECIMENOrdering Facility: [facility] Address: [address] [place] [address] Performed By: #### 5 8410-2 ####BENÍTEZ LABORATORYCLIA [id number] [address] MCV (RBC) [Entitic vol] 94.2 fL Normal 80.0-100.0 [facility] Comment on above: Order Comment: Speci men Type: BLOOD SPECIMENOrdering Facility: [facility] Address: [address] [place] [address] Performed By: #### 5 8410-2 ####BENÍTEZ LABORATORYCLIA [id number] [address] [place] Nucleated RBC (Bld) [#/Vol] 10*3/uL Normal <0.01 [facility] Comment on above: Order Comment: Speci men Type: BLOOD SPECIMENOrdering Facility: [facility] Address: [address] [place] [address] Performed By: #### 5 8410-2 ####BENÍTEZ LABORATORYCLIA [id number] [address] Platelet mean volume (Bld) [Entitic vol] 10.2 fL Normal 9.0-12.7 [facility] Comment on above: Order Comment: Speci men Type: BLOOD SPECIMENOrdering Facility: [facility] Address: [address] [place] [address] Performed By: #### 5 8410-2 ####BENÍTEZ LABORATORYCLIA [id number] [address] [place] Platelets (Bld) [#/Vol] 264 10*3/uL Normal 150-400 [facility] Comment on above: Order Comment: Speci men Type: BLOOD SPECIMENOrdering Facility: [facility] Address: [address] [place] [address] Performed By: #### 5 8410-2 ####BENÍTEZ LABORATORYCLIA [id number] [place] [address] [place] RBC (Bld) [#/Vol] 3.42 10*6/uL Low 4.20-6.00 [facility] Comment on above: Order Comment: Speci men Type: BLOOD SPECIMENOrdering Facility: [facility] Address: [address] [place] [address] Performed By: #### 5 8410-2 ####BENÍTEZ LABORATORYCLIA [id number] [place] [address] [place] WBC (Bld) [#/Vol] 11.17 10*3/uL High 3.70-11.00 [facility] Comment on above: Order Comment: Speci men Type: BLOOD SPECIMENOrdering Facility: [facility] Address: [address] [place] [address] Performed By: #### 5 8410-2 ####BESSEMER LABORATORYCLIA [id number] [place] [address] [facility] [place] CONSULT PROGon 03-14-2024 CONSULT PROG Normal [facility] Magnesium SerPl-mCncon 03-14 Magnesium [Mass/Vol] 2.2 mg/dL Normal 1.7-2.3 [facility] Comment on above: Order Comment: Speci men Type: BLOOD SPECIMENOrdering Facility: [facility] Address: [address] [place] [address] Performed By: #### 2 4321-2, [facility], ####BESSEMER LABORATORYCLIA [id number] [place] [address] [place] TSH W/REFLEX FT4on TSH Qn 2.540 m[IU]/L Normal 0.270-4.200 [facility] Comment on above: Order Comment: Speci men Type: BLOOD SPECIMENOrdering Facility: [facility] Address: [address] [place] [address] Performed By: #### 2 4321-2, [facility], ####BESSEMER LABORATORYCLIA [id number] [place] [id number] [place] ALLIED HEALTHon 03-13-2024 ALLIED HEALTH Normal [facility] ALLIED [facility] CASE MGT INIT ASSon 2023 CASE MGT INIT [facility] CBC W Auto Differential pane l (Bld)on 03-13-2024 Basophils (Bld) [#/Vol] 0.04 10*3/uL Normal <0.11 [facility] Comment on above: Order Comment: Speci men Type: BLOOD SPECIMENOrdering Facility: [facility] Address: [address] [place] [address] Performed By: #### 5 7021-8 ####BENÍTEZ LABORATORYCLIA [id number] [place] [address] [place] Basophils/100 WBC (Bld) 0.3 % Normal [facility] Comment on above: Order Comment: Speci men Type: BLOOD SPECIMENOrdering Facility: [facility] Address: [address] [place] [address] Performed By: #### 5 7021-8 ####BENÍTEZ LABORATORYCLIA [id number] [place] [address] [place] Differential cell count method Nom (Bld) Auto Normal [facility] Comment on above: Order Comment: Speci men Type: BLOOD SPECIMENOrdering Facility: [facility] Address: [address] [place] [address] Performed By: #### 5 7021-8 ####BENÍTEZ LABORATORYCLIA [id number] [place] [address] [place] Eosinophils (Bld) [#/Vol] 0.33 10*3/uL Normal <0.46 [facility] Comment on above: Order Comment: Speci men Type: BLOOD SPECIMENOrdering Facility: [facility] Address: [address] [place] [address] Performed By: #### 5 7021-8 ####BENÍTEZ LABORATORYCLIA [id number] [address] Eosinophils/100 WBC (Bld) 2.4 % Normal [facility] Comment on above: Order Comment: Speci men Type: BLOOD SPECIMENOrdering Facility: [facility] Address: [address] [place] [address] Performed By: #### 5 7021-8 ####BENÍTEZ LABORATORYCLIA [id number] [place] [address] [place] Erythrocyte distribution width (RBC) [Ratio] 14.0 % Normal 11.5-15.0 [facility] Comment on above: Order Comment: Speci men Type: BLOOD SPECIMENOrdering Facility: [facility] Address: [address] [place] [address] Performed By: #### 5 7021-8 ####BENÍTEZ LABORATORYCLIA [id number] [place] [address] [place] Hematocrit (Bld) [Volume fraction] 34.4 % Low 39.0-51.0 [facility] Comment on above: Order Comment: Speci men Type: BLOOD SPECIMENOrdering Facility: [facility] Address: [address] [place] [address] Performed By: #### 5 7021-8 ####BENÍTEZ LABORATORYCLIA [id number] [place] [address] [place] Hemoglobin (Bld) [Mass/Vol] 11.6 g/dL Low 13.0-17.0 [facility] Comment on above: Order Comment: Speci men Type: BLOOD SPECIMENOrdering Facility: [facility] Address: [address] [place] [address] Performed By: #### 5 7021-8 ####BENÍTEZ LABORATORYCLIA [id number] [place] [address] [place] Immature granulocytes (Bld) [#/Vol] 0.09 10*3/uL Normal <0.10 [facility] Comment on above: Order Comment: Speci men Type: BLOOD SPECIMENOrdering Facility: [facility] Address: [address] [place] [address] Performed By: #### 5 7021-8 ####BENÍTEZ LABORATORYCLIA [id number] [address] [place] Immature granulocytes/100 WBC (Bld) 0.7 % Normal [facility] Comment on above: Order Comment: Speci men Type: BLOOD SPECIMENOrdering Facility: [facility] Address: [address] [place] [address] Performed By: #### 5 7021-8 ####BENÍTEZ LABORATORYCLIA [id number] [place] [address] [place] Lymphocytes (Bld) [#/Vol] 1.33 10*3/uL Normal 1.00-4.00 [facility] Comment on above: Order Comment: Speci men Type: BLOOD SPECIMENOrdering Facility: [facility] Address: [address] [place] [address] Performed By: #### 5 7021-8 ####BENÍTEZ LABORATORYCLIA [id number] [address] STATES [facility] Lymphocytes/100 WBC (Bld) 9.8 % Normal [facility] Comment on above: Order Comment: Speci men Type: BLOOD SPECIMENOrdering Facility: [facility] Address: [address] [place] [address] Performed By: #### 5 7021-8 ####BENÍTEZ LABORATORYCLIA [id number] [place] [address] [place] MCH (RBC) [Entitic mass] 31.8 pg Normal 26.0-34.0 [facility] Comment on above: Order Comment: Speci men Type: BLOOD SPECIMENOrdering Facility: [facility] Address: [address] [place] [address] Performed By: #### 5 7021-8 ####BENÍTEZ LABORATORYCLIA [id number] [place] [address] [place] MCHC (RBC) [Mass/Vol] 33.7 g/dL Normal 30.5-36.0 [facility] Comment on above: Order Comment: Speci men Type: BLOOD SPECIMENOrdering Facility: [facility] Address: [address] [place] [address] Performed By: #### 5 7021-8 ####BENÍTEZ LABORATORYCLIA [id number] [address] [place] MCV (RBC) [Entitic vol] 94.2 fL Normal 80.0-100.0 [facility] Comment on above: Order Comment: Speci men Type: BLOOD SPECIMENOrdering Facility: [facility] Address: [address] [place] [address] Performed By: #### 5 7021-8 ####BENÍTEZ LABORATORYCLIA [id number] [place] [address] [place] Monocytes (Bld) [#/Vol] 1.45 10*3/uL High <0.87 [facility] Comment on above: Order Comment: Speci men Type: BLOOD SPECIMENOrdering Facility: [facility] Address: [address] [place] [address] Performed By: #### 5 7021-8 ####BENÍTEZ LABORATORYCLIA [id number] [place] [address] [place] Monocytes/100 WBC (Bld) 10.7 % Normal [facility] Comment on above: Order Comment: Speci men Type: BLOOD SPECIMENOrdering Facility: [facility] Address: [address] [place] [address] Performed By: #### 5 7021-8 ####BENÍTEZ LABORATORYCLIA [id number] [place] [address] [place] Neutrophils (Bld) [#/Vol] 10.31 10*3/uL High 1.45-7.50 [facility] Comment on above: Order Comment: Speci men Type: BLOOD SPECIMENOrdering Facility: [facility] Address: [address] [place] [address] Performed By: #### 5 7021-8 ####BENÍTEZ LABORATORYCLIA [id number] [place] [address] [place] Neutrophils/100 WBC (Bld) 76.1 % Normal [facility] Comment on above: Order Comment: Speci men Type: BLOOD SPECIMENOrdering Facility: [facility] Address: [address] [place] [address] Performed By: #### 5 7021-8 ####BENÍTEZ LABORATORYCLIA [id number] [place] [address] [place] Nucleated RBC (Bld) [#/Vol] 10*3/uL Normal <0.01 [facility] Comment on above: Order Comment: Speci men Type: BLOOD SPECIMENOrdering Facility: [facility] Address: [address] [place] [address] Performed By: #### 5 7021-8 ####BENÍTEZ LABORATORYCLIA [id number] [place] [address] [place] Nucleated RBC/100 WBC (Bld) [Ratio] 0.0 /100 WBC Normal [facility] Comment on above: Order Comment: Speci men Type: BLOOD SPECIMENOrdering Facility: [facility] Address: [address] [place] [address] Performed By: #### 5 7021-8 ####BENÍTEZ LABORATORYCLIA [id number] [address] [place] [facility] Platelet mean volume (Bld) [Entitic vol] 10.1 fL Normal 9.0-12.7 [facility] Comment on above: Order Comment: Speci men Type: BLOOD SPECIMENOrdering Facility: [facility] Address: [facility] [place] [address] Performed By: #### 5 7021-8 ####BENÍTEZ LABORATORYCLIA [id number] [address] [place] Platelets (Bld) [#/Vol] 253 10*3/uL Normal 150-400 [facility] Comment on above: Order Comment: Speci men Type: BLOOD SPECIMENOrdering Facility: [facility] Address: [facility] [place] [address] Performed By: #### 5 7021-8 ####BENÍTEZ LABORATORYCLIA [id number] [place] [address] [place] RBC (Bld) [#/Vol] 3.65 10*6/uL Low 4.20-6.00 [facility] Comment on above: Order Comment: Speci men Type: BLOOD SPECIMENOrdering Facility: [facility] Address: [facility] [place] [address] Performed By: #### 5 7021-8 ####BENÍTEZ LABORATORYCLIA [id number] [address] [place] WBC (Bld) [#/Vol] 13.55 10*3/uL High 3.70-11.00 [facility] Comment on above: Order Comment: Speci men Type: BLOOD SPECIMENOrdering Facility: [facility] Address: [facility] [place] [address] Performed By: #### 5 7021-8 ####BENÍTEZ LABORATORYCLIA [id number] [place] [id number] [facility] OF [place] CONSULTon 03-13-2024 CONSULT Normal [facility] CTA CHEST (NON GATED) W IVCO N PEon 03-13-2024 CTA CHEST (NON GATED) W IVCON PE Normal [facility] Comprehensive metabolic 2000 panelon 03-13-2024 Albumin [Mass/Vol] 3.8 g/dL Low 3.9-4.9 [facility] Comment on above: Order Comment: Speci men Type: BLOOD SPECIMENOrdering Facility: [facility] Address: [address] [place] [address] Performed By: #### 2 4323-8, [id number], 44848-9, 83873-1 ####BESSEMER LABORATORYCLIA [id number] [place] [id number] [place] ALP [Catalytic activity/Vol] 79 U/L Normal 38-113 [facility] Comment on above: Order Comment: Speci men Type: BLOOD SPECIMENOrdering Facility: [facility] Address: [address] [place] [address] Performed By: #### 2 4323-8, [id number], 23950-0, 09306-6 ####BESSEMER LABORATORYCLIA [id number] [address] STATES OF [facility] ALT [Catalytic activity/Vol] 26 U/L Normal 10-54 [facility] Comment on above: Order Comment: Speci men Type: BLOOD SPECIMENOrdering Facility: [facility] Address: [address] [place] [address] Performed By: #### 2 4323-8, [id number], 45554-6, 10607-0 ####BESSEMER LABORATORYCLIA [id number] [place] [id number] [place] OF [facility] Anion gap [Moles/Vol] 14 mmol/L Normal 8-15 [facility] Comment on above: Order Comment: Speci men Type: BLOOD SPECIMENOrdering Facility: [facility] Address: [address] [place] [address] Performed By: #### 2 4323-8, [id number], 35429-9, 68152-5 ####BESSEMER LABORATORYCLIA [id number] [address] [place] AST [Catalytic activity/Vol] 27 U/L Normal 14-40 [facility] Comment on above: Order Comment: Speci men Type: BLOOD SPECIMENOrdering Facility: [facility] Address: [address] [facility] [place] [address] Performed By: #### 2 4323-8, [id number], , 01786-9 ####BENÍTEZ LABORATORYCLIA [id number] [place] [address] [place] Bilirubin [Mass/Vol] 1.1 mg/dL Normal 0.2-1.3 [facility] Comment on above: Order Comment: Speci men Type: BLOOD SPECIMENOrdering Facility: [facility] Address: [address] [place] [address] Performed By: #### 2 4323-8, [id number], , 41524-2 ####BENÍTEZ LABORATORYCLIA [id number] [place] [address] [place] Calcium [Mass/Vol] 8.7 mg/dL Normal 8.5-10.2 [facility] Comment on above: Order Comment: Speci men Type: BLOOD SPECIMENOrdering Facility: [facility] Address: [address] [place] [address] Performed By: #### 2 4323-8, [id number], , 47206-5 ####BENÍTEZ LABORATORYCLIA [id number] [place] [address] [place] Chloride [Moles/Vol] 103 mmol/L Normal 98-107 [facility] Comment on above: Order Comment: Speci men Type: BLOOD SPECIMENOrdering Facility: [facility] Address: [address] [place] [address] Performed By: #### 2 4323-8, [id number], , 25477-5 ####BENÍTEZ LABORATORYCLIA [id number] [place] [address] [place] CO2 [Moles/Vol] 23 mmol/L Normal 22-30 [facility] Comment on above: Order Comment: Speci men Type: BLOOD SPECIMENOrdering Facility: [facility] Address: [address] [place] [address] Performed By: #### 2 4323-8, [id number], 20469-8, 32725-7 ####BESSEMER LABORATORYCLIA [id number] [place] [id number] [place] [facility] Creatinine [Mass/Vol] 0.76 mg/dL Normal 0.73-1.22 [facility] Comment on above: Order Comment: [facility] Type: BLOOD SPECIMENOrdering Facility: [facility] Address: [address] [place] [address] Performed By: #### 2 4323-8, [id number], 66725-6, 21462-1 ####BESSEMER LABORATORYCLIA [id number] [place] [id number] [facility] Creatinine and Glomerular filtration rate.predicted panel (S/P/Bld) 90 mL/min/1.73m??? Normal >=60 [facility] Comment on above: Order Comment: [facility] Type: BLOOD SPECIMENOrdering Facility: [facility] Address: [address] [place] [address] Result Comment: Leah mated Glomerular Filtration Rate (eGFR) is calculated using the 2020 CKD-EPI creatinine equation. This equation utilizes serum creatinine, sex, and age as parameters. The creatinine assay has traceable calibration to isotope dilution-mass spectrometry. Refer to KDIGO guidelines for clinical interpretation. In patients with unstable renal function, e.g. those with acute kidney injury, the eGFR may not accurately reflect actual GFR. Performed By: #### 2 4323-8, IGA0470, 96857-6, 09686-3 ####BESSEMER LABORATORYCLIA [id number] [place] [id number] [place] Glucose [Mass/Vol] 150 mg/dL High 74-99 [facility] Comment on above: Order Comment: [facility] Type: BLOOD SPECIMENOrdering Facility: [facility] Address: [address] [place] [id number] Result Comment: The [place] Diabetes Association (ADA) provides guidance for cutoff values for fasting glucose and random glucose. The ADA defines fasting as no caloric intake for at least 8 hours. Fasting plasma glucose results between 100 to 125 mg/dL indicate increased risk for diabetes (prediabetes).Fasting plasma glucose results greater than or equal to 126 mg/dL meet the criteria for diagnosis of diabetes. In the absence of unequivocal hyperglycemia, results should be confirmed by repeat testing. In a patient with classic symptoms of hyperglycemia or hyperglycemic crisis, random plasma glucose results greater than or equal to 200 mg/dL meet the criteria for diagnosis of diabetes.Reference: Standards of Medical Care in Diabetes 2016, [place] Diabetes Association. Diabetes Care. 2016.39(Suppl 1). Performed By: #### 2 4323-8, [id number], 56994-7, 73050-2 ####BENÍTEZ LABORATORYCLIA [id number] [place] [address] [place] Potassium [Moles/Vol] 3.2 mmol/L Low 3.7-5.1 [facility] Comment on above: Order Comment: Cathy bruno Type: BLOOD SPECIMENOrdering Facility: [facility] Address: [address] [place] [address] Performed By: #### 2 4323-8, [id number], , 39023-7 ####BENÍTEZ LABORATORYCLIA [id number] [place] [address] [place] Protein [Mass/Vol] 7.3 g/dL Normal 6.3-8.0 [facility] Comment on above: Order Comment: Cathy bruno Type: BLOOD SPECIMENOrdering Facility: [facility] Address: [address] [place] [address] Performed By: #### 2 4323-8, [id number], , 96993-4 ####BENÍTEZ LABORATORYCLIA [id number] [place] [id number] [place] Sodium [Moles/Vol] 140 mmol/L Normal 136-144 [facility] Comment on above: Order Comment: Cathy bruno Type: BLOOD SPECIMENOrdering Facility: [facility] Address: [address] [place] [address] Performed By: #### 2 4323-8, [id number], , 77436-8 ####BENÍTEZ LABORATORYCLIA [id number] [place] [id number] [place] Urea nitrogen [Mass/Vol] 22 mg/dL Normal 9-24 [facility] Comment on above: Order Comment: Speci men Type: BLOOD SPECIMENOrdering Facility: [facility] Address: [address] [place] [address] Performed By: #### 2 4323-8, [id number], 28111-8, 93287-5 ####BENÍTEZ LABORATORYCLIA [id number] [place] [address] [place] D dimer FEU PPP-mCncon 03-13 Fibrin D-dimer FEU (PPP) [Mass/Vol] 3000 ng/mL FEU High <500 [facility] Comment on above: Order Comment: Speci men Type: BLOOD SPECIMENOrdering Facility: [facility] Address: [address] [place] [address] Performed By: #### 4 8065-7, 69148-4 ####BENÍTEZ LABORATORYCLIA [id number] [address] [place] ECG COMPLETEon 03-13-2024 ECG COMPLETE Normal [facility] ED NOTEon 03-13-2024 ED NOTE HNO ID: [id number] Author: MATTHEW FANG, ANDRE Service: ? Author Type: Registered Nurse Type: ED Notes Filed: 03/13/2024 07:48 Note Text: Patient ambulatory from lobby to room with cane Normal [facility] ED PROV NOTEon 03-13-2024 ED PROV NOTE Normal [facility] Fibrin D-dimer FEU (PPP) [Ma ss/Vol]on 03-13-2024 D DIMER AGE-RELATED CUTOFF 820 ng/mL FEU Normal [facility] Comment on above: Order Comment: Speci men Type: BLOOD SPECIMENOrdering Facility: [facility] Address: [address] [place] [address] Performed By: #### 4 8065-7, 18059-1 ####BESSEMER LABORATORYCLIA [id number] [address] [place] HIGH SENSITIVITY TROPONIN T (INITIAL)on 03-13-2024 Troponin T.cardiac High sensitivity method [Mass/Vol] 12 ng/L High <12 [facility] Comment on above: Order Comment: Speci men Type: BLOOD SPECIMENOrdering Facility: [facility] Address: [address] [place] [address] Performed By: #### 2 4323-8, [id number], 84285-0, 41693-1 ####BENÍTEZ LABORATORYCLIA [id number] [address] HIGH SENSITIVITY TROPONIN T (SECOND)on 03-13-2024 Troponin T.cardiac High sensitivity method [Mass/Vol] 11 ng/L Normal <12 [facility] Comment on above: Order Comment: Speci men Type: BLOOD SPECIMENOrdering Facility: [facility] Address: [address] [place] [address] Performed By: #### L [id number] ####BESSEMER LABORATORYCLIA [id number] [address] OF [place] HISTORY PHYSICALon HISTORY PHYSICAL Normal [facility] Magnesium SerPl-mCncon 03-13 Magnesium [Mass/Vol] 1.8 mg/dL Normal 1.7-2.3 [facility] Comment on above: Order Comment: Speci men Type: BLOOD SPECIMENOrdering Facility: [facility] Address: [address] [place] [address] Performed By: #### 1 9123-9, 2777-1 ####BESSEMER LABORATORYCLIA [id number] [address] [place] Magnesium [Mass/Vol] 1.8 mg/dL Normal 1.7-2.3 [facility] Comment on above: Order Comment: Speci men Type: BLOOD SPECIMENOrdering Facility: [facility] Address: [address] [place] [address] Performed By: #### 2 4323-8, [id number], 47595-5, 96269-8 ####BENÍTEZ LABORATORYCLIA [id number] [address] NT-proBNP [facility]-13 Natriuretic peptide.B prohormone N-Terminal [Mass/Vol] 2621 pg/mL High <450 [facility] Comment on above: Order Comment: Speci men Type: BLOOD SPECIMENOrdering Facility: [facility] Address: [address] [place] [address] Performed By: #### 2 4323-8, [id number], 86234-9, 15917-2 ####BESSEMER LABORATORYCLIA [id number] [place] [address] [place] PT panel Coag (PPP)on 2023 INR Coag (PPP) [Relative time] 1.1 {INR} Normal 0.9-1.3 [facility] Comment on above: Order Comment: Specadrianna bruno Type: BLOOD SPECIMENOrdering Facility: [facility] Address: [address] [place] [address] Result Comment: Annabella min K Antagonist (VKA) Therapeutic Range: INR 2 to 3 (Target INR of 2.5)Note: For patients treated with VKA drugs, such as warfarin, the [employer] 2012 Guideline recommends a therapeutic INR range of 2 to 3 (target INR of 2.5). This recommendation includes high-risk patients with antiphospholipid syndrome with previous arterial or venous thromboembolism, current-generation mechanical or bioprosthetic aortic heart valve replacement.Note: Patients with mechanical aortic valve replacement and additional risk factors for thromboembolic events (atrial fibrillation, previous thromboembolism, LV dysfunction, hypercoagulable conditions) or an older generation mechanical AVR (i.e., ball in-Cage) or any mechanical MVR should have a INR therapeutic range of 2.5 to 3.5 (target INR of 3).Santi GH, et al. Chest 2012, 141:7S-47SNishmeño RA, et al. [facility] 2017, 70: 252-289 Performed By: #### 4 8065-7, 85791-4 ####BESSEMER LABORATORYCLIA [id number] [place] [address] [place] PT Coag (PPP) [Time] 11.7 s Normal 9.7-13.0 [facility] Comment on above: Order Comment: Cathy bruno Type: BLOOD SPECIMENOrdering Facility: [facility] Address: [address] [place] [address] Performed By: #### 4 8065-7, 83930-1 ####BESSEMER LABORATORYCLIA [id number] [place] [id number] [place] Phosphate SerPl-mCncon 03-13 Phosphate [Mass/Vol] 3.9 mg/dL Normal 2.7-4.8 [facility] Comment on above: Order Comment: Speci men Type: BLOOD SPECIMENOrdering Facility: [facility] Address: [address] [place] [address] Performed By: #### 1 9123-9, 2777-1 ####BESSEMER LABORATORYCLIA [id number] [place] [address] [place] XR CHEST 2V FRONTAL/LATon XR CHEST 2V FRONTAL/LAT Normal [facility] SURGICAL PATH REPORTon 07-18 SURGICAL PATH REPORT [facility] Department of Pathology [address] [place] [phone] Name: BRANDEN JOHNSON : 1940 [facility] [id number] Number: Gender Male Locatio [facility] : n: Admit 83 years Attending BUTCH MAY MD Age: Provider: Ordering BUTCH MAY MD Provider: Consulti Surgical Pathology Report ng: ACCESSION: COLLECTED DATE/TIME: RECEIVED DATE/TIME: PATHOLOGIST: [id number] 07/13/2023 14:16 EDT 07/13/2023 14:38 EDT NEDRA MENDOZA MD Final Diagnosis BLADDER BIOPSY: - FRAGMENTS OF PARTIALLY DEGENERATED FIBROMUSCULAR TISSUE AND ULCER. - DEFINITIVE TUMOR/MALIGNANCY IS NOT SEEN. COMMENT: Deeper levels of tissue were examined. The specimen is mostly ulcerated, with acute and chronically inflamed, partially degenerated fibromuscular tissue, and a minute portion of epithelium. These findings preclude completely ruling out malignancy, and if clinical suspicion is high for this diagnosis, another biopsy of the site of concern may be helpful. An intradepartmental consult was obtained with concurrence. NEDRA MENDOZA PATHOLOGIST (Electronic Signature) Date Verified 07/19/2023 BT Clinical Data PREOP DIAGNOSIS: MALIGNANT NEOPLASM OF BLADDER POSTOP DIAGNOSIS: MALIGNANT NEOPLASM OF BLADDER PROCEDURE: CYSTOSCOPY, TRANSURETHRAL RESECTION BLADDER TUMOR SPECIMEN: BLADDER BIOPSY LEFT TRIGONE Gross Description Labeled bladder biopsy, left trigone. Received in formalin are multiple roughly ovoid segments of anne pink soft tissue. The specimen is filtered and has a filtrate aggregate dimension of 2.0 x 1.0 x 0.5 cm. The specimen is entirely submitted in one cassette. MP/cari 07/13/2023 ____ Print 07/19/2023 13:02 EDT Number: Date/Time: [facility] Department of Pathology [address] [place] [phone] Name: BRANDEN JOHNSON : 1940 [facility] [id number] Number: Gender Male [facility] : n: Admit 83 years Attending BUTCH MAY MD Age: Provider: Ordering BUTCH MAY MD Provider: Consulti Surgical Pathology Report ng: ACCESSION: COLLECTED DATE/TIME: RECEIVED DATE/TIME: PATHOLOGIST: [id number] 07/13/2023 14:16 EDT 07/13/2023 14:38 EDT NEDRA MENDOZA MD Microscopic Diagnosis The final diagnosis is based on a microscopic exam of employee relations representative sections. Codes CPT code: 72115 ____ Print 07/19/2023 13:02 EDT Number: Date/Time: Normal [facility] Comment on above: Performed By: #### 9 [id number] ####[facility] [id number] [place], [place] [id number] Medical Director: Raul Amaro MD Operative Reporton Operative Report [facility] OPERATIVE RECORD BRANDEN JOHNSON [facility] [id number] ASC BUTCH MAY MD [id number] SURGEON: Butch May MD DATE OF OPERATION: 07/13/2023 PREOPERATIVE DIAGNOSIS: Bladder mucosa lesion with history of urothelial cancer. PROCEDURE: Cystoscopy with transurethral resection/biopsy, bladder mucosa lesion. POSTOPERATIVE DIAGNOSIS: Bladder mucosa lesion with history of urothelial cancer. ANESTHESIA: General. OPERATIVE NOTE CLINICAL: The patient is an 83-year-old gentleman previously followed by Dr. Little. On a recent cystoscopy, he was found to have a plaque-like lesion posterior and lateral to the left ureteral orifice. Excision was recommended. OPERATIVE NOTE: The patient was taken to the operating room where general anesthetic was rendered. In the lithotomy position, the genitalia were prepped and draped appropriately. A 22-Bulgarian Storz cystoscope was inserted under direct vision. The bladder was inspected. A whitish plaque-like lesion was seen superior and lateral to the left ureteral orifice. There was some erythema of the margin of the plaque. The bladder mucosa elsewhere was entirely normal. His prostate was small and minimally obstructing. The cystoscope was removed and replaced with a 26-Bulgarian Storz resectoscope. Transurethral resection of the plaque was carried out with a secondary resection of a layer deep to the plaque. The entire area was then cauterized for hemostasis, as was a surrounding margin of normal mucosa. The fragments of tissue were aspirated in the bladder using a Antonella syringe. At the end of the resection, the left ureteral orifice remained intact. Hemostasis was good. He tolerated it well, returned to the recovery room in stable condition. MD DIONISIO VENTURA/Charisma /[id number] Normal [facility] ACETAMINOPHEN 325 MG TABon 0 3-26-2024 ACETAMINOPHEN 325 MG TAB PRN Response En tered On: 07/13/2023 12:43 EDT Performed On: 07/13/2023 12:43 EDT by Anuradha James RN Intervention Information: acetaminophen Performed by Anuradha James RN on 07/13/2023 12:41:00 EDT acetaminophen,650mg ORAL PRN Medication Response PRN Medication used for : Other: joseline Actual time of reassessment : Yes Anuradha James RN - 07/13/2023 12:43 EDT Normal [facility] Comment on above: Order Comment: Check for other orders containing acetaminophen before administering. Max total daily amount is 4000 mg. Anesthesiaon 07-13-2023 Anesthesia Patient: BRANDEN JOHNSON Age: 83 years Sex: Male : 1940 Associated Diagnoses: None Author: VIKTORIA FERNANDES MD Postoperative Information Time Seen: Date & Time 07/13/2023 14:40:00. Assessment Postanesthesia assessment Vitals: Vital Signs (last value in last 48 hours) Temperature Temporal Artery: 36.2 degC Low (07/13/23 14:30:00) Respiratory Rate: 14 br/min (07/13/23 14:30:00) Peripheral Pulse Rate: 52 bpm Low (07/13/23 14:30:00) Heart Rate Monitored: 52 bpm Low (07/13/23 14:30:00) Systolic Blood Pressure: 122 mmHg (07/13/23 14:30:00) Diastolic Blood Pressure: 58 mmHg Low (07/13/23 14:30:00) Mean Arterial Pressure, Cuff: 80 mmHg (07/13/23 14:30:00) SpO2: 97 % (07/13/23 14:30:00). Mental status: at preoperative baseline. Respiratory support: normal oxygenation and ventilation. Pain: controlled. Nausea status: absence of nausea and vomiting. Postoperative hydration status: euvolemic. Notes: normothermia. Normal [facility] Anesthesia Patient: BRANDEN JOHNSON Age: 83 years Sex: Male : 1940 Associated Diagnoses: None Author: VIKTORIA FERNANDES MD DIAGNOSIS: MALIGNANT NEOPLASM OF BLADDER Preoperative Information Procedure/ Case: CYSTOSCOPY, TURBT NPO greater than 8 hours. Anesthesia history Patient's history: negative. Family's history: negative. 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 SEIZURE DISORDER, LAST 4-5 YEARS AGO PVD RAUL USES CPAP PRE-DM2 SMOKER Health Status Allergies: Allergies (1) Active Reaction No Known Allergies None Documented Current medications: Home Medications (19) Active atenolol 50 mg oral tablet 50 mg = 1 tabs, ORAL, DAILY carbamide peroxide 6.5% otic solution = Debrox 5 drops, Both Ears, BID Coenzyme Q10 , ORAL, DAILY Eliquis 5 mg oral tablet 5 mg = 1 tabs, ORAL, BID Fish Oil 1000 mg oral capsule 1,000 mg = 1 caps, ORAL, DAILY Flomax 0.4 mg oral capsule 0.8 mg = 2 caps, ORAL, QHS Keppra 750 mg oral tab 750 mg = 1 tabs, ORAL, BID Lasix 20 mg oral tablet 20 mg = 1 tabs, ORAL, BIDAC latanoprost 0.005% ophthalmic solution 1 drops, Both Eyes, QHS lecithin 1200 mg oral capsule 1,200 mg = 1 caps, ORAL, DAILY Lipitor 10 mg oral tablet 10 mg = 1 tabs, ORAL, DAILY losartan 100 mg oral tablet 100 mg = 1 tabs, ORAL, DAILY Lycopene 1 caps, ORAL, DAILY Norvasc 5 mg oral tablet 5 mg = 1 tabs, ORAL, DAILY potassium gluconate 595 mg (99 mg elemental potassium) oral tablet 1 tabs, ORAL, DAILY psyllium 2.4 g/3.7 g oral powder for reconstitution 2.4 g, ORAL, DAILY Vitamin C 500 mg oral tablet 500 mg = 1 tabs, ORAL, DAILY Vitamin D3 25 mcg (1000 intl units) oral tablet 25 mcg = 1 tabs, ORAL, BID ZZGarlic 1 caps, ORAL LABORATORY DATA Chemistry BMP Plus Mag No qualifying data available. Hematology CBC brief [address] No qualifying data available. Coagulation PT INR [address] No qualifying data available. Test No qualifying data available. Histories Past Medical History: No qualifying data available Procedure history: CYSTOSCOPY, FULGERATION OF BLADDER on 12/10/2020 at 80 Years. Carotid Endarterectomy. ([id number]) on 09/14/2012 at 72 Years. Social History Social & Psychosocial History Social History Alcohol Denies Alcohol Use Home/Environment Lives with Significant other. Home monitoring equipment: None. Special/Community resources: None. Mobility prior to admit: Independent. Nutrition/Health Regular, Low sodium, Appetitie: Poor. Unintentional weight change: No. Substance Abuse Denies Substance Abuse Tobacco 5-9 cigarettes (between 1/4 to 1/2 pack)/day in last 30 days Tobacco Use:. Cigarettes, Previous treatment: Counseling. Exposure Patient smokes. Smoking cessation packet Declined. Domestic Concerns No, Stressors Finances. Emotional support available Yes. Pt's responsibilities: Driving, Hobbies/Play/Sports, Laundry, Meal preparation, Work, Yard work. Hospital finance concerns: Yes. Finance concerns: Yes. Family/Friends available to help: Yes. Psychosocial History No active psychosocial history has been recorded . Physical Examination VITALS Vital Signs (last value in last 48 hours) Temperature Temporal Artery: 35.8 degC Low (07/13/23 12:19:00) Peripheral Pulse Rate: 59 bpm Low (07/13/23 12:19:00) Heart Rate Monitored: 57 bpm Low (07/13/23 12:19:00) Systolic Blood Pressure: 145 mmHg High (07/13/23 12:19:00) Diastolic Blood Pressure: 55 mmHg Low (07/13/23 12:19:00) SpO2: 95 % (07/13/23 12:19:00)Height and Weight (last value in last 48 hours) Height/Length Dosin.18 cm (07/13/23 12:19:00) Weight Dosin.9 kg (07/13/23 12:19:00) Weight Measured: 87.9 kg (07/13/23 12:19:00) General: Alert and oriented. Airway: Mallampati classification: II (soft palate, fauces, uvula visible). Respiratory: Lungs are clear to auscultation. Cardiovascular: Normal rate, Regular rhythm, No murmur. Assessment and Plan [place] [employer] Anesthesiologists (ASA) physical status classification: Class III. Anesthetic Preoperative Plan Premedication: intravenous. Anesthetic technique: General anesthesia. Induction: intravenously. Maintenance airway: Laryngeal mask airway. Special monitoring: Standard ASA monitors.. Risks discussed: nausea, vomiting, headache, sore throat, dental injury, hypotension, allergic reaction, serious complications, Questions answered. Risks and Benefits explained. Rationale and Alternatives discussed with patient/guardian/pare nt (s)/family.. Informed consent: signed by patient. Notes. RAUL Preanesthesia Assessment: RAUL Diagnosed: Yes. CPAP or Another Device Utilized: Yes. RAUL Positive Screen and Counseling: Yes. RAUL Protocol Ordered (If Yes to any of the above): Yes. (more content not included)... Normal [facility] Inpatient Patient Summaryon 07-13-2023 Inpatient Patient Summary [facility] Discharge Instructions [id number] [place] [address] (Patient Copy) Name: BRANDEN JOHNSON : 1940 Diagnosis: Allergies: No Known Allergies Registration Date: 07/13/23 Current Date Time: 07/13/2023 15:48:33 Address: [address] [place] [address] [address] [place] [address] Phone: [phone] Primary Care Provider: Name: Phone: Thank you for choosing [facility] for your care. You are very important to us. Our goal is to demonstrate our high quality medical care and provide you with a very good patient experience. You may receive a survey about our service. Please take the time to complete the survey and return it so we can continue to enhance our service. Thank you again for allowing [facility] to care for your medical needs. If you have any questions about your care or follow up information please contact your doctor. Follow-up Instructions The following Appointments have been made for you: Please Note: the first letters listed in the order is the location code, followed by the appointment date, and scheduled provider Future Appointments No Future Appointments Scheduled Provider Follow Ups: With: Address: When: BUTCH MAY, Urology [address] [facility] [place] [address] Business (2) Comments: Call to schedule follow up prescription on paper for Keflex If you have had an intravenous catheter (IV) during your stay, keep the dressing dry and do not remove it from the site for at least 24 hours or as instructed by your provider to prevent problems. Medication Information Only Take The Medicines On This List. Keep This List and Bring It To Your Next Appointment. Medicines To Take At Home: Medicine Name (Generic Name) Amount to Take How to Take it How Often to Take it Additional Instructions Next Dose Due Norvasc 5 mg oral tablet (amlodipine) 5 mg By Mouth DAILY Vitamin C 500 mg oral tablet (ascorbic acid) 500 mg By Mouth DAILY atenolol 50 mg oral tablet (atenolol) 50 mg By Mouth DAILY Lipitor 10 mg oral tablet (atorvastatin) 10 mg By Mouth AT BEDTIME carbamide peroxide 6.5% otic solution = Debrox (carbamide peroxide otic) 5 drops Both Ears TWICE A DAY Take as needed for See Note Line Vitamin D3 25 mcg (1000 intl units) oral tablet (cholecalciferol) 25 mcg By Mouth TWICE A DAY latanoprost 0.005% ophthalmic solution (latanoprost ophthalmic) 1 drops Both Eyes AT BEDTIME lecithin 1200 mg oral capsule (lecithin) 1,200 mg By Mouth DAILY Keppra 750 mg oral tab (levetiracetam) 750 mg By Mouth TWICE A DAY losartan 100 mg oral tablet (losartan) 100 mg By Mouth DAILY Lycopene (non-formulary med) 1 caps By Mouth DAILY ZZGarlic (non-formulary med) 1 caps By Mouth Fish Oil 1000 mg oral capsule (omega-3 polyunsaturated fatty acids) 1,000 mg By Mouth DAILY potassium gluconate 595 mg (99 mg elemental potassium) oral tablet (potassium gluconate) 1 tabs By Mouth DAILY psyllium 2.4 g/3.7 g oral powder for reconstitution (psyllium) 2.4 g By Mouth DAILY Flomax 0.4 mg oral capsule (tamsulosin) 0.8 mg By Mouth AT BEDTIME Coenzyme Q10 (ubiquinone) By Mouth DAILY Understanding your home medicine is important to keeping you healthy. If you are taking medications that are not on the preceding list, please call your doctor to see if you are to continue taking that medication. It is important that you do not skip or make up doses. If you are ordered an antibiotic, finish taking all the medicine unless your doctor tells you otherwise. Call your doctor if you have any questions or problems. Take the medicine list with you to all follow up appointments. Patient education materials, if any, will display below Post-Operative Sleep Apnea Management Sleep Apnea Facts: Sleep apnea is a disorder that causes abnormal pauses in your breathing during sleep. When you have one of these pauses, you do not bring fresh oxygen into your body. This causes your blood oxygen level to drop. As a result your body ?wakes? you up from a deep, restful sleep into a light sleep so that you start breathing again. Some common symptoms of sleep apnea are: ? Loud, frequent snoring ? Difficulty staying asleep ? Feeling tired when waking ? Regularly feeling tired, and without energy during the day ? Difficulty focusing and concentrating Risk Factors for sleep apnea are ? Being overweight ? Smoking ? Older age ? Male gender, particularly if you are also -Irish Sleep Apnea and Anesthesia: When any person gets anesthesia, he or she will take shallower breaths and less of them that usual. This causes the little air sacks in your lungs (alveoli) not to expand to their full volume. Because of this, less oxygen leaves the lungs and enters the blood with each breath. This effect gradually wears off as the anesthesia leaves your system?usual (more content not included)... Normal [facility] OR Nursing Record - Main Ji n 07-13-2023 OR Nursing Record - Main OR OR Nursing Record - Main OR Summary Primary Physician: BUTCH MAY MD Finalized Date/Time: 07/13/23 14:39:52 Pt. Name: BRANDEN JOHNSON/Sex: 1940 Male Med Rec #: [id number] Physician: Financial #: [id number] Pt. Type: A Room/Bed: / Admit/Disch: 07/13/23 11:29:33 - Institution: Transport to OR - Main OR Entry 1 By Sarah Camejo RN, Date/Time Leaving 07/13/23 13:49:00 Altaf JOSHI, Anderson Balderrama Siderails Up? Yes Report Received From Anuradha James RN Modified By: Sarah Camejo RN 07/13/23 14:07:49 Case Times - Main OR Entry 1 Patient In Room Time 07/13/23 13:50:00 Out Room Time 07/13/23 14:29:00 Anesthesia Facility Times Induction Time 07/13/23 13:51:00 Stop Time 07/13/23 14:28:00 [facility] Protocol Yes Completed Surgery Start Time 07/13/23 14:06:00 Stop Time 07/13/23 14:22:00 Last Modified By: Sarah Camejo RN 07/13/23 14:39:27 Surgical Procedures - Main OR Entry 1 Procedure Cystoscopy TUR Bladder Modifiers None Tumor Surgeon Procedure CYSTOSCOPY,TRANSURETH RAL Primary Procedure Yes Description RESECTION BLADDER TUMOR Primary Surgeon YADIRA SANTOS, BUTCH Start 07/13/23 14:06:00 Stop 07/13/23 14:22:00 Anesthesia Type General Surgical Service SN - Urology Last Modified By: Sarah Camejo RN 07/13/23 14:27:27 Case Attendance - Main OR Entry 1 Entry 2 Entry 3 Case Attendee YADIRA SANTOS, BUTCH FERNANDES MD, VIKTORIA SHELL SURVEY INTERVIEWERSON Role Performed Surgeon Primary Anesthesiologist Primary Anesthesia Asst/SURVEY INTERVIEWER Time In 07/13/23 13:50:00 07/13/23 13:50:00 07/13/23 13:50:00 Time Out 07/13/23 14:29:00 07/13/23 14:29:00 07/13/23 14:29:00 Procedure Cystoscopy TUR Bladder Cystoscopy TUR Bladder Cystoscopy TUR Bladder Tumor(None) Tumor(None) Tumor(None) Last Modified By: Bashir RN, Sarah Camejo RN, Sarah Camejo RN, Sarah 07/13/23 14:39:30 07/13/23 14:39:30 07/13/23 14:39:30 Entry 4 Entry 5 Entry 6 Case Attendee Bashir JOSHI, Sarah Solitario RN, Anderson Vazquez RN, Annalise Role Performed Lean Consultant Primary Lean Consultant Secondary Lean Consultant Relief Time In 07/13/23 13:50:00 07/13/23 13:50:00 07/13/23 13:50:00 Time Out 07/13/23 14:29:00 07/13/23 14:29:00 07/13/23 14:29:00 Procedure Cystoscopy TUR Bladder Cystoscopy TUR Bladder Cystoscopy TUR Bladder Tumor(None) Tumor(None) Tumor(None) Last Modified By: Sarah Camejo RN, RN, Sarah West RN 07/13/23 14:39:30 07/13/23 14:39:30 07/13/23 14:39:30 Entry 7 Case Attendee Ilene Tovar Role Performed Scrub Primary Time In 07/13/23 13:50:00 Time Out 07/13/23 14:29:00 Procedure Cystoscopy TUR Bladder Tumor(None) Last Modified By: Sarah Camejo RN 07/13/23 14:39:30 General Case Data - Main OR Entry 1 Case Information OR OR 13 Schedule Type Scheduled Case Level Level 5 Wound Class Clean-Contaminated Specialty SN - Urology ASA Class 3 Procedure History Yes Documented Diagnosis Preop Diagnosis MALIGNANT NEOPLASM OF Postop Diagnosis MALIGNANT NEOPLASM OF BLADDER BLADDER Last Modified By: Sarah Camejo RN 07/13/23 14:39:34 Delays - Main OR Entry 1 Delay Reason Prior Case Delay Duration 5 minutes Last Modified By: Sarah Camejo RN 07/13/23 14:13:40 Patient Positioning - Main OR Entry 1 Procedure Cystoscopy TUR Bladder Body Position Lithotomy Tumor(None) Left Arm Position Resting at Side Right Arm Position Resting at Side Left Leg Position Secured in Stirrup Right Leg Position Secured in Stirrup Feet Uncrossed? Yes Press Points Checked Yes By SUMAYA STAHL, SON, Positioning Devices SCDs Knee High, Sarah Camejo RN, Stirrups, Infinity, Emley RN, Anderson Bishopow under Head Last Modified By: Sarah Camejo RN 07/13/23 14:14:26 Skin Prep - Main OR Entry 1 Procedure Cystoscopy TUR Bladder Prep Area Perineal Tumor(None) Prep Agents Betadine Solution By Ilene Tovar Hair Removal Last Modified By: Sarah Camejo RN 07/13/23 14:14:40 Counts Verification - Main OR Entry 1 Entry 2 Count Type Initial Final Closing Count Participants Bashir JOSHI, Bashir Smith RN, La Smith Gayle Hartsel, Gayle Count Status Correct Correct Items Counted Sponges Sponges Surgeon Notified n/a Yes Closing Count Correct Last Modified By: Sarah Camejo RN, RN, Rebecca 07/13/23 14:15:01 07/13/23 14:27:41 Counts Action Taken - Main OR NOT APPLICABLE Entry 1 Surgeon Notified No Count Incorrect Last Modified By: Cautery - Main OR Entry 1 ESU Type [facility] Cut Setting 70 Coag Setting 120 Grounding Pad Yes Needed? Grounding Pad Site Left Thigh Grounding Pad Site Yes Dry /Intact Pre-Op? Grounding Pad Site Yes Dry / Intact PostOp? Last Modified By: Sarah Camejo RN 07/13/23 14:27:48 Catheters, Drains, Tubes - Main OR NOT APPLICABLE Entry 1 Last Modified By: Medication Administration - Main OR NOT APPLICABLE Entry 1 Last Modified By: Cultures & Specimen (more content not included)... Normal [facility] Subassembly Supervisor Details- Texton 07-13-2023 Subassembly Supervisor Details- Text Subassembly Supervisor Details Entered On: 07/13/2023 13:13 EDT Performed On: 07/13/2023 13:06 EDT by Anuradha James RN Subassembly Supervisor Details Transport Mode Order Detail EV : Bed Isolation Precautions RTF : History and Physical by House Physician, 06/28/2023 10:06:00 EDT, 06/28/2023 10:06:00 EDT, Ordered Isolation Precaution Order Detail EV : NONE IV Order Detail - EV : Yes Oxygen Order Detail EV : No Order Detail EV : No Pacemaker Order Detail : 0 Subassembly Supervisor Details Review Status : Reviewed, no changes Nurse Collects Blood Specimens : Yes Anuradha James RN - 07/13/2023 13:06 EDT Normal [facility] Outpatient Admission Data- T exton 07-13-2023 Outpatient Admission Data- Text Outpatient Admission Data Entered On: 07/13/2023 13:10 EDT Performed On: 07/13/2023 13:06 EDT by Anuradha James RN OP Assessment Mobility : Ambulatory Mental Status : Alert Oriented : Person, Place, Time Pupils Equal, Round, Reactive to Light, and Accommodation : Yes Pupil Size, Left : 4 mm Pupil Size, Right : 4 mm Heart : Regular Lungs : Clear Voided : No Pain Level and Site : 0 Abdomen : Soft, Non-Tender Bowel Sounds All Quadrants : Present Anuradha James RN - 07/13/2023 13:06 EDT Present on Admission Medical Devices : None Medical Devices for Med Administration : None Jacob JOSHI, [place] - 07/13/2023 13:06 EDT Mohall Coma Eye Opening Response [place] : Spontaneously Best Verbal Response [place] : Oriented Best Motor Response Anna : Obeys simple commands Anna Coma Score : 15 Jacob JOSHI, [place] - 07/13/2023 13:06 EDT Outpatient Fall Risk GEN_Fall Risk Indicators_[id number] : Age 65 or greater, Medications altering equilibrium or cognitive judgement Fall Risk Band On : Yes Jacob JOSHI, [place] - 07/13/2023 13:06 EDT Screening-Safety Domestic Concerns : None Feeling Down, Depressed, Hopeless : Not at all Little Interest - Pleasure in Activities : Not at all Initial Depression Screen Score : 0 Depression Screening Score 0 : No Jacob JOSHI, [place] - 07/13/2023 13:06 EDT Normal [facility] PACU Phase I - Main ORon PACU Phase I - Main OR PACU Phase I - Ma in OR Summary Primary Physician: BUTCH MAY MD Finalized Date/Time: 07/13/23 15:36:02 Pt. Name: BRANDEN JOHNSON/Sex: 1940 Male Med Rec #: [id number] Physician: Financial #: [id number] Pt. Type: A Room/Bed: / Admit/Disch: 07/13/23 11:29:33 - Institution: PACU I - Case Times - Main OR Entry 1 In PACU I 07/13/23 14:30:00 Ready for Transfer 07/13/23 15:29:00 Last Modified By: Veda Abdullahi RN 07/13/23 15:36:01 Finalized By: Veda Abdullahi RN Document Signatures Signed By: Veda Abdullahi RN 07/13/23 15:36 Normal [facility] PACU Phase II - Main ORon PACU Phase II - Main OR PACU Phase II - Main OR Summary Primary Physician: BUTCH MAY MD Finalized Date/Time: 07/13/23 15:52:50 Pt. Name: BRANDEN JOHNSON/Sex: 1940 Male Med Rec #: [id number] Physician: Financial #: [id number] Pt. Type: A Room/Bed: / Admit/Disch: 07/13/23 11:29:33 - Institution: PACU II - Case Times - Main OR Entry 1 In PACU II 07/13/23 15:30:00 Ready for PACU II n/a Discharge Discharge from PACU 07/13/23 15:45:00 II Last Modified By: Rea Luciano RN 07/13/23 15:45:27 Finalized By: Rea Luciano RN Document Signatures Signed By: Ankita JOSHI, Rea 07/13/23 15:36 Ankita JOSHI, Rea 07/13/23 15:45 Ankita JOSHI, Rea 07/13/23 15:45 Ankita JOSHI, Rea 07/13/23 15:52 Ankita JOSHI, Rea 07/13/23 15:52 Normal [facility] POC Glucoseon 07-13-2023 Glucose [Mass/Vol] 105 mg/dL High 72-100 [facility] Comment on above: Performed By: #### 1 [id number] ####[facility] [id number] [place] [address] Medical Director: Raul Amaro MD Post Procedural Progress Not ernesto 07-13-2023 Post Procedural Progress Note Patient: BRANDEN JOHNSON Age: 83 years Sex: Male : 1940 Associated Diagnoses: None Author: BUTCH MAY MD Postoperative Information Pre op: Bladder mucosal lesion w/ history of urothelial cancer Procedure: Cystoscopy w/ transurethral resection/biopsy bladder mucosal lesion Post op: Same Surgeon: Yadira Anesthesia: General Complications: none EBL: none Normal [facility] Protocol/Pre-Proc TimeOut-Texton 07-13-2023 [facility] Protocol/Pre-Proc TimeOut-Text [facility] Protocol Entered On: 07/13/2023 13:12 EDT Performed On: 07/13/2023 13:06 EDT by Anuradha James RN All Procedures Procedure this U.P. is completed for: : cystoscopy transurethral resection bladder turp Procedure Location : Surgery Pre-Procedure Verification : Patient Identification (Name & Date), Informed Consent (Signed, Dated), Procedure Identified by Patient, Site Identified by Patient Anuradha James RN - 07/13/2023 13:06 EDT Allergy (As Of: 07/13/2023 14:38:59 EDT) Allergies (Active) No Known Allergies Estimated Onset Date: Unspecified ; Created By: Neisha Carmona RN Reaction Status: Active ; Category: Drug ; Substance: No Known Allergies ; Type: Allergy ; Updated By: Neisha Carmona RN; Reviewed Date: 07/13/2023 14:38 EDT Beta Keesha Beta Keesha History : Patient self administered Date/Time Pre-Procedure Verification : 07/13/2023 07:00 EDT Anuradha James RN - 07/13/2023 13:06 EDT Site Marking Site Marking : Procedure is Exempt From Marking Site : BLADDER [facility] Protocol : N/A Site Verification Completed : By Provider, In Pre-op / Procedure Holding area Sarah Camejo RN - 07/13/2023 14:37 EDT Surgery / Sedation OR Procedure & Sedation Verification : History & Physical (within 30 days), Nursing Assessment Completed Relevant Images : Relevant Images / Diagrams Properly Labeled & Displayed Relevant Diagnostic Tests : Relevant Diagnostic Tests Available Blood Products : N/A Implants / Equiment : Required Implants & Special Equipment Available Correct Procedure : Accurate Procedure Consent Form, Correct Procedure, Correct Patient Position Antibiotics : Administration of Antibiotics or Fluids for Irrigation Purpose Safety Precautions : Safety Precautions Based on Patient Medication or History Date/Time of OR Procedure Sedation Checklist : 07/13/2023 13:45 EDT Sarah Camejo RN - 07/13/2023 14:37 EDT Final Verification Date/Time : 07/13/2023 14:05 EDT Verification : Patient Identified (Name and Date), Correct Procedure, All Team Members are in Agreement Laterality : N/A Sarah Camejo RN - 07/13/2023 14:37 EDT Normal [facility] Preadmission Testing Progres s Noteon 06-28-2023 Preadmission Testing Progress Note PREADMISSION TESTING (PAT) INSTRUCTION SHEET [ X] Bring your Surgery Guide with you on day of surgery [ X ] Read and complete your Discharge Planning Checklist [ X ] Take only highlighted medications on morning of surgery [ X ] Stop all vitamins and herbal supplements 7 days prior to surgery (unless otherwise instructed) [ x ] Call Surgeon when to stop taking the following: [ x ] Blood thinner - ELIQUIS - STOP 2 DAYS PRIOR TO SURGERY [ X ] Anti-inflammatory/asp irin [ X ] Bring on day of surgery: [ X ] C-pap machine (if prescribed) [ ] Additional instructions: *Any major change in your medical condition, that was treated by your primary physician or the result of an Emergency Room visit, must be reported to your surgeon. Normal [facility] UAon 06-28-2023 Appearance, U Hazy Normal [facility] Comment on above: Performed By: #### 1 [id number] ####[facility] [address] [place] [address] Medical Director: Raul Amaro MD Bilirubin, U Negative Normal Negative [facility] Comment on above: Performed By: #### 1 [id number] ####[facility] [address] [place], [place] [id number]) [phone] Director: Raul Amaro MD Blood, U Large Abnormal Negative [facility] Comment on above: Performed By: #### 1 84979 ####[facility] [address] [place] [address] Medical Director: Raul Amaro MD Color, U Yellow Normal [facility] Comment on above: Performed By: #### 1 [id number] ####[facility] [address] [place] [address] Medical Director: Raul Amaro MD Glucose Qual, U Negative Normal Negative [facility] Comment on above: Performed By: #### 1 [id number] ####[facility] [address] [place] [address] Medical Director: Raul Amaro MD Ketones, U Negative Normal Negative [facility] Comment on above: Performed By: #### 1 [id number] ####[facility] [address] [place], [place] [id number]) [phone] Director: Raul Amaro MD Leukocyte Esterase, U Small Abnormal Negative [facility] Comment on above: Performed By: #### 1 75329 ####[facility] [address] [place], [place] [id number]) [phone] Director: Raul Amaro MD Mucous, U Occasional Normal [facility] Comment on above: Performed By: #### 1 12698 ####[facility] [address] [place], [place] [id number]) [phone] Director: Raul Amaro MD Nitrite, U Negative Normal Negative [facility] Comment on above: Performed By: #### 1 43473 ####[facility] [address] [place] [id number]) [phone] Director: Raul Amaro MD pH, U 5.5 Normal 4.5-8.0 [facility] Comment on above: Performed By: #### 1 40208 ####[facility] [address] [place] [id number]) [phone] Director: Raul Amaro MD Protein, U 30 mg/dl Abnormal Negative [facility] Comment on above: Performed By: #### 1 10122 ####[facility] [address] [place] [id number]) [phone] Director: Raul Amaro MD RBC/HPF, U 3 #/HPF Normal 0-3 [facility] Comment on above: Performed By: #### 1 81768 ####[facility] [address] [place], [place] [id number]) [phone] Director: Raul Amaro MD Specific Mccarley, U S>=1.030 Normal 1.001-1.035 [facility] Comment on above: Performed By: #### 1 76749 ####[facility] [address] [place], [place] [id number]) [phone] Director: Raul Amaro MD Squamous Epithelial Cells, U 1 #/HPF Normal [facility] Comment on above: Performed By: #### 1 01940 ####[facility] [address] [place], [place] [id number]) [phone] Director: Raul Amaro MD U MICRO Indicated Normal [facility] Comment on above: Performed By: #### 1 04343 ####[facility] [address] [place], [place] [id number]) [phone] Director: Raul Amaro MD Urobilinogen Qual, U 0.2 EU/dl Normal 0.1-1.0 mg/dl [facility] Comment on above: Result Comment: EU/d l and mg/dl are equivalent units. Performed By: #### 1 08030 ####[facility] [address] [place], [place] [id number]) [phone] Director: Raul Amaro MD WBC/HPF, U 10 #/HPF High 0-5 [facility] Comment on above: Performed By: #### 1 30808 ####[facility] [address] [place], [place] [id number]) [phone] Director: Raul Amaro MD CNOVon 06-26-2021 CNOV Office Visit ([facility] ) BRANDEN JOHNSON ([id number]) 1940 M Date Time Provider Department 06/26/21 3:40 PM KATERIN HAM [facility] During your visit today, we recorded the following information about you: Blood pressure Weight 130/68 85.3 kg Katerin Ham MD 06/26/2021 4:07 PM Signed SUBJECTIVE: Chief Complaint: Patient presents with: New Patient Blood Pressure Branden Johnson is a 81 year old male who presents for an evaluation. Concerns include: dx last year with bladder cancer, getting BCG treatments. He had remote h/o prostate cancer, treated with radiation. Also h/o atr fib and CVBA. INFD ADDITIONAL HX: No recent travel: Residence: [facility] Supply: [facility] Family Members currently living in the home: lady friend Pets in the Home: dogs. REVIEW OF SYSTEMS CONSTITUTIONAL: Negative for fever, sweats or chills, adenopathy, fatigue, anorexia or weight loss > 5 pounds. SKIN: Negative for rashes and pressure ulcers. EYES: Negative for dry eyes or irritation, vision loss and visual disturbances. HEENT: Negative for earaches, hearing loss, nose or sinus problems, snoring, dry mouth, mouth ulcers, sore throat and thrush. and Positive for edentulous CARDIOVASCULAR: Negative for chest pain or palpitations, syncope, edema and claudication. RESPIRATORY: Negative for SOB/MAR, cough or wheezing. and Positive for tobacco use GASTROINTESTINAL: Negative for heartburn or indigestion, difficulty swallowing, recent nausea or vomiting, recent abdominal pain, constipation or diarrhea and black or bloody stools. GENITOURINARY: Negative for frequent, difficult or painful urination; hematuria, vaginal bleeding and incontinence. and Positive for bladder and prostate cancer MUSCULOSKELETAL: Negative for muscle aches, arthralgia, arthritis; negative for falls and gait disorder. NEUROLOGICAL: Negative for headaches, focal weakness or numbness, seizures, unusual dizziness, faintness or loss of consciousness, and parathesias. PSYCHIATRIC: Negative for history of anxiety disorder or depression; seizures, unusual dizziness, faintness or loss of consciousness and parathesias. ALLERGIC/IMMUNOLOGIC: Negative for allergies. OTHERS: OBJECTIVE: BP 130/68 (BP Site: Left Arm, BP Position: Sitting, BP Cuff Size: Regular Adult) Wt 85.3 kg (188 lb) BMI 33.30 kg/m? ALLERGIES No Known Allergies Current Outpatient Medications Medication Sig - ubidecarenone Q-10 (COENZYME Q-10) 10 mg cap Take by mouth twice daily. - LYCOPENE ORAL Take by mouth. - POTASSIUM GLUCONATE ORAL Take by mouth. - docosahexaenoic acid/epa (FISH OIL ORAL) Take by mouth. - CHOLECALCIFEROL, VITAMIN D3, ORAL Take 100 tablets by mouth. - ASCORBIC ACID ORAL Take by mouth. - GARLIC ORAL Take 500 mg by mouth. - levETIRAcetam (KEPPRA) 750 mg tablet Take 1 tablet by mouth twice daily. - tamsulosin ER (FLOMAX) 0.4 mg cp24 Take 0.8 mg by mouth daily at bedtime. - atorvastatin (LIPITOR) 20 mg tablet Take 10 mg by mouth once daily. - ATENOLOL ORAL Take 50 mg by mouth once daily. - apixaban (ELIQUIS) 5 mg tab tab(s) Take 5 mg by mouth twice daily. - losartan (COZAAR) 100 mg tablet Take 100 mg by mouth once daily. No current facility-administered medications for this visit. PHYSICAL EXAM SKIN: Negative for rashes or ulcers, pressure ulcers, nodules or sclerosis. LYMPHATIC: Negative for adenopathy in the neck, axillae, groin, supraclavicular and auricular. EYES: Negative for sceleral icterus, EOMS fall, PEERLA, conjunctivitis; normal fundus exam. HEENT: Normal inspection of ears, nasal mucosa, and septum; normal inspection of teeth, lips, gums, oropharynx; no dental appliances; normal external canals, typanic membranes and hearing. and Abnormal edentulous NECK: Normal appearance and movements; no enlargement of thyroid. RESPIRATORY: Symmetrical chest expansion and respiratory effort; clear to ausculation and palpation; normal perussion. CARDIOVASCULAR: Negative for carotid bruits, murmurs, gallops, rubs, edema; normal pulses: femoral or pedal, PMI (no thrill), and abdominal aorta. and Positive for irreg/irreg BREAST: deferred ABDOMINAL: Soft and non-tender; Negative for hepatosplenomegaly, hernias, positive bowel sounds, hemoccult test (when indicated) OR not indicated. MUSCULOSKELETAL: Normal gait, muscle strength and tone; normal ROM, no pain crepitation or contractures; normal symmetry, no dislocation; no clubbing or cyanosis. NEUROLOGICAL: Normal cranial nerves, sensation, reflexes and strength. PSYCHIATRIC: Oriented to time, place and person; normal affect, judgement, insight and memory. GENITOURINARY: deferred ASSESSMENT/PLAN: 1. Hypertension, essential - ICD9: 401.9, ICD10: I10 (primary diagnosis) - good control - Continue current medication(s) - Recommended regular aerobic exercise. - Recommend h (more content not included)... Normal [facility] Vital Signs Date Time Vital Sign Value Performing Clinician Zehra cortez 11-05-2024 14:38-0400 Body temperature 97.81 [degF] [employer] Work Phone: [employer] 11-05-2024 14:38-0400 Diastolic blood pressure 59 mm[Hg] [employer] Work Phone: [employer] 11-05-2024 14:38-0400 Heart rate 65 /min [employer] Work Phone: [employer] 11-05-2024 14:38-0400 SaO2% (BldA) [Mass fraction] 93 % [employer] Work Phone: [employer] 11-05-2024 14:38-0400 Systolic blood pressure 130 mm[Hg] [employer] Work Phone: [employer] 11-05-2024 11:12-0400 Respiratory rate 18 /min [employer] Work Phone: [employer] 11-04-2024 17:45-0400 Body height 172.7 cm [employer] Work Phone: [employer] 11-04-2024 17:45-0400 Body mass index (BMI) [Ratio] 22.81 kg/m2 [employer] Work Phone: [employer] 11-04-2024 17:45-0400 Body weight 68.04 kg [employer] Work Phone: [employer] 08-15-2024 13:49-0400 Body temperature 97.5 [degF] Axel Watkins APRN.FUNDRAISING MANAGER Work Phone: [facility] 08-15-2024 13:49-0400 Diastolic blood pressure 50 mm[Hg] Christopher Shacklefords RIBBING MACHINE OPERATOR.FUNDRAISING MANAGER Work Phone: [facility] 08-15-2024 13:49-0400 Heart rate 83 /min Christopher Shacklefords RIBBING MACHINE OPERATOR.FUNDRAISING MANAGER Work Phone: [facility] 08-15-2024 13:49-0400 Respiratory rate 16 /min Christopher Shacklefords RIBBING MACHINE OPERATOR.FUNDRAISING MANAGER Work Phone: [facility] 08-15-2024 13:49-0400 SaO2% (BldA) [Mass fraction] 97 % Christopher Shacklefords RIBBING MACHINE OPERATOR.FUNDRAISING MANAGER Work Phone: [facility] 08-15-2024 13:49-0400 Systolic blood pressure 101 mm[Hg] Christopher Shacklefords RIBBING MACHINE OPERATOR.FUNDRAISING MANAGER Work Phone: [facility] 07-10-2024 11:18-0400 Body temperature 97.9 [degF] Christopher Shacklefords RIBBING MACHINE OPERATOR.FUNDRAISING MANAGER Work Phone: [facility] 07-10-2024 11:18-0400 Diastolic blood pressure 67 mm[Hg] Christopher Shacklefords RIBBING MACHINE OPERATOR.FUNDRAISING MANAGER Work Phone: [facility] 07-10-2024 11:18-0400 Heart rate 83 /min Christopher Shacklefords RIBBING MACHINE OPERATOR.FUNDRAISING MANAGER Work Phone: [facility] 07-10-2024 11:18-0400 Respiratory rate 18 /min Christopher Shacklefords RIBBING MACHINE OPERATOR.FUNDRAISING MANAGER Work Phone: [facility] 07-10-2024 11:18-0400 SaO2% (BldA) [Mass fraction] 96 % Christopher Shacklefords RIBBING MACHINE OPERATOR.FUNDRAISING MANAGER Work Phone: [facility] 07-10-2024 11:18-0400 Systolic blood pressure 127 mm[Hg] Christopher Shacklefords RIBBING MACHINE OPERATOR.FUNDRAISING MANAGER Work Phone: [facility] 06-26-2024 12:10-0400 Body temperature 97.9 [degF] Christopher Shacklefords RIBBING MACHINE OPERATOR.FUNDRAISING MANAGER Work Phone: [facility] 06-26-2024 12:10-0400 Diastolic blood pressure 68 mm[Hg] Christopher Shacklefords RIBBING MACHINE OPERATOR.FUNDRAISING MANAGER Work Phone: [facility] 06-26-2024 12:10-0400 Heart rate 88 /min Christopher Shacklefords RIBBING MACHINE OPERATOR.FUNDRAISING MANAGER Work Phone: [facility] 06-26-2024 12:10-0400 Respiratory rate 20 /min Christopher Shacklefords RIBBING MACHINE OPERATOR.FUNDRAISING MANAGER Work Phone: [facility] 06-26-2024 12:10-0400 SaO2% (BldA) [Mass fraction] 97 % Christopher Shacklefords RIBBING MACHINE OPERATOR.FUNDRAISING MANAGER Work Phone: [facility] 06-26-2024 12:10-0400 Systolic blood pressure 124 mm[Hg] Christopher Shacklefords RIBBING MACHINE OPERATOR.FUNDRAISING MANAGER Work Phone: [facility] 06-12-2024 11:37-0500 Body temperature 98.1 [degF] Christopher Shacklefords RIBBING MACHINE OPERATOR.FUNDRAISING MANAGER Work Phone: [facility] 06-12-2024 11:37-0500 Diastolic blood pressure 74 mm[Hg] Christopher Shacklefords RIBBING MACHINE OPERATOR.FUNDRAISING MANAGER Work Phone: [facility] 06-12-2024 11:37-0500 Heart rate 68 /min Christopher Shacklefords RIBBING MACHINE OPERATOR.FUNDRAISING MANAGER Work Phone: [facility] 06-12-2024 11:37-0500 Respiratory rate 18 /min Christopher Shacklefords RIBBING MACHINE OPERATOR.FUNDRAISING MANAGER Work Phone: [facility] 06-12-2024 11:37-0500 SaO2% (BldA) [Mass fraction] 95 % Christopher Shacklefords RIBBING MACHINE OPERATOR.FUNDRAISING MANAGER Work Phone: [facility] 06-12-2024 11:37-0500 Systolic blood pressure 126 mm[Hg] Christopher Shacklefords RIBBING MACHINE OPERATOR.FUNDRAISING MANAGER Work Phone: [facility] Encounters Encounter Date Encounter Type Care Provider Facility Start: 11-04-2024 End: 11-05-2024 [facility] Start: 11-04-2024 End: 11-05-2024 Evaluation and management of inpatient Yanelis Shankar DO Work Phone: [facility] Clinical Decision Unit CDU Comment on above: Fall, initial encoun ter (Primary Dx); Bradycardia; Idiopathic hypotension Start: 09-13-2024 End: 09-13-2024 ambulatory Galilea LEYVA -[facility] [address] Start: 09-13-2024 End: 09-13-2024 Departed Referred Galilea Adkins -[facility] - [address] Start: 09-13-2024 End: 09-13-2024 ambulatory Galilea LEYVA Facility:[facility] Start: 09-06-2024 End: 09-12-2024 Evaluation and management of inpatient FELICIANO ORTEGA Facility:[facility] Start: 08-15-2024 End: 08-25-2024 Snf SANDRA Watkins APRN.CNP Work Phone: [facility] Comment on above: Hypertension, essent ial (Primary Dx); Cerebrovascular accident (CVA), unspecified mechanism (HCC); Seizure disorder (HCC); Centrilobular emphysema (HCC) Start: 07-10-2024 End: 07-28-2024 Snf CP Axel Watkins APRN.CNP Work Phone: [facility] Comment on above: Hypertension, essent ial (Primary Dx); Paroxysmal atrial fibrillation (HCC); Seizure disorder (HCC); Primary insomnia Start: 06-27-2024 End: 06-27-2024 Admission to [facility] Shirin Carter [facility] Behavioral Health Intake Start: 06-27-2024 End: 06-27-2024 ambulatory Shirin Carter [facility] Behavioral Health Intake Comment on above: Suicidal Ideation Start: 06-27-2024 End: 07-04-2024 [facility] Start: 06-26-2024 End: 06-27-2024 Emergency department patient visit KATERIN HAM Facility:[facility] Start: 06-26-2024 End: 07-27-2024 ambulatory Axel Watkins APRN.CNP [facility] [employer] Comment on above: Primary insomnia (Pr imary Dx) Start: 06-12-2024 End: 07-26-2024 Snf CP Axel Watkins APRN.FUNDRAISING MANAGER Work Phone: [facility] Comment on above: Seizure disorder (HC C) (Primary Dx); Cerebrovascular accident (CVA), unspecified mechanism (HCC); Malnutrition of mild degree (HCC); Hypertension, essential Start: 06-06-2024 End: 07-12-2024 Snf CP Axel Borja DO Work [facility] [employer] Comment on above: Seizure disorder (HC C) (Primary Dx); Cerebrovascular accident (CVA), unspecified mechanism (HCC); Hyperlipidemia, mixed; Hypertension, essential; Paroxysmal atrial fibrillation (HCC); Centrilobular emphysema (HCC); Malignant neoplasm of urinary bladder, unspecified site (HCC); Prostate cancer (HCC) Start: 04-06-2024 End: 04-06-2024 Telephone encounter Vicente Palomo RN Cardiology Start: 03-21-2024 End: 04-03-2024 Telephone encounter Michael Lewis MD Work Phone: [place] [facility] Adult Start: 03-13-2024 End: 03-23-2024 Evaluation and management of inpatient ANA A THUESTAD Facility:[facility] Start: 07-13-2023 End: 07-14-2023 ambulatory BUTCH MAY MD Facility:[id number] Start: 06-10-2022 ambulatory May Becker RN Ambul atory Care Management Comment on above: ACLeatha VALENZUELA RN ( Suspected condition review per request of payer. /) Start: 06-26-2021 End: 06-26-2021 ambulatory KATERIN HAM Facility:[facility] Procedures Date Procedure Procedure Detail Performing Clinician Start: 11-05-2024 Glucose quantitative blood xcpt reagent strip Ginger Cruz DO Work Phone: Start: 11-05-2024 Glucose quantitative blood xcpt reagent strip Ginger Cruz DO Work Phone: Start: 11-05-2024 Echo tthrc r-t 2d w/ wom-mode compl spec&colr d Te Rhoades SET UP [employer] Work Phone: Start: 11-05-2024 Glucose quantitative blood xcpt reagent strip Ginger LiJhonathan RamCruz DO Work Phone: Start: 11-05-2024 Basic metabolic pane l calcium total Jerome Ramirez RIBBING MACHINE OPERATOR - FUNDRAISING MANAGER Work Phone: Start: 11-05-2024 Manual differential performed [Presence] in Blood Jerome Ramirez RIBBING MACHINE OPERATOR - FUNDRAISING MANAGER Work Phone: Start: 11-04-2024 Glucose quantitative blood xcpt reagent strip Marianna Longo MD Work Phone: Start: 11-04-2024 Radiologic examinati on knee 3 views Te Rhoades [employer] Work Phone: Start: 11-04-2024 Assay of troponin quantitative [employer] Work Phone: Start: 11-04-2024 Basic metabolic pane l calcium total [employer] Work Phone: Start: 11-04-2024 Radiologic exam ches t single view [employer] Work Phone: Start: 11-04-2024 Ecg routine ecg w/le ast 12 lds trcg only w/o i&r Yanelis [employer] Work Phone: Start: 11-04-2024 Ct cervical spine w/ o contrast material [employer] Work Phone: Start: 11-04-2024 Ct head/brain w/o co ntrast material [employer] Work Phone: Start: 09-13-2024 Prostate specific an tigen measurement Galilea LEYVA Comment on above: This test was perfor med using the [employer] tPSA method. Measured values of a patient sample can vary depending on the testing procedure used. PSA values determined on patient samples by different testing procedures cannot be used interchangeably. If there is a change in PSA assays while monitoring therapy, sequential testing should be performed to confirm baseline values. Start: 09-13-2024 Vitamin D, 25-hydrox y measurement Galilea LEYVA Comment on above: Vitamin D StatusDefi ciency: <20 ng/mL (50nmol/L)Insufficiency: 20-30 ng/mL (50-75 nmol/L)Sufficiency: 30-100 ng/mL (75-250 nmol/L)Toxicity: >100 ng/mL (>250 nmol/L) Start: 03-14-2024 Phan CHEN Plan of Treatment Date Care Activity Detail Author Start: 05-26-2028 Urine microalbumin profile DTaP,Tdap,Td Vaccine (2 - Td or Tdap) [facility] Start: 07-04-2027 Diabetes Screening Diabetes Screenin [facility] Start: 06-28-2027 [facility] Start: 03-22-2027 [facility] Start: 05-07-2025 [facility] Start: 12-18-2024 Influenza vaccination Influenza Vacc ine (#1) [facility] Start: 04-19-2024 Advance Directive Discussion Advance Directive Discussion [facility] Start: 04-19-2024 Medicare Advantage A nnual Wellness Visit Medicare Advantage Annual Wellness Visit [facility] Start: 12-19-2023 COVID-19 Vaccine ( season) COVID-19 Vaccine ( season) [facility] Start: 12-19-2023 Covid-19 Vaccine () Covid-19 Vaccine () [facility] Start: 04-19-2023 Advance Directive Discussion Advance Directive Discussion [facility] Start: 06-26-2022 ANNUAL PCP TEAM PARENT AIDE JUDITH DISEASE VISIT ANNUAL PCP TEAM CHRONIC DISEASE VISIT [facility] Start: 04-19-2022 ADVANCE DIRECTIVE DISCUSSION ADVANCE DIRECTIVE DISCUSSION [facility] Start: 04-19-2022 DEPRESSION ASSESSMENT DEPRESSION ASS ESSMENT [facility] Start: 12-18-2021 Influenza vaccination INFLUENZA (#1) [facility] Start: 05-01-2020 DIABETES SCREEN DIABETES SCREEN [facility] Start: 2017 RSV Immunization for Adults (1 - 1-dose 75+ series) RSV Immunization for Adults (1 - 1-dose 75+ series) [facility] Start: 12-26-2015 Pneumococcal Vaccine : 50+ (2 of 2 - PPSV23) Pneumococcal Vaccine: 50+ (2 of 2 - PPSV23) [facility] Start: 2007 PNEUMOCOCCAL: 65+ (1 - PCV) PNEUMOCOCCAL: 65+ (1 - PCV) [facility] Start: 01-24-1992 SHINGRIX VACCINE (1 of 2) SHINGRIX V ACCINE (1 of 2) [facility] Start: 01-24-1992 Zoster Vaccines (1 of 2) Zoster Vacc ann (1 of 2) [facility] Start: 1961 DTaP/Tdap/Td Vaccine s (1 - Tdap) DTaP/Tdap/Td Vaccines (1 - Tdap) [facility] Start: 1961 Pneumococcal Vaccine : 50+ Years (1 of 2 - PCV) Pneumococcal Vaccine: 50+ Years (1 of 2 - PCV) [facility] Start: 1961 Urine microalbumin profile DTAP,TDAP,TD (1 - Tdap) [facility] Start: 01-24-1960 Anxiety Screening Anxiety Screening [facility] Start: 01-24-1960 BP CONTROLLED (<130/80) BP CONTROLLE D (<130/80) [facility] Start: 01-24-1960 Depression Screening Depression Scre ening [facility] Start: 01-24-1960 Spirometry Spirometry [facility] Start: 1940 COVID-19 VACCINE (#1) COVID-19 VACCI NE (#1) [facility] Start: 1940 Lipid panel Lipid Panel [facility] Payers Date Payer Category Payer Self-pay 2024 Medicare HMO MMO MEDICARE ADV ANTAGE [id number] 2024 Unknown [id number] 2024 Medicaid [id number] 2024 Medicaid [id number] 2024 Medicare (Managed Care) [id number]. [id number] 2019 Medicare [id number] 2019 Medicare [id number] 1940 Unknown [id number] Private Health Insurance Unknown Unknown [id number] Social History Date Type Detail Facility Start: 04-29-2017 Tobacco smoking status NVIS Tobacco smoking consumption unknown [facility] Start: 04-29-2017 Tobacco use and exposure Smokeless tobacco non-user [facility] Start: 06-26-2021 Alcohol intake Current non-drinker of alcohol (finding) [facility] Start: 1940 Sex Assigned At Not on file [facility] Start: 03-13-2024 End: 11-04-2024 History of Social function [facility] judith Work Phone: Start: 03-13-2024 End: 11-04-2024 [facility] Utilities [facility] Work Phone: Has the [facility], or [employer] threatened to shut off services in your home in past 12Mo No [facility] Work Phone: (I/We) worried wheth er (my/our) food would run out before (I/we) got money to buy more. Never true [facility] In the past 12 month s, has lack of transportation kept you from medical appointments or from getting medications? No [facility] Start: 11-04-2024 Sex Male (finding) [facility] Start: 1940 Sex Assigned At Male [facility] Functional Status Date Assessment Result Facility 11-04-2024 Patient Health [facility] ionnaire 2 item (PHQ-2) [Reported] [facility] 03-23-2024 Are you deaf, or do you have serious difficulty hearing No 03/23/2024 3:09 PM Chantell Frank, ANDRE No [facility] 03-23-2024 Are you blind, or do you have serious difficulty seeing, even when wearing glasses No 03/23/2024 3:09 PM Chantell Frank, ANDRE No [facility] 03-23-2024 Do you have serious difficulty walking or climbing stairs Yes 03/23/2024 3:09 PM Chantell Frank, ANDRE Yes [facility] 03-23-2024 Do you have difficul ty dressing or bathing Yes 03/23/2024 3:09 PM Chantell Frank, ANDRE Yes [facility] 03-23-2024 Because of a physica l, mental, or emotional condition, do you have difficulty doing errands alone such as visiting a physician's office or shopping Yes 03/23/2024 3:09 PM Chantell Frank, ANDRE Yes [facility] Mental Status Date Assessment Result [facility] 03-23-2024 Because of a physica l, mental, or emotional condition, do you have serious difficulty concentrating, remembering, or making decisions Yes 03/23/2024 3:09 PM Chantell Frank, ANDRE Yes [facility] Clinical Notes 04-29-2017 to 11-05-2024 Care Coordination - Pretty Mcmanus RN - 11/05/2024 2:37 PM EDTCare Coordination - Pretty Mcmanus RN - 11/05/2024 2:37 PM EDTCare Coordination - Pretty Mcmanus RN - 11/05/2024 2:37 PM EDTDischarge Instructions Note Date & Type Note Facility 11-05-2024 Note Formatting of this n ote might be different from the original. Pt to dc back to facility today - Facility aware and RN to call report and set up transportation. SYED is complete by provider and myself. CM placed call to son earlier in the day, discussed discharge - he is aware that father is returning to facility today. [facility] 11-05-2024 Note Formatting of this n ote might be different from the original. Pt to dc back to facility today - Facility aware and RN to call report and set up transportation. SYED is complete by provider and myself. CM placed call to son earlier in the day, discussed discharge - he is aware that father is returning to facility today. [facility] 11-05-2024 Miscellaneous Notes Pt to dc back to facility today - Facility aware and RN to call report and set up transportation. SYED is complete by provider and myself. CM placed call to son earlier in the day, discussed discharge - he is aware that father is returning to facility today. Pt is from [facility] - Return placed in [facility] - Pt is from [facility] and is in LTC. He can return when stable. Number to call report is: [phone] - [address] Problem: Cardiovascular - Adult Goal: Maintains optimal cardiac output and hemodynamic stability Outcome: Progressing Goal: Absence of cardiac dysrhythmias or at baseline Outcome: Progressing Problem: Cardiovascular - Adult Goal: Maintains optimal cardiac output and hemodynamic stability Outcome: Progressing Goal: Absence of cardiac dysrhythmias or at baseline Outcome: Progressing Problem: Skin/Tissue Integrity - Adult Goal: Skin integrity remains intact Outcome: Progressing Problem: Musculoskeletal - Adult Goal: Return ADL status to a safe level of function Outcome: Progressing Problem: Metabolic/Fluid and Electrolytes - Adult Goal: Electrolytes maintained within normal limits Outcome: Progressing Goal: Hemodynamic stability and optimal renal function maintained Outcome: Progressing documented in this encounter [facility] 11-05-2024 Nurse Note Patient has active discharge order, but echocardiogram has not yet resulted. 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 [facility] 11-05-2024 Nurse Note Patient has active discharge order, but echocardiogram has not yet resulted. 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 documented in this encounter [facility] 11-05-2024 Note Attestation signed by Ginger Cruz DO at 11/05/2024 2:18 PM I have evaluated the patient and reviewed the case with the SET UP MECHANIC [employer] W[employer]ING MACHINES. I agree with the current plan of care including the workup, evaluation, management, and diagnosis. Care plan has been discussed. The documentation below has been reviewed and edited as needed to reflect the findings of my evaluation. Greater than 51% of the 15 minute face to face encounter was spent discussing/counseling the patient regarding the care plan for this patient. The patient was seen and examined independently and relevant data reviewed by myself. A full chart review was performed. Ginger Cruz D.O. [facility] Summary Branden Johnson : 1940 Admit date: 11/04/2024 Discharge date: 11/05/2024 Admitting Physician: Marianna Longo MD Primary Care Physician: Galilea Adkins MD Visit Status: Observation Code Status: DNR-CCA BRIEF HOSPITAL COURSE: Admitting HPI Branden is a 84 y.o. male with past medical history below who presents with chief complaint listed above. Patient presents to [facility] ER via EMS as a level 3 trauma. Patient had a fall at his facility. Patient states that he got up too quick and got twisted in his walker when he bent over and fell. Patient does admit to hitting his head. Patient does take Eliquis for atrial fibrillation. Patient denies any loss of consciousness or any altered mentation since fall. ER workup was significant for BUN 28, troponin negative less than 3 x 2, BNP elevated at 2117, hemoglobin 9.9, TSH 2.23, CT cervical spine and CT head negative for any acute abnormalities, chest x-ray no acute cardiopulmonary disease. Patient currently complains of left knee pain and headache. Patient denies any chest pain, chest tightness, shortness of breath, nausea, vomiting, diarrhea, lightheadedness, weakness, dizziness, fatigue, fever, or chills. Will admit for further evaluation and management. Patient was admitted under observation. He had no acute events on telemetry. EKG on admission was atrial fibrillation and slow ventricular response. He remained in A-fib during hospitalization. At time of discharge heart rate mid 70s to low 80s. Metoprolol discontinued. He will continue cardizem as prescribed. Knee pain resolved. X-ray 3 view negative for acute findings. Orthostatic vital signs negative. Patient was ambulated in the a.m. with out difficulty. He resides in assisted living and wishes to be discharged to home. He will follow-up with the [facility] upon discharge. Discharged in stable condition. Discharge time greater than 30 minutes Acute, acute on chronic, unstable/uncontrolled chronic problems/discharge diagnoses: Atrial fibrillation with slow ventricular response S/p mechanical fall Closed head injury on eliquis Acute right knee pain Stable chronic problems affecting care, new non-acute discharge diagnoses: Hyperlipidemia Depression Type 2 diabetes Seizure disorder GERD BPH Medical History[1] Procedures: none Consults: None Discharge Instructions: Diet: Dietary Orders (From admission, onward) Start Ordered 11/04/241848 Adult diet Regular Diet effective now Question: Diet type Answer: Regular 11/04/241848 Activity: as tolerated Recommended Outpatient Tests: Disposition: Patient discharged in stable condition to Home. Greater than 31 minutes spent discharging the patient and coming up with patient discharge plan. Vitals: BP 143/69 (BP Location: Right arm, Patient Position: Sitting) Pulse 71 Temp 36.2 ?C (97.1 ?F) (Temporal) Resp 18 Ht 5' 8 (1.727 m) Wt 150 lb (68 kg) SpO2 93% BMI 22.81 kg/m? Pulse Ox: SpO2 Av.1 % Min: 92 % Max: 97 % Supplemental O2: Physical Exam Constitutional: Appearance: Normal appearance. HENT: Head: Normocephalic. Mouth/Throat: Mouth: Mucous membranes are moist. Eyes: Pupils: Pupils are equal, round, and reactive to light. Cardiovascular: Rate and Rhythm: Normal rate and regular rhythm. Pulmonary: Effort: Pulmonary effort is normal. Abdominal: General: Abdomen is flat. Bowel sounds are normal. Palpations: Abdomen is soft. Musculoskeletal: Cervical back: Normal range of motion and neck supple. Skin: General: Skin is warm. Capillary Refill: Capillary refill takes less than 2 seconds. Neurological: General: No focal deficit present. Mental Status: He is alert and oriented to person, place, and time. Psychiatric: Mood and Affect: Mood normal. LABS: Recent Labs 11/04/24 1551 11/05/24 0536 NA 138 137 K 4.7 3.8 CL 108* 109* CO2 20* 20* BUN 28* 19 CREATININE 0.77 0.65* GLUCOSE 134* 143* CALCIUM 8.1* 7.8* Recent Labs 11/04/24 1551 11/05/24 05 (more content not included)... [facility] 11-05-2024 Hospital course Narrative Hospitalist Discharge Summary Brandenmaureen Johnson : 1940 Admit date: 11/04/2024 Discharge date: 11/05/2024 Admitting Physician: Marianna Longo MD Primary Care Physician: Galilea Adkins MD Visit Status: Observation Code Status: DNR-CCA BRIEF HOSPITAL COURSE: Admitting HPI Branden is a 84 y.o. male with past medical history below who presents with chief complaint listed above. Patient presents to [facility] ER via EMS as a level 3 trauma. Patient had a fall at his facility. Patient states that he got up too quick and got twisted in his walker when he bent over and fell. Patient does admit to hitting his head. Patient does take Eliquis for atrial fibrillation. Patient denies any loss of consciousness or any altered mentation since fall. ER workup was significant for BUN 28, troponin negative less than 3 x 2, BNP elevated at 2117, hemoglobin 9.9, TSH 2.23, CT cervical spine and CT head negative for any acute abnormalities, chest x-ray no acute cardiopulmonary disease. Patient currently complains of left knee pain and headache. Patient denies any chest pain, chest tightness, shortness of breath, nausea, vomiting, diarrhea, lightheadedness, weakness, dizziness, fatigue, fever, or chills. Will admit for further evaluation and management. Patient was admitted under observation. He had no acute events on telemetry. EKG on admission was atrial fibrillation and slow ventricular response. He remained in A-fib during hospitalization. At time of discharge heart rate mid 70s to low 80s. Metoprolol discontinued. He will continue cardizem as prescribed. Knee pain resolved. X-ray 3 view negative for acute findings. Orthostatic vital signs negative. Patient was ambulated in the a.m. with out difficulty. He resides in assisted living and wishes to be discharged to home. He will follow-up with the [facility] upon discharge. Discharged in stable condition. Discharge time greater than 30 minutes Acute, acute on chronic, unstable/uncontrolled chronic problems/discharge diagnoses: Atrial fibrillation with slow ventricular response S/p mechanical fall Closed head injury on eliquis Acute right knee pain Stable chronic problems affecting care, new non-acute discharge diagnoses: Hyperlipidemia Depression Type 2 diabetes Seizure disorder GERD BPH Medical History[1] Procedures: none Consults: None Discharge Instructions: Diet: Dietary Orders (From admission, onward) Start Ordered 11/04/241848 Adult diet Regular Diet effective now Question: Diet type Answer: Regular 11/04/241848 Activity: as tolerated Recommended Outpatient Tests: Disposition: Patient discharged in stable condition to Home. Greater than 31 minutes spent discharging the patient and coming up with patient discharge plan. Vitals: BP 143/69 (BP Location: Right arm, Patient Position: Sitting) Pulse 71 Temp 36.2 C (97.1 F) (Temporal) Resp 18 Ht 5' 8 (1.727 m) Wt 150 lb (68 kg) SpO2 93% BMI 22.81 kg/m Pulse Ox: SpO2 Av.1 % Min: 92 % Max: 97 % Supplemental O2: Physical Exam Constitutional: Appearance: Normal appearance. HENT: Head: Normocephalic. Mouth/Throat: Mouth: Mucous membranes are moist. Eyes: Pupils: Pupils are equal, round, and reactive to light. Cardiovascular: Rate and Rhythm: Normal rate and regular rhythm. Pulmonary: Effort: Pulmonary effort is normal. Abdominal: General: Abdomen is flat. Bowel sounds are normal. Palpations: Abdomen is soft. Musculoskeletal: Cervical back: Normal range of motion and neck supple. Skin: General: Skin is warm. Capillary Refill: Capillary refill takes less than 2 seconds. Neurological: General: No focal deficit present. Mental Status: He is alert and oriented to person, place, and time. Psychiatric: Mood and Affect: Mood normal. LABS: Recent Labs 11/04/24 1551 11/05/24 0536 NA 138 137 K 4.7 3.8 CL 108* 109* CO2 20* 20* BUN 28* 19 CREATININE 0.77 0.65* GLUCOSE 134* 143* CALCIUM 8.1* 7.8* Recent Labs 11/04/24 1551 11/05/24 0536 WBC 5.7 6.6 RBC 3.10* 3.04* HGB 9.9* 9.7* HCT 29.3* 29.2* MCV 94.5 96.1 MCH 31.9 31.9 MCHC 33.8 33.2 RDW 15.2* 14.8 PLT 233 220 MPV 10.8 10.8 Discharge Medications: Medication List CONTINUE taking these medications ascorbic acid 500 MG ER capsule Commonly known as: Vitamin C atorvastatin 20 MG tablet Commonly known as: Lipitor cholecalciferol 25 MCG tablet Commonly known as: Vitamin D-3 coenzyme Q-10 50 MG capsule dilTIAZem CD 240 MG 24 hr capsule Commonly known as: Cardizem CD Eliquis 5 MG tablet Generic drug: apixaban escitalopram 10 MG tablet Commonly known as: Lexapro ipratropium-albuterol 20-100 MCG/ACT inhaler Commonly known as: Combivent Respimat lactase 3000 units tablet Commonly known as: Lactaid levETIRAcetam 500 MG tablet Commonly known as: Keppra Lycopene 10 MG capsule metFORMIN 500 MG tablet Commonly known as: Glucophage OMEGA 3-6-9 COMPLEX PO pantoprazole 40 MG EC tablet Commonly known as: ProtoNix polyvinyl alcohol 1.4 % ophthalmic solution Commonly known as: Liquifilm Tears potassium chloride CR 8 MEQ ER tablet Commonly known as: Klor-Con tamsulosin 0.4 MG 24 hr capsule Commonly known as: Flomax STOP taking these medications metoprolol tartrate 50 MG tablet Commonly known as: Lopressor Recommended Follow-up: Galilea Adkins MD [address] [place] [address] [phone] [place] [phone] Schedule an appointment as soon as possible for a visit Complexity of Follow up: [] Moderate Complexity: follow up within 7-14 calendar days (95441) [x] Severe Complexity: follow up within 7 calendar days (92093) Follow up Testing, Pending results or Referrals at Transitional Care Visit: [x] yes [] no Instructions to MA: Please call patient on day after discharge (must document patient contacted within 2 business days of discharge). Follow up questions for MA: 1. Did you get medications filled and taking them as instructed from discharge? 2. Are you following your discharge instructions from your hospital stay? 3. Please confirm patient is scheduled for a follow up appointment within the above time frame. Signed: Cathy Bob Division of Hospitalist Medicine Acute care [facility] 11/05/2024, 12:26 PMDischarge Summary Branden Johnson : 1940 ADMIT DATE: 11/04/2024 DISCHARGE DATE: 11/05/2024 PRIMARY CARE PHYSICIAN: Galilea Adkins VISIT STATUS: Observation CODE STATUS: DNR-CCA DISCHARGE DIAGNOSES: Principal Problem: Bradycardia DISCHARGE MEDICATIONS: Medication List CONTINUE taking these medications ascorbic acid 500 MG ER capsule Commonly known as: Vitamin C atorvastatin 20 MG tablet Commonly known as: Lipitor cholecalciferol 25 MCG tablet Commonly known as: Vitamin D-3 coenzyme Q-10 50 MG capsule dilTIAZem CD 240 MG 24 hr capsule Commonly known as: Cardizem CD Eliquis 5 MG tablet Generic drug: apixaban escitalopram 10 MG tablet Commonly known as: Lexapro ipratropium-albuterol 20-100 MCG/ACT inhaler Commonly known as: Combivent Respimat lactase 3000 units tablet Commonly known as: Lactaid levETIRAcetam 500 MG tablet Commonly known as: Keppra Lycopene 10 MG capsule metFORMIN 500 MG tablet Commonly known as: Glucophage OMEGA 3-6-9 COMPLEX PO pantoprazole 40 MG EC tablet Commonly known as: ProtoNix polyvinyl alcohol 1.4 % ophthalmic solution Commonly known as: Liquifilm Tears potassium chloride CR 8 MEQ ER tablet Commonly known as: Klor-Con tamsulosin 0.4 MG 24 hr capsule Commonly known as: Flomax STOP taking these medications metoprolol tartrate 50 MG tablet Commonly known as: Lopressor DIET: Adult diet Regular ACTIVITY: No restriction. COMPLEXITY OF FOLLOW UP: [x] Moderate Complexity: follow up within 7-14 calendar days (57090) [] Severe Complexity: follow up within 7 calendar days (34238) FOLLOW UP TESTING, PENDING RESULTS OR REFERRALS AT TRANSITIONAL CARE VISIT: [] Yes [x] No PENDING STUDIES: none DISPOSITION: Home Assisted living FACILITY/HOME CARE AGENCY NAME: assisted living Follow up with Galilea Adkins MD [address] [place] [address] [phone] [facility] [id number] Schedule an appointment as soon as possible for a visit [facility] will [facility] with [facility] INSTRUCTIONS TO MA/SW: Please call patient on day after discharge (must document patient contacted within 2 business days of discharge). FOLLOW UP QUESTIONS FOR MA/SW: 1. Did you get medications filled and taking them as instructed from discharge? 2. Are you following your discharge instructions from your hospital stay? 3. Please confirm patient is scheduled for a follow up appointment within the above time frame. DISCHARGE TIME: > 30 minutes SIGNED: Cathy Bob 11/05/2024, 12:26 PM [1] History reviewed. No pertinent past medical history. Cosigned by Ginger Cruz DO at 11/05/2024 2:18 PM EDT Associated attestation - Ginger Cruz DO - 11/05/2024 2:18 PM EDT I have evaluated the patient and reviewed the case with the SET UP MECHANIC [employer] W[employer]ING MACHINES. I agree with the current plan of care including the workup, evaluation, management, and diagnosis. Care plan has been discussed. The documentation below has been reviewed and edited as needed to reflect the findings of my evaluation. Greater than 51% of the 15 minute face to face encounter was spent discussing/counseling the patient regarding the care plan for this patient. The patient was seen and examined independently and relevant data reviewed by myself. A full chart review was performed. Ginger Cruz D.O. Division of Hospitalist Medicine [facility] documented in this encounter [facility] 11-05-2024 Note Formatting of this n ote might be different from the original. Pt is from [facility] in [facility] - Pt is from the [facility] and is in LTC. He can return when stable. Number to call report is: [phone] - [address]. [facility] 11-05-2024 Note Formatting of this n ote might be different from the original. [facility] placed in [facility] - Pt is from the [facility] and is in LTC. He can return when stable. Number to call report is: [phone] - [address] [facility] 11-05-2024 Note Problem: Cardiovascu lar - Adult Goal: Maintains optimal cardiac output and hemodynamic stability Outcome: Progressing Goal: Absence of cardiac dysrhythmias or at baseline Outcome: Progressing [facility] 11-05-2024 Plan of care note Problem: Cardiovascular - Adult Goal: Maintains optimal cardiac output and hemodynamic stability Outcome: Progressing Goal: Absence of cardiac dysrhythmias or at baseline Outcome: Progressing [facility] 11-05-2024 Plan of care note Problem: Cardiovascular - Adult Goal: Maintains optimal cardiac output and hemodynamic stability Outcome: Progressing Goal: Absence of cardiac dysrhythmias or at baseline Outcome: Progressing Problem: Skin/Tissue Integrity - Adult Goal: Skin integrity remains intact Outcome: Progressing Problem: Musculoskeletal - Adult Goal: Return ADL status to a safe level of function Outcome: Progressing Problem: Metabolic/Fluid and Electrolytes - Adult Goal: Electrolytes maintained within normal limits Outcome: Progressing Goal: Hemodynamic stability and optimal renal function maintained Outcome: Progressing Health 11-04-2024 Note Attending History an d Physical Admit Date: 11/04/2024 PCP: Galilea Adkins MD CHIEF COMPLAINT: Fall Reason for Admission: Fall/ Bradycardia History Obtained From: patient HISTORY OF PRESENT ILLNESS: Branden is a 84 y.o. male with past medical history below who presents with chief complaint listed above. Patient presents to [facility] ER via EMS as a level 3 trauma. Patient had a fall at his facility. Patient states that he got up too quick and got twisted in his walker when he bent over and fell. Patient does admit to hitting his head. Patient does take Eliquis for atrial fibrillation. Patient denies any loss of consciousness or any altered mentation since fall. ER workup was significant for BUN 28, troponin negative less than 3 x 2, BNP elevated at 2117, hemoglobin 9.9, TSH 2.23, CT cervical spine and CT head negative for any acute abnormalities, chest x-ray no acute cardiopulmonary disease. Patient currently complains of left knee pain and headache. Patient denies any chest pain, chest tightness, shortness of breath, nausea, vomiting, diarrhea, lightheadedness, weakness, dizziness, fatigue, fever, or chills. Will admit for further evaluation and management. Past Medical History: Medical History[1] Past Surgical History: Surgical History[2] Social History: Social History Socioeconomic History Marital status: Spouse name: Not on file Number of children: Not on file Years of education: Not on file Highest education level: Not on file Occupational History Not on file Tobacco Use Smoking status: Not on file Smokeless tobacco: Not on file Substance and Sexual Activity Alcohol use: Not on file Drug use: Not on file Sexual activity: Not on file Other Topics Concern Not on file Social History Narrative Not on file Social Drivers of Health Financial Resource Strain: Not on file Food Insecurity: No Food Insecurity (09/07/2024) Received from [facility] Hunger Vital Sign Worried About Running Out of Food in the Last Year: Never true Ran Out of Food in the Last Year: Never true Transportation Needs: No Transportation Needs (09/07/2024) Received from [facility] PRAPARE - Transportation Lack of Transportation (Medical): No Lack of Transportation (Non-Medical): No Physical Activity: Not on file Stress: Not on file Social Connections: Not on file Intimate Partner Violence: Not on file Housing Stability: Unknown (09/07/2024) Received from [facility] Housing Stability Vital Sign Unable to Pay for Housing in the Last Year: No Number of Times Moved in the Last Year: Not on file Homeless in the Last Year: No Family History: Family History[3] Medications Prior to Admission: Current Medications[4] Allergies: Allergies[5] REVIEW OF SYSTEMS: A focused review of systems was performed and is negative except as stated in above HPI. Vitals: BP 123/60 (BP Location: Right arm, Patient Position: Sitting) Pulse 64 Temp 36.2 ?C (97.2 ?F) (Temporal) Resp 18 Ht 5' 8 (1.727 m) Wt 150 lb (68 kg) SpO2 92% BMI 22.81 kg/m? BMI Classification: Normal Weight (BMI 18.5-24.9) Pulse Ox: SpO2 Av.8 % Min: 92 % Max: 97 % Supplemental O2: PHYSICAL EXAM: Physical Exam Vitals and nursing note reviewed. HENT: Head: Comments: Bruise noted to left forhead Nose: Nose normal. Mouth/Throat: Mouth: Mucous membranes are moist. Pharynx: Oropharynx is clear. No oropharyngeal exudate or posterior oropharyngeal erythema. Eyes: General: Right eye: No discharge. Left eye: No discharge. Cardiovascular: Rate and Rhythm: Regular rhythm. Bradycardia present. Pulses: Normal pulses. Heart sounds: Normal heart sounds. Pulmonary: Effort: Pulmonary effort is normal. Breath sounds: Normal breath sounds. Abdominal: General: Bowel sounds are normal. Palpations: Abdomen is soft. Musculoskeletal: General: Swelling and signs of injury present. Right lower leg: Edema present. Left lower leg: Edema present. Comments: Brusing left knee and forhead Skin: General: Skin is warm and dry. Capillary Refill: Capillary refill takes less than 2 seconds. Findings: Bruising present. Neurological: General: No focal deficit present. Mental Status: He is alert and oriented to person, place, and time. Mental status is at baseline. Psychiatric: Mood and Affect: Mood normal. Behavior: Behavior normal. Thought Content: Thought content normal. Judgment: Judgment normal. DATA: CBC: Recent Labs 11/04/24 1551 WBC 5.7 RBC 3.10* HGB 9.9* HCT 29.3* MCV 94.5 RDW 15.2* PLT 233 BMP: Recent Labs 11/04/24 1551 NA 138 K 4.7 CL 108* CO2 20* BUN 28* CREATININE 0.77 GLUCOSE 134* CALCIUM 8.1* ANIONGAP 10 LIVER PROFILE:No results for input(s): AST, ALT, BILITOT, ALKPHOS, PROT in the last 72 hours. No lab exists for component: LABALBU PT/INR: No results for input(s): PROTIME (more content not included)... [facility] 11-04-2024 History of Presen t illness Narrative Branden Johnson was ordered Lycopene. Per [facility] Policy #6344, herbals and certain dietary supplements are automatically discontinued for the duration of the hospital stay. The product remains on the Home Medication List for resumption at discharge unless specifically discontinued by the prescriber. If there is a need for acute treatment using this agent, please contact the pharmacy for further assistance. Jose Martin Harris, PharmEryn 11/04/24 6:53 PM documented in this encounter [facility] 11-04-2024 Emergency department Note [facility] 11-04-2024 Emergency department Note EMERGENCY DEPARTMENT ENCOUNTER Pt Name: Branden Johnson Birthdate 1940 Date of evaluation: 11/04/2024 ED Provider: Isabel Lester MD CHIEF COMPLAINT Chief Complaint Patient presents with Fall Ems states pt was bending over walker moved fell hit head neg loc HISTORY OF PRESENT ILLNESS (Location/Symptom, Timing/Onset, Context/Setting, Quality, Duration, Modifying Factors, Severity) Note limiting factors. I wore appropriate PPE for the entirety of this encounter. Branden Johnson is a 84 y.o. who presents to the emergency department as a level 3 trauma activation geriatric fall on eliquis. primary and secondary survey was done in the trauma bay. He endorsed that earlier today, he woke up from his sleep and bended over to fern picker something where he lost his balance and then tripped and hit his head. On arrival the patient did not endorse any significant pain in any location, denies any loss of consciousness, shortness of breath, chest pain, nausea or vomiting. He endorsed that he does take Eliquis due to history of A-fib. Nursing Notes were reviewed. Limitations to history: None Outside historians: EMS REVIEW OF SYSTEMS Pertinent positives and negatives as per HPI. PAST MEDICAL HISTORY No past medical history on file. SURGICAL HISTORY No past surgical history on file. CURRENT MEDICATIONS Previous Medications APIXABAN (ELIQUIS) 5 MG TABLET Take 5 mg by mouth 2 times daily. ASCORBIC ACID (VITAMIN C) 500 MG ER CAPSULE Take 500 mg by mouth 2 times daily. ATORVASTATIN (LIPITOR) 20 MG TABLET Take 20 mg by mouth daily. CHOLECALCIFEROL (VITAMIN D-3) 25 MCG TABLET Take 25 mcg by mouth 2 times daily. COENZYME Q-10 50 MG CAPSULE Take 100 mg by mouth daily. DILTIAZEM CD (CARDIZEM CD) 240 MG 24 HR CAPSULE Take 240 mg by mouth daily. ESCITALOPRAM (LEXAPRO) 10 MG TABLET Take 10 mg by mouth daily. IPRATROPIUM-ALBUTEROL (COMBIVENT RESPIMAT) 20-100 MCG/ACT INHALER Inhale 1 puff 2 times daily. LACTASE (LACTAID) 3000 UNITS TABLET Take 9,000 Units by mouth 3 times daily (with meals). LEVETIRACETAM (KEPPRA) 500 MG TABLET Take 500 mg by mouth 2 times daily. LYCOPENE 10 MG CAPSULE Take 25 mg by mouth daily. METFORMIN (GLUCOPHAGE) 500 MG TABLET Take 500 mg by mouth daily (with breakfast). METOPROLOL TARTRATE (LOPRESSOR) 50 MG TABLET Take 50 mg by mouth 2 times daily. OMEGA 3-6-9 FATTY ACIDS (OMEGA 3-6-9 COMPLEX PO) Take 400 mg by mouth 2 times daily. PANTOPRAZOLE (PROTONIX) 40 MG EC TABLET Take 40 mg by mouth every morning (before breakfast). Do not crush, chew, or split. POLYVINYL ALCOHOL (LIQUIFILM TEARS) 1.4 % OPHTHALMIC SOLUTION Administer 1 drop into both eyes daily. POTASSIUM CHLORIDE CR (KLOR-CON) 8 MEQ ER TABLET Take 8 mEq by mouth 2 times daily. Do not crush, chew, or split. TAMSULOSIN (FLOMAX) 0.4 MG 24 HR CAPSULE Take 0.8 mg by mouth daily. ALLERGIES Patient has no known allergies. FAMILY HISTORY No family history on file. SOCIAL HISTORY Social History Socioeconomic History Marital status: Social Drivers of Health Food Insecurity: No Food Insecurity (09/07/2024) Received from [facility] Vital Sign Worried About Running Out of Food in the Last Year: Never true Ran Out of Food in the Last Year: Never true Transportation Needs: No Transportation Needs (09/07/2024) Received from [facility] - Transportation Lack of Transportation (Medical): No Lack of Transportation (Non-Medical): No Housing Stability: Unknown (09/07/2024) Received from [facility] Housing Stability Vital Sign Unable to Pay for Housing in the Last Year: No Homeless in the Last Year: No SCREENINGS [place] Coma Scale Best Eye Response: Spontaneous Best Verbal Response: Oriented Best Motor Response: Follows commands [place] Coma Scale Score: 15 PHYSICAL EXAM ED Triage Vitals Temp Pulse Resp BP -- -- -- -- SpO2 Temp src Heart Rate Source Patient Position -- -- -- -- BP Location FiO2 (%) -- -- Physical Exam Vitals and Nursing notes reviewed General: No acute distress HEENT: Normocephalic, grossly atraumatic on trauma examination nontender on palpation Cardiac: Bradycardic, irregularly irregular Pulmonary: Bilateral equal breath sounds. No wheezes, rales or crackles Abdomen: Soft, non-distended, non-tender on palpation. No guarding or rebound tenderness MSK: ROM grossly intact, no obvious injury or deformities. Skin: No obvious new lacerations, abrasion or hematoma Neuro: Alert during interview, following commands. Psych: Acting and behaving appropriately. Lines/Tubes/Devices: None DIAGNOSTIC RESULTS RADIOLOGY (Per Emergency Physician): Interpretation per the Radiologist below, if available at the time of this note: XR chest 1 view Final Result No acute cardiopulmonary disease. Report Dictated on Electronically Signed By: Buthc Barclay MD Electronically Signed Date/Time: 11/04/2024 4:[address] head wo IV contrast Final Result 1. No CT evidence of acute intracranial abnormality. 2. No CT evidence of acute cervical spine fracture or posttraumatic subluxation. 3. Age indeterminant depressed nasal bone fractures. 4. Nonacute intracranial findings discussed above. Report Dictated on Electronically Signed By: Pepito Hutson MD Electronically Signed Date/Time: 11/04/2024 3:[address] cervical spine wo IV contrast Final Result 1. No CT evidence of acute intracranial abnormality. 2. No CT evidence of acute cervical spine fracture or posttraumatic subluxation. 3. Age indeterminant depressed nasal bone fractures. 4. Nonacute intracranial findings discussed above. Report Dictated on Electronically Signed By: Pepito Hutson MD Electronically Signed Date/Time: 11/04/2024 3:01 PM EDT LABS: Labs Reviewed BASIC METABOLIC PANEL - Abnormal Result Value SODIUM 138 POTASSIUM 4.7 CHLORIDE 108 (*) CARBON DIOXIDE 20 (*) UREA NITROGEN 28 (*) CREATININE 0.77 GLUCOSE 134 (*) CALCIUM 8.1 (*) ANION GAP 10 eGFR 89.4 CBC WITH AUTO DIFFERENTIAL - Abnormal Auto WBC 5.7 RBC 3.10 (*) Hemoglobin 9.9 (*) Hematocrit 29.3 (*) MCV 94.5 MCH 31.9 MCHC 33.8 RDW 15.2 (*) Platelets 233 MPV 10.8 nRBC 0.0 Neutrophils Relative 54.1 Lymphocytes Relative 29.2 Monocytes Relative 11.5 Eosinophils Relative 3.8 Basophils Relative 0.5 Immature Grans % 0.9 Neutrophils Absolute 3.1 Lymphocytes Absolute 1.7 Monocytes Absolute 0.7 Eosinophils Absolute 0.2 Basophils Absolute 0.0 Immature Grans Absolute 0.1 (*) NT PRO BNP - Abnormal NT PRO BNP 2,117 (*) HIGH SENSITIVITY TROPONIN, SERIAL BASELINE - Normal Troponin HS Serial Baseline <3 THYROID STIMULATING HORMONE - Normal THYROID STIMULATING HORMONE 2.23 HIGH SENSITIVITY TROPONIN, SERIAL, SECOND TEST All other labs were within normal range or not returned as of this dictation. EMERGENCY DEPARTMENT COURSE and DIFFERENTIAL DIAGNOSIS/MDM: Vitals: Vitals: 11/04/24 1442 11/04/24 1529 11/04/24 1745 BP: 119/70 (!) 107/49 110/54 Pulse: 52 55 (!) 49 Resp: 18 19 18 SpO2: 97% 95% 95% Weight: 68 kg (150 lb) Height: 1.727 m (5' 8) This patient presented with concern(s) for Kavita fall. Patient's charts were reviewed and the a clinical examination was done at bedside. Primary and secondary survey were done at trauma bay. No acute concerns or require intervention immediately. Patient obtained CT head cervical spine which did not show any new acute intracranial process or fractures. C-collar was cleared. Patient was about to be ambulated and discharged when vitals showed that he remained bradycardic and hypotensive. At that time given his vitals, additional labs and EKG were obtained. EKG did not show any acute ischemic changes, skipped beat likely in the setting of a heart block, likely a Mobitz. Patient Dors that he does take blood pressure medication, the hypotension is likely secondary to the metoprolol as well as the Cardizem. At this time the patient was given a fluid bolus as well as reevaluated. On follow evaluation, CBC without any acute leukocytosis or anemia, BMP did not show any acute renal or electrolyte abnormality. BNP was elevated, but is roughly at baseline from chart review. TSH unremarkable. Trope unremarkable. Chest x-ray also did not show any acute concerns. Radiologist noted calcification on thoracic aorta. Ultimately discussed with patient at bedside plan for admission for possible observation at this time due to concerns for vitals. The patient remains asymptomatic, son at bedside. Explained risks and concerns at this current moment due to his vitals. Vasopressors were deferred at the time due to the patient showing good signs of perfusion on examination as well as remaining asymptomatic. Ultimately did not require acute intervention at bedside at that moment. Discussed the case with [facility] providers. Patient was admitted to the CDU for observation. At the time of admission, patient's vitals did improve minimally MAP in the 70s, but still remains bradycardic. Diagnoses as of 11/04/241809 Fall, initial encounter Bradycardia Idiopathic hypotension ED Medications managed: Medications sodium chloride 0.9 % bolus 1,000 mL (0 mL IntraVENous Stopped 11/04/24 174) PROCEDURES: Unless otherwise noted below, none Procedures FINAL IMPRESSION 1. Fall, initial encounter 2. Bradycardia 3. Idiopathic hypotension DISPOSITION Observation 11/04/2024 05:57:23 PM PATIENT REFERRED TO: Galilea Adkins MD [address] [place] [address] [id number] [place] [id number] Schedule an appointment as soon as possible for a visit DISCHARGE MEDICATIONS: New Prescriptions No medications on file (Comment: Please note this report has been produced using speech recognition software and may contain errors related to that system including errors in grammar, punctuation, and spelling, as well as words and phrases that may be inappropriate. If there are any questions or concerns please feel free to contact the dictating provider for clarification.) Isabel Lester MD (electronically signed) Emergency Medicine Provider Isabel Lester MD Resident 07/19/25 1810 Cosigned by Yanelis Shankar DO at 11/05/2024 4:03 PM EDT documented in this encounter [facility] 11-04-2024 Hospital Discharg e instructions Isabel Lester MD - 11/04/2024 3:21 PM EDT You presented in the emergency department after falling today. You were evaluated in our emergency department, and obtained imaging to make sure there were no acute injuries to your brain. We did not find any acute bleeds or fx on your CT. We did however find old age-indeterminant fx of your nose. Ultimately your C-collar was cleared and you were able to walk with your walker. Please come back to the ED if you fall again, lose consciousness, become nauseated or have vomiting. Cathycorine Bob - 11/05/2024 9:07 AM EDT Images from the original note were not included. Continuity of Care Form Patient Name: Branden Johnson : 1940 Admit date: 11/04/2024 Discharge date: 11/05/24 Code Status Order: DNR-CCA Advance Directives: N Admitting Physician: Marianna Longo MD PCP: Galilea Adkins MD Discharging Nurse: Torrey Silva Hospital Unit/Room#: [id number]/[id number] A Discharging Unit Emergency Contact: Extended Emergency Contact Information Primary Emergency Contact: Philipp Johnson Mobile Relation: Son Secondary Emergency Contact: Aurea Johnson Mobile Relation: [id number] Past Surgical History: History reviewed. No pertinent surgical history. Immunization History: There is no immunization history on file for this patient. Active Problems: Medical Problems Problem List * (Principal) Bradycardia Isolation/Infection: No active isolations No active infections Nurse Assessment: Last Vital Signs: BP 137/68 (BP Location: Right arm, Patient Position: Sitting) Pulse 90 Temp 36.2 C (97.1 F) (Temporal) Resp 20 Ht 1.727 m (5' 8) Wt 68 kg (150 lb) SpO2 92% BMI 22.81 kg/m Last documented pain score (0-10 scale): Last Weight: Wt Readings from Last 1 Encounters: 11/04/24 68 kg (150 lb) Mental Status: SYED Patient Mental Status: oriented and alert IV Access: SYED IV Access: None Nursing Mobility/ADLs: Walking Minimal assistance Transfer Minimal assistance Bathing Minimal assistance Dressing Minimal assistance Toileting Minimal assistance Feeding Minimal assistance Pipe Line Repairer Minimal assistance Med Delivery yes Wound Care Documentation and Therapy: Elimination: Continence: Bowel: yes Bladder: no Urinary Catheter: None Colostomy/Ileostomy/Ileal Conduit: None Date of Last BM: 11/04/24 No intake or output data in the 24 hours ending 11/05/24 0905 No intake/output data recorded. Safety Concerns: at risk for falls Impairments/Disabilities: none Nutrition Therapy: Current Nutrition Therapy: Oral diet: general Routes of Feeding: oral Liquids: thin liquids Daily Fluid Restriction: no Last Modified Barium Swallow with Video (Video Swallowing Test): not done Treatments at the Time of Hospital Discharge: Respiratory Treatments: n/a Oxygen Therapy: is not on home oxygen therapy. Ventilator: No ventilator support Rehab Therapies: physical therapy and occupational therapy Weight Bearing Status/Restrictions: no restriction Other Medical Equipment (for information only, NOT a DME order): none Other Treatments: n/a Patient's personal belongings (please select all that are sent with patient): none RN SIGNATURE: MANAGEMENT/SOCIAL WORK SECTION Observation Status Date: 11/04/24 Discharging to Facility/ Agency Name: [facility] Address:[address] [place] [address] Fax: Dialysis Facility (if applicable) Name: Address: Dialysis Schedule: Phone: Fax: Promotions Assistant/Office Mail Clerk signature: ICIAN SECTION Name: Branden Johnson Prognosis: good Condition at Discharge: stable Rehab Potential (if transferring to Rehab): good Recommended Labs or Other Treatments After Discharge: none The individual is being admitted to a nursing facility directly from an [facility] or a unit of a hospital that is not operated by or licensed by [facility] under section 5119.14 or 5160-3-15.1 5 The individual requires the level of services provided by a nursing facility for the condition for which he or she was treated in the hospital and, Physician Certification: I certify the above information and transfer of Branden Johnson is necessary for the continuing treatment of the diagnosis listed and that he requires assisted living for greater than 30 days. Update Admission H&P: No change in H&P PHYSICIAN SIGNATURE: The following attachments cannot be sent through Care Everywhere.Preventing Falls in Older Adults (Singaporean)documented in this encounter [facility] 11-04-2024 Physician Emergency department Note EMERGENCY DEPARTMENT ENCOUNTER Pt Name: Branden Johnson Birthdate 1940 Date of evaluation: 11/04/2024 ED Provider: Isabel Lester MD CHIEF COMPLAINT Chief Complaint Patient presents with Fall Ems states pt was bending over walker moved fell hit head neg loc HISTORY OF PRESENT ILLNESS (Location/Symptom, Timing/Onset, Context/Setting, Quality, Duration, Modifying Factors, Severity) Note limiting factors. I wore appropriate PPE for the entirety of this encounter. Branden Johnson is a 84 y.o. who presents to the emergency department as a level 3 trauma activation geriatric fall on [facility]. primary and secondary survey was done in the trauma bay. He endorsed that earlier today, he woke up from his sleep and bended over to fern picker something where he lost his balance and then tripped and hit his head. On arrival the patient did not endorse any significant pain in any location, denies any loss of consciousness, shortness of breath, chest pain, nausea or vomiting. He endorsed that he does take Eliquis due to history of A-fib. Nursing Notes were reviewed. Limitations to history: None Outside historians: EMS REVIEW OF SYSTEMS Pertinent positives and negatives as per HPI. PAST MEDICAL HISTORY No past medical history on file. SURGICAL HISTORY No past surgical history on file. CURRENT MEDICATIONS Previous Medications APIXABAN (ELIQUIS) 5 MG TABLET Take 5 mg by mouth 2 times daily. ASCORBIC ACID (VITAMIN C) 500 MG ER CAPSULE Take 500 mg by mouth 2 times daily. ATORVASTATIN (LIPITOR) 20 MG TABLET Take 20 mg by mouth daily. CHOLECALCIFEROL (VITAMIN D-3) 25 MCG TABLET Take 25 mcg by mouth 2 times daily. COENZYME Q-10 50 MG CAPSULE Take 100 mg by mouth daily. DILTIAZEM CD (CARDIZEM CD) 240 MG 24 HR CAPSULE Take 240 mg by mouth daily. ESCITALOPRAM (LEXAPRO) 10 MG TABLET Take 10 mg by mouth daily. IPRATROPIUM-ALBUTEROL (COMBIVENT RESPIMAT) 20-100 MCG/ACT INHALER Inhale 1 puff 2 times daily. LACTASE (LACTAID) 3000 UNITS TABLET Take 9,000 Units by mouth 3 times daily (with meals). LEVETIRACETAM (KEPPRA) 500 MG TABLET Take 500 mg by mouth 2 times daily. LYCOPENE 10 MG CAPSULE Take 25 mg by mouth daily. METFORMIN (GLUCOPHAGE) 500 MG TABLET Take 500 mg by mouth daily (with breakfast). METOPROLOL TARTRATE (LOPRESSOR) 50 MG TABLET Take 50 mg by mouth 2 times daily. OMEGA 3-6-9 FATTY ACIDS (OMEGA 3-6-9 COMPLEX PO) Take 400 mg by mouth 2 times daily. PANTOPRAZOLE (PROTONIX) 40 MG EC TABLET Take 40 mg by mouth every morning (before breakfast). Do not crush, chew, or split. POLYVINYL ALCOHOL (LIQUIFILM TEARS) 1.4 % OPHTHALMIC SOLUTION Administer 1 drop into both eyes daily. POTASSIUM CHLORIDE CR (KLOR-CON) 8 MEQ ER TABLET Take 8 mEq by mouth 2 times daily. Do not crush, chew, or split. TAMSULOSIN (FLOMAX) 0.4 MG 24 HR CAPSULE Take 0.8 mg by mouth daily. ALLERGIES Patient has no known allergies. FAMILY HISTORY No family history on file. SOCIAL HISTORY Social History Socioeconomic History Marital status: Social Drivers of Health Food Insecurity: No Food Insecurity (09/07/2024) Received from [facility] Vital Sign Worried About Running Out of Food in the Last Year: Never true Ran Out of Food in the Last Year: Never true Transportation Needs: No Transportation Needs (09/07/2024) Received from [facility] - Transportation Lack of Transportation (Medical): No Lack of Transportation (Non-Medical): No Housing Stability: Unknown (09/07/2024) Received from [facility] Housing Stability Vital Sign Unable to Pay for Housing in the Last Year: No Homeless in the Last Year: No SCREENINGS [place] Coma Scale Best Eye Response: Spontaneous Best Verbal Response: Oriented Best Motor Response: Follows commands [place] Coma Scale Score: 15 PHYSICAL EXAM ED Triage Vitals Temp Pulse Resp BP -- -- -- -- SpO2 Temp src Heart Rate Source Patient Position -- -- -- -- BP Location FiO2 (%) -- -- Physical Exam Vitals and Nursing notes reviewed General: No acute distress HEENT: Normocephalic, grossly atraumatic on trauma examination nontender on palpation Cardiac: Bradycardic, irregularly irregular Pulmonary: Bilateral equal breath sounds. No wheezes, rales or crackles Abdomen: Soft, non-distended, non-tender on palpation. No guarding or rebound tenderness MSK: ROM grossly intact, no obvious injury or deformities. Skin: No obvious new lacerations, abrasion or hematoma Neuro: Alert during interview, following commands. Psych: Acting and behaving appropriately. Lines/Tubes/Devices: None DIAGNOSTIC RESULTS RADIOLOGY (Per Emergency Physician): Interpretation per the Radiologist below, if available at the time of this note: XR chest 1 view Final Result No acute cardiopulmonary disease. Report Dictated on Electronically Signed By: Butch Barclay MD Electronically Signed Date/Time: 11/04/2024 4:[address] head wo IV contrast Final Result 1. No CT evidence of acute intracranial abnormality. 2. No CT evidence of acute cervical spine fracture or posttraumatic subluxation. 3. Age indeterminant depressed nasal bone fractures. 4. Nonacute intracranial findings discussed above. Report Dictated on Electronically Signed By: Pepito Hutson MD Electronically Signed Date/Time: 11/04/2024 3:[address] cervical spine wo IV contrast Final Result 1. No CT evidence of acute intracranial abnormality. 2. No CT evidence of acute cervical spine fracture or posttraumatic subluxation. 3. Age indeterminant depressed nasal bone fractures. 4. Nonacute intracranial findings discussed above. Report Dictated on Electronically Signed By: Pepito Hutson MD Electronically Signed Date/Time: 11/04/2024 3:01 PM EDT LABS: Labs Reviewed BASIC METABOLIC PANEL - Abnormal Result Value SODIUM 138 POTASSIUM 4.7 CHLORIDE 108 (*) CARBON DIOXIDE 20 (*) UREA NITROGEN 28 (*) CREATININE 0.77 GLUCOSE 134 (*) CALCIUM 8.1 (*) ANION GAP 10 eGFR 89.4 CBC WITH AUTO DIFFERENTIAL - Abnormal Auto WBC 5.7 RBC 3.10 (*) Hemoglobin 9.9 (*) Hematocrit 29.3 (*) MCV 94.5 MCH 31.9 MCHC 33.8 RDW 15.2 (*) Platelets 233 MPV 10.8 nRBC 0.0 Neutrophils Relative 54.1 Lymphocytes Relative 29.2 Monocytes Relative 11.5 Eosinophils Relative 3.8 Basophils Relative 0.5 Immature Grans % 0.9 Neutrophils Absolute 3.1 Lymphocytes Absolute 1.7 Monocytes Absolute 0.7 Eosinophils Absolute 0.2 Basophils Absolute 0.0 Immature Grans Absolute 0.1 (*) NT PRO BNP - Abnormal NT PRO BNP 2,117 (*) HIGH SENSITIVITY TROPONIN, SERIAL BASELINE - Normal Troponin HS Serial Baseline <3 THYROID STIMULATING HORMONE - Normal THYROID STIMULATING HORMONE 2.23 HIGH SENSITIVITY TROPONIN, SERIAL, SECOND TEST All other labs were within normal range or not returned as of this dictation. EMERGENCY DEPARTMENT COURSE and DIFFERENTIAL DIAGNOSIS/MDM: Vitals: Vitals: 11/04/24 1442 11/04/24 1529 11/04/24 1745 BP: 119/70 (!) 107/49 110/54 Pulse: 52 55 (!) 49 Resp: 18 19 18 SpO2: 97% 95% 95% Weight: 68 kg (150 lb) Height: 1.727 m (5' 8) This patient presented with concern(s) for Kavita fall. Patient's charts were reviewed and the a clinical examination was done at bedside. Primary and secondary survey were done at trauma bay. No acute concerns or require intervention immediately. Patient obtained CT head cervical spine which did not show any new acute intracranial process or fractures. C-collar was cleared. Patient was about to be ambulated and discharged when vitals showed that he remained bradycardic and hypotensive. At that time given his vitals, additional labs and EKG were obtained. EKG did not show any acute ischemic changes, skipped beat likely in the setting of a heart block, likely a Mobitz. Patient Dors that he does take blood pressure medication, the hypotension is likely secondary to the metoprolol as well as the Cardizem. At this time the patient was given a fluid bolus as well as reevaluated. On follow evaluation, CBC without any acute leukocytosis or anemia, BMP did not show any acute renal or electrolyte abnormality. BNP was elevated, but is roughly at baseline from chart review. TSH unremarkable. Trope unremarkable. Chest x-ray also did not show any acute concerns. Radiologist noted calcification on thoracic aorta. Ultimately discussed with patient at bedside plan for admission for possible observation at this time due to concerns for vitals. The patient remains asymptomatic, son at bedside. Explained risks and concerns at this current moment due to his vitals. Vasopressors were deferred at the time due to the patient showing good signs of perfusion on examination as well as remaining asymptomatic. Ultimately did not require acute intervention at bedside at that moment. Discussed the case with [facility] providers. Patient was admitted to the CDU for observation. At the time of admission, patient's vitals did improve minimally MAP in the 70s, but still remains bradycardic. Diagnoses as of 11/04/241809 Fall, initial encounter Bradycardia Idiopathic hypotension ED Medications managed: Medications sodium chloride 0.9 % bolus 1,000 mL (0 mL IntraVENous Stopped 11/04/241741) PROCEDURES: Unless otherwise noted below, none Procedures FINAL IMPRESSION 1. Fall, initial encounter 2. Bradycardia 3. Idiopathic hypotension DISPOSITION Observation 11/04/2024 05:57:23 PM PATIENT REFERRED TO: Galilea Adkins MD [address] [place] [address] [address] [facility] [id number] Schedule an appointment as soon as possible for a visit DISCHARGE MEDICATIONS: New Prescriptions No medications on file (Comment: Please note this report has been produced using speech recognition software and may contain errors related to that system including errors in grammar, punctuation, and spelling, as well as words and phrases that may be inappropriate. If there are any questions or concerns please feel free to contact the dictating provider for clarification.) Isabel Lester MD (electronically signed) Emergency Medicine Provider Isabel Lester MD Resident 11/04/241809 Cosigned by Yanelis Shankar DO at 11/05/2024 4:03 PM EDT [facility] 09-11-2024 Note [facility] 09-10-2024 Note [facility] 09-09-2024 Note [facility] 09-08-2024 Note [facility] 09-08-2024 Note [facility] 09-07-2024 Note [facility] 09-06-2024 Note SARS-COV-2 (AGENT OF COVID-19) RNA: Not detected INFLUENZA A RNA: Not detected INFLUENZA B RNA: Not detected RESPIRATORY SYNCYTIAL VIRUS (RSV) RNA: Not detected [facility] Comment on above: Performed By: #### [id number] ####[facility]ORY[facility]IA [id number] [address] [place] 08-15-2024 History of Presen t illness Narrative Progress Note LTC Facilities: [facility] Subjective Chief complaint:Branden Johnson 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 Patient seen and examined at bedside. No issues per nursing. Patient has no acute complaints. Objective Vital Signs: BP 101/50 Pulse 83 Temp 36.4 C (97.5 F) Resp 16 SpO2 97% Physical Exam Constitutional: General: He is not in acute distress. HENT: Head: Normocephalic. Pulmonary: Effort: Pulmonary effort is normal. Musculoskeletal: Cervical back: Neck supple. Neurological: Mental Status: He is alert. Assessment & Plan Problem List Items Addressed This Visit Neurology Stroke (cerebrum) (HCC) Continue current medications Seizure disorder (HCC) Continue current medications Cardiovascular Hypertension, essential - Primary Continue current medications Pulmonary Centrilobular emphysema (HCC) Continue current medications On supplemental O2 Medication, treatments and labs reviewed Continue medications and treatments as listed in EMR Scribe Attestation I,Evy Evans attest that this documentation has been prepared under the direction and in the presence of Axel Watkins APRN.CNP. Provider Attestation- Scribe documentation All medical record entries made by the Scribe were at my direction and personally dictated by me. I have reviewed the chart and agree that the record accurately reflects my personal performance of the history, physical exam, discussion and plan. Axel Watkins APRN.CNP documented in this encounter [facility] 07-10-2024 History of Presen t illness Narrative Progress Note LTC Facilities: [facility] Subjective Chief complaint:Branden Johnson is a 84 year old male who is a [facility] care patient being seen and evaluated for monthly HPI: HPI Patient presents for general medical care and f/u. Patient seen and examined at bedside. No issues per nursing. Patient has no acute complaints. Objective Vital Signs: BP 127/67 Pulse 83 Temp 36.6 C (97.9 F) Resp 18 SpO2 96% Physical Exam Constitutional: General: He is not in acute distress. HENT: Head: Normocephalic. Pulmonary: Effort: Pulmonary effort is normal. Musculoskeletal: Cervical back: Neck supple. Neurological: Mental Status: He is alert. Assessment & Plan Problem List Items Addressed This Visit Neurology Seizure disorder (HCC) Continue current medications Insomnia Melatonin Cardiovascular Hypertension, essential - Primary Continue current medications Paroxysmal atrial fibrillation (HCC) Continue current medications Medication, treatments and labs reviewed Continue medications and treatments as listed in EMR Scribe Attestation I,Evy Evans attest that this documentation has been prepared under the direction and in the presence of Axel Watkins APRN.CNP. Provider Attestation- Scribe documentation All medical record entries made by the Scribe were at my direction and personally dictated by me. I have reviewed the chart and agree that the record accurately reflects my personal performance of the history, physical exam, discussion and plan. 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) Care per psych team mood stable Dvt ppx: not needed mobile Hx a fib : eliquis apical irreg rate stable On cardizem and lopressor, parameters on meds as diastolic stable Hx cva -no apparent residual, he states had endart per notes in 09/14/2012 Monitor labs and vitals -improved diastolic 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 HLD: statin DM2: diet controlled , no meds for this hgba1c level 6.5 , cc diet, on metformin, glucose ok Hypokalemia: resolved with supplement BPH: flomax sanctura , voiding well Asthma: duoneb no wheezes Malnutrition of mild degree (HCC) Only 25% intake supplements DC today Active VTE Orders: Anticoagulant AND Antiplatelet Medications (From admission, onward) Start Dose Route Frequency Last Action Ordered Stop 06/27/24 1130 apixaban 5 mg tab(s) (ELIQUIS) 5 mg ORAL 2 TIMES DAILY Given, 07/04 0918 06/27/24 1125 -- 06/27/24 1215 ACTIVITY - MOBILIZE PATIENT ([place]) SUBJECTIVE: Pt is seen and examined. No new issues. OBJECTIVE: Current Facility-Administered Medications Medication Dose Route Frequency Provider Last Rate Last Admin furosemide 40 mg tab(s) (LASIX) 40 mg ORAL DAILY PRN Latisha Clark APRN.CNP metFORMIN 500 mg tab(s) (GLUCOPHAGE) 500 mg ORAL DAILY WITH BREAKFAST Latisha Clark APRN.FUNDRAISING MANAGER 500 mg at 07/04/24 0918 escitalopram oxalate 10 mg tab(s) (LEXAPRO) 10 mg ORAL DAILY Mary Jane Cruz APRN.FUNDRAISING MANAGER 10 mg at 07/04/24 0918 Potassium Chloride 8 mEq tab(s) (SLOW-K) 8 mEq ORAL BID Latisha Clark APRN.FUNDRAISING MANAGER 8 mEq at 07/04/24 0918 apixaban 5 mg tab(s) (ELIQUIS) 5 mg ORAL BID Mary Jane Cruz APRN.FUNDRAISING MANAGER 5 mg at 07/04/2418 atorvastatin 20 mg tab(s) (LIPITOR) 20 mg ORAL DAILY Mary Jane Cruz APRN.FUNDRAISING MANAGER 20 mg at 07/04/24 09 metoprolol tartrate (short acting) 100 mg tab(s) (LOPRESSOR) 100 mg ORAL q 12 H Latisha Clark APRN.FUNDRAISING MANAGER 100 mg at 07/04/24 09 ondansetron orally disintegrating 4 mg tab(s) (ZOFRAN ODT) 4 mg ORAL q 6 H PRN Mary Jane Cruz APRN.FUNDRAISING MANAGER pantoprazole DR 40 mg tab(s) (PROTONIX) 40 mg ORAL DAILY (6 AM) Mary Jane Cruz APRN.FUNDRAISING MANAGER 40 mg at 07/04/24 0746 levETIRAcetam 500 mg tab(s) (KEPPRA) 500 mg ORAL BID Mary Jane Cruz APRN.FUNDRAISING MANAGER 500 mg at 07/04/24 0918 tamsulosin 0.8 mg cap(s) (FLOMAX) 0.8 mg ORAL AT BEDTIME Mary Jane Cruz APRN.FUNDRAISING MANAGER 0.8 mg at 07/03/24 2155 trospium 20 mg tab(s) (SANCTURA) 20 mg ORAL BID AC Mary Jane Cruz APRN.FUNDRAISING MANAGER 20 mg at 07/04/24 0746 ascorbic acid (vitamin C) 500 mg tab(s) (VITAMIN C) 500 mg ORAL BID Mary Jane Cruz APRN.FUNDRAISING MANAGER 500 mg at 07/04/24 0918 cholecalciferol 1,000 Units tab(s) (VITAMIN D3) 1,000 Units ORAL BID Mary Jane Cruz, RIBBING MACHINE OPERATOR.FUNDRAISING MANAGER 1,000 Units at 07/04/24 0918 dilTIAZem CD 360 mg cap(s) (CARDIZEM CD, CARTIA XT) 360 mg ORAL DAILY Latisha Clark, RIBBING MACHINE OPERATOR.FUNDRAISING MANAGER 360 mg at 07/04/24 0918 acetaminophen 650 mg tab(s) (TYLENOL) 650 mg ORAL q 6 H PRN Savanah Dill MD aluminum-magnesium hydroxide-simethicone 200-200-20 mg/5 mL 30 mL 30 mL ORAL q 4 H PRN Savanah Dill MD magnesium hydroxide 400 mg/5 mL 30 mL (MOM) 30 mL ORAL DAILY PRN Savanah Dill MD ipratropium-albuterol 3 mL nebulizer solution (DUONEB) 3 mL INHALATION BID Savanah Dill MD 3 mL at 07/04/24 0840 VITAL SIGNS: Patient Vitals for the past 24 hrs: BP Temp Temp src Pulse Resp SpO2 07/04/24 0846 -- -- -- 73 16 -- 07/04/24 0840 -- -- -- 71 16 100 % 07/04/24 0824 116/55 36.4 ?C (97.5 ?F) Oral 91 17 94 % 07/03/24 2153 129/74 -- -- 103 -- -- 07/03/24 1927 (!) 115/47 36.7 ?C (98.1 ?F) Oral 100 16 91 % 07/03/24 1852 -- -- -- 72 20 -- 07/03/24 1844 -- -- -- 72 20 95 % PHYSICAL EXAM: General: Awake and Alert, in no distress Head - Normocephalic, atraumatic Cardiac: S1S2 wnl, No MGR Lungs: Clear to auscultation, no rales Abdomen: Soft, non-tender Extremities: No obvious deformity DATA: Diagnostic tests reviewed for today's visit: CBC with diff: WBC 6.68 07/03/2024 RBC 3.32 07/03/2024 Hemoglobin 10.4 07/03/2024 Hematocrit 31.4 07/03/2024 MCV 94.6 07/03/2024 MCH 31.3 07/03/2024 MCHC 33.1 07/03/2024 RDW-CV 14.8 07/03/2024 Platelet Count 252 07/03/2024 MPV 10.7 07/03/2024 Neut% 58.5 06/28/2024 Lymph% 26.9 06/28/2024 Hughes% 11.2 06/28/2024 Eosin% 2.1 06/28/2024 Baso% 0.5 06/28/2024 Abs Neut (ANC) 4.53 06/28/2024 Abs Hughes 0.87 06/28/2024 Abs Eosin 0.16 06/28/2024 Abs Baso 0.04 06/28/2024 Glucose (mg/dL) Date Value 07/03/2024 100 05/01/2017 110 Potassium (mmol/L) Date Value 07/03/2024 3.7 05/01/2017 4.0 Sodium (mmol/L) Date Value 07/03/2024 139 05/01/2017 143 Chloride (mmol/L) Date Value 07/04/19 (more content not included)... 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 Estimated length of stay: Adequate for Discharge. Interdisciplinary Treatment Plan Date Initiated: 06/28/24 Time Initiated: 1104 Patient Participation in Initial Treatment Plan: No Patient unable to participate due to : Mental status Other Participants: N/A Strengths/Assets: Stable living situation, Social support, Articulates thoughts and feelings clearly Limitations: Cognitive impairment, Lack of motivation for treatment Precautions indicated: Routine Precautions Individualized problems: Mood disorder Problem - Discharge Needs Date Initiated: 06/28/24 Time Initiated: 1105 Discharge Needs: Resolve acute symptoms through medication management, Patient/Family will participate in the development of the Discharge Aftercare Plan, Assess for appropriate level of care Interventions - Nursing: Administer medications as indicated and monitor patient for effect daily, Obtain baseline level of functioning on admission, Provide education to the patient and/or family about the disease process and management as appropriate daily and as needed, Provide non-judgmental supportive, empathetic and comprehensive trauma informed care daily and as needed, Encourage patient participation in milieu activities daily and as needed, Provide a quiet, restful environment to promote sleep/rest daily and as needed, Monitor nutritional intake daily, Assess for escalating behavior and utilize de-escalation skills as needed, Assist with developing positive coping behaviors daily and as needed, Assess for signs of escalating emotions and help identify ways to appropriately express feelings as needed, Assist with activities of daily living, utilizing any necessary assistive devices daily and as needed, Usetherapeutic communication skills to develop patient trust and a nurse-patient relationship daily and as needed Interventions - Social Work: Assess for appropriate level of care and initiate referral upon admission or as needed, Assess Social Determinants of Health upon admission or as needed, Develop aftercare plan Interventions - Therapy: Educate on/promote the utilization of Community Resources daily and as needed Interventions - Pharmacy: N/A Post discharge referrals: Psychiatry Identify next level of care: Long-Term Facility (SNF) Problem - Mood Disorder As evidenced by: Disorganized Thinking, Helplessness, Hopelessness, Impaired Judgement, Impaired Impulse Control, Complusive Behaviors, Suicidal Thoughts Date Initiated: 06/28/24 Time Initiated: 1108 Mood Disorder: Depression Short Term Goals: Patient will report decrease in suicidal ideation/self-harm behavior, Patient will report decrease in identified symptoms, Patient will maintain adequate PO intake and consume this percentage of meals, Patient participates in 2 daily activities by day 3, Patient will learn and implement 2 calming skills to aid in symptom reduction by day 5, Patient will comply with medication and treatment Target Date Short Term Goals: 07/12/24 Progress Towards Short Term Goals: Adequate for discharge [facility] Goals: Patient will demonstrate optimal level of functioning, Patient/support system will verbalize intent to comply with medication and treatment after discharge, Patient expresses examples of optimism and hope for the future Target Date Director Hardware Goals: 07/12/24 Progress Towards Director Hardware Goals: Adequate for discharge Interventions - Nursing: Assess for escalating behavior and utilize de-escalation skills as needed, Assist with developing positive coping behaviors daily and as needed, Assess for signs of escalating emotions and help identify ways to appropriately express feelings as needed, Use therapeutic communication skills to develop patient trust and a nurse-patient relationship daily and as needed, Provide non-judgmental supportive, empathetic and comprehensive trauma informed care daily and as needed, Provide education to the patient and/or family about the disease process and management as appropriate daily and as needed, Administer medications as indicated and monitor patient for effect daily, Obtain baseline level of functioning on admission, Encourage patient participation in milieu activities daily and as needed, Provide a quiet, restful environment to promote sleep/rest daily and as needed, Monitor nutritional intake daily, Assist with ac (more content not included)... [facility] 07-03-2024 Note HNO ID: [id number] Author: LATISHA CLARK APRN.FUNDRAISING MANAGER Service: General Internal Medicine Author Type: Nurse Practitioner Type: Progress Notes Filed: 07/03/2024 14:32 Note Text: INPATIENT PROGRESS NOTES Name: Branden Johnson Date of Service: July 03, 2024 SUBJECTIVE: Seen and examined at bedside. Patient has sl edema to legs but no SOB or cough. He has no pain. PERTINENT ROS: All others reviewed and negative except as per HPI MEDICATIONS: Current Facility-Administered Medications Medication Dose Route Frequency apixaban 5 mg tab(s) (ELIQUIS) 5 mg ORAL BID atorvastatin 20 mg tab(s) (LIPITOR) 20 mg ORAL DAILY metoprolol tartrate (short acting) 100 mg tab(s) (LOPRESSOR) 100 mg ORAL q 12 H ondansetron orally disintegrating 4 mg tab(s) (ZOFRAN ODT) 4 mg ORAL q [address] 40 mg tab(s) (PROTONIX) 40 mg ORAL DAILY (6 AM) levETIRAcetam 500 mg tab(s) (KEPPRA) 500 mg ORAL BID tamsulosin 0.8 mg cap(s) (FLOMAX) 0.8 mg ORAL AT BEDTIME trospium 20 mg tab(s) (SANCTURA) 20 mg ORAL BID AC ascorbic acid (vitamin C) 500 mg tab(s) (VITAMIN C) 500 mg ORAL BID cholecalciferol 1,000 Units tab(s) (VITAMIN D3) 1,000 Units ORAL BID dilTIAZem CD 360 mg cap(s) (CARDIZEM CD, CARTIA XT) 360 mg ORAL DAILY acetaminophen 650 mg tab(s) (TYLENOL) 650 mg ORAL q 6 H PRN aluminum-magnesium hydroxide-simethicone 200-200-20 mg/5 mL 30 mL 30 mL ORAL q 4 H PRN magnesium hydroxide 400 mg/5 mL 30 mL (MOM) 30 mL ORAL DAILY PRN ipratropium-albuterol 3 mL nebulizer solution (DUONEB) 3 mL INHALATION BID escitalopram oxalate 10 mg tab(s) (LEXAPRO) 10 mg ORAL DAILY Potassium Chloride 8 mEq tab(s) (SLOW-K) 8 mEq ORAL BID furosemide 40 mg tab(s) (LASIX) 40 mg ORAL DAILY PRN metFORMIN 500 mg tab(s) (GLUCOPHAGE) 500 mg ORAL DAILY WITH BREAKFAST PHYSICAL EXAM: 07/02/24 2155 07/03/24 0807 07/03/24 0821 07/03/24 0827 BP: 118/51 98/55 Pulse: 78 74 67 71 Resp: Temp: 36.8 ?C (98.2 ?F) TempSrc: Oral SpO2: 95% 94% Weight: Height: GEN: well appearing, in no acute distress, SKIN: skin color, texture, turgor normal, no suspicious rashes NECK: no JVD. Supple, LUNGS: Clear ERICA. No wheezes. CV: apical irreg, rate stable . Normal s1/s2. No murmurs appreciated. ABD: Soft, non-tender, non-distended. Bowel sounds present. EXT: +1 legs edema. Peripheral pulses normal. NEURO: alert oriented x3 Grossly intact. No focal deficits. 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) Care per psych team mood stable Dvt ppx: not needed mobile Hx a fib : eliquis apical irreg rate stable On cardizem and lopressor, parameters on meds as diastolic stable Hx cva -no apparent residual, he states had endart per notes in 09/14/2012 Monitor labs and vitals -improved diastolic 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 HLD: statin DM2: diet controlled , no meds for this hgba1c level 6.5 , cc diet, on metformin, glucose ok Hypokalemia: resolved with supplement BPH: flomax sanctura , voiding well Asthma: duoneb no wheezes Malnutrition of mild degree (HCC) Only 25% intake supplements Medication and Non-Pharmacologic VTE Prophylaxis/Anticoagulants Anticoagulant AND Antiplatelet Medications (From admission, onward) Start Dose Route Frequency Last Action Ordered Stop 06/27/24 1130 apixaban 5 mg tab(s) (ELIQUIS) 5 mg ORAL 2 TIMES DAILY Given, 07/03 0830 06/27/24 1125 -- 06/27/24 1215 activity - mobilize patient (id,sd) VTE Prophylaxis: VTE prophylaxis appropriate Discussed and developed plan of care with Dr. Manning. Plan of care discussed with: Provider, RN, Patient. Latisha Clark APRN, FUNDRAISING MANAGER [facility] 07-03-2024 Note HNO ID: [id number] Author: LORI CERRATO LSW Service: Care Management Author Type: Office Mail Clerk Type: Care Mgt Progress Note Filed: 07/04/2024 11:09 Note Text: BEHAVIORAL HEALTH SOCIAL WORK DISCHARGE NOTE SERVICE DATE: 07/03/2024 SERVICE TIME: 12:04 Discharge Information Row Name Admission (Current) from 06/27/2024 in [facility] Psychiatry Follow-Up Appointment Psychiatrist Name To be followed at the facility Application Support Manager Name Philipp Phelps (P) Discharge Disposition Discharge Disposition Snf Snf Referral Information Agency Name [facility] Address [address] [place], [place] Additional Discharge Information Additional Discharge Follow Up Information For a mental health crisis dial 911 or the Crisis Line @928 Patient/Insole Rasper Agreeable With Discharge Plan: Yes FREEDOM OF CHOICE EXPLAINED? Yes. A list of appropriate referrals presented to/discussed with Patient and Insole Rasper on 07-03-2024 at 12:04. Patient/Insole Rasper Given/Explained Medicare Discharge Notice (IM letter): Yes (Date and Time): 07-03-2024 at 12:04 TRANSPORTATION ARRANGEMENTS: Mode of Transportation: Ambulance Transportation Agency and Phone #: [facility] [phone] . PRESCRIPTIONS FILLED PRIOR TO DISCHARGE: No, patient discharged to [facility] ADDITIONAL NOTES: Patient cleared for discharge on Wednesday back to the facility. Report number is [phone]. Son updated. No discharge concerns at this time. [place] trip number is [id number]. SIGNATURE: CLAUDIA Juarez PATIENT NAME: Branden Johnson DATE: July 03, 2024 TIME: 12:04 PM [facility] 07-03-2024 Note HNO ID: [id number] Author: SAVANAH DILL MD Service: Psychiatry Author Type: Physician Type: Progress Notes Filed: 07/05/2024 09:37 Note Text: PROGRESS NOTE BEHAVIORAL HEALTH SERVICE DATE: 07/03/2024 SERVICE TIME: 11:03 AM The Interdisciplinary team met and reviewed treatment goals and discharge planning. DC for Wednesday. Subjective Social with peers, No SI. Objective PHYSICAL EXAM: BP 98/55 Pulse 71 Temp 36.8 ?C (98.2 ?F) (Oral) Resp 16 Ht 172.7 cm (5' 7.99) Wt 77.1 kg (170 lb) SpO2 94% BMI 25.85 kg/m? MENTAL STATUS EXAMINATION: Appearance: Casually dressed Behavior: Disorganized Orientation: Person Speech/Language: The patient demonstrates appropriate tone, prosody, filiberto, phonetics, and syntax Mood/Affect: Suspicious Thought Form: Tangential Thought Content: Vague Suicidal Ideations: No suicidal ideation, intent or plan. Homicidal Ideations: No homicidal ideation, intent or plan. Insight: Limited Judgment: Limited Memory/Cognition: Mildly Impaired Psychomotor: Psychomotor activity was normal NEW PROBLEMS ON UNIT SINCE LAST ENCOUNTER: None Current Facility-Administered Medications Medication Dose Route Frequency apixaban 5 mg tab(s) (ELIQUIS) 5 mg ORAL BID atorvastatin 20 mg tab(s) (LIPITOR) 20 mg ORAL DAILY metoprolol tartrate (short acting) 100 mg tab(s) (LOPRESSOR) 100 mg ORAL q 12 H ondansetron orally disintegrating 4 mg tab(s) (ZOFRAN ODT) 4 mg ORAL q [address] 40 mg tab(s) (PROTONIX) 40 mg ORAL DAILY (6 AM) levETIRAcetam 500 mg tab(s) (KEPPRA) 500 mg ORAL BID tamsulosin 0.8 mg cap(s) (FLOMAX) 0.8 mg ORAL AT BEDTIME trospium 20 mg tab(s) (SANCTURA) 20 mg ORAL BID AC ascorbic acid (vitamin C) 500 mg tab(s) (VITAMIN C) 500 mg ORAL BID cholecalciferol 1,000 Units tab(s) (VITAMIN D3) 1,000 Units ORAL BID dilTIAZem CD 360 mg cap(s) (CARDIZEM CD, CARTIA XT) 360 mg ORAL DAILY acetaminophen 650 mg tab(s) (TYLENOL) 650 mg ORAL q 6 H PRN aluminum-magnesium hydroxide-simethicone 200-200-20 mg/5 mL 30 mL 30 mL ORAL q 4 H PRN magnesium hydroxide 400 mg/5 mL 30 mL (MOM) 30 mL ORAL DAILY PRN ipratropium-albuterol 3 mL nebulizer solution (DUONEB) 3 mL INHALATION BID escitalopram oxalate 10 mg tab(s) (LEXAPRO) 10 mg ORAL DAILY Potassium Chloride 8 mEq tab(s) (SLOW-K) 8 mEq ORAL BID furosemide 40 mg tab(s) (LASIX) 40 mg ORAL DAILY PRN metFORMIN 500 mg tab(s) (GLUCOPHAGE) 500 mg ORAL DAILY WITH BREAKFAST DATA: Diagnostic tests reviewed for today's visit: Most recent labs and imaging results. 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 Discussed the risks, benefits and alternatives to the medication(s) recommended. Consent was given. INTERVENTION: Biological: see orders Psychological: encourage Social: will return to his facility DISCHARGE PLANNING: WEDNESDAY SIGNATURE: Mary Jane Cruz APRN.FUNDRAISING MANAGER PATIENT NAME: Branden Johnson DATE: July 03, 2024 TIME: 11:03 PM I saw the patient and have read and reviewed the SET UP MECHANIC COIL WINDING MACHINES's note and findings. I have discussed the SET UP MECHANIC COIL WINDING MACHINES's findings and plan as documented in the SET UP MECHANIC COIL WINDING MACHINES's note. MD [facility] 07-02-2024 Note HNO ID: [id number] Author: SAVANAH DILL MD Service: Psychiatry Author Type: Physician Type: Progress Notes Filed: 07/03/2024 09:48 Note Text: PROGRESS NOTE BEHAVIORAL HEALTH SERVICE DATE: 07/02/2024 SERVICE TIME: 12:16 PM The Interdisciplinary team met and reviewed treatment goals and discharge planning. Spoke with holley Segal with update and plan. Subjective Social with peers, No SI. Objective PHYSICAL EXAM: BP 130/63 Pulse 87 Temp 37 ?C (98.6 ?F) (Oral) Resp 18 Ht 172.7 cm (5' 7.99) Wt 77.1 kg (170 lb) SpO2 98% BMI 25.85 kg/m? MENTAL STATUS EXAMINATION: Appearance: Casually dressed Behavior: Disorganized Orientation: Person Speech/Language: The patient demonstrates appropriate tone, prosody, filiberto, phonetics, and syntax Mood/Affect: Suspicious Thought Form: Tangential Thought Content: Vague Suicidal Ideations: No suicidal ideation, intent or plan. Homicidal Ideations: No homicidal ideation, intent or plan. Insight: Limited Judgment: Limited Memory/Cognition: Mildly Impaired Psychomotor: Psychomotor activity was normal NEW PROBLEMS ON UNIT SINCE LAST ENCOUNTER: None Current Facility-Administered Medications Medication Dose Route Frequency apixaban 5 mg tab(s) (ELIQUIS) 5 mg ORAL BID atorvastatin 20 mg tab(s) (LIPITOR) 20 mg ORAL DAILY metoprolol tartrate (short acting) 100 mg tab(s) (LOPRESSOR) 100 mg ORAL q 12 H ondansetron orally disintegrating 4 mg tab(s) (ZOFRAN ODT) 4 mg ORAL q [address] 40 mg tab(s) (PROTONIX) 40 mg ORAL DAILY (6 AM) levETIRAcetam 500 mg tab(s) (KEPPRA) 500 mg ORAL BID tamsulosin 0.8 mg cap(s) (FLOMAX) 0.8 mg ORAL AT BEDTIME trospium 20 mg tab(s) (SANCTURA) 20 mg ORAL BID AC ascorbic acid (vitamin C) 500 mg tab(s) (VITAMIN C) 500 mg ORAL BID cholecalciferol 1,000 Units tab(s) (VITAMIN D3) 1,000 Units ORAL BID dilTIAZem CD 360 mg cap(s) (CARDIZEM CD, CARTIA XT) 360 mg ORAL DAILY acetaminophen 650 mg tab(s) (TYLENOL) 650 mg ORAL q 6 H PRN aluminum-magnesium hydroxide-simethicone 200-200-20 mg/5 mL 30 mL 30 mL ORAL q 4 H PRN magnesium hydroxide 400 mg/5 mL 30 mL (MOM) 30 mL ORAL DAILY PRN ipratropium-albuterol 3 mL nebulizer solution (DUONEB) 3 mL INHALATION BID escitalopram oxalate 10 mg tab(s) (LEXAPRO) 10 mg ORAL DAILY Potassium Chloride 8 mEq tab(s) (SLOW-K) 8 mEq ORAL BID furosemide 40 mg tab(s) (LASIX) 40 mg ORAL DAILY PRN metFORMIN 500 mg tab(s) (GLUCOPHAGE) 500 mg ORAL DAILY WITH BREAKFAST DATA: Diagnostic tests reviewed for today's visit: Most recent labs and imaging results. 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 Discussed the risks, benefits and alternatives to the medication(s) recommended. Consent was given. INTERVENTION: Biological: see orders Psychological: encourage Social: will return to his facility DISCHARGE PLANNING: when stable SIGNATURE: Mary Jane Cruz APRN.CNP PATIENT NAME: Branden Johnson DATE: July 02, 2024 TIME: 12:16 PM I saw the patient and have read and reviewed the SET UP MECHANIC COIL WINDING MACHINES's note and findings. I have discussed the SET UP MECHANIC COIL WINDING MACHINES's findings and plan as documented in the SET UP MECHANIC COIL WINDING MACHINES's note. 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, he states had endart per notes in 09/14/2012 Monitor labs and vitals -improved diastolic now 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 No new issues. OBJECTIVE: Current Facility-Administered Medications Medication Dose Route Frequency Provider Last Rate Last Admin furosemide 40 mg tab(s) (LASIX) 40 mg ORAL DAILY PRN Latisha Clark APRN.FUNDRAISING MANAGER metFORMIN 500 mg tab(s) (GLUCOPHAGE) 500 mg ORAL DAILY WITH BREAKFAST Latisha Clark APRN.FUNDRAISING MANAGER 500 mg at 07/02/24 0837 escitalopram oxalate 10 mg tab(s) (LEXAPRO) 10 mg ORAL DAILY Mary Jane Cruz APRN.FUNDRAISING MANAGER 10 mg at 07/02/24 0837 Potassium Chloride 8 mEq tab(s) (SLOW-K) 8 mEq ORAL BID Latisha Clark APRN.FUNDRAISING MANAGER 8 mEq at 07/02/24 0839 apixaban 5 mg tab(s) (ELIQUIS) 5 mg ORAL BID Mary Jane Cruz APRN.FUNDRAISING MANAGER 5 mg at 07/02/24 0837 atorvastatin 20 mg tab(s) (LIPITOR) 20 mg ORAL DAILY Mary Jane Cruz APRN.FUNDRAISING MANAGER 20 mg at 07/02/24 0837 metoprolol tartrate (short acting) 100 mg tab(s) (LOPRESSOR) 100 mg ORAL q 12 H Latisha Clark APRN.FUNDRAISING MANAGER 100 mg at 07/02/24 0836 ondansetron orally disintegrating 4 mg tab(s) (ZOFRAN ODT) 4 mg ORAL q 6 H PRN Mary Jane Cruz APRN.FUNDRAISING MANAGER pantoprazole DR 40 mg tab(s) (PROTONIX) 40 mg ORAL DAILY (6 AM) Mary Jane Cruz APRN.FUNDRAISING MANAGER 40 mg at 07/02/24 0605 levETIRAcetam 500 mg tab(s) (KEPPRA) 500 mg ORAL BID Mary Jane Cruz APRN.FUNDRAISING MANAGER 500 mg at 07/02/24 0837 tamsulosin 0.8 mg cap(s) (FLOMAX) 0.8 mg ORAL AT BEDTIME Mary Jane Cruz APRN.FUNDRAISING MANAGER 0.8 mg at 07/01/242027 trospium 20 mg tab(s) (SANCTURA) 20 mg ORAL BID AC Mary Jane Cruz APRN.FUNDRAISING MANAGER 20 mg at 07/02/24 0605 ascorbic acid (vitamin C) 500 mg tab(s) (VITAMIN C) 500 mg ORAL BID Mary Jane Cruz APRN.FUNDRAISING MANAGER 500 mg at 07/02/24 0836 cholecalciferol 1,000 Units tab(s) (VITAMIN D3) 1,000 Units ORAL BID Mary Jane Cruz APRN.FUNDRAISING MANAGER 1,000 Units at 07/02/24 0836 dilTIAZem CD 360 mg cap(s) (CARDIZEM CD, CARTIA XT) 360 mg ORAL DAILY Latisha Clark RIBBING MACHINE OPERATOR.FUNDRAISING MANAGER 360 mg at 07/02/24 0837 acetaminophen 650 mg tab(s) (TYLENOL) 650 mg ORAL q 6 H PRN Savanah Dill MD aluminum-magnesium hydroxide-simethicone 200-200-20 mg/5 mL 30 mL 30 mL ORAL q 4 H PRN Savanah Dill MD magnesium hydroxide 400 mg/5 mL 30 mL (MOM) 30 mL ORAL DAILY PRN Savanah Dill MD ipratropium-albuterol 3 mL nebulizer solution (DUONEB) 3 mL INHALATION BID Savanah Dill MD 3 mL at 07/02/24 0939 VITAL SIGNS: Patient Vitals for the past 24 hrs: BP Temp Temp src Pulse Resp SpO2 07/02/24 0947 -- -- -- 87 18 98 % 07/02/24 0939 -- -- -- 89 18 96 % 07/02/24 0832 130/63 37 ?C (98.6 ?F) Oral 93 19 97 % 07/01/242040 -- -- -- 105 18 -- 07/01/242025 -- -- -- 102 18 98 % 07/01/241957 121/58 36.8 ?C (98.2 ?F) Oral 102 18 94 % PHYSICAL EXAM: General: Awake and Alert, in no distress Head - Normocephalic, atraumatic Cardiac: S1S2 wnl, No MGR Lungs: Clear to auscultation, no rales Abdomen: Soft, non-tender Extremities: No obvious deformity DATA: Diagnostic tests reviewed for today's visit: CBC with diff: WBC 7.74 06/28/2024 RBC 3.47 06/28/2024 Hemoglobin 10.9 06/28/2024 Hematocrit 32.7 06/28/2024 MCV 94.2 06/28/2024 MCH 31.4 06/28/2024 MCHC 33.3 06/28/2024 RDW-CV 14.8 06/28/2024 Platelet Count 267 06/28/2024 MPV 11.0 06/28/2024 Neut% 58.5 06/28/2024 Lymph% 26.9 06/28/2024 Hughes% 11.2 06/28/2024 Eosin% 2.1 06/28/2024 Baso% 0.5 06/28/2024 Abs Neut (ANC) 4.53 06/28/2024 Abs Hughes 0.87 06/28/2024 Abs Eosin 0.16 06/28/2024 Abs Baso 0.04 06/28/2024 Glucose (mg/dL) Date Value 07/01/2024 108 05/01/2017 110 Potassium (mmol/L) Date Value 07/01/2024 3.7 05/01/2017 4.0 Sodium (mmol/L) Date Value 07/01/2024 141 05/01/2017 143 Chloride (mmol/L) Date Value 07/01/2024 103 05/01/2017 106 CO2 (mmol/L) Date Value 07/01/2024 25 05/01/2017 24 Creatinine ( (more content not included)... [facility] 07-01-2024 Note HNO ID: [id number] Author: SAVANAH DILL MD Service: Psychiatry Author Type: Physician Type: Progress Notes Filed: 07/03/2024 09:48 Note Text: PROGRESS NOTE BEHAVIORAL HEALTH SERVICE DATE: 07/01/2024 SERVICE TIME: 12:04 PM The Interdisciplinary team met and reviewed treatment goals and discharge planning. Spoke with holley Segal with update and plan. Subjective Minimizing behaviors. No SI. Objective PHYSICAL EXAM: BP (!) 101/49 Pulse 70 Temp 36.3 ?C (97.4 ?F) (Oral) Resp 16 Ht 172.7 cm (5' 7.99) Wt 77.1 kg (170 lb) SpO2 94% BMI 25.85 kg/m? MENTAL STATUS EXAMINATION: Appearance: Casually dressed Behavior: Disorganized Orientation: Person Speech/Language: The patient demonstrates appropriate tone, prosody, filiberto, phonetics, and syntax Mood/Affect: Suspicious Thought Form: Tangential Thought Content: Vague Suicidal Ideations: No suicidal ideation, intent or plan. Homicidal Ideations: No homicidal ideation, intent or plan. Insight: Limited Judgment: Limited Memory/Cognition: Mildly Impaired Psychomotor: Psychomotor activity was normal NEW PROBLEMS ON UNIT SINCE LAST ENCOUNTER: None Current Facility-Administered Medications Medication Dose Route Frequency apixaban 5 mg tab(s) (ELIQUIS) 5 mg ORAL BID atorvastatin 20 mg tab(s) (LIPITOR) 20 mg ORAL DAILY metoprolol tartrate (short acting) 100 mg tab(s) (LOPRESSOR) 100 mg ORAL q 12 H ondansetron orally disintegrating 4 mg tab(s) (ZOFRAN ODT) 4 mg ORAL q [address] 40 mg tab(s) (PROTONIX) 40 mg ORAL DAILY (6 AM) levETIRAcetam 500 mg tab(s) (KEPPRA) 500 mg ORAL BID tamsulosin 0.8 mg cap(s) (FLOMAX) 0.8 mg ORAL AT BEDTIME trospium 20 mg tab(s) (SANCTURA) 20 mg ORAL BID AC ascorbic acid (vitamin C) 500 mg tab(s) (VITAMIN C) 500 mg ORAL BID cholecalciferol 1,000 Units tab(s) (VITAMIN D3) 1,000 Units ORAL BID dilTIAZem CD 360 mg cap(s) (CARDIZEM CD, CARTIA XT) 360 mg ORAL DAILY acetaminophen 650 mg tab(s) (TYLENOL) 650 mg ORAL q 6 H PRN aluminum-magnesium hydroxide-simethicone 200-200-20 mg/5 mL 30 mL 30 mL ORAL q 4 H PRN magnesium hydroxide 400 mg/5 mL 30 mL (MOM) 30 mL ORAL DAILY PRN ipratropium-albuterol 3 mL nebulizer solution (DUONEB) 3 mL INHALATION BID escitalopram oxalate 10 mg tab(s) (LEXAPRO) 10 mg ORAL DAILY Potassium Chloride 8 mEq tab(s) (SLOW-K) 8 mEq ORAL BID furosemide 40 mg tab(s) (LASIX) 40 mg ORAL DAILY PRN metFORMIN 500 mg tab(s) (GLUCOPHAGE) 500 mg ORAL DAILY WITH BREAKFAST DATA: Diagnostic tests reviewed for today's visit: Most recent labs and imaging results. 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 Discussed the risks, benefits and alternatives to the medication(s) recommended. Consent was given. INTERVENTION: Biological: see orders Psychological: encourage Social: will return to his facility DISCHARGE PLANNING: when stable SIGNATURE: Mary Jane Cruz APRN.CNP PATIENT NAME: Branden Johnson DATE: July 01, 2024 TIME: 12:04 PM I saw the patient and have read and reviewed the SET UP MECHANIC COIL WINDING MACHINES's note and findings. I have discussed the SET UP MECHANIC COIL WINDING MACHINES's findings and plan as documented in the SET UP MECHANIC COIL WINDING MACHINES's note. Savanah Dill MD [facility] 07-01-2024 Note HNO ID: [id number] Author: NOTE, INTERFACE, ? Service: ? Author Type: ? Type: Progress Notes Filed: 07/01/2024 02:32 Note Text: Epic Scheduled Downtime: 07/01/2024 1:00:00 AM to 07/01/2024 2:11:00 AM [facility] 06-30-2024 Note HNO ID: [id number] Author: LATISHA CLARK APRN.CNP Service: General Internal Medicine Author Type: Nurse Practitioner Type: Progress Notes Filed: 06/30/2024 14:28 Note Text: Attestation signed by Ulysses Gallo MD at 06/30/2024 5:31 PM I agree with the note as documented with additional comments if needed. The assessment and plan as outlined are reflection of our discussion. Sabino Arora MD INPATIENT PROGRESS NOTES Name: Branden Johnson Date of Service: June 30, 2024 SUBJECTIVE: Seen and examined at bedside. Patient has no pain and no SOB or cough. He is voiding ok and eating. PERTINENT ROS: All others reviewed and negative except as per HPI MEDICATIONS: Current Facility-Administered Medications Medication Dose Route Frequency apixaban 5 mg tab(s) (ELIQUIS) 5 mg ORAL BID atorvastatin 20 mg tab(s) (LIPITOR) 20 mg ORAL DAILY metoprolol tartrate (short acting) 100 mg tab(s) (LOPRESSOR) 100 mg ORAL q 12 H ondansetron orally disintegrating 4 mg tab(s) (ZOFRAN ODT) 4 mg ORAL q [address] 40 mg tab(s) (PROTONIX) 40 mg ORAL DAILY (6 AM) levETIRAcetam 500 mg tab(s) (KEPPRA) 500 mg ORAL BID tamsulosin 0.8 mg cap(s) (FLOMAX) 0.8 mg ORAL AT BEDTIME trospium 20 mg tab(s) (SANCTURA) 20 mg ORAL BID AC ascorbic acid (vitamin C) 500 mg tab(s) (VITAMIN C) 500 mg ORAL BID cholecalciferol 1,000 Units tab(s) (VITAMIN D3) 1,000 Units ORAL BID dilTIAZem CD 360 mg cap(s) (CARDIZEM CD, CARTIA XT) 360 mg ORAL DAILY acetaminophen 650 mg tab(s) (TYLENOL) 650 mg ORAL q 6 H PRN aluminum-magnesium hydroxide-simethicone 200-200-20 mg/5 mL 30 mL 30 mL ORAL q 4 H PRN magnesium hydroxide 400 mg/5 mL 30 mL (MOM) 30 mL ORAL DAILY PRN ipratropium-albuterol 3 mL nebulizer solution (DUONEB) 3 mL INHALATION BID escitalopram oxalate 10 mg tab(s) (LEXAPRO) 10 mg ORAL DAILY Potassium Chloride 8 mEq tab(s) (SLOW-K) 8 mEq ORAL BID furosemide 40 mg tab(s) (LASIX) 40 mg ORAL DAILY PRN metFORMIN 500 mg tab(s) (GLUCOPHAGE) 500 mg ORAL DAILY WITH BREAKFAST PHYSICAL EXAM: 06/29/24 2017 06/30/24 0800 06/30/24 0850 06/30/24 0858 BP: 129/63 119/62 Pulse: 97 79 77 80 Resp: 16 16 16 Temp: 36.3 ?C (97.3 ?F) 36.7 ?C (98.1 ?F) TempSrc: Oral SpO2: 97% 92% 95% Weight: Height: GEN: well appearing, in no acute distress, SKIN: skin color, texture, turgor normal, no suspicious rashes NECK: no JVD. Supple, LUNGS: Clear ERICA. No wheezes. CV:apical irreg rate stable . Normal s1/s2. No murmurs appreciated. ABD: Soft, non-tender, non-distended. Bowel sounds present. EXT: No edema. Peripheral pulses normal. NEURO: alert oriented x1-2 Grossly intact. No focal deficits. 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) Care per psych team mood stable with exam , no complaints Dvt ppx: mobile,on eliquis Hx a fib : eliquis apical irreg rate stable On cardizem and lopressor, parameters on meds as diastolic low Hx cva -no apparent residual, he states had endart per notes in 09/14/2012 Monitor labs and vitals -improved diastolic now 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 HLD: statin DM2: diet controlled , no meds for this hgba1c level 6.5 , cc diet, on metformin also low dose Hypokalemia: supplement increased to BID dosing and one time po, bmp tomorrow ,no results available today BPH: flomax sanctura , voiding well Asthma: duoneb no wheezes Malnutrition of mild degree (HCC) Medication and Non-Pharmacologic VTE Prophylaxis/Anticoagulants Anticoagulant AND Antiplatelet Medications (From admission, onward) Start Dose Route Frequency Last Action Ordered Stop 06/27/24 1130 apixaban 5 mg tab(s) (ELIQUIS) 5 mg ORAL 2 TIMES DAILY Given, 06/30 0840 06/27/24 1125 -- 06/27/24 1215 activity - mobilize patient (id,sd) VTE Prophylaxis: VTE prophylaxis appropriate Discussed and developed plan of care with Dr. Manning. Plan of care discussed with: Provider, RN, Patient. Latisha Clark, RIBBING MACHINE OPERATOR, FUNDRAISING MANAGER [facility] 06-30-2024 Note HNO ID: [id number] Author: LEOINE MORRELL LISW Service: Care Management Author Type: Office Mail Clerk Type: Care Mgt Progress Note Filed: 06/30/2024 11:16 Note Text: BEHAVIORAL HEALTH SOCIAL WORK PROGRESS NOTE SERVICE DATE: 06/30/2024 SERVICE TIME: 11:08 AM Pt is A+OX3, He has been compliant with taking his medications and cooperative with care. His affect is blunted and mood depressed. He denies suicidal ideations. He doesn't attend group therapy programs. He is eating and sleeping. Updated information sent to [facility]. Will continue to offer pt support and structure and assist with discharge plans. 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 Estimated length of stay: 10-12 Days Interdisciplinary Treatment Plan Date Initiated: 06/28/24 Time Initiated: 110 Patient Participation in Initial Treatment Plan: No Patient unable to participate due to : Mental status Other Participants: N/A Strengths/Assets: Stable living situation, Social support, Articulates thoughts and feelings clearly Limitations: Cognitive impairment, Lack of motivation for treatment Precautions indicated: Routine Precautions Individualized problems: Mood disorder Problem - Discharge Needs Date Initiated: 06/28/24 Time Initiated: 110 Discharge Needs: Resolve acute symptoms through medication management, Patient/Family will participate in the development of the Discharge Aftercare Plan, Assess for appropriate level of care Interventions - Nursing: Administer medications as indicated and monitor patient for effect daily, Obtain baseline level of functioning on admission, Provide education to the patient and/or family about the disease process and management as appropriate daily and as needed, Provide non-judgmental supportive, empathetic and comprehensive trauma informed care daily and as needed, Encourage patient participation in milieu activities daily and as needed, Provide a quiet, restful environment to promote sleep/rest daily and as needed, Monitor nutritional intake daily, Assess for escalating behavior and utilize de-escalation skills as needed, Assist with developing positive coping behaviors daily and as needed, Assess for signs of escalating emotions and help identify ways to appropriately express feelings as needed, Assist with activities of daily living, utilizing any necessary assistive devices daily and as needed, Usetherapeutic communication skills to develop patient trust and a nurse-patient relationship daily and as needed Interventions - Social Work: Assess for appropriate level of care and initiate referral upon admission or as needed, Assess Social Determinants of Health upon admission or as needed, Develop aftercare plan Interventions - Pharmacy: N/A Post discharge referrals: Psychiatry Identify next level of care: Long-Term Facility (SNF) Problem - Mood Disorder As evidenced by: Disorganized Thinking, Helplessness, Hopelessness, Impaired Judgement, Impaired Impulse Control, Complusive Behaviors, Suicidal Thoughts Date Initiated: 06/28/24 Time Initiated: 1108 Mood Disorder: Depression Short Term Goals: Patient will report decrease in suicidal ideation/self-harm behavior, Patient will report decrease in identified symptoms, Patient will maintain adequate PO intake and consume this percentage of meals, Patient participates in 2 daily activities by day 3, Patient will learn and implement 2 calming skills to aid in symptom reduction by day 5, Patient will comply with medication and treatment Target Date Short Term Goals: 07/05/24 Director Hardware Goals: Patient will demonstrate optimal level of functioning, Patient/support system will verbalize intent to comply with medication and treatment after discharge, Patient expresses examples of optimism and hope for the future Target Date Director Hardware Goals: 07/12/24 Interventions - Nursing: Assess for escalating behavior and utilize de-escalation skills as needed, Assist with developing positive coping behaviors daily and as needed, Assess for signs of escalating emotions and help identify ways to appropriately express feelings as needed, Use therapeutic communication skills to develop patient trust and a nurse-patient relationship daily and as needed, Provide non-judgmental supportive, empathetic and comprehensive trauma informed care daily and as needed, Provide education to the patient and/or family about the disease process and management as appropriate daily and as needed, Administer medications as indicated and monitor patient for effect daily, Obtain baseline level of functioning on admission, Encourage patient participation in milieu activities daily and as needed, Provide a quiet, restful environment to promote sleep/rest daily and as needed, Monitor nutritional intake daily, Assist with activities of daily living, utilizing any necessary assistive devices daily and as needed Medical Problems Medical Problems Identified: Yes Active Problems: Other: See Comment (htn, hyperlipidemia) Staff in attendance and in agreement with this plan: (more content not included)... [facility] 06-30-2024 Note HNO ID: [id number] Author: SAVANAH DILL MD Service: Psychiatry Author Type: Physician Type: Progress Notes Filed: 07/03/2024 09:48 Note Text: PROGRESS NOTE BEHAVIORAL HEALTH SERVICE DATE: 06/30/2024 SERVICE TIME: 10:03 AM The Interdisciplinary team met and reviewed treatment goals and discharge planning. 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 Tells me he is done with his SO. Objective PHYSICAL EXAM: BP 119/62 Pulse 77 Temp 36.7 ?C (98.1 ?F) (Oral) Resp 16 Ht 172.7 cm (5' 7.99) Wt 77.1 kg (170 lb) SpO2 95% BMI 25.85 kg/m? MENTAL STATUS EXAMINATION: Appearance: Casually dressed Behavior: Disorganized Orientation: Person Speech/Language: The patient demonstrates appropriate tone, prosody, filiberto, phonetics, and syntax Mood/Affect: Suspicious Thought Form: Tangential Thought Content: Vague Suicidal Ideations: No suicidal ideation, intent or plan. Homicidal Ideations: No homicidal ideation, intent or plan. Insight: Limited Judgment: Limited Memory/Cognition: Mildly Impaired Psychomotor: Psychomotor activity was normal NEW PROBLEMS ON UNIT SINCE LAST ENCOUNTER: None Current Facility-Administered Medications Medication Dose Route Frequency apixaban 5 mg tab(s) (ELIQUIS) 5 mg ORAL BID atorvastatin 20 mg tab(s) (LIPITOR) 20 mg ORAL DAILY metoprolol tartrate (short acting) 100 mg tab(s) (LOPRESSOR) 100 mg ORAL q 12 H ondansetron orally disintegrating 4 mg tab(s) (ZOFRAN ODT) 4 mg ORAL q 6 H PRN pantoprazole DR 40 mg tab(s) (PROTONIX) 40 mg ORAL DAILY (6 AM) levETIRAcetam 500 mg tab(s) (KEPPRA) 500 mg ORAL BID tamsulosin 0.8 mg cap(s) (FLOMAX) 0.8 mg ORAL AT BEDTIME trospium 20 mg tab(s) (SANCTURA) 20 mg ORAL BID AC ascorbic acid (vitamin C) 500 mg tab(s) (VITAMIN C) 500 mg ORAL BID cholecalciferol 1,000 Units tab(s) (VITAMIN D3) 1,000 Units ORAL BID dilTIAZem CD 360 mg cap(s) (CARDIZEM CD, CARTIA XT)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 HISTORY: Social History Tobacco Use Smoking status: Unknown Smokeless tobacco: Never Substance Use Topics Alcohol use: No Drug use: No MEDICATIONS: dilTIAZem CD 360 mg 24 hr capsule^Take 1 capsule by mouth once daily.^Disp: ^Rfl: metoprolol tartrate, short acting, (LOPRESSOR) 100 mg tablet^Take 1 tablet by mouth every 12 hours.^Disp: ^Rfl: ipratropium-albuterol (DUONEB) 0.5 mg-3 mg(2.5 mg base)/3 mL nebu^Inhale 3 mL as instructed every 8 hours.^Disp: ^Rfl: pantoprazole DR (PROTONIX) 40 mg tablet^Take 1 tablet by mouth two times a day before meals.^Disp: ^Rfl: acetaminophen (TYLENOL) 325 mg tablet^Take 2 tablets by mouth every 6 hours as needed for pain.^Disp: ^Rfl: levETIRAcetam (KEPPRA) 500 mg tablet^Take 1 tablet by mouth two times a day.^Disp: ^Rfl: trospium (SANCTURA) 20 mg tablet^Take 1 tablet by mouth two times a day before meals.^Disp: ^Rfl: furosemide (LASIX) 40 mg tablet^Take 1 tablet by mouth once daily.^Disp: ^Rfl: ondansetron orally disintegrating (ZOFRAN ODT) 4 mg disintegrating tablet^Take 1 tablet by mouth every 6 hours as needed for nausea/vomiting.^Disp: ^Rfl: mirabegron (MYRBETRIQ) 50 mg Tb24^Take 50 mg by mouth once daily.^Disp: ^Rfl: ascorbic acid, vitamin C, (VITAMIN C) 500 mg tablet^Take 500 mg by mouth two times a day.^Disp: ^Rfl: [id number] OIL ORAL^Take 1 capsule by mouth two times a day.^Disp: ^Rfl: cholecalciferol (VITAMIN D3) 1,000 unit tab tablet^Take 1,000 Units by mouth two times a day.^Disp: ^Rfl: lycopene 10 mg cap^Take 10 mg by mouth daily at bedtime.^Disp: ^Rfl: Potassium Gluconate 2.5 mEq tab^Take 2.5 mEq by mouth once daily.^Disp: ^Rfl: ubidecarenone Q-10 (COENZYME Q-10) 10 mg cap^Take by mouth twice daily.^Disp: ^Rfl: tamsulosin ER (FLOMAX) 0.4 mg cp24^Take 0.8 mg by mouth daily at bedtime.^Disp: ^Rfl: atorvastatin (LIPITOR) 20 mg tablet^Take 20 mg by mouth once daily.^Disp: ^Rfl: apixaban (ELIQUIS) 5 mg tab tab(s)^Take 5 mg by mouth twice daily.^Disp: ^Rfl: No medication comments found. MEDICATION COMPLIANCE: Yes SOCIAL INFORMATION: Living Arrangements: Snf Facility Name/ Phone #: [facility] Satisfaction with Living Arrangements: likes the nursing e Provider Stated Diagnosis: Current severe episode of major depressive disorder without psychotic features, unspecified whether recurrent (HCC) Does Patient Have Minor Children for Whom He/She is Responsible?: No Education Level: High School Diploma/GED Employment Status: Retired Is the Patient a : Yes Details: [employer] Legal History: No Legal History Legal Details: none How Legal Issues Were Verified: [facility] [place] [employer] Courts Website, [facility]'s Sexual Offender Website Gender Specific Test: Not Applicable Sex at Time of : Male Patient Identified Gender: Male Preferred Pronoun: He/Him/His Sexual Orientation: Heterosexual Cultural/Samaritan Concerns Cultural Issues or Concerns That Might Affect Treatment: latter day OBSERVATIONS Level of Consciousness Alert: Yes Orientation: Person, Place, Time, Situation Physical Appearance Appears: Appears Stated Age Speech Rate: Appropriate Volume: Appropriate, Soft Quality: Clear, Emotional Quantity: Appropriate Thought Processes Thought: Linear and Organized, 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 Thought Content/Perceptions Delusions: None Observed Hallucinations: Patient Denies Illusions: Patient Denies Derealization: Yes, See Comment Depersonalization: Yes, See Comment Memory: Intact Recent, Intact Remote Cognition Impairment: None Intelligence Evaluation: Average Mood & Affect Patient Described Mood: sad Other Sheep Farm Worker Described Mood: sad Sheep Farm Worker: son and daughter Observed/Reported: Depressed Range of Affect: Blunted Sleep: Difficulty Falling Asleep, Difficulty Staying Asleep Appetite: Normal Appetite Energy: No Significant Change in Energy Anxiety/Trauma: Unable to Control Worry Non-Suicidal Self Injury Non-Suicidal Self Injury: None Suicidal Ideation Suicidal Ideation: Current Current Behavior: Thinking Current Plans/Means: wanted to hang himself Additional Risk Factors/Warning Signs: Age 15-25 or Over 65, Anxiety, Male, [place], Writing Letters, No Significant Other, Changes in Sleep, Loss of Relationship Through Break-Up, Divorce, or Homicidal Ideation Homicidal Ideation: None Non-Lethal Harm to Others or Damage/Destruction to Property Harm to Others or Damage/Destruction of Property: None Access To Weapons Access To Weapons: No History of Impulsive Behaviors History: none Medical Conditions Medical Conditions Increasing Risks: Other: See Comment (Stroke/ A-fib) CHEMICAL DEPENDENCY Substance Use: No Referral for Substance Abuse Services: No Toxicology Screen Results: Negative ACTIVITY Activities of Daily Living: Independent Mobility: No Assistance Person Providing Information: Patient/ Son Continence: Continent MENTAL HEALTH SERVICES: Current Mental Health Providers: None (has appointment to wednesday) Agency/Organization: none Phone Number: none Inpatient Mental Health Treatment History: None SAFE-T Protocol with C-SSRS Step 1: Identify Risk Factors C-SSRS Suicidal Ideation Severity Month 1. Wish to be Yes 2. Current suicidal thoughts No 3. Suicidal thoughts w/ Method 4. Suicidal Intent without Specific Plan 5. Intent with Plan C-SSRS Suicidal Behavior: Lifetime No Past 3 Months Current and Past Psychiatric Dx: (none) Presenting Symptoms: Hopelessness or Despair Family History: (none) Change in treatment: (no) Access to lethal methods: none Step 2: Identify Protective Factors (Protective factors may not counteract significant acute suicide risk factors) Internal: Ability to [place] with Stress, Frustration Tolerance, Samaritan Beliefs, Identifies Reasons for Living External:Responsibility to Children, Supportive Social Network of Family or Friends Step 3: Specific questioning about Thoughts, Plans, and Suicidal Intent - (see Step 1 for Ideation Severity and Behavior) C-SSRS Suicidal Ideation Intensity Month Frequency Less than once a week Duration Fleeting - few seconds or minutes Controllability Can control thoughts with some difficulty Deterrents Deterrents definitely stopped you from attempting suicide Reasons for Ideation Equally to get attention, revenge, or a reaction from others and to end/stop the pain Total Score Suicidal Ideation Intensity Total Score: 9 Step 4: Guidelines to Determine Level of Risk and Develop Interventions to LOWER Risk Level RISK STRATIFICATION TRIAGE High Suicide Risk Moderate Suicide Risk Establish a therapeutic relationship, Complete Intake function and encounter for requested service, Discuss case presentation with staff providing medical care. Discuss with on-call psychiatrist or accepting hospital entity as needed., Document contact information in Intake encounter, Note concern to providers about need for suicide precaution orders/constant observation, Follow-up and document disposition from patient's current level of care Low Suicide Risk Step 5: Documentation Risk Level : Suicide Risk ( Initial Screening):: Low Risk Actual risk determined to be : Moderate Clinical Observation: Branden TAYLOR assessed patient , patient stated he has been living with his girlfriend for 29 years and he had a stroke and A fib that [facility] to [facility] into the [facility], he didn t understand why they couldn t live together , but they told him if she fell he couldn't help and vice versa, patient stated that he was having SI earlier in the day and considered different methods but didn t think he would do them due to them being gruesome, he was missing his girlfriend and wrote her a letter , along with old pictures he gave her , the letter stated he would had himself because of the distance and how much he missed her , he can't stand to be away from her, Patient denied AH/VH/HI and self-harm. Patient not opposed to coming in patient psych. Very emotional and sad. 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 Loss of Relationship, Financial or Health Status) (Real or Anticipated) Protective Factors: Responsibility to Children; Supportive Social Network of Family or Friends Ability to [place] with Stress; Frustration Tolerance; Samaritan Beliefs; Identifies Reasons for Living Access to Lethal Means: None Collateral Sources Used and Relevant Information Obtained: Collateral Philipp Johnson ( Son/ POA) - Lived with Ghazal for about 25 years , had A fib before , ended up in [facility] in [place], tried to leave often, onset of dementia , started @ [facility] in [place]. Patient started to be fixated on Ghazal especially when he cant see her, doesn t want to live anymore without her. Gave her pictures and a not describing how he would hang himself. Son also described Some owning, not sleeping, short term memory. Patient was previously on anti depressants, no out patient providers, has appointment for psych on Wednesday. Specific Assessment Data to Support Risk Determination Rationale for Actions Taken and Not Taken: Patient at risk of self harm Communication of Current Risk Stratification to: Current Medical Providers: Zander Schuler DO Date 06/30/24 Time1:15am Psychiatrist talent acquisition manager: Name: Dr.Umpa Brown Date: 06/27/24 Time: 2:58am Other Contact and Role: Name and Role: Philipp Date: 06/27/24 Time: 1:15am Reason: collateral INTERVENTIONS Psychiatry Consult Completed in This Episode of Care: No Sources of Information: Epic, Patient, ED Staff, Family Patient Assessed by Intake via: Face to Face Coordination of care with: ED RN, KOURTNEY HAIDER, Family Interventions: Therapeutic Interventions Therapeutic Interventions: Crisis Intervention, Crisis Assessment Goals/Objectives: Admission to inpatient psychiatric unit for safety of patient and others DISPOSITION & PLAN: Patient stated goals: Goals: This has been discussed with my family Coordination of Care with: ED RN, KOURTNEY HAIDER, Family Assessment/Impressions: Inpatient Need Plan: Secure an inpatient bed Goals/Objectives: Admission to inpatient psychiatric unit for safety of patient and others Total time spent (minutes) in Supportive Care for this patient: 30 MEDICAL CLEARANCE Initial Date: 06/27/24 Initial Time: 224 Reviewed medical history with physician: Yes Reviewed abnormal labs with physician: Yes Discussed case with Dr. Fuentes SANTOS who states that Branden Johnson is a candidate for admission. Provider Stated Diagnosis: Current severe episode of major depressive disorder without psychotic features, unspecified whether recurrent ([facility]) Admitting Provider: Dr. Dill Admission Status: Full Admit Unit: [place] Bed#: [id number] Report Given To: Roscoe Report Date: 06/27/24 Report Time: 545 Admission Type: Medical Certificate Is Patient Less Than 18 Years of Age or have a Guardian/Healthcare Power of Factory Helper?: Yes Parental/Guardian Consent to Treatment Plan: Yes Relationship to Patient: Son Guardian/POA Name: Philipp Johnson Disposition Date: 06/27/24 Disposition Time: 604 SIGNATURE: CLAUDIA Anglin PATIENT NAME: Branden Johnson DATE: June 27, 2024 TIME: 2:34 AM [facility] 06-27-2024 Miscellaneous Notes BEHAVIORAL HEALTH INTAKE NOTE SERVICE DATE: 06/27/24 SERVICE TIME: 1:15am Nature of the crisis: Suicidal ideation Presenting Problem: Branden Johnson is a 84 year old male brought in to [facility] ED from [facility] by family for SI. PSYCHIATRIC NP assessed patient , patient stated he has been living with his girlfriend for 29 years and he had a stroke and A fib that caused him to go into the [facility], he didn t understand why they couldn t live together , but they told him if she fell he couldn't help and vice versa, patient stated that he was having SI earlier in the day and considered different methods but didn t think he would do them due to them being gruesome, he was missing his girlfriend and wrote her a letter , along with old pictures he gave her , the letter stated he would had himself because of the distance and how much he missed her , he can't stand to be away from her, Patient denied AH/VH/HI and self-harm. Patient not opposed to coming in patient psych. Very emotional and sad. Collateral Philipp Johnson ( Son/ POA) - Lived with Ghazal for about 25 years , had A fib before , ended up in [facility] in [place], tried to leave often, onset of dementia , started @ [facility] in [place]. Patient started to be fixated on Ghazal especially when he cant see her, doesn t want to live anymore without her. Gave her pictures and a not describing how he would hang himself. Son also described Some owning, not sleeping, short term memory. Patient was previously on anti depressants, no out patient providers, has appointment for psych on Wednesday. Zander Schuler, DO- concerned due to patients age and SI, patient stated to his girlfriend via letter that he would hang himself in her back yard, would like patient possible admitted to psych SOCIAL HISTORY: Social History Tobacco Use Smoking status: Unknown Smokeless tobacco: Never Substance Use Topics Alcohol use: No Drug use: No MEDICATIONS: dilTIAZem CD 360 mg 24 hr capsule^Take 1 capsule by mouth once daily.^Disp: ^Rfl: metoprolol tartrate, short acting, (LOPRESSOR) 100 mg tablet^Take 1 tablet by mouth every 12 hours.^Disp: ^Rfl: ipratropium-albuterol (DUONEB) 0.5 mg-3 mg(2.5 mg base)/3 mL nebu^Inhale 3 mL as instructed every 8 hours.^Disp: ^Rfl: pantoprazole DR (PROTONIX) 40 mg tablet^Take 1 tablet by mouth two times a day before meals.^Disp: ^Rfl: acetaminophen (TYLENOL) 325 mg tablet^Take 2 tablets by mouth every 6 hours as needed for pain.^Disp: ^Rfl: levETIRAcetam (KEPPRA) 500 mg tablet^Take 1 tablet by mouth two times a day.^Disp: ^Rfl: trospium (SANCTURA) 20 mg tablet^Take 1 tablet by mouth two times a day before meals.^Disp: ^Rfl: furosemide (LASIX) 40 mg tablet^Take 1 tablet by mouth once daily.^Disp: ^Rfl: ondansetron orally disintegrating (ZOFRAN ODT) 4 mg disintegrating tablet^Take 1 tablet by mouth every 6 hours as needed for nausea/vomiting.^Disp: ^Rfl: mirabegron (MYRBETRIQ) 50 mg Tb24^Take 50 mg by mouth once daily.^Disp: ^Rfl: ascorbic acid, vitamin C, (VITAMIN C) 500 mg tablet^Take 500 mg by mouth two times a day.^Disp: ^Rfl: [id number] OIL ORAL^Take 1 capsule by mouth two times a day.^Disp: ^Rfl: cholecalciferol (VITAMIN D3) 1,000 unit tab tablet^Take 1,000 Units by mouth two times a day.^Disp: ^Rfl: lycopene 10 mg cap^Take 10 mg by mouth daily at bedtime.^Disp: ^Rfl: Potassium Gluconate 2.5 mEq tab^Take 2.5 mEq by mouth once daily.^Disp: ^Rfl: ubidecarenone Q-10 (COENZYME Q-10) 10 mg cap^Take by mouth twice daily.^Disp: ^Rfl: tamsulosin ER (FLOMAX) 0.4 mg cp24^Take 0.8 mg by mouth daily at bedtime.^Disp: ^Rfl: atorvastatin (LIPITOR) 20 mg tablet^Take 20 mg by mouth once daily.^Disp: ^Rfl: apixaban (ELIQUIS) 5 mg tab tab(s)^Take 5 mg by mouth twice daily.^Disp: ^Rfl: No medication comments found. MEDICATION COMPLIANCE: Yes SOCIAL INFORMATION: Living Arrangements: Snf Facility Name/ Phone #: [facility] Satisfaction with Living Arrangements: likes the nursing [facility] Provider Stated Diagnosis: Current severe episode of major depressive disorder without psychotic features, unspecified whether recurrent (HCC) Does Patient Have Minor Children for Whom He/She is Responsible?: No Education Level: High School Diploma/GED Employment Status: Retired Is the Patient a [place]: Yes Details: [employer] Legal History: No Legal History Legal Details: none How Legal Issues Were Verified: [facility] [place] Supervisor of Courts Website, [facility]'s Sexual Offender Website Gender Specific Test: Not Applicable Sex at Time of : Male Patient Identified Gender: Male Preferred Pronoun: He/Him/His Sexual Orientation: Heterosexual Cultural/Samaritan Concerns Cultural Issues or Concerns That Might Affect Treatment: latter day OBSERVATIONS Level of Consciousness Alert: Yes Orientation: Person, Place, Time, Situation Physical Appearance Appears: Appears Stated Age Speech Rate: Appropriate Volume: Appropriate, Soft Quality: Clear, Emotional Quantity: Appropriate Thought Processes Thought: Linear and Organized, 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 Thought Content/Perceptions Delusions: None Observed Hallucinations: Patient Denies Illusions: Patient Denies Derealization: Yes, See Comment Depersonalization: Yes, See Comment Memory: Intact Recent, Intact Remote Cognition Impairment: None Intelligence Evaluation: Average Mood & Affect Patient Described Mood: sad Other Sheep Farm Worker Described Mood: sad Sheep Farm Worker: son and daughter Observed/Reported: Depressed Range of Affect: Blunted Sleep: Difficulty Falling Asleep, Difficulty Staying Asleep Appetite: Normal Appetite Energy: No Significant Change in Energy Anxiety/Trauma: Unable to Control Worry Non-Suicidal Self Injury Non-Suicidal Self Injury: None Suicidal Ideation Suicidal Ideation: Current Current Behavior: Thinking Current Plans/Means: wanted to hang himself Additional Risk Factors/Warning Signs: Age 15-25 or Over 65, Anxiety, Male, [place], Writing Letters, No Significant Other, Changes in Sleep, Loss of Relationship Through Break-Up, Divorce, or Homicidal Ideation Homicidal Ideation: None Non-Lethal Harm to Others or Damage/Destruction to Property Harm to Others or Damage/Destruction of Property: None Access To Weapons Access To Weapons: No History of Impulsive Behaviors History: none Medical Conditions Medical Conditions Increasing Risks: Other: See Comment (Stroke/ A-fib) CHEMICAL DEPENDENCY Substance Use: No Referral for Substance Abuse Services: No Toxicology Screen Results: Negative ACTIVITY Activities of Daily Living: Independent Mobility: No Assistance Person Providing Information: Patient/ Son Continence: Continent MENTAL HEALTH SERVICES: Current Mental Health Providers: None (has appointment to wednesday) Agency/Organization: none Phone Number: none Inpatient Mental Health Treatment History: None SAFE-T Protocol with C-SSRS Step 1: Identify Risk Factors C-SSRS Suicidal Ideation Severity Month 1. Wish to be Yes 2. Current suicidal thoughts No 3. Suicidal thoughts w/ Method 4. Suicidal Intent without Specific Plan 5. Intent with Plan C-SSRS Suicidal Behavior: Lifetime No Past 3 Months Current and Past Psychiatric Dx: (none) Presenting Symptoms: Hopelessness or Despair Family History: (none) Change in treatment: (no) Access to lethal methods: none Step 2: Identify Protective Factors (Protective factors may not counteract significant acute suicide risk factors) Internal: Ability to [place] with Stress, Frustration Tolerance, Samaritan Beliefs, Identifies Reasons for Living External:Responsibility to Children, Supportive Social Network of Family or Friends Step 3: Specific questioning about Thoughts, Plans, and Suicidal Intent - (see Step 1 for Ideation Severity and Behavior) C-SSRS Suicidal Ideation Intensity Month Frequency Less than once a week Duration Fleeting - few seconds or minutes Controllability Can control thoughts with some difficulty Deterrents Deterrents definitely stopped you from attempting suicide Reasons for Ideation Equally to get attention, revenge, or a reaction from others and to end/stop the pain Total Score Suicidal Ideation Intensity Total Score: 9 Step 4: Guidelines to Determine Level of Risk and Develop Interventions to LOWER Risk Level RISK STRATIFICATION TRIAGE High Suicide Risk Moderate Suicide Risk Establish a therapeutic relationship, Complete Intake function and encounter for requested service, Discuss case presentation with staff providing medical care. Discuss with on-call psychiatrist or accepting hospital entity as needed., Document contact information in Intake encounter, Note concern to providers about need for suicide precaution orders/constant observation, Follow-up and document disposition from patient's current level of care Low Suicide Risk Step 5: Documentation Risk Level : Suicide Risk ( Initial Screening):: Low Risk Actual risk determined to be : Moderate Clinical Observation: Branden TAYLOR assessed patient , patient stated he has been living with his girlfriend for 29 years and he had a stroke and A fib that [facility] into the [facility], he didn t understand why they couldn t live together , but they told him if she fell he couldn't help and vice versa, patient stated that he was having SI earlier in the day and considered different methods but didn t think he would do them due to them being gruesome, he was missing his girlfriend and wrote her a letter , along with old pictures he gave her , the letter stated he would had himself because of the distance and how much he missed her , he can't stand to be away from her, Patient denied AH/VH/HI and self-harm. Patient not opposed to coming in patient psych. Very emotional and sad. 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 Loss of Relationship, Financial or Health Status) (Real or Anticipated) Protective Factors: Responsibility to Children; Supportive Social Network of Family or Friends Ability to [place] with Stress; Frustration Tolerance; Samaritan Beliefs; Identifies Reasons for Living Access to Lethal Means: None Collateral Sources Used and Relevant Information Obtained: Collateral Philipp Johnson ( Son/ POA) - Lived with Ghazal for about 25 years , had A fib before , ended up in [facility] in [place], tried to leave often, onset of dementia , started @ [facility] in [place]. Patient started to be fixated on Ghazal especially when he cant see her, doesn t want to live anymore without her. Gave her pictures and a not describing how he would hang himself. Son also described Some owning, not sleeping, short term memory. Patient was previously on anti depressants, no out patient providers, has appointment for psych on Wednesday. Specific Assessment Data to Support Risk Determination Rationale for Actions Taken and Not Taken: Patient at risk of self harm Communication of Current Risk Stratification to: Current Medical Providers: Zander Schuler DO Date 06/30/24 Time1:15am Psychiatrist talent acquisition manager: Name: Dr.Umpa Brown Date: 06/27/24 Time: 2:58am Other Contact and Role: Name and Role: Philipp Date: 06/27/24 Time: 1:15am Reason: collateral INTERVENTIONS Psychiatry Consult Completed in This Episode of Care: No Sources of Information: Epic, Patient, ED Staff, Family Patient Assessed by Intake via: Face to Face Coordination of care with: ED RN, KOURTNEY HAIDER, Family Interventions: Therapeutic Interventions Therapeutic Interventions: Crisis Intervention, Crisis Assessment Goals/Objectives: Admission to inpatient psychiatric unit for safety of patient and others DISPOSITION & PLAN: Patient stated goals: Goals: This has been discussed with my family Coordination of Care with: ED RN, KOURTNEY HAIDER, Family Assessment/Impressions: Inpatient Need Plan: Secure an inpatient bed Goals/Objectives: Admission to inpatient psychiatric unit for safety of patient and others Total time spent (minutes) in Supportive Care for this patient: 30 MEDICAL CLEARANCE Initial Date: 06/27/24 Initial Time: 224 Reviewed medical history with physician: Yes Reviewed abnormal labs with physician: Yes Discussed case with Dr. Fuentes SANTOS who states that Branden Johnson is a candidate for admission. Provider Stated Diagnosis: Current severe episode of major depressive disorder without psychotic features, unspecified whether recurrent ([facility]) Admitting Provider: Dr. Dill Admission Status: Full Admit Unit: [place] Bed#: [id number] Report Given To: Roscoe Report Date: 06/27/24 Report Time: 545 Admission Type: Medical Certificate Is Patient Less Than 18 Years of Age or have a Guardian/Healthcare Power of Factory Helper?: Yes Parental/Guardian Consent to Treatment Plan: Yes Relationship to Patient: Son Guardian/POA Name: Philipp Johnson Disposition Date: 06/27/24 Disposition Time: 604 SIGNATURE: CALUDIA Anglin PATIENT NAME: Branden Johnson DATE: June 27, 2024 TIME: 2:34 AM documented in this encounter [facility] 06-26-2024 History of Presen t illness Narrative Progress Note LTC Facilities: [facility] Subjective Chief complaint:Branden Johnson is a 84 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 HENT: Head: Normocephalic. Pulmonary: Effort: Pulmonary effort is normal. Musculoskeletal: Cervical back: Neck supple. Neurological: Mental Status: He is alert. Assessment & Plan Problem List Items Addressed This Visit Neurology Insomnia - Primary Increase melatonin to 6mg qhs Medication, treatments and labs reviewed Continue medications and treatments as listed in EMR Scribe Attestation I,Marily Ayala, Scribe attest that this documentation has been prepared under the direction and in the presence of Axel Watkins APRN.CNP. Provider Attestation- Scribe documentation All medical record entries made by the Scribe were at my direction and personally dictated by me. I have reviewed the chart and agree that the record accurately reflects my personal performance of the history, physical exam, discussion and plan. 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 Patient seen and examined at bedside. No issues per nursing. Patient has no acute complaints. Objective Vital Signs: BP 126/74 Pulse 68 Temp 36.7 C (98.1 F) Resp 18 SpO2 95% Physical Exam Constitutional: General: He is not in acute distress. HENT: Head: Normocephalic. Pulmonary: Effort: Pulmonary effort is normal. Musculoskeletal: Cervical back: Neck supple. Neurological: Mental Status: He is alert. Assessment & Plan Problem List Items Addressed This Visit Neurology Stroke (cerebrum) (HCC) Continue current medications Seizure disorder (HCC) - Primary Continue current medications Cardiovascular Hypertension, essential Continue current medications Gastrointestinal Malnutrition of mild degree (HCC) Encourage intake Supplements Loss Prevention Agent consult Medication, treatments and labs reviewed Continue medications and treatments as listed in EMR Scribe Attestation Marily Mejia Scribe attest that this documentation has been prepared under the direction and in the presence of Axel Watkins APRN.CNP. Provider Attestation- Scribe documentation All medical record entries made by the Scribe were at my direction and personally dictated by me. I have reviewed the chart and agree that the record accurately reflects my personal performance of the history, physical exam, discussion and plan. Axel Watkins APRN.CNP documented in this encounter [facility] 06-07-2024 History of Pelon t illness Narrative History and Physical Facility: [facility] Subjective Chief Complaint: Branden Johnson is a 84 year oldmale who is a patient being seen and evaluated for multiple problems. 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 HPI: Patient is an 84-year-old male with past medical history of atrial fibrillation, chronic respiratory failure on supplemental oxygen, heart failure with reduced ejection fraction, diabetes mellitus type 2, emphysema, CVA, mixed hyperlipidemia, essential hypertension, epilepsy, prostate cancer, and bladder cancer who is being transferred to a new nursing facility. He was previously at the [facility]. He has no acute issues or complaints. No issues per nursing. PAST MEDICAL HISTORY Diagnosis Date A-fib (HCC) Diabetes (HCC) Stroke (HCC) No past surgical history on file. No family history on file. Social History Tobacco Use Smoking status: Unknown Smokeless tobacco: Never Substance Use Topics Alcohol use: No Drug use: No Vital Signs 112/66, 97.9, 78, 16, 93 % Objective Physical Exam Cardiovascular: Rate and Rhythm: Normal rate and regular rhythm. Pulmonary: Effort: Pulmonary effort is normal. Breath sounds: Normal breath sounds. Abdominal: Palpations: Abdomen is soft. Tenderness: There is no abdominal tenderness. Musculoskeletal: Cervical back: Neck supple. Right lower leg: No edema. Left lower leg: No edema. Neurological: Mental Status: He is alert. Assessment & Plan Problem List Items Addressed This Visit Neurology Stroke (cerebrum) (HCC) Continue current medications Seizure disorder (HCC) - Primary Continue current medications Cardiovascular Hyperlipidemia, mixed Continue current medications Hypertension, essential Continue current medications Paroxysmal atrial fibrillation (HCC) Continue current medications Pulmonary Centrilobular emphysema (HCC) Continue current medications On supplemental O2 Nephrology Malignant neoplasm of urinary bladder (HCC) Supportive care Outpatient follow up Oncology Prostate cancer (HCC) Supportive care Outpatient follow up Hospital records reviewed Medications, treatments, and labs reviewed Continue medications and treatments as listed in EMR Discussed with nursing and therapy Scribe Attestation I, Evy Bunch attest that this documentation has been prepared under the direction and in the presence of Axel Borja DO. Provider Attestation- Scribe documentation All medical record entries made by the Scribe were at my direction and personally dictated by me. I have reviewed the chart and agree that the record accurately reflects my personal performance of the history, physical exam, discussion and plan. Axel Borja DO documented in this encounter [facility] 03-22-2024 Note [facility] 03-21-2024 Note [facility] 03-20-2024 Note [facility] 03-19-2024 Note [facility] 03-19-2024 Note [facility] 03-18-2024 Note [facility] 03-18-2024 Note [facility] 03-18-2024 Note [facility] 03-17-2024 Note [facility] 03-17-2024 Note [facility] 03-16-2024 Note [facility] 03-15-2024 Note [facility] 03-15-2024 Note [facility] 03-14-2024 Note [facility] 03-14-2024 Note [facility] 03-13-2024 Note SARS-COV-2 (AGENT OF COVID-19) RNA: Not detected INFLUENZA A RNA: Not detected INFLUENZA B RNA: Not detected RESPIRATORY SYNCYTIAL VIRUS (RSV) RNA: Not detected [facility] Comment on above: Performed By: #### [id number] ####[facility] [id number] [place] [address] [facility] 07-13-2023 Note Patient Education [facility] General Ambulatory Surgery Adult Home Going Instructions Following Surgery with Anesthesia After surgery you will be allowed to go home when you are awake, stable, taking fluids well, and without complications. The anesthesia medications used during surgery may cause you to feel dizzy, weak, or drowsy for up to 24 hours. For your safety, during the first 24 hours following an anesthetic: ? Have a responsible adult with you ? DO NOT drive a car, operate machinery, or use power tools ? DO NOT take public transportation if you are alone ? DO NOT drink alcohol, including beer or wine ? DO NOT sign important papers or make important decisions ? DO NOT take medication that has not been prescribed by your care provider ? Only take [id number] or prescription medications as directed ? Slowly resume diet ? Activity as directed by your surgeon ? Use extra care climbing stairs or walking with crutches If you have questions or problems that seem to be related to the anesthetic, call the hospital at [phone] and ask for the TEST EXAMINER senior engineering tech or anesthesiologist. Thank you for the privilege and opportunity to participate in your care. We wish you good health, Your Anesthesia Team General Information & when to contact the surgeon: ? If you experience nausea and vomiting, eat clear soups, mild foods, and liquids for up to 12-48 hours until symptoms of nausea and vomiting are gone. Do not smoke. Call the surgeon for uncontrolled nausea and vomiting. ? Pain does not mean that something is wrong, or the surgery did not go well. Do not wait until the pain gets bad to start taking pain medication. Increase activity each day as directed by surgeon as this increases blood flow to promote healing. Take short walks, rest when feeling tired. Do not move quickly or lift anything heavy until you feel better. Call the surgeon if pain gets worse or is not controlled by the medicine. ? Perform coughing and deep breathing while splinting your incision as demonstrated by your nurse. This will prevent pneumonia. ? Drink throughout the day and avoid alcohol or excessive caffeine to prevent difficulty urinating. If you cannot urinate for 8 hours or if it becomes painful, contact the surgeon as soon as possible. ? It is common to have some minor bleeding, however, if you have bleeding that starts again, gets worse such as soaking bandages over 2-4 hours, call the surgeon as soon as possible. If uncontrollable, call 911. ? Contact the surgeon as soon as possible or seek medical attention with signs of infection that include fever of 101 F (38 C), increased pain, swelling, warmth or redness in the surgical area, red streaks leading from the area, pus or foul-smelling drainage coming from the wound. IF AN EMERGENCY DEVELOPS AND YOU ARE UNABLE TO REACH YOUR DOCTOR, GO TO THE NEAREST EMERGENCY DEPARTMENT OR CALL 911. SEEK IMMEDIATE MEDICAL CARE IF YOU: ? Develop a rash ? Have difficulty breathing ? Have chest pain Think you are having an allergic reaction Rev: 2020__ Oncology Transurethral Resection of the Bladder: What to Expect at Home Your Recovery You have had a transurethral resection of the bladder. Your doctor removed abnormal tissue. You may have a small tube called a catheter in your urethra to help prevent blockage of the urethra. When the bleeding from surgery has stopped, the tube is removed. You may go home the same day or stay in the hospital for a day or so. You may feel the need to urinate frequently for a while after the surgery, but this should improve with time. It may burn when you urinate. Drink lots of fluids to help with the burning. Your urine also may look pink for up to 2 to 3 weeks after surgery. This is because there may be blood in it. You may have to avoid strenuous activity and heavy lifting for about 3 weeks after your surgery. This care sheet gives you a general idea about how long it will take for you to recover. But each person recovers at a different pace. Follow the steps below to feel better as quickly as possible. How can you care for yourself at home? Activity ? Rest when you feel tired. Getting enough sleep will help you recover. ? Try to walk each day. Start by walking a little more than you did the day before. Bit by bit, increase the amount you walk. Walking boosts blood flow and helps prevent pneumonia and constipation. ? Avoid strenuous activities, such as bicycle riding, jogging, weight lifting, or aerobic exercise, for about 3 weeks, or until your doctor says it is okay. ? For about 3 weeks, avoid lifting anything that would make you strain. This may include heavy grocery bags and milk containers, a heavy briefcase or backpack, cat litter or dog food bags, a vacuum opening machine cleaner, or a child. ? Ask your doctor when you can drive again. ? You may shower and take baths when your doctor says it is okay. ? Ask your doctor when it is okay for you to keys (more content not included)... [facility] 07-13-2023 Note JOSELINE Education Entere d On: 07/13/2023 13:07 EDT Performed On: 07/13/2023 13:06 EDT by Jacob JOSHI Anuradha General / Required Barriers to Learning : None evident TeachBack Methodology : TeachBack, Explanation Jacob JOSHI, Anuradha - 07/13/2023 13:06 EDT Education Nursing General Required GRID Pain Management : Verbalizes understanding Speakup : Verbalizes understanding Jacob JOSHI Anuradha - 07/13/2023 13:06 EDT Topic Specific Education Health Maintenance GRID Activity Expectations : Verbalizes understanding Jacob JOSHI [facility] 07/13/2023 13:06 EDT Education Medication Management GRID Pain Can Be Managed,Relieved : Verbalizes understanding Jacob JOSHI [facility] 07/13/2023 13:06 EDT Pain Pain Education Topics Grid Acceptable Level of Pain : Verbalizes understanding Pain Assessment Tool : Verbalizes understanding Jacob JOSHI [facility] 07/13/2023 13:06 EDT Pre Procedure / Surgery Education Procedures Tests Exams GRID Anesthesia/Sedation : Verbalizes understanding Jaocb JOSHI [facility] 07/13/2023 13:06 EDT [facility] 07-13-[address] Entered On: 06/28/2023 10:16 EDT Performed On: 07/13/2023 12:59 EDT by Yi Chisholm RN Infection Screening Last Physical Overnight Location of the Patient : Personal Residence Discharge from Other Facility in past 4 weeks : No Travel outside [place] within past 30 days : No History of Recent Diarrhea : No Concern possible Infectious Disease : No Exposure AND/OR close contact with a person under investigation or laboratory-confirmed COVID-19 individual within 14 days of symptom onset AND/OR any of the following: : No Do you live/work in a high risk situation (congregated living, hemodialysis, infusion clinic, chcf, assisted living, care home, homeless detention, etc.)? : No Jacob JOSHI [facility] 07/13/2023 12:59 EDT Checklist NPO Since : 07/13/2023 07:00 EDT Last Food Intake : 07/13/2023 18:30 EDT Jacob JOSHI [facility] 07/13/2023 12:59 EDT Valuables Prechecklist Grid Valuables at Bedside Clothes : Jacket, Pants, Shirt, Undergarments Personal Devices : Dentures, upper Jacob JOSHI [facility] 07/13/2023 12:59 EDT Procedure Location : Surgery Jacob JOSHI [facility] 07/13/2023 12:59 EDT Surgery Prep Grid CHG Cloth Prep in JOSELINE : N/A Makeup and Jewelry Removed : Yes Nail French Removed : Yes Wearing Patient Gown/Street Clothes Removed : Yes Jacob JOSHI [facility] 07/13/2023 12:59 EDT Patient Rights Grid Anesthesia Consent Signed : Yes Surgical Consent Signed : Yes Anuradha James RN - 07/13/2023 12:59 EDT Procedure Checklist is completed for: : CYSTOSCOPY,TRANSURETHRAL RESECTION BLADDER TUMOR Yi Chisholm RN - 06/28/2023 11:03 EDT Allergy (As Of: 07/13/2023 13:06:03 EDT) Allergies (Active) No Known Allergies Estimated Onset Date: Unspecified ; Created By: Neisha Carmona RN Reaction Status: Active ; Category: Drug ; Substance: No Known Allergies ; Type: Allergy ; Updated By: Neisha Carmona RN; Reviewed Date: 07/13/2023 13:00 EDT Beta Keesha Beta Keesha History : Patient self administered Date/Time Pre-Procedure Verification : 07/13/2023 07:00 EDT Anuradha James RN - 07/13/2023 12:59 EDT Protocols Patient Safety Grid ID Band on and Verified : Yes Current ECG in Medical Record : Yes Review of Labs : Yes Anuradha James RN - 07/13/2023 12:59 EDT Current H&P in Medical Record : Yes (Comment: 06/28/23 [Yi Chisholm RN - 06/28/2023 11:03 EDT] ) Yi Chisholm RN - 07/07/2023 15:54 EDT Verification Sleep Apnea : Yes Baseline End Tidal CO2 : 30 % (LOW) Prosthesis/Metal : n/a Pacemaker/AICD : n/a Preoperative Orders Complete : Yes Blood Glucose : 105 Anesthesia Notified of Blood Glucose : Not applicable Mode of Arrival : Ambulatory Anuradha James RN - 07/13/2023 12:59 EDT DCP GENERIC CODE Family Waiting : Yes Can Surgeon Speak With Family : Yes Anuradha James RN - 07/13/2023 12:59 EDT Anesthesia/Transfusions Anesthesia/Transfusions : Prior anesthesia, Prior anesthesia reaction Accept Blood Products if Necessary : Yes Yi Chisholm RN - 06/28/2023 10:25 EDT Advance Directive Advanced Directives : No Advance Directive Additional Information : No Yi Chisholm RN - 06/28/2023 10:25 EDT [facility] 06-28-2023 Note Patient: WAN JOHNSON Age: 83 years Sex: Male : 1940 Associated Diagnoses: None Author: EMMA EISENBERG CNP Basic Information Source of history: Self. History of Present Illness This pleasant 83-year-old male presents to preadmission testing for a physical prior to surgery with Dr. May. The patient has a history of bladder cancer underwent BCG. His recent cystoscopy showed an abnormality near the previous biopsy site. The patient admits to frequency, urgency, and occasional incontinence. He states he is usually up 1-2 times at night urinating. The patient denies hematuria, dysuria, flank pain, abdominal pain, and fever Dr. May is recommending cystoscopy, transurethral resection of bladder and the patient is agreeable. The patient denies any anesthesia problems. Histories Past Medical History: 1.atrial fibrillation 2.hypertension 3.GERD 4.hyperlipidemia 5.prostate cancer s/p chemo 6.right MCA stroke no residual 7.history of seizure 8.right carotid artery stenosis 9.nicotine dependence 10.peripheral vascular disease 11.pre-DM2 12.RAUL Family History: Stroke Sister Heart attack Father Procedure history: Carotid Endarterectomy. (CPT4 [id number]) on 09/14/2012 at 72 Years. Social History Social & Psychosocial History Social History Alcohol Denies Alcohol Use Home/Environment Lives with Significant other. Home monitoring equipment: None. Special/Community resources: None. Mobility prior to admit: Independent. Nutrition/Health Regular, Low sodium, Appetitie: Poor. Unintentional weight change: No. Substance Abuse Denies Substance Abuse Tobacco 5-9 cigarettes (between 1/4 to 1/2 pack)/day in last 30 days Tobacco Use:. Cigarettes, Previous treatment: Counseling. Exposure Patient smokes. Smoking cessation packet Declined. Domestic Concerns No, Stressors Finances. Emotional support available Yes. Pt's responsibilities: Driving, Hobbies/Play/Sports, Laundry, Meal preparation, Work, Yard work. Hospital finance concerns: Yes. Finance concerns: Yes. Family/Friends available to help: Yes. Psychosocial History No active psychosocial history has been recorded . Health Status Allergies (1) Active Reaction No Known Allergies None Documented .Current medications: Home Meds (ST) Home Medications (9) Active atenolol 25 mg oral tablet 25 mg = 1 tabs, ORAL, DAILY Eliquis 5 mg oral tablet 5 mg = 1 tabs, ORAL, BID Flomax 0.4 mg oral capsule 0.4 mg = 1 caps, ORAL, BID Keppra 500 mg oral tablet 500 mg = 1 tabs, ORAL, BID Lasix 20 mg oral tablet 20 mg = 1 tabs, ORAL, BID latanoprost 0.005% ophthalmic solution 1 drops, Both Eyes, QHS Lipitor 10 mg oral tablet 10 mg = 1 tabs, ORAL, DAILY losartan 100 mg oral tablet 1 tabs, ORAL, DAILY Norvasc 5 mg oral tablet 5 mg = 1 tabs, ORAL, DAILY supplements Psyllium 1 rounded tablespoon in 8 ounces of water daily Lecithin 1200mg daily CoQ 10 daily Lycopene daily Potassium gluconate daily Fish oil twice daily D3 1000 units p.o. twice daily Garlic tablet p.o. nightly Vitamin C 500 mg daily Review of Systems Constitutional: No fever. Ear/Nose/Mouth/Throat: No nasal congestion, No sore throat. Respiratory: Sleep apnea, NICOTINE DEPENDENCE, No shortness of breath, No cough. Device use: CPAP. Cardiovascular: HTN, AFIB, HLD, No chest pain, No peripheral edema. Gastrointestinal: No diarrhea, No constipation, No heartburn, No abdominal pain. Genitourinary: Negative except as documented in history of present illness, No dysuria, No hematuria. Hematology/Lymphatics: Anemia, No bleeding tendency. Endocrine: No cold intolerance, No heat intolerance. Immunologic: No recurrent fevers. Musculoskeletal: No back pain, No muscle pain. Integumentary: No rash, No breakdown, No skin lesion. Neurologic: Alert and oriented X4, STROKE. Physical Examination VS/Measurements Vital Signs (last 24 hrs) Last Charted Heart Rate Peripheral L 56bpm (JUN 27:16) Resp Rate 16 br/min (JUN 27:) SBP 111 mmHg (JUN 27:16) DBP L 57mmHg (JUN 27:16) BMI 29.69 (JUN 27:16) General: Alert and oriented. Eye: Pupils are equal, round and reactive to light. HENT: Normocephalic, Normal hearing. Mouth: Dentures ( Upper dentures ). Neck: Supple, Non-tender. Respiratory: Respirations are non-labored, Breath sounds are equal. Breath sounds: Anterior, Posterior, Diminished. Cardiovascular: Normal rate, Regular rhythm, No murmur, Good pulses equal in all extremities, Normal peripheral perfusion. Gastrointestinal: Soft, Non-tender, Non-distended, Normal bowel sounds. Genitourinary: No costovertebral angle tenderness. Lymphatics: No lymphadenopathy neck, axilla, groin. Musculoskeletal: Normal range of motion, Normal strength, No tenderness, No swelling, No deformity, Normal gait. Mobility/ gait: Able to walk with a cane, Unsteady. Integumentary: (more content not included)... [facility] 06-28-2023 Note JOSELINE Education Entere d On: 06/28/2023 10:16 EDT Performed On: 06/28/2023 10:16 EDT by Yi Chisholm RN General / Required Barriers to Learning : None evident Additional Session Learner/s Present : Significant other Yi Chisholm RN - 06/28/2023 10:24 EDT Education Nursing General Required GRID Pain Management : Verbalizes understanding Speakup : Verbalizes understanding Yi Chisholm RN - 06/28/2023 10:24 EDT TeachBack Methodology : Explanation, Printed Material Yi Chisholm RN - 06/28/2023 10:16 EDT Topic Specific Education Medication Management GRID Pain Can Be Managed,Relieved : Verbalizes understanding Yi Chisholm RN - 06/28/2023 10:24 EDT Education Respiratory Care Nursing GRID Cough/Deep Breathing : Verbalizes understanding Yi Chisholm RN - 06/28/2023 10:24 EDT Infection Control Education Dialysis Surgery - [facility] form # [id number] : Verbalizes understanding Yi Chisholm RN - 06/28/2023 10:24 EDT Pain Pain Education Topics Grid Pain Assessment Tool : Verbalizes understanding Yi Chisholm RN 06/28/2023 10:24 EDT Pre Procedure / Surgery Education Procedures Tests Exams GRID Anesthesia/Sedation : Verbalizes understanding DVT Prophylaxis : Verbalizes understanding NPO : Verbalizes understanding Preoperative Instructions : Verbalizes understanding Postoperative Instructions : Verbalizes understanding Preprocedure Tests/Labs : Verbalizes understanding Preprocedure Diet : Verbalizes understanding Yi Chisholm RN 06/28/2023 10:24 EDT [facility] 06-10-2022 Note Patient Outreach ([facility]) BRANDEN JOHNSON ([id number]) 1940 M Date Time Provider Department 06/10/22 MAY BECKER During your visit today, we recorded the following information about you: May Becker RN 06/10/2022 8:57 AM Signed Please schedule Branden Johnson for an appointment with PCP Dr. Katerin Ham for assessment of undiagnosed suspected conditions. Per review of Suspected Conditions at the request of third republican payer Branden Alex may have the following conditions that require coding/billing for the current billing year. Please add the information below to the appointment note for the appointment. 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 NOTE: Conditions must be coded/billed annually and during either a live office visit or during a virtual visit using audio and video. Thank you, May Bolton Population Health Navigator 06/10/2022 9:18 AM Signed POPULATION HEALTH NAVIGATION OUTREACH Action/[facility] Outreach- Number listed in patients chart does not work. No mychart Last pcp visit- 06-26-21, Return in about 6 months (around 12/27/2021). Patient Identified by Name and : NO Outreach Outcome/Action Unable to reach patient: Phone number not valid / voicemail full Did you use a PCP flex slot to schedule this appointment? N/A Reason for Outreach Network Navigator Pool Payer: Payor: [facility] MED[facility] / Plan: [employer] AARP MEDICARE HMO / Product Type: HMO / Care Gap Reviewed:: Follow-up appointment Reminder: Reminder note to check Health Maintenance for items below Health Maintenance items due: COVID-19 VACCINE(1) Never done BP CONTROLLED (<130/80) Never done DTAP,TDAP,TD(1 - Tdap) Never done SHINGRIX VACCINE(1 of 2) Never done PNEUMOCOCCAL: 65+(1 - PCV) Never done DIABETES SCREEN due on 05/01/2020 INFLUENZA(1) due on 12/18/2021 ADVANCE DIRECTIVE DISCUSSION Never done DEPRESSION ASSESSMENT Never done Navigation Signature: Cathy Bolton Population Health Navigator June 10, 2022 9:04 AM Allergies As of Date: 06/10/2022 (No Known Allergies) Date Reviewed: 05/01/2017 Reviewed by: Marichuy Parrish) ANDRE Braswell - Fully Assessed Reason for Visit: ACM ELVIAR RN [[id number]] Cmt: Suspected condition review per request of payer. Prescriptions as of 06/10/2022 - ubidecarenone Q-10 (COENZYME Q-10) 10 mg cap Take by mouth twice daily. - LYCOPENE ORAL Take by mouth. - POTASSIUM GLUCONATE ORAL Take by mouth. - docosahexaenoic acid/epa (FISH OIL ORAL) Take by mouth. - CHOLECALCIFEROL, VITAMIN D3, ORAL Take 100 tablets by mouth. - ASCORBIC ACID ORAL Take by mouth. - GARLIC ORAL Take 500 mg by mouth. - levETIRAcetam (KEPPRA) 750 mg tablet Take 1 tablet by mouth twice daily. - tamsulosin ER (FLOMAX) 0.4 mg cp24 Take 0.8 mg by mouth daily at bedtime. - atorvastatin (LIPITOR) 20 mg tablet Take 10 mg by mouth once daily. - ATENOLOL ORAL Take 50 mg by mouth once daily. - apixaban (ELIQUIS) 5 mg tab tab(s) Take 5 mg by mouth twice daily. - losartan (COZAAR) 100 mg tablet Take 100 mg by mouth once daily. 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] 04/29/2017 Seizure disorder (HCC) [G40.909] 04/29/2017 Acute respiratory failure (HCC) [J96.00] 04/29/2017 05/01/2017 Atrial fibrillation with RVR (HCC) [I48.91] 04/29/2017 Hyperlipidemia, mixed [E78.2] 04/29/2017 Status epilepticus (HCC) [G40.901] 04/29/2017 05/01/2017 Nicotine use disorder, F17.2 [F17.200] 04/29/2017 Hypertension, essential [I10] 06/26/2021 H/O: stroke [Z86.73] 06/26/2021 Paroxysmal atrial fibrillation (HCC) [I48.0] 06/26/2021 Malignant neoplasm of urinary bladder (HCC) [C6*06/26/2021 Prostate cancer (HCC) [C61] 06/26/2021 Encounter Status:Closed by MAY BECKER on 06/10/22 [facility] 06-10-2022 Note HNO ID: [id number] Author: Cathy Bolton Population Health Navigator Service: ? Author Type: ? Type: Progress Notes Filed: 06/10/2022 9:18 AM Note Text: POPULATION HEALTH NAVIGATION OUTREACH Action/[facility] Outreach- Number listed in patients chart does not work. No mychart Last pcp visit- 06-26-21, Return in about 6 months (around 12/27/2021). Patient Identified by Name and : NO Outreach Outcome/Action Unable to reach patient: Phone number not valid / voicemail full Did you use a PCP flex slot to schedule this appointment? N/A Reason for Outreach Network Navigator Pool Payer: Payor: [facility] MED[facility] / Plan: [facility] MEDIC[facility] HMO / Product Type: HMO / Care Gap Reviewed:: Follow-up appointment Reminder: Reminder note to check Health Maintenance for items below Health Maintenance items due: COVID-19 VACCINE(1) Never done BP CONTROLLED (<130/80) Never done DTAP,TDAP,TD(1 - Tdap) Never done SHINGRIX VACCINE(1 of 2) Never done PNEUMOCOCCAL: 65+(1 - PCV) Never done DIABETES SCREEN due on 05/01/2020 INFLUENZA(1) due on 12/18/2021 ADVANCE DIRECTIVE DISCUSSION Never done DEPRESSION ASSESSMENT Never done Navigation Signature: Cathy Bolton Population Health Navigator June 10, 2022 9:04 AM [facility] 06-10-2022 Note HNO ID: [id number] Author: May Becker RN Service: ? Author Type: Registered Nurse Type: Progress Notes Filed: 06/10/2022 8:57 AM Note Text: Please schedule Branden Johnson for an appointment with PCP Dr. Katerin Ham for assessment of undiagnosed suspected conditions. Per review of Suspected Conditions at the request of third republican payer Branden Johnson may have the following conditions that require coding/billing for the current billing year. Please add the information below to the appointment note for the appointment. 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 NOTE: Conditions must be coded/billed annually and during either a live office visit or during a virtual visit using audio and video. Thank you, May JOSHI [facility] 06-10-2022 History of Presen t illness Narrative POPULATION HEALTH NAVIGATION OUTREACH Action/[facility] Outreach- Number listed in patients chart does not work. No mychart Last pcp visit- 06-26-21, Return in about 6 months (around 12/27/2021). Patient Identified by Name and : NO Outreach Outcome/Action Unable to reach patient: Phone number not valid / voicemail full Did you use a PCP flex slot to schedule this appointment? N/A Reason for Outreach Network Navigator Pool Payer: Payor: [facility] MED[facility] / Plan: [facility] MEDIC[facility] HMO / Product Type: HMO / Care Gap Reviewed:: Follow-up appointment Reminder: Reminder note to check Health Maintenance for items below Health Maintenance items due: COVID-19 VACCINE(1) Never done BP CONTROLLED (<130/80) Never done DTAP,TDAP,TD(1 - Tdap) Never done SHINGRIX VACCINE(1 of 2) Never done PNEUMOCOCCAL: 65+(1 - PCV) Never done DIABETES SCREEN due on 05/01/2020 INFLUENZA(1) due on 12/18/2021 ADVANCE DIRECTIVE DISCUSSION Never done DEPRESSION ASSESSMENT Never done Navigation Signature: Cathycorine Bolton [facility] Navigator June 10, 2022 9:04 AM Please schedule Branden Johnson for an appointment with PCP Dr. Katerin Ham for assessment of undiagnosed suspected conditions. Per review of Suspected Conditions at the request of third republican payer Branden Johnson may have the following conditions that require coding/billing for the current billing year. Please add the information below to the appointment note for the appointment. 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 NOTE: Conditions must be coded/billed annually and during either a live office visit or during a virtual visit using audio and video. Thank you, May JOSHI documented in this encounter [facility] 06-26-2021 Note HNO ID: [id number] Author: Katerin Ham MD Service: ? Author Type: Physician Type: Progress Notes Filed: 06/26/2021 4:07 PM Note Text: SUBJECTIVE: Chief Complaint: Patient presents with: New Patient Blood Pressure Branden Johnson is a 81 year old male who presents for an evaluation. Concerns include: dx last year with bladder cancer, getting BCG treatments. He had remote h/o prostate cancer, treated with radiation. Also h/o atr fib and CVBA. INFD ADDITIONAL HX: No recent travel: Residence: [facility] [employer] Supply: [facility] [employer] Family Members currently living in the home: lady friend Pets in the Home: dogs. REVIEW OF SYSTEMS CONSTITUTIONAL: Negative for fever, sweats or chills, adenopathy, fatigue, anorexia or weight loss > 5 pounds. SKIN: Negative for rashes and pressure ulcers. EYES: Negative for dry eyes or irritation, vision loss and visual disturbances. HEENT: Negative for earaches, hearing loss, nose or sinus problems, snoring, dry mouth, mouth ulcers, sore throat and thrush. and Positive for edentulous CARDIOVASCULAR: Negative for chest pain or palpitations, syncope, edema and claudication. RESPIRATORY: Negative for SOB/MAR, cough or wheezing. and Positive for tobacco use GASTROINTESTINAL: Negative for heartburn or indigestion, difficulty swallowing, recent nausea or vomiting, recent abdominal pain, constipation or diarrhea and black or bloody stools. GENITOURINARY: Negative for frequent, difficult or painful urination; hematuria, vaginal bleeding and incontinence. and Positive for bladder and prostate cancer MUSCULOSKELETAL: Negative for muscle aches, arthralgia, arthritis; negative for falls and gait disorder. NEUROLOGICAL: Negative for headaches, focal weakness or numbness, seizures, unusual dizziness, faintness or loss of consciousness, and parathesias. PSYCHIATRIC: Negative for history of anxiety disorder or depression; seizures, unusual dizziness, faintness or loss of consciousness and parathesias. ALLERGIC/IMMUNOLOGIC: Negative for allergies. OTHERS: OBJECTIVE: BP 130/68 (BP Site: Left Arm, BP Position: Sitting, BP Cuff Size: Regular Adult) Wt 85.3 kg (188 lb) BMI 33.30 kg/m? ALLERGIES No Known Allergies Current Outpatient Medications Medication Sig - ubidecarenone Q-10 (COENZYME Q-10) 10 mg cap Take by mouth twice daily. - LYCOPENE ORAL Take by mouth. - POTASSIUM GLUCONATE ORAL Take by mouth. - docosahexaenoic acid/epa (FISH OIL ORAL) Take by mouth. - CHOLECALCIFEROL, VITAMIN D3, ORAL Take 100 tablets by mouth. - ASCORBIC ACID ORAL Take by mouth. - GARLIC ORAL Take 500 mg by mouth. - levETIRAcetam (KEPPRA) 750 mg tablet Take 1 tablet by mouth twice daily. - tamsulosin ER (FLOMAX) 0.4 mg cp24 Take 0.8 mg by mouth daily at bedtime. - atorvastatin (LIPITOR) 20 mg tablet Take 10 mg by mouth once daily. - ATENOLOL ORAL Take 50 mg by mouth once daily. - apixaban (ELIQUIS) 5 mg tab tab(s) Take 5 mg by mouth twice daily. - losartan (COZAAR) 100 mg tablet Take 100 mg by mouth once daily. No current facility-administered medications for this visit. PHYSICAL EXAM SKIN: Negative for rashes or ulcers, pressure ulcers, nodules or sclerosis. LYMPHATIC: Negative for adenopathy in the neck, axillae, groin, supraclavicular and auricular. EYES: Negative for sceleral icterus, EOMS fall, PEERLA, conjunctivitis; normal fundus exam. HEENT: Normal inspection of ears, nasal mucosa, and septum; normal inspection of teeth, lips, gums, oropharynx; no dental appliances; normal external canals, typanic membranes and hearing. and Abnormal edentulous NECK: Normal appearance and movements; no enlargement of thyroid. RESPIRATORY: Symmetrical chest expansion and respiratory effort; clear to ausculation and palpation; normal perussion. CARDIOVASCULAR: Negative for carotid bruits, murmurs, gallops, rubs, edema; normal pulses: femoral or pedal, PMI (no thrill), and abdominal aorta. and Positive for irreg/irreg BREAST: deferred ABDOMINAL: Soft and non-tender; Negative for hepatosplenomegaly, hernias, positive bowel sounds, hemoccult test (when indicated) OR not indicated. MUSCULOSKELETAL: Normal gait, muscle strength and tone; normal ROM, no pain crepitation or contractures; normal symmetry, no dislocation; no clubbing or cyanosis. NEUROLOGICAL: Normal cranial nerves, sensation, reflexes and strength. PSYCHIATRIC: Oriented to time, place and person; normal affect, judgement, insight and memory. GENITOURINARY: deferred ASSESSMENT/PLAN: 1. Hypertension, essential - ICD9: 401.9, ICD10: I10 (primary diagnosis) - good control - Continue current medication(s) - Recommended regular aerobic exercise. - Recommend home blood pressure monitoring, to bring results in on next visit - Goal of BP <130/80 2. Seizure disorder (HCC) - ICD9: 345.90, ICD10: G40.909 Stable on rx 3. H/O: stroke - ICD9: V12.54, ICD10: Z86.73 Stable, good (more content not included)... [facility] 06-23-2021 Note Patient Outreach ([facility]) BRANDEN JOHNSON ([id number]) 1940 M Date Time Provider Department 06/23/21 CATHY RUGGIERO During your visit today, we recorded the following information about you: Cathy Ruggiero MA 06/23/2021 10:42 AM Addendum POPULATION HEALTH NAVIGATION OUTREACH Action/FYI Patient is on [facility] for the following care gaps: Patient has an appointment scheduled to establish care with Dr. Potter for 06/26/21. PCP field updated. Pt identified by name and : NO Outreach Outcome/Action PCP field updated Reason for Outreach Care Gap or Scheduling/Wellness visits Payer: Payor: [facility] MED[facility] / Plan: [employer] AARP MEDICARE HMO / Product Type: HMO / Navigation Signature: Cathy Ruggiero MA June 23, 2021 8:18 AM Allergies As of Date: 06/23/2021 (No Known Allergies) Date Reviewed: 05/01/2017 Reviewed by: Marichuy (Andre) ANDRE Braswell - Fully Assessed Reason for Visit: Population Health Navigation Outreach [[id number]] Cmt: [facility] Care Gaps Prescriptions as of 06/23/2021 - levETIRAcetam (KEPPRA) 750 mg tablet Take 1 tablet by mouth twice daily. - tamsulosin ER (FLOMAX) 0.4 mg cp24 Take 0.8 mg by mouth daily at bedtime. - atorvastatin (LIPITOR) 20 mg tablet Take 10 mg by mouth once daily. - ATENOLOL ORAL Take 50 mg by mouth once daily. - apixaban (ELIQUIS) 5 mg tab tab(s) Take 5 mg by mouth twice daily. - losartan (COZAAR) 100 mg tablet Take 100 mg by mouth once daily. Problem List As Of Date 06/23/2021 Noted Resolved Stroke (cerebrum) (HCC) [I63.9] 04/29/2017 Seizure (HCC) [R56.9] 04/29/2017 Acute respiratory failure (HCC) [J96.00] 04/29/2017 05/01/2017 Atrial fibrillation with RVR (HCC) [I48.91] 04/29/2017 Hyperlipidemia [E78.5] 04/29/2017 Status epilepticus (HCC) [G40.901] 04/29/2017 05/01/2017 Nicotine use disorder, F17.2 [F17.200] 04/29/2017 Encounter Status:Closed by CATHY RUGGIERO on 06/23/21 [facility] 06-23-2021 Note HNO ID: [id number] Author: Cathy Ruggiero MA Service: ? Author Type: Screen Cutter And Trimmer Type: Progress Notes Filed: 06/23/2021 10:42 AM Note Text: POPULATION HEALTH NAVIGATION OUTREACH Action/FYI Patient is on [facility] for the following HM care gaps: Patient has an appointment scheduled to establish care with Dr. Potter for 06/26/21. PCP field updated. Pt identified by name and : NO Outreach Outcome/Action PCP field updated Reason for Outreach Care Gap or Scheduling/Wellness visits Payer: Payor: [facility] / Plan: [facility] MEDIC[facility] HMO / Product Type: HMO / Navigation Signature: Cathy Ruggiero MA June 23, 2021 8:18 AM [facility] 04-29-2017 History of Past i llness Narrative Problem Noted Date Resolved Date Acute respiratory failure 04/29/20172017 Last Assessment & Plan: Assessment: Pulmonary 1. Ventilator on admission for hypoxic/hypercarbic respiratory failure d/t 2. No evidence of chronic pulmonary disease 3. 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 No new seizure noted on EEG wean propofol Keppra Seizure precautions including driving restriction d.w son No prodromal syn, WBC Date Value Ref Range Status 04/29/2017 5.47 3.70 - 11.00 k/uL Final and no fever low suspicion of PICKER TENDER infection documented as of this encounter (statuses as of 06/10/2022) [facility] Current severe episode of major depressive disorder without psychotic features, unspecified whether recurrent (HCC)- Primary [facility] Diagnosis Seizure disorder (HCC)- Primary Unspecified epilepsy 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 epilepsy Cerebrovascular accident (CVA), unspecified mechanism (HCC) Hyperlipidemia, mixed Mixed hyperlipidemia Hypertension, essential Unspecified essential hypertension Paroxysmal atrial fibrillation (HCC) Atrial fibrillation Centrilobular emphysema (HCC) Other emphysema Malignant neoplasm of urinary bladder, unspecified site (HCC) Prostate cancer (HCC) Malignant neoplasm of prostate 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, single episode, severe, specified as with psychotic behavior Nicotine use disorder, F17.2 Tobacco use disorder Malnutrition of mild degree (HCC) Malnutrition of mild degree * Assessment & Plan Note - Axel Borja DO - 07/12/2024 6:27 PM EDT Associated Problem(s): Prostate cancer (HCC) Supportive care Outpatient follow up * Assessment & Plan Note - Axel Borja DO - 07/12/2024 6:27 PM EDT Associated Problem(s): Malignant neoplasm of urinary bladder (HCC) Supportive care Outpatient follow up * Assessment & Plan Note - Axel Borja DO - 07/12/2024 6:27 PM EDT Associated Problem(s): Centrilobular emphysema (HCC) Continue current medications On supplemental O2 * Assessment & Plan Note - Axel Borja DO - 07/12/2024 6:26 PM EDT Associated Problem(s): Paroxysmal atrial fibrillation (HCC) Continue current medications * Assessment & Plan Note - Axel Borja DO - 07/12/2024 6:26 PM EDT Associated Problem(s): Hypertension, essential Continue current medications * Assessment & Plan Note - Axel Borja DO - 07/12/2024 6:26 PM EDT Associated Problem(s): Hyperlipidemia, mixed Continue current medications * Assessment & Plan Note - Axel Borja DO - 07/12/2024 6:26 PM EDT Associated Problem(s): Stroke (cerebrum) (HCC) Continue current medications * Assessment & Plan Note - Axel Borja DO - 07/12/2024 6:26 PM EDT Associated Problem(s): Seizure disorder (HCC) Continue current medications [facility] Diagnosis Seizure disorder (HCC)- Primary Unspecified epilepsy 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 epilepsy Cerebrovascular accident (CVA), unspecified mechanism (HCC) Hyperlipidemia, mixed Mixed hyperlipidemia Hypertension, essential Unspecified essential hypertension Paroxysmal atrial fibrillation (HCC) Atrial fibrillation Centrilobular emphysema (HCC) Other emphysema Malignant neoplasm of urinary bladder, unspecified site (HCC) Prostate cancer (HCC) Malignant neoplasm of prostate Seizure disorder (HCC)- Primary Unspecified epilepsy 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 epilepsy Cerebrovascular accident (CVA), unspecified mechanism (HCC) Malnutrition of mild degree (HCC) Malnutrition of mild degree Hypertension, essential Unspecified essential hypertension 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, single episode, severe, specified as with psychotic behavior Nicotine use disorder, F17.2 Tobacco use disorder Malnutrition of mild degree (HCC) Malnutrition of mild degree * Assessment & Plan Note - Axel Watkins APRN.CNP - 07/25/2024 8:23 PM EDTAssociated Problem(s): Hypertension, essential Continue current medications * Assessment & Plan Note - Axel Watkins APRN.CNP - 07/25/2024 8:23 PM EDTAssociated Problem(s): Malnutrition of mild degree (HCC) Encourage intake Supplements Loss Prevention Agent consult * Assessment & Plan Note - Axel Watkins APRN.CNP - 07/25/2024 8:22 PM EDTAssociated Problem(s): Stroke (cerebrum) (HCC) Continue current medications * Assessment & Plan Note - Axel Watkins APRN.CNP - 07/25/2024 8:22 PM EDTAssociated Problem(s): Seizure disorder (HCC) Continue current medications [facility] Diagnosis Seizure disorder (HCC)- Primary Unspecified epilepsy 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 epilepsy Cerebrovascular accident (CVA), unspecified mechanism (HCC) Hyperlipidemia, mixed Mixed hyperlipidemia Hypertension, essential Unspecified essential hypertension Paroxysmal atrial fibrillation (HCC) Atrial fibrillation Centrilobular emphysema (HCC) Other emphysema Malignant neoplasm of urinary bladder, unspecified site (HCC) Prostate cancer (HCC) Malignant neoplasm of prostate Seizure disorder (HCC)- Primary Unspecified epilepsy 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 epilepsy Cerebrovascular accident (CVA), unspecified mechanism (HCC) Malnutrition of mild degree (HCC) Malnutrition of mild degree Hypertension, essential Unspecified essential hypertension Primary insomnia- Primary Persistent disorder of initiating or maintaining sleep 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, single episode, severe, specified as with psychotic behavior Nicotine use disorder, F17.2 Tobacco use disorder Malnutrition of mild degree (HCC) Malnutrition of mild degree * Assessment & Plan Note - Axel Watkins APRN.CNP - 07/27/2024 8:59 PM EDTAssociated Problem(s): Insomnia Increase melatonin to 6mg qhs [facility]* Diagnosis Seizure disorder (HCC)- Primary Unspecified epilepsy 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 epilepsy Cerebrovascular accident (CVA), unspecified mechanism (HCC) Hyperlipidemia, mixed Mixed hyperlipidemia Hypertension, essential Unspecified essential hypertension Paroxysmal atrial fibrillation (HCC) Atrial fibrillation Centrilobular emphysema (HCC) Other emphysema Malignant neoplasm of urinary bladder, unspecified site (HCC) Prostate cancer (HCC) Malignant neoplasm of prostate Seizure disorder (HCC)- Primary Unspecified epilepsy 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 epilepsy Cerebrovascular accident (CVA), unspecified mechanism (HCC) Malnutrition of mild degree (HCC) Malnutrition of mild degree Hypertension, essential Unspecified essential hypertension Primary insomnia- Primary Persistent disorder of initiating or maintaining sleep 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, single episode, severe, specified as with psychotic behavior Nicotine use disorder, F17.2 Tobacco use disorder Malnutrition of mild degree (HCC) Malnutrition of mild degree Hypertension, essential- Primary Unspecified essential hypertension Paroxysmal atrial fibrillation (HCC) Atrial fibrillation Seizure disorder (HCC) Unspecified epilepsy 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 epilepsy Primary insomnia Persistent disorder of initiating or maintaining sleep * Assessment & Plan Note - Axel Watkins APRN.CNP - 07/28/2024 11:52 AM EDTAssociated Problem(s): Insomnia Melatonin * Assessment & Plan Note - Axel Watkins APRN.CNP - 07/28/2024 11:51 AM EDTAssociated Problem(s): Seizure disorder (HCC) Continue current medications * Assessment & Plan Note - Axel Watkins APRN.CNP - 07/28/2024 11:51 AM EDTAssociated Problem(s): Paroxysmal atrial fibrillation (HCC) Continue current medications * Assessment & Plan Note - Axel Watkins APRN.CNP - 07/28/2024 11:51 AM EDTAssociated Problem(s): Hypertension, essential Continue current medications [facility] Diagnosis Seizure disorder (HCC)- Primary Unspecified epilepsy 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 epilepsy Cerebrovascular accident (CVA), unspecified mechanism (HCC) Hyperlipidemia, mixed Mixed hyperlipidemia Hypertension, essential Unspecified essential hypertension Paroxysmal atrial fibrillation (HCC) Atrial fibrillation Centrilobular emphysema (HCC) Other emphysema Malignant neoplasm of urinary bladder, unspecified site (HCC) Prostate cancer (HCC) Malignant neoplasm of prostate Seizure disorder (HCC)- Primary Unspecified epilepsy 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 epilepsy Cerebrovascular accident (CVA), unspecified mechanism (HCC) Malnutrition of mild degree (HCC) Malnutrition of mild degree Hypertension, essential Unspecified essential hypertension Primary insomnia- Primary Persistent disorder of initiating or maintaining sleep 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, single episode, severe, specified as with psychotic behavior Nicotine use disorder, F17.2 Tobacco use disorder Malnutrition of mild degree (HCC) Malnutrition of mild degree Hypertension, essential- Primary Unspecified essential hypertension Paroxysmal atrial fibrillation (HCC) Atrial fibrillation Seizure disorder (HCC) Unspecified epilepsy 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 epilepsy Primary insomnia Persistent disorder of initiating or maintaining sleep Hypertension, essential- Primary Unspecified essential hypertension Cerebrovascular accident (CVA), unspecified mechanism (HCC) Seizure disorder (HCC) Unspecified epilepsy 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 epilepsy Centrilobular emphysema (HCC) Other emphysema * Assessment & Plan Note - Axel Watkisn APRN.CNP - 08/25/2024 9:54 AM EDTAssociated Problem(s): Centrilobular emphysema (HCC) Continue current medications On supplemental O2 * Assessment & Plan Note - Axel Watkins APRN.CNP - 08/25/2024 9:53 AM EDTAssociated Problem(s): Seizure disorder (HCC) Continue current medications * Assessment & Plan Note - Axel Watkins APRN.CNP - 08/25/2024 9:53 AM EDTAssociated Problem(s): Stroke (cerebrum) (HCC) Continue current medications * Assessment & Plan Note - Marily Ayala - 08/16/2024 1:50 PM EDTAssociated Problem(s): Hypertension, essential Continue current medications documented in this encounter [facility] note* Diagnosis Bradycardia- Primary Other specified cardiac dysrhythmias Fall, initial encounter Bradycardia Other specified cardiac dysrhythmias Idiopathic hypotension Unspecified hypotension documented [facility] this [facility] noteNo assessment information availableWMer[facility] Work Phone: Reason for referral (narrative)No reason for referral information availableWMercy Health Lor[facility] Work Phone: Advance Directives No Advanced Directives Records FoundDocuments on File Type Date Recorded Patient Insole Rasper Expl anation Advance Directive(s) 04/29/2017 3:35 PM Date Activated Date Inactivated Comments 03/17/2024 11:15 AM 03/23/2024 6:45 PM Question Answer Comments DNR Order Discussed With: Patient Date Activated Date Inactivated Comments 07/03/2024 10:18 AM 07/04/2024 6:39 PM Question Answer Comments DNR Order Discussed With: Surrogate Decision Sauol er Surrogate Decision Maker Relationship: Health Ca re Power of Factory Helper Agent Date Activated Date Inactivated Comments 06/27/2024 12:10 PM 07/03/2024 10:18 AM Question Answer Comments Full Code Order Discussed With: Patient Date Activated Date Inactivated Comments 03/17/2024 11:15 AM 03/23/2024 6:45 PM Question Answer Comments DNR Order Discussed With: Patient Documents on File Type Date Recorded Patient Insole Rasper Expl anation DNR (Do Not Resuscitate) 11/05/2024 11:55 AM [place] DNR Form Date Activated Date Inactivated Comments 11/05/2024 3:19 AM 11/05/2024 11:01 PM Question Answer Comments ICU transfer: Yes Intubation: No Date Activated Date Inactivated Comments 11/04/2024 6:49 PM 11/05/2024 3:18 AM Summary Purpose Family History No Family History Records FoundNo Family History Records FoundNo Family History Records FoundNo Family History Records FoundNo Family History Records FoundNo Family History Records FoundNo Family History Records Found Chief Complaint and Reason for Visit Chief Complaint Admit Date LABWORK September 13, 2024 5:00a m Additional Source Comments Source Comments (unrecognize d section and content) In the event this informatio n is protected by the Federal Confidentiality of Alcohol and Drug Abuse Patient Records regulations: The Federal rules restrict any use of the information to criminally investigate or prosecute any alcohol or drug abuse patient.[facility] the event this information is protected by the Federal Confidentiality of Alcohol and Drug Abuse Patient Records regulations: The Federal rules restrict any use of the information to criminally investigate or prosecute any alcohol or drug abuse patient.[facility] HealthIn the event this information is protected by the Federal Confidentiality of Alcohol and Drug Abuse Patient Records regulations: The Federal rules restrict any use of the information to criminally investigate or prosecute any alcohol or drug abuse patient.[facility] Health[facility] the event this information is protected by the Federal Confidentiality of Alcohol and Drug Abuse Patient Records regulations: The Federal rules restrict any use of the information to criminally investigate or prosecute any alcohol or drug abuse patient.[facility] HealthIn the event this information is protected by the Federal Confidentiality of Alcohol and Drug Abuse Patient Records regulations: The Federal rules restrict any use of the information to criminally investigate or prosecute any alcohol or drug abuse patient.[facility] HealthIn the event this information is protected by the Federal Confidentiality of Alcohol and Drug Abuse Patient Records regulations: The Federal rules restrict any use of the information to criminally investigate or prosecute any alcohol or drug abuse patient.[facility] HealthIn the event this information is protected by the Federal Confidentiality of Alcohol and Drug Abuse Patient Records regulations: The Federal rules restrict any use of the information to criminally investigate or prosecute any alcohol or drug abuse patient.[facility] HealthIn the event this information is protected by the Federal Confidentiality of Alcohol and Drug Abuse Patient Records regulations: The Federal rules restrict any use of the information to criminally investigate or prosecute any alcohol or drug abuse patient.[facility] HealthIn the event this information is protected by the Federal Confidentiality of Alcohol and Drug Abuse Patient Records regulations: The Federal rules restrict any use of the information to criminally investigate or prosecute any alcohol or drug abuse patient.[facility] Reason for Visit (unrecogniz ed section and content) Reason Onset Date Comments ACM ELVIRA RN 06/10/2022 Suspected con dition review per request of payer. Reason Onset Date Comments Suicidal Ideation 06/27/2024 Reason Comments Fall Ems states pt was be nding over walker moved fell hit head neg loc Specialty Diagnoses / Procedures Referred By Contac t Referred To Contact Diagnoses Bradycardia Idiopathic hypotension Fall, initial encounter Procedures [email or web address] Marianna Longo MD [address] [place] [address] Phone: tel: fax: [facility] Clinical Decision Unit [address] [address] Phone: tel: Referral ID Status Reason Start Date Expiration Date Visits Re quested Visits Authorized [id number] 1 1 Care Teams (unrecognized sec tion and content) Silk Top Hat Body Maker Relationship Specialty Start Date End Date Katerin Ham MD [address] [place] [address] PCP - General Family Medicine 06/23/21 [employer] Top Hat Body Maker Relationship Specialty Start Date End Date Katerin Ham MD [address] [place] [address] PCP - General Family Medicine 06/23/21 [employer] Top Hat Body Maker Relationship Specialty Start Date End Date Katerin Ham MD [address] [place] [address] PCP - General Family Medicine 06/23/21 [employer] Top Hat Body Maker Relationship Specialty Start Date End Date Katerin Ham MD [address] [place] [address] PCP - General Family Medicine 06/23/21 Junior Garrett PA-C [address] [place] [address] Dial Equipment Engineer Family Medicine 06/30/24 [employer] Top Hat Body Maker Relationship Specialty Start Date End Date Katerin Ham MD [address] [place] [address] PCP - General Family Medicine 06/23/21 Junior Garrett PA-C [address] [place] [address] Dial Equipment Engineer Family Medicine 06/30/24 [employer] Top Hat Body Maker Relationship Specialty Start Date End Date Katerin Ham MD [address] [place] [address] PCP - General Family Medicine 06/23/21 Junior Garrett PA-C [address] [place] [address] Dial Equipment Engineer Family Medicine 06/30/24 [employer] Top Hat Body Maker Relationship Specialty Start Date End Date Katerin Ham MD [address] [place] [address] PCP - General Family Medicine 06/23/21 Junior Garrett PA-C [address] [place] [address] Dial Equipment Engineer Family Medicine 06/30/24 [employer] Top Hat Body Maker Relationship Specialty Start Date End Date Katerin Ham MD [address] [place] [address] PCP - General Family Medicine 06/23/21 Junior Garrett PA-C [address] [place] [address] Dial Equipment Engineer Family Medicine 06/30/24 [employer] Top Hat Body Maker Relationship Specialty Start Date End Date Galilae Adkins MD [address] [place] [address] [address] [place] [address] PCP - General Family Medicine 11/04/24 Team Status: Inactive Member Role/Relationship Status Dates Galilea LEYVA Attending Provider Active Star t: September 13, 2024 End: September 13, 2024 (unrecognized sect ion and content) No Status Records FoundNo Status Records FoundNo Status Records FoundNo Status Records FoundNo Status Records FoundNo Status Records FoundNo Status Records Found INFORMATION SOURCE (unrecogn ized section and content) DATE CREATED AUTHOR 06/11/2022 [facility] DATE CREATED AUTHOR AUTHOR'S ORGANIZ ATION 07/20/2023 [facility] DATE CREATED AUTHOR AUTHOR'S ORGANIZ ATION 06/28/2024 [facility] DATE CREATED AUTHOR AUTHOR'S ORGANIZ ATION 07/07/2024 [facility] DATE CREATED AUTHOR AUTHOR'S ORGANIZ ATION 09/13/2024 [facility] DATE CREATED AUTHOR AUTHOR'S ORGANIZ ATION 11/19/2024 [facility] DATE CREATED AUTHOR AUTHOR'S ORGANIZ ATION 11/21/2024 [facility] Scheduled Active and Recently Administ ered Medications (unrecognized section and content) Medication Order 11/03/2024 11/04/2024 11/05/2024 apixaban (Eliquis) tablet 5 mg 5 mg, Oral, 2 times daily, First dose on 11/04/24 at 2100, Anticoagulant 2108 (Given - Provider: Teagan Esqueda RN) 919 (Given - Provider: Torrey Hammond RN)2005 (Given - Provider: Teagan Esqueda RN) atorvastatin (Lipitor) tablet 20 mg 20 mg, Oral, Nightly, First dose on 11/04/24 at 2100 210 (Given - Provider: Teagan Esqueda RN) 2006 (Given - Provider: Teagan Esqueda RN) cholecalciferol (Vitamin D-3) tablet 25 mcg 25 mcg, Oral, Daily, First dose on 11/05/24 at 0900 0919 (Given - Provid er: Torrey Hammond, RN) dilTIAZem CD (Cardizem CD) 24 hr capsule 240 mg 240 mg, Oral, Daily, First dose on 11/05/24 at 0900, Do not crush, chew, or split. 09 (Given - Provid er: Torrey Hammond, RN) escitalopram (Lexapro) tablet 10 mg 10 mg, Oral, Daily, First dose on 11/05/24 at 0900 0919 (Given - Provid er: Torrey Hammond, RN) Insulin Lispro (Humalog) injection 0-6 Units(Linked Group 1) 0-6 Units, SubCUTAneous, 3 times daily with meals, First dose on 11/04/24 at 1900, Low Dose Correction Algorithm Glucose: Dose: LESS than 150 No Insulin 150-199 1 Unit 200-249 2 Units 250-299 3 Units 300-349 4 Units 350-400 5 Units Above 400 6 Units 1837 (Not Given - Provider: Teagan Esqueda RN - Reason: Patient not available) 0920 (Not Given - Provider: Torrey Hammond RN - Reason: Order parameters not met)1213 (Not Given - Provider: Torrey Hammond, RN - Reason: Order parameters not met)1728 (Given - Provider: Torrey Hammond, RN) Insulin Lispro (Humalog) injection 0-6 Units(Linked Group 1) 0-6 Units, SubCUTAneous, Nightly, First dose on 11/04/24 at 2100, If eating or bolus tube feeding: Low Dose Correction Algorithm Glucose: Dose: LESS than 150 No Insulin 150-199 1 Unit 200-249 2 Units 250-299 3 Units 300-349 4 Units 350-400 5 Units Above 400 6 Units 2100 (Not Given - Provider: Teagan Esqueda RN - Reason: Patient/family refused - Comment: Patient says that he doesn't want to take insulin, he respectfully declined the injx after education on why he should take it.) 2007 (Not Given - Provider: Teagan Esqueda RN - Reason: Patient not available) lactase (Lactaid) tablet 9,000 Units 9,000 Units, Oral, 3 times daily with meals, First dose on 11/04/24 at 1900 2108 (Given - Provider: Teagan Esqueda RN) 0919 (Given - Provider: Torrey Hammond RN)1303 (Given - Provider: Torrey Hammond RN)1728 (Given - Provider: Torrey Hammond RN) levETIRAcetam (Keppra) tablet 500 mg 500 mg, Oral, 2 times daily, First dose on 11/04/24 at 2100, Do not crush or chew. 2108 (Given - Provider: Teagan Esqueda RN) 919 (Given - Provider: Torrey Hammond RN)2005 (Given - Provider: Teagan Esqueda RN) metFORMIN (Glucophage) tablet 500 mg 500 mg, Oral, Daily with breakfast, First dose on 11/05/24 at 0800, On hold since 11/04/2024 at 1849 until manually unheld 1848 (Held by provider - Provider: TYRELL Ha CNP - Reason: Other) 0800 (Dose Auto Held)2301 (Unheld by provider - Provider: Automatic Discharge Provider) metoprolol tartrate (Lopressor) tablet 50 mg 50 mg, Oral, 2 times daily, First dose on 11/04/24 at 2100, On hold since 11/04/2024 at 1849 until manually unheld 1848 (Held by provider - Provider: TYRELL Ha CNP - Reason: Other)2100 (Dose Auto Held - Provider: TYRELL Ha CNP) 0900 (Dose Auto Held - Provider: TYRELL Ha CNP)2301 (Unheld by provider - Provider: Automatic Discharge Provider) pantoprazole (ProtoNix) EC tablet 40 mg 40 mg, Oral, Daily before breakfast, First dose on 11/05/24 at 0600, Do not crush, chew, or split. 09 (Given - Provid er: Torrey Hammond RN) Propylene Glycol-Glycerin (Artificial tears) 1-0.3 % solution 1 drop 1 drop, Both Eyes, Daily, First dose on 11/05/24 at 0900 0919 (Given - Provid er: Torrey Hammond RN) sodium chloride 0.9 % bolus 1,000 mL (COMPLETED) 1,000 mL, IntraVENous, at 1,000 mL/hr, Administer over 1 Hours, Once, On 11/04/24 at 1600, For 1 dose 1636 (New Bag - Provider: Ban Vazquez RN)1742 (Stopped - Provider: Ban Vazquez RN) tamsulosin (Flomax) 24 hr capsule 0.8 mg 0.8 mg, Oral, Daily, First dose on 11/05/24 at 0900, Do not crush, chew, or split. 09 (Given - Provid er: Torrey Hammond RN) PRN Medication Order 11/03/2024 11/04/2024 11/05/2024 acetaminophen (Tylenol) suppository 650 mg(Linked Group 2) 650 mg, Rectal, Every 6 hours PRN, mild pain (1-3), fever, For temp greater than 100.4 F (38 C), Starting on 11/04/24 at 1848, Administer if oral route cannot be used. Maximum dose of acetaminophen is 4000 mg from all sources in 24 hours. acetaminophen (Tylenol) tablet 650 mg(Linked Group 2) 650 mg, Oral, Every 6 hours PRN, mild pain (1-3), fever, For temp greater than 100.4 F (38 C), Starting on 11/04/24 at 1848, Maximum dose of acetaminophen is 4000 mg from all sources in 24 hours. dextrose 5 % infusion 100 mL/hr, IntraVENous, PRN, Blood sugar less than 70mg/dL, Starting on 11/04/24 at 1849, Start infusion following administration of dextrose 50% or glucagon. dextrose 50 % solution 12.5 g 12.5 g, IntraVENous, PRN, low blood sugar, Blood glucose less than 70 mg/dL and patient NOT ALERT or NPO., Starting on 11/04/24 at 1849, If patient does not respond within 5 minutes, repeat dose x1. Start D5W at 100 mL/hour until ordering provider can be reached. Repeat blood glucose in 15 minutes. If blood glucose is less than 70 mg/dL, repeat treatment and recheck blood glucose in 15 minutes x2. If using Glucostabilizer, dose as instructed per system. glucagon (human recombinant) injection 1 mg 1 mg, IntraMUSCular, PRN, low blood sugar, Blood glucose less than 70 mg/dL and patient NOT ALERT or NPO and does not have IV access., Starting on 11/04/24 at 1849, After administration, attempt intravenous access and start D5W at 100 mL/hr. Repeat blood glucose in 15 minutes x2 and notify provider. glucose oral gel 15 g 15 g, Oral, As needed, low blood sugar, Starting on 11/04/24 at 1849, If blood glucose less than 50 mg/dL and patient ALERT and NOT NPO, give 2 tubes glucose gel. If blood glucose less than 70 mg/dL and patient ALERT and NOT NPO, give 1 tube glucose gel. Repeat blood glucose in 15 minutes. If blood glucose is less than 70 mg/dL, repeat treatment and recheck blood glucose in 15 minutes x2 and notify provider. polyethylene glycol (PEG) 3350 (Miralax) packet 17 g 17 g, Oral, Daily PRN, constipation, Starting on 11/04/24 at 1848, 1st line for treatment of constipation - give scheduled if no bowel movement in past 24 hours. Linked Groups Order Group 1: Insulin Lispro (Humalog) injection 0-6 UnitsJump to med 0-6 Units, SubCUTAneous, 3 times daily with meals, First dose on 11/04/24 at 1900, Low Dose Correction Algorithm Glucose: Dose: LESS than 150 No Insulin 150- 199 1 Unit 200-249 2 Units 250-299 3 Units 300-349 4 Units 350-400 5 Units Above 400 6 Units And Insulin Lispro (Humalog) injection 0-6 UnitsJump to med 0-6 Units, SubCUTAneous, Nightly, First dose on 11/04/24 at 2100, If eating or bolus tube feeding: Low Dose Correction Algorithm Glucose: Dose: LESS than 150 No Insulin 150-199 1 Unit 200-249 2 Units 250-299 3 Units 300-349 4 Units 350-400 5 Units Above 400 6 Units Group 2: acetaminophen (Tylenol) tablet 650 mgJump to med 650 mg, Oral, Every 6 hours PRN, mild pain (1-3), fever, For temp greater than 100.4 F (38 C), Starting on 11/04/24 at 1848, Maximum dose of acetaminophen is 4000 mg from all sources in 24 hours. Or acetaminophen (Tylenol) suppository 650 mgJump to med 650 mg, Rectal, Every 6 hours PRN, mild pain (1-3), fever, For temp greater than 100.4 F (38 C), Starting on 11/04/24 at 1848, Administer if oral route cannot be used. Maximum dose of acetaminophen is 4000 mg from all sources in 24 hours. Goals (unrecognized section and content) Goals may be documented in a n alternate section FOR RECORDS PERTAINING TO PATIENTS WHO ARE OR HAVE BEEN ENROLLED IN A CHEMICAL DEPENDENCY/SUBSTANCEABUSE PROGRAM, SOME INFORMATION MAY BE OMITTED. This clinical summary was aggregated from multiple sources. Caution should be exercised in using it in the provision of clinical care. This summary normalizes information from multiple sources, and as a consequence, information in this document may materially change the coding, format and clinical context of patient data. In addition, data may be omitted in some cases. CLINICAL DECISIONS SHOULD BE BASED ON THE PRIMARY CLINICAL RECORDS. [facility]. provides no warranty or guarantee of the accuracy or completeness of information in this document.
[2024-12-11 09:40] LABS: Anion Gap 15 (5-15); BUN 16 mg/dL (4-19); BUN/Creat Ratio 22.9 RATIO (10-20); Calcium,Total 8.7 mg/dL (7.6-11.0); Carbon Dioxide 22.2 mmol/L (21.0-32.0); Chloride 102 mmol/L (98-108); Glucose 103 mg/dL (70-99); Potassium 3.9 mmol/L (3.3-5.1); Pro- Brain NATRIURETIC PEPTIDE 1282 pg/mL (<=1800)
[2024-12-13 17:08] LABS: KEPPRA (LEVETIRACETAM) 12.8 ug/mL (10.0-40.0)
== END ==
LOC: OLS.ACW400 05:00
PROVIDERS: Visit Provider Family Medicine
DX: Z79.899 Other long term (current) drug therapy (principal); G93.41 Metabolic encephalopathy; N39.0 Urinary tract infection, site not specified; E11.65 Type 2 diabetes mellitus with hyperglycemia; F33.3 Major depressive disorder, recurrent, severe with psychotic symptoms
CPT/HCPCS: 36415; 80048; 80177; 83880

== ENCOUNTER → 2024-12-19 05:00 | Outpatient (REF) | payer MEDICARE, SELFPAY ==
[2024-12-19 09:23] LABS: Hematocrit 32.8 % (40-54); Hemoglobin 10.9 g/dL (13.0-16.5); Mean Corp Hgb Conc 33.2 g/dL (32-36); Mean Corpuscular Volume 93.4 fL (80-94); Mean Platelet Vol. 10.3 fl (6.2-12.0); Platelet Count 295 K/mm3 (150-450); RBC Distribution Width CV 13.9 % (11.6-14.6); RBC Distribution Width SD 47.2 fl (35.1-43.9); Red Blood Count 3.51 M/mm3 (4.6-6.2); White Blood Count 5.3 K/mm3 (4.4-11.0)
[2024-12-19 10:07] LABS: AST(SGOT) 16 U/L (<=37); Alanine Aminotransfer ALT/SGPT 10 U/L (<=46); Albumin, Serum 3.8 g/dL (3.4-4.8); Alkaline Phosphatase 72 U/L (40-129); Anion Gap 10 (5-15); BUN 22 mg/dL (4-19); BUN/Creat Ratio 27.0 RATIO (10-20); Bilirubin, Direct 0.23 mg/dL (0.00-0.30); Calcium,Total 8.8 mg/dL (7.6-11.0); Carbon Dioxide 24.9 mmol/L (21.0-32.0); Chloride 106 mmol/L (98-108); Cholesterol 106 mg/dL (<=200); Globulin 3.2 g/dL (2.2-4.2); Glucose 100 mg/dL (70-99); Low Density Lipoprotein Calc. 50 mg/dL; Potassium 4.6 mmol/L (3.3-5.1); Triglycerides 70 mg/dL; Very Low Density Lipoprotein 14 mg/dL (5-40); cholesterol:hdl ratio screen 2.51
[2024-12-19 10:48] LABS: Vitamin D,25 Hydroxy 45.5 ng/mL (30-100)
== END ==
LOC: OLS.ACW400 05:00
PROVIDERS: Visit Provider Family Medicine
DX: N39.0 Urinary tract infection, site not specified (principal); G93.41 Metabolic encephalopathy; A41.9 Sepsis, unspecified organism; E73.9 Lactose intolerance, unspecified; E11.65 Type 2 diabetes mellitus with hyperglycemia; F33.3 Major depressive disorder, recurrent, severe with psychotic symptoms
CPT/HCPCS: 36415; 80053; 80061; 82248; 82306; 83036; 84443; 85027